=== PATIENT | female | born 1930 | race African-American/Black ===

== ENCOUNTER 2016-09-10 17:01 | Inpatient (IN) | payer OTHER ==
[2016-09-10] MEDS ORDERED: SODIUM CHLORIDE 1,000 ML IV STA ×2 (17:53→21:16)
[2016-09-10] MEDS ORDERED: ONDANSETRON 4 MG/2 ML VIAL ONE (18:05)
[2016-09-10 18:22] LABS: BASOPHIL 0.1 % (0-2.0); EOSINOPHIL 0.2 % (0-4.5); MCH 27.9 pg (25.7-33.7); MCHC 31.8 g/dl (32.0-36.0); MEAN CELL VOLUME 87.8 fl (80-96); MEAN PLT VOLUME 8.9 fl (7.5-11.1); NEUTROPHILS 87.6 % (42.8-82.8); PLATELET COUNT 399 K/MM3 (134-434); RDW 19.2 % (11.6-15.6); WHITE BLOOD COUNT 17.8 K/mm3 (4.0-10.0)
[2016-09-10] MEDS ORDERED: SODIUM CHLORIDE 500 ML IV STA (18:44)
--- NOTE | 2016-09-10 18:47 | PDOC ---
History of Present Illness - General History Source: Patient Exam Limitations: No Limitations - History of Present Illness Initial Comments: 09/10/16 19:01 The patient is a 85 year old female, with a significant past medical history of Aortic Valve disorder, anemia, COPD, CHF, CVA, CAD s/p stents, HTN, Hypercholesterolemia, ovarian ca who presents to the emergency department via EMS from [facility] with nausea, vomiting, constipation and abdominal distention. She reports 3 episodes of vomiting today and 5 days of constipation. The patient denies any chest pain, cough, diaphoresis, chest palpitations diarrhea. Allergies: NKA Past surgical history: Right hip replacement and Cardiac stents placed Social history: None PCP: Dr. Roman <Asia Wall - Last Filed: 09/10/16 19:02> <Brandon Anguiano - Last Filed: 09/10/16 22:25> - General Chief Complaint: Pain Stated Complaint: SBO, HYPOTENSION Time Seen by Provider: 09/10/16 17:47 Past History <Asia Wall - Last Filed: 09/10/16 19:02> - Past Medical History Anemia: Yes Cancer: Yes (Ovary & uterine Adnexa) Cardiac Disorders: Yes (aortic valve disorder) CVA: Yes COPD: Yes CHF: Yes HTN: Yes Hypercholesterolemia: Yes - Surgical History Abdominal Surgery: Yes Cardiac Surgery: Yes (stents x 2) Lung Surgery: No Orthopedic Surgery: Yes (right hip replacement) - Immunization History Immunization Up to Date: Yes - Psycho/Social/Smoking Cessation Hx Anxiety: No Suicidal Ideation: No Smoking History: Former smoker Have you smoked in the past 12 months: No Number of Cigarettes Smoked Daily: 0 Information on smoking cessation initiated: No Hx Alcohol Use: No Drug/Substance Use Hx: No Substance Use Type: None Hx Substance Use Treatment: No <Brandon Anguiano - Last Filed: 09/10/16 22:25> - Past Medical History Allergies/Adverse Reactions: Allergies Allergy/AdvReac Type Severity Reaction Status Date / Time No Known Allergies Allergy Verified 12/13/15 17:55 Home Medications: Ambulatory Orders Aa/Hydrolyzed Collagen, Whey [Lps Neutral Flavor Liquid] 30 ml PO BID 12/13/15 Acetaminophen [Pain Relief] 650 mg PO Q4H 12/13/15 Ascorbic Acid [Vitamin C] 500 mg PO DAILY 12/13/15 Aspirin [ASA -] 81 mg PO DAILY 12/13/15 Lisinopril [Zestril] 5 mg PO DAILY 12/13/15 Multivitamin [Zoo Chews] 1 each PO DAILY 12/13/15 Oxybutynin Chloride 10 mg PO DAILY 12/13/15 Hydralazine HCl 50 mg PO DAILY 09/10/16 Menthol/Zinc Oxide [Calmoseptine Ointment] 71 gm TP DAILY 09/10/16 Metoclopramide HCl [Reglan] 5 mg PO TID PRN 09/10/16 Nifedipine [Nifedipine ER] 60 mg PO DAILY 09/10/16 Polyethylene Glycol 3350 [Miralax (For Daily Use) -] 17 gm PO DAILY PRN Review of Systems - Review of Systems Able to Perform ROS?: Yes Comments:: 09/10/16 19:01 CONSTITUTIONAL: No fever, no chills, no fatigue EYES: No visual changes ENT: No ear pain, no sore throat CARDIOVASCULAR: No chest pain, no palpitations RESPIRATORY: No cough, no SOB GI: (+)nausea, vomiting, abdominal distention, abdominal pain, constipation. no diarrhea GENITOURINARY: No dysuria, no frequency, no hematuria MUSCULOSKELETAL: No back pain, no joint pain, no myalgias SKIN: No rash NEURO: No headache <Asia Wall - Last Filed: 09/10/16 19:02> *Physical Exam - Vital Signs Last Vital Signs Temp Pulse Resp BP Pulse Ox 97.1 F L 69 26 H 107/67 97 09/10/16 17:28 09/10/16 18:52 09/10/16 18:52 09/10/16 18:52 09/10/16 18:52 <Asia Wall - Last Filed: 09/10/16 19:02> - Vital Signs Last Vital Signs Temp Pulse Resp BP Pulse Ox 97.1 F L 70 20 90/69 89 L 09/10/16 17:28 09/10/16 17:28 09/10/16 17:28 09/10/16 17:28 09/10/16 17:28 - Physical Exam Comments: 09/10/16 18:42 EXAMINATION CONSTITUTIONAL: Awake and alert, well-nourished, in moderate distress HEAD: Normocephalic; atraumatic EYES: PERRL; EOM intact; no scleral icterus; conjunctivae were pink; ENMT: External appears normal; mucous membranes are dry; NECK: Supple; non-tender; no JVD CARD: Normal S1, S2; no murmurs, rubs, or gallops RESP: Normal chest excursion with respiration; breath sounds clear and equal bilaterally; no wheezes, rhonchi, or rales ABD: Soft, distended; + diffusely tender to palpation all 4 quadrants; tympanitic; with hyperactive bowel sounds in all 4 quadrants; no palpable organomegaly, no palpable hernias EXT: No edema; limited range of motion at the right hip; distal pulses intact SKIN: Warm, dry, no rash NEURO: No focal neurological deficiencies. <Brandon Anguiano - Last Filed: 09/10/16 22:25> Heart Score/ECG Review #1 09/10/16 19:02 Atrial-sensed ventricular paced rhythm with prolonged AV conduction Abnormal ECG Vent rate 70 <Asia Wall - Last Filed: 09/10/16 19:02> ED Treatment Course - LABORATORY CBC & Chemistry Diagram: 09/10/16 17:35 09/10/16 17:29 - ADDITIONAL ORDERS Additional order review: 09/10/16 17:35 RBC 4.01 MCV 87.8 MCHC 31.8 L RDW 19.2 H D MPV 8.9 Neutrophils % 87.6 H D Lymphocytes % 5.3 L D Monocytes % 6.8 Eosinophils % 0.2 D Basophils % 0.1 - Medications Given in the ED: ED Medications Discontinued Medications Generic Name Dose Route Start Last Admin Trade Name Freq PRN Reason Stop Dose Admin Sodium Chloride 1,000 mls @ 1,000 mls/hr 09/10/16 17:53 09/10/16 18:09 Normal Saline - IV 09/10/16 18:52 1,000 mls/hr ASDIR STA Administration Ondansetron HCl 8 mg 09/10/16 18:55 09/10/16 18:55 Zofran Injection IVPB 09/10/16 18:56 8 mg NOW ONE Administration <Asia Wall - Last Filed: 09/10/16 19:02> - LABORATORY CBC & Chemistry Diagram: 09/10/16 17:35 09/10/16 17:29 - RADIOLOGY Radiology Studies Ordered: Category Date Time Status CHEST X-RAY PORTABLE* [RAD] Stat Radiology 09/10/16 17:48 Taken KUB (KID UR & BLAD) [RAD] Stat Radiology 09/10/16 17:48 Taken <Brandon Anguiano - Last Filed: 09/10/16 22:25> Medical Decision Making - Medical Decision Making 09/10/16 18:44 KUB revealed dilated loops of small bowel with significant abdominal distention suggestive an SBO. NG tube was placed and approximately 2200 mL of fecaloid material was aspirated. Will obtain CT that and pelvis with by mouth contrast to evaluate for small bowel obstruction. 09/10/16 21:43 CT of abdomen and pelvis reveals fluid and air filled dilated loops of small bowel with a transition zone in the right lower quadrant consistent with an SBO. No mass lesions are identified. Patient's received 2000 male of normal saline, while NG tube suctioning has aspirated approximately 3700 mL of fecaloid material. Will continue to aggressively resuscitate the patient. cbc reveals significant leukocytosis with neutrophilia. CMP reveals worsening renal fx, c/w ARF, likley prerenal. Initial lactic acid was noted to be 4. Repeat lactic acid is minimally decreased. Case discussed with Dr. Larson of surgery. He'll evaluate the patient. I also spoke with the patient's granddaughter thom Cobos, who is the patient's healthcare Proxy. She agrees with the plan of care at this time. Will continue to fluid resuscitate. Patient has received IV antibiotics. Will admit to med/surge. 09/10/16 22:23 Patient is receiving third liter of normal saline at this time. NG suction has aspirated additional 500 mL of fecal-like material. We'll continue to hydrate. At this time, no significant urine output has been produced. <Brandon Anguiano - Last Filed: 09/10/16 22:25> *DC/Admit/Observation/Transfer - Attestations Scribe Attestion: 09/10/16 19:01 Documentation prepared by THALIA Oliva, acting as emergency medical service manager for Brandon Anguiano MD. <Asia Wall - Last Filed: 09/10/16 19:02> - Discharge Dispostion Admit: Yes - Attestations Physician Attestion: 09/10/16 21:40 The documentation was prepared by the scribe under my direct supervision. I have reviewed the documentation which correctly represents the findings, medical decision-making and critical action taken by me. <Brandon Anguiano - Last Filed: 09/10/16 22:25> Diagnosis at time of Disposition: Small bowel obstruction due to adhesions - Referrals Referrals: Dulce Roman MD [Primary Care Provider] -
[2016-09-10] MEDS ORDERED: ONDANSETRON 4 MG/2 ML VIAL IVPB ONE (18:55)
[2016-09-10 19:03] LABS: ALBUMIN 2.8 g/dl (3.4-5.0); BILIRUBIN,TOTAL 0.6 mg/dL (0.2-1.0); CALCIUM 9.7 mg/dL (8.5-10.1); COCKROFT - GAULT 16.7195; CREATININE 3.1 mg/dL (0.55-1.02); TOT PROT 9.2 g/dl (6.4-8.2)
[2016-09-10] MEDS ORDERED: PIPERACILLIN/TAZOB 3.375 GM/50 ML PRE-DOCKED IV ONE (19:03)
[2016-09-10] MEDS ORDERED: PIPERACILLIN/TAZOB 3.375 GM 50 ML IVPB ONE (19:10)
[2016-09-10 19:18] LABS: INR 1.16 (0.82-1.09); PROTHROMBIN TIME (PATIENT) 12.8 SEC (9.98-11.88)
[2016-09-10 19:19] LABS: TROPONIN I 0.7 ng/ml (0.00-0.05)
[2016-09-10 19:54] LABS: URINE APPEARANCE TURBID; URINE BILIRUBIN NEGATIVE (NEGATIVE); URINE BLOOD NEGATIVE (NEGATIVE); URINE COLOR YELLOW; URINE GLUCOSE (UA) NEGATIVE (NEGATIVE); URINE KETONE NEGATIVE (NEGATIVE); URINE NITRITE NEGATIVE (NEGATIVE); URINE UROBILINOGEN 2.0 E.U/dl E.U./dl (0.2-1.0)
[2016-09-10 19:57] LABS: URINE LEUK ESTERASE 2+ (NEGATIVE); URINE PROTEIN 2+ (NEGATIVE)
[2016-09-10] MEDS ORDERED: SODIUM CHLORIDE 1,000 ML IV SCH ×3 (20:15→23:03)
[2016-09-10 20:17] LABS: URINE BACTERIA MANY /hpf (NONE SEEN); URINE MUCUS FEW; URINE RBC 42 /hpf (0-3); URINE WBC 530 /hpf (3-5); YEAST MANY
--- NOTE | 2016-09-10 21:25 | HP ---
CHIEF COMPLAINT: Nausea, Vomiting, Abdominal Distention, Constipation PCP: Dr. Dulce Roman HISTORY OF PRESENT ILLNESS: This is a 85 y/o woman with a significant medical history of CVA, CAD (?PAF), HTN, Aortic Valve Disorder, HLD, [place], Anemia, CKD, COPD (Former Smoker, quit 40 yrs ago), GI Bleed, Ovarian Ca, Hemiparesis. Sent in from [facility] for N/V x 3days, constipation x 5days, abdominal distention. Patient had abdominal xray earlier today- dilated loops. Patient denies fever, chills, cough , SOB, CP, AP, diarrhea ER course was notable for: (1) KUB- dilated loops (2) CTAP- fluid/air distended small bowel loops- SBO (3) WBC 17.8 Recent Travel: None PAST MEDICAL HISTORY: See HPI PAST SURGICAL HISTORY: Pacemaker Cardiac Stent Carotid Endarterectomy Hysterectomy Tubal Ligation Right Hip Replacement Social History: Smoking: Former, over 40 yrs ago Alcohol: None Drugs: None Resides in [facility], non-ambulatory Family History: Unknown Allergies No Known Allergies Allergy (Verified 12/13/15 17:55) HOME MEDICATIONS: Home Medications Medication Instructions Recorded Aa/Hydrolyzed Collagen, Whey [Lps 30 ml PO BID 12/13/15 Neutral Flavor Liquid] Acetaminophen [Pain Relief] 650 mg PO Q4H 12/13/15 Ascorbic Acid [Vitamin C] 500 mg PO DAILY 12/13/15 Aspirin [ASA -] 81 mg PO DAILY 12/13/15 Lisinopril [Zestril] 5 mg PO DAILY 12/13/15 Multivitamin [Zoo Chews] 1 each PO DAILY 12/13/15 Oxybutynin Chloride 10 mg PO DAILY 12/13/15 Hydralazine HCl 50 mg PO DAILY 09/10/16 Menthol/Zinc Oxide [Calmoseptine 71 gm TP DAILY 09/10/16 Ointment] Metoclopramide HCl [Reglan] 5 mg PO TID PRN 09/10/16 Nifedipine [Nifedipine ER] 60 mg PO DAILY 09/10/16 Polyethylene Glycol 3350 [Miralax 17 gm PO DAILY PRN 09/10/16 (For Daily Use) -] REVIEW OF SYSTEMS CONSTITUTIONAL: Absent: fever, chills, diaphoresis, generalized weakness, malaise, loss of appetite, weight change HEENT: Absent: rhinorrhea, nasal congestion, throat pain, throat swelling, difficulty swallowing, mouth swelling, ear pain, eye pain, visual changes CARDIOVASCULAR: Absent: chest pain, syncope, palpitations, irregular heart rate, lightheadedness , peripheral edema RESPIRATORY: Absent: cough, shortness of breath, dyspnea with exertion, orthopnea, wheezing, stridor, hemoptysis GASTROINTESTINAL: abdominal distension, nausea, vomiting, constipation Absent: abdominal pain, diarrhea, melena, hematochezia GENITOURINARY: Absent: dysuria, frequency, urgency, hesitancy, hematuria, flank pain, genital pain MUSCULOSKELETAL: Absent: myalgia, arthralgia, joint swelling, back pain, neck pain SKIN: Absent: rash, itching, pallor HEMATOLOGIC/IMMUNOLOGIC: Absent: easy bleeding, easy bruising, lymphadenopathy, frequent infections ENDOCRINE: Absent: unexplained weight gain, unexplained weight loss, heat intolerance, cold intolerance NEUROLOGIC: Absent: headache, focal weakness or paresthesias, dizziness, unsteady gait, seizure, mental status changes, bladder or bowel incontinence PSYCHIATRIC: Absent: anxiety, depression, suicidal or homicidal ideation, hallucinations. PHYSICAL EXAMINATION Vital Signs - 24 hr 09/10/16 09/10/16 09/10/16 17:28 18:52 20:08 Temperature 97.1 F L Pulse Rate 70 Pulse Rate [ 69 71 Apical] Respiratory 20 26 H 24 Rate Blood Pressure 90/69 Blood Pressure 107/67 110/60 [Right Arm] O2 Sat by Pulse 89 L 97 96 Oximetry (%) GENERAL: Awake, alert, and fully oriented, in no acute distress. HEAD: Normal with no signs of trauma. EYES: Pupils equal, round and reactive to light, extraocular movements intact, sclera anicteric, conjunctiva clear. No lid lag. EARS, NOSE, THROAT: Dry mucous membranes. NGT to right nare. Ears normal, nares patent, oropharynx clear without exudates. NECK: Normal range of motion, supple without lymphadenopathy, JVD, or masses. LUNGS: Breath sounds equal, clear to auscultation bilaterally. No wheezes, and no crackles. No accessory muscle use. HEART: Regular rate and rhythm, normal S1 and S2 without murmur, rub or gallop. ABDOMEN: Firm, tenderness to RUQ to palpation, distended, hypoactive bowel sounds, no guarding, no rebound, no masses. No hepatomegaly or splenomegaly. GENITOURINARY: Stokes catheter with 30cc dark brown urine drainage bag MUSCULOSKELETAL: Limited range of motion LUE/LLE joints, contracture to RLE. No bony deformities or tenderness. No CVA tenderness. UPPER EXTREMITIES: 2+ pulses, warm, well-perfused. No cyanosis. No clubbing. No peripheral edema. LOWER EXTREMITIES: +1/2 R >L pulses, right extremity cool to touch. No calf tenderness. No peripheral edema. NEUROLOGICAL: Cranial nerves II-XII intact. Normal speech. Gait not assessed- non ambulatory. PSYCHIATRIC: Cooperative. Good eye contact. Appropriate mood and affect. SKIN: Warm, dry, normal turgor, no rashes. Stage II pressure ulcers, left buttock healed 4.3cm, right buttock 9.5x 14cm noted, normal capillary refill. Laboratory Results - last 24 hr 09/10/16 09/10/16 09/10/16 17:29 17:29 17:29 WBC RBC Hgb Hct MCV MCHC RDW Plt Count MPV Neutrophils % Lymphocytes % Monocytes % Eosinophils % Basophils % INR 1.16 H Sodium 139 Potassium 5.0 Chloride 86 L D Carbon Dioxide 35 H D Anion Gap 18 H BUN 69 H D Creatinine 3.1 H D Creat Clearance w eGFR 14.28 Random Glucose 125 H D Lactic Acid Calcium 9.7 Total Bilirubin 0.6 D AST 25 D ALT 18 D Alkaline Phosphatase 102 D Creatine Kinase 94 Troponin I 0.70 H* Total Protein 9.2 H Albumin 2.8 L Urine Color Urine Appearance Urine pH Urine Protein Urine Glucose (UA) Urine Ketones Urine Blood Urine Nitrite Urine Bilirubin Urine Urobilinogen Ur Leukocyte Esterase Urine RBC Urine WBC Ur Epithelial Cells Urine Bacteria Urine Mucus Urine Yeast Blood Type O POSITIVE Antibody Screen Negative 09/10/16 09/10/16 09/10/16 17:35 17:48 18:52 WBC 17.8 H D RBC 4.01 Hgb 11.2 Hct 35.2 MCV 87.8 MCHC 31.8 L RDW 19.2 H D Plt Count 399 D MPV 8.9 Neutrophils % 87.6 H D Lymphocytes % 5.3 L D Monocytes % 6.8 Eosinophils % 0.2 D Basophils % 0.1 INR Sodium Potassium Chloride Carbon Dioxide Anion Gap BUN Creatinine Creat Clearance w eGFR Random Glucose Lactic Acid 4.0 H* Calcium Total Bilirubin AST ALT Alkaline Phosphatase Creatine Kinase Troponin I Total Protein Albumin Urine Color Yellow Urine Appearance Turbid Urine pH 5.0 Urine Protein 2+ H Urine Glucose (UA) Negative Urine Ketones Negative Urine Blood Negative Urine Nitrite Negative Urine Bilirubin Negative Urine Urobilinogen 2.0 e.u/dl H Ur Leukocyte Esterase 2+ H Urine RBC 42 Urine WBC 530 Ur Epithelial Cells Many Urine Bacteria Many Urine Mucus Few Urine Yeast Many Blood Type Antibody Screen Heart Score/ECG Review #1 09/10/16 19:02 Atrial-sensed ventricular paced rhythm with prolonged AV conduction Abnormal ECG Vent rate 70 ASSESSMENT/PLAN: This is a 85 y/o woman with a PMHx of: CVA, CAD(?PAF), HTN, [place], PM, Anemia, COPD , GI Bleed, Ovarian Ca, Cardiac Stent. Admitted for SBO, Acute on Chronic Renal Failure for further evaluation of their emergent condition. Plan: 1. GI: SBO - Likely secondary to adhesions - NGT placed in ED 2L fecal content, now 500ml noted in drainage container. Patient reports feeling better since NGT placement - Appreciate Surgical Consult - WBC with L-shift, afebrile - LA 4.0~3.3 - NS bolus given in ED - Will trend LA until wnl - Continue gentle IVF- concern for fluid overloaded/age related - Zosyn given in ED, will continue - Monitor vitals 2. Acute on Chronic Renal failure - Likely secondary to SBO - Baseline Cr 1.2~1.6, Now 3.1 - Given 3L NS bolus in ED - Will continue IVF - Repeat BMP in am, if not improvement in renal status, consider Nephrology Consult for recommendations - Bladder Scan tonight - Monitor vitals 3. Sepsis - Likely secondary to UTI - Sepsis Criteria Met III - qSOFA 2 - Urine Culture-pending - Blood Cultures x2 ordered - NS bolus given in ED - Will trend lactic acid - Started on Zosyn empirically, will continue - Monitor vitals 4. UTI - Urine Culture- pending - Continue Zosyn renal dosing 5. Lactic Acidemia - See Above 6. Elevated Troponin I - Hx elevated Trop I, likely ischemic demand - Patient denies active chest pain - Serial Enzymes x2 - EKG- reviewed - Consider Cardiology Consult if surgical clearance needed, f/u in outpatient upon d/c 7. Hypertension - Received to ED hypotensive sys BP 90s - Given NS boluses in ED- sys BP 100's - Hold home meds for now, continue to monitor BP 8. COPD - Stable - Chest Xray-reviewed - Duonebs prn - O2 9. Anemia - Hgb to baseline - Transfuse if Hgb < 7.0 10. FEN - NS@63cc/hr - Replete lytes prn - NPO 11. DVT Prophylaxis - SCDs - Heparin SQ (monitor H/H closely) Code Status: DNR, Living Will, HCP- Teresa Anderson, grand-daughter ([phone]) Dispo: Requires Inpatient Care Problem List - Problem (1) Small bowel obstruction due to adhesions Code(s): K56.5 - INTESTINAL ADHESIONS W OBST (POSTPROCEDURAL) (POSTINFECTION) (2) Elevated troponin Code(s): R79.89 - OTHER SPECIFIED ABNORMAL FINDINGS OF BLOOD CHEMISTRY (3) Acute kidney injury superimposed on chronic kidney disease Code(s): N17.9 - ACUTE KIDNEY FAILURE, UNSPECIFIED N18.9 - CHRONIC KIDNEY DISEASE, UNSPECIFIED (4) Hypotension Code(s): I95.9 - HYPOTENSION, UNSPECIFIED (5) Hypertension Code(s): I10 - ESSENTIAL (PRIMARY) HYPERTENSION (6) CAD (coronary artery disease) Code(s): I25.10 - ATHSCL HEART DISEASE OF [place] CORONARY ARTERY W/O ANG PCTRS (7) HLD (hyperlipidemia) Code(s): E78.5 - HYPERLIPIDEMIA, UNSPECIFIED (8) Anemia Code(s): D64.9 - ANEMIA, UNSPECIFIED (9) COPD (chronic obstructive pulmonary disease) Code(s): J44.9 - CHRONIC OBSTRUCTIVE PULMONARY DISEASE, UNSPECIFIED (10) Type II diabetes mellitus Code(s): E11.9 - TYPE 2 DIABETES MELLITUS WITHOUT COMPLICATIONS (11) H/O ovarian cancer Code(s): Z85.43 - PERSONAL HISTORY OF MALIGNANT NEOPLASM OF [place] (12) DVT prophylaxis Code(s): FJA2462 - Visit type - Emergency Visit Emergency Visit: Yes ED Registration Date: 09/10/16 Care time: The patient presented to the Emergency Department on the above date and was hospitalized for further evaluation of their emergent condition. - New Patient This patient is new to me today: Yes Date on this admission: 09/10/16 - Critical Care Critical Care patient: No
[2016-09-10] MEDS ORDERED: ONDANSETRON 4 MG/2 ML VIAL IVPUSH PRN (21:38)
[2016-09-10] MEDS ORDERED: HEPARIN NA (PORCINE) 5,000 UNITS/ML 1ML VIAL SQ SCH (22:00)
[2016-09-11] MEDS ORDERED: PIPERACILLIN/TAZOB 2.25 GM/50 ML PRE-DOCKED BAG IVPB ONE (02:00)
[2016-09-11] MEDS ORDERED: PIPERACILLIN/TAZOB 2.25 GM 2.25 GM in DEXTROSE 5%-WATER - 50 ML IVPB SCH ×2 (02:00→10:00)
[2016-09-11 03:37] LABS: TROPONIN I 0.65 ng/ml (0.00-0.05)
[2016-09-11] MEDS ORDERED: SODIUM CHLORIDE 250 ML IV STA (06:17)
[2016-09-11] MEDS ORDERED: SODIUM CHLORIDE 500 ML IV STA (06:25)
--- NOTE | 2016-09-11 06:55 | HOSP ---
Subjective - Review of Symptoms Events since last encounter: Hospital Encounter Notified by primary RN of the patient's BP 89/38, after 3.5L NS bolus, with minimal urine output. Concern for worsening Sepsis Discussed case with Dr. Frost, who accepted the patient for ICU Informed the primary RN, Nursing Back Padder of the transfer order Ordered NS Bolus 500cc Physical Examination Vital Signs: Vital Signs Temperature 100 F H 09/11/16 03:16 Pulse Rate 74 09/11/16 03:16 Respiratory Rate 20 09/11/16 03:16 Blood Pressure 97/38 09/11/16 03:16 O2 Sat by Pulse Oximetry (%) 99 09/10/16 23:50 Constitutional: Yes: No Distress, Calm, Obese Eyes: Yes: Conjunctiva Clear, PERRL HENT: Yes: WNL, Atraumatic, Normocephalic Neck: Yes: WNL, Supple, Trachea Midline Cardiovascular: Yes: Pulse Irregular (PM), S1, S2 Respiratory: Yes: On Nasal O2, Rhonchi (to apex) Gastrointestinal: Yes: Distention, Hypoactive Bowel Sounds, Other (NGT to low suction with fecal content 1000ml) Renal/: Yes: Stokes Present (dark brown urine 50cc noted in drainage bag) Edema: No Peripheral Pulses WNL: Yes Neurological: Yes: Alert, Oriented Psychiatric: Yes: WNL, Alert, Oriented Labs: Laboratory Results - last 24 hr 09/10/16 09/10/16 09/10/16 17:29 17:29 17:29 WBC RBC Hgb Hct MCV MCHC RDW Plt Count MPV Neutrophils % Lymphocytes % Monocytes % Eosinophils % Basophils % INR 1.16 H Sodium 139 Potassium 5.0 Chloride 86 L D Carbon Dioxide 35 H D Anion Gap 18 H BUN 69 H D Creatinine 3.1 H D Creat Clearance w eGFR 14.28 Random Glucose 125 H D Lactic Acid Calcium 9.7 Total Bilirubin 0.6 D AST 25 D ALT 18 D Alkaline Phosphatase 102 D Creatine Kinase 94 Troponin I 0.70 H* Total Protein 9.2 H Albumin 2.8 L Urine Color Urine Appearance Urine pH Ur Specific [place] Urine Protein Urine Glucose (UA) Urine Ketones Urine Blood Urine Nitrite Urine Bilirubin Urine Urobilinogen Ur Leukocyte Esterase Urine RBC Urine WBC Ur Epithelial Cells Urine Bacteria Urine Mucus Urine Yeast Blood Type O POSITIVE Antibody Screen Negative 09/10/16 09/10/16 09/10/16 17:35 17:48 18:52 WBC 17.8 H D RBC 4.01 Hgb 11.2 Hct 35.2 MCV 87.8 MCHC 31.8 L RDW 19.2 H D Plt Count 399 D MPV 8.9 Neutrophils % 87.6 H D Lymphocytes % 5.3 L D Monocytes % 6.8 Eosinophils % 0.2 D Basophils % 0.1 INR Sodium Potassium Chloride Carbon Dioxide Anion Gap BUN Creatinine Creat Clearance w eGFR Random Glucose Lactic Acid 4.0 H* Calcium Total Bilirubin AST ALT Alkaline Phosphatase Creatine Kinase Troponin I Total Protein Albumin Urine Color Yellow Urine Appearance Turbid Urine pH 5.0 Ur Specific [place] 1.015 Urine Protein 2+ H Urine Glucose (UA) Negative Urine Ketones Negative Urine Blood Negative Urine Nitrite Negative Urine Bilirubin Negative Urine Urobilinogen 2.0 e.u/dl H Ur Leukocyte Esterase 2+ H Urine RBC 42 Urine WBC 530 Ur Epithelial Cells Many Urine Bacteria Many Urine Mucus Few Urine Yeast Many Blood Type Antibody Screen 09/10/16 09/11/16 09/11/16 20:41 01:15 01:35 WBC RBC Hgb Hct MCV MCHC RDW Plt Count MPV Neutrophils % Lymphocytes % Monocytes % Eosinophils % Basophils % INR Sodium Potassium Chloride Carbon Dioxide Anion Gap BUN Creatinine Creat Clearance w eGFR Random Glucose Lactic Acid 3.3 H* 2.0 Calcium Total Bilirubin AST ALT Alkaline Phosphatase Creatine Kinase 117 Troponin I 0.65 H* Total Protein Albumin Urine Color Urine Appearance Urine pH Ur Specific [place] Urine Protein Urine Glucose (UA) Urine Ketones Urine Blood Urine Nitrite Urine Bilirubin Urine Urobilinogen Ur Leukocyte Esterase Urine RBC Urine WBC Ur Epithelial Cells Urine Bacteria Urine Mucus Urine Yeast Blood Type Antibody Screen Current Medications Generic Name Dose Route Start Last Admin Trade Name Freq PRN Reason Stop Dose Admin Heparin Sodium (Porcine) 5,000 unit 09/10/16 22:00 09/11/16 01:55 Heparin - SQ Not Given BID ELSIE Sodium Chloride 1,000 mls @ 63 mls/hr 09/10/16 23:03 09/11/16 02:08 Normal Saline - IV 63 mls/hr ASDIR ELSIE Administration Piperacillin Sod/Tazobactam 50 mls @ 100 mls/hr 09/11/16 02:00 Sod 2.25 gm/ Dextrose IVPB Q8H-IV ELSIE Protocol Sodium Chloride 500 mls @ 500 mls/hr 09/11/16 06:25 Normal Saline - IV 09/11/16 07:24 ASDIR STA Ondansetron HCl 4 mg 09/10/16 21:38 Zofran Injection IVPUSH Q6H PRN NAUSEA AND/OR VOMITING Hospitalist Encounter Recommendations/Interventions: Appreciate Nephrology Consult, Cardiology Consult, Hand Drawer In Consult Critical Care Total Critical Care Time (in minutes): 35 Critical Care Statement: The care of this patient involved high complexity decision making to prevent further life threatening deterioration of the patient 's condition and/or to evalute & treat vital organ system(s) failure or risk of failure.
[2016-09-11 07:39] VITALS: BMI 34.5
[2016-09-11 07:40] LABS: BASOPHIL 0.3 % (0-2.0); MCH 28.8 pg (25.7-33.7); MCHC 32.6 g/dl (32.0-36.0); MEAN CELL VOLUME 88.3 fl (80-96); MEAN PLT VOLUME 8.3 fl (7.5-11.1); NEUTROPHILS 88.8 % (42.8-82.8); PLATELET COUNT 279 K/MM3 (134-434); RDW 18.8 % (11.6-15.6); WHITE BLOOD COUNT 16.4 K/mm3 (4.0-10.0)
[2016-09-11] MEDS ORDERED: SODIUM CHLORIDE 1,000 ML IV SCH ×2 (07:50→10:50)
[2016-09-11] MEDS ORDERED: ONDANSETRON 4 MG/2 ML VIAL IVPUSH PRN (07:50)
[2016-09-11] MEDS ORDERED: ALBUTEROL SO4 2.5/IPRATROPIUM 0.5 INH SOL 3 ML VIAL.NEB. NEB PRN (08:13)
[2016-09-11 08:16] LABS: CALCIUM 8.1 mg/dL (8.5-10.1); COCKROFT - GAULT 13.7105; CREATININE 3.8 mg/dL (0.55-1.02); PHOSPHOROUS 5.5 mg/dL (2.5-4.9)
--- NOTE | 2016-09-11 08:51 | CONSULT ---
Consultation: REQUESTING PROVIDER: Lacey CONSULT REQUEST: We have been asked to medically evaluate this patient for small bowel obstruction & hypotension. HISTORY OF PRESENT ILLNESS: Patient is an 85 year old female with significant PMH of CVA w/ hemiparesis, CAD (?A-Fib), HTN, Aortic valve bioprosthetic, AR s/p stents, Anemia, GIB, CKD, COPD (former smoker), Ovarian Cancer who presented to ED from [facility] for nausea/ vomiting for last 3 days and constipation for last 5 days. Found to have dilated loops of bowel on KUB. CT abdomen/pelvis performed with showed small bowel obstruction. Patient also found with leukocytosis 17.8. PARIS with creatinine 3.1and with elevated lactic acid of 4.0. She also had an elevated troponin of 0.70 at admission. Urinalysis showed 2+ leukocyte esterase with >500 WBC. Patient initially admitted to [facility] for surgical consult, antibiotic administration & IVF hydration. This morning patient was noted to be hypotensive to 89/38 w/ poor urine output. This was despite 3.5L IVF given earlier. Decision made to transfer to ICU. REVIEW OF SYSTEMS: CONSTITUTIONAL: Absent: fever, chills, diaphoresis, generalized weakness, malaise, loss of appetite, weight change HEENT: Absent: rhinorrhea, nasal congestion, throat pain, throat swelling, difficulty swallowing, mouth swelling, ear pain, eye pain, visual changes CARDIOVASCULAR: Absent: chest pain, syncope, palpitations, irregular heart rate, lightheadedness , peripheral edema RESPIRATORY: Absent: cough, shortness of breath, dyspnea with exertion, orthopnea, wheezing, stridor, hemoptysis GASTROINTESTINAL: (+)abdominal pain, abdominal distension, nausea, constipation Absent: diarrhea, constipation, melena, hematochezia GENITOURINARY: Absent: dysuria, frequency, urgency, hesitancy, hematuria, flank pain, genital pain MUSCULOSKELETAL: Absent: myalgia, arthralgia, joint swelling, back pain, neck pain SKIN: Absent: rash, itching, pallor HEMATOLOGIC/IMMUNOLOGIC: Absent: easy bleeding, easy bruising, lymphadenopathy, frequent infections ENDOCRINE: Absent: unexplained weight gain, unexplained weight loss, heat intolerance, cold intolerance NEUROLOGIC: Absent: headache, focal weakness or paresthesias, dizziness, unsteady gait, seizure, mental status changes, bladder or bowel incontinence PSYCHIATRIC: Absent: anxiety, depression, suicidal or homicidal ideation, hallucinations. PHYSICAL EXAMINATION Vital Signs - 24 hr 09/10/16 09/10/16 09/10/16 21:58 23:14 23:50 Temperature 97.8 F Pulse Rate 72 Pulse Rate [ 71 73 Apical] Respiratory 20 22 Rate Blood Pressure 114/47 Blood Pressure 121/58 106/47 [Right Arm] O2 Sat by Pulse 99 Oximetry (%) 09/11/16 09/11/16 09/11/16 02:31 03:16 06:00 Temperature 100 F H 100 F H 99 F Pulse Rate 74 68 Pulse Rate [ Apical] Respiratory 20 20 Rate Blood Pressure 97/38 89/35 Blood Pressure [Right Arm] O2 Sat by Pulse Oximetry (%) GENERAL: Awake, alert, and fully oriented, in no acute distress. HEENT: Atraumatic, EOMI, PERRLA, No lymphadenopathy noted, dry mucous membranes LUNGS: Breath sounds equal, clear to auscultation bilaterally. No wheezes, and no crackles. No accessory muscle use. HEART: Regular rate and rhythm, normal S1 and S2 without murmur, rub or gallop. ABDOMEN: Soft, mildly tender to palpation diffusely & mildly distended. Hypoactive bowel sounds. No guarding or rebound tenderness. EXTREMITIES: 2+ pulses & warm on left LE, 1+pulses and cool to touch on right LE. No calf tenderness. Trace edema bilateral lower extremities. NEUROLOGICAL: Cranial nerves II-XII intact. Normal speech. Unable to assess gait. PSYCHIATRIC: Cooperative. Good eye contact. Appropriate mood and affect. SKIN: Stage II pressure ulcers, left buttock healed 4.3cm, right buttock 9.5x 14cm noted, normal capillary refill. Laboratory Results - last 24 hr 09/11/16 09/11/16 09/11/16 01:15 01:35 07:12 WBC 16.4 H RBC 3.41 L Hgb 9.8 L D Hct 30.1 L MCV 88.3 MCHC 32.6 RDW 18.8 H Plt Count 279 D MPV 8.3 Neutrophils % 88.8 H Lymphocytes % 3.3 L D Monocytes % 7.6 Eosinophils % 0.0 D Basophils % 0.3 Sodium Potassium Chloride Carbon Dioxide Anion Gap BUN Creatinine Random Glucose Lactic Acid 2.0 Calcium Phosphorus Magnesium Creatine Kinase 117 Troponin I 0.65 H* 09/11/16 09/11/16 07:12 07:12 WBC RBC Hgb Hct MCV MCHC RDW Plt Count MPV Neutrophils % Lymphocytes % Monocytes % Eosinophils % Basophils % Sodium 145 Potassium 4.9 Chloride 94 L Carbon Dioxide 37 H Anion Gap 14 BUN 87 H D Creatinine 3.8 H D Random Glucose 107 H Lactic Acid Calcium 8.1 L Phosphorus 5.5 H Magnesium 3.0 H Creatine Kinase 135 Troponin I Active Medications Generic Name Dose Route Start Last Admin Trade Name Freq PRN Reason Stop Dose Admin Albuterol/Ipratropium 1 amp 09/11/16 08:13 Duoneb - NEB Q6H PRN SHORTNESS OF BREATH Heparin Sodium (Porcine) 5,000 unit 09/11/16 10:00 09/11/16 10:31 Heparin - SQ 5,000 unit BID ELSIE Administration Piperacillin Sod/Tazobactam 50 mls @ 100 mls/hr 09/11/16 10:00 Sod 2.25 gm/ Dextrose IVPB Q8H-IV ELSIE Protocol Sodium Chloride 1,000 mls @ 100 mls/hr 09/11/16 10:50 Normal Saline - IV ASDIR ELSIE Ondansetron HCl 4 mg 09/11/16 07:50 Zofran Injection IVPUSH Q6H PRN NAUSEA AND/OR VOMITING ASSESSMENT/PLAN: 85 year old female with significant PMH of CVA w/ hemiparesis, CAD (?A-Fib), HTN , Aortic valve bioprosthetic, AR s/p stents, Anemia, GIB, CKD, COPD (former smoker), Ovarian Cancer who presented to ED from [facility] with small bowel obstruction & urosepsis. #Small Bowel Obstruction, etiology likely related to adhesions -NG tube with less output this morning (over 2L fecal content in ED) -surgical consult appreciated: family would like to avoid surgical interventions & proceed with medical management -lactic acid improved 4.0-->1.3 -NPO -Zofran for nausea -IVF NS@100 cc/hr for hydration #Acute Urosepsis, w/ Acute On Chronic Kidney Failure (baseline Cr ~1.6) -Zosyn ordered in ED -ID consulted -blood & urine cultures taken & pending -IVF, as above #Elevated Troponins -trending down -likely demand ischemia due to sepsis -will continue to monitor -EKG reviewed -cardiology consult appreciated #COPD -Duonebs QIDR -CXR reviewed #CAD/HTN/Cardiac hx -holding home meds: Aspirin 81mg, Lisinopril 5mg, Oxybutynin 10mg, Hydralazine 50mg, Nifedipine 60mg Prophylaxis/FEN -Heparin 5000 BID -No PPI indicated -IVF NS@100CC/hr -monitor electrolytes -NPO for now Code Status: DNR, Living Will, HCP- Teresa Anderson, grand-daughter ([phone]) Visit type - Emergency Visit Emergency Visit: Yes ED Registration Date: 09/10/16 Care time: The patient presented to the Emergency Department on the above date and was hospitalized for further evaluation of their emergent condition. - New Patient This patient is new to me today: Yes Date on this admission: 09/11/16 - Critical Care Critical Care patient: Yes Total Critical Care Time (in minutes): 45 Critical Care Statement: The care of this patient involved high complexity decision making to prevent further life threatening deterioration of the patient 's condition and/or to evalute & treat vital organ system(s) failure or risk of failure.
[2016-09-11 09:01] LABS: TROPONIN I 0.51 ng/ml (0.00-0.05)
--- NOTE | 2016-09-11 09:46 | EKG ---
Test Reason : Blood Pressure : / mmHG Vent. Rate : 070 BPM Atrial Rate : 070 BPM P-R Int : 276 ms QRS Dur : 150 ms QT Int : 470 ms P-R-T Axes : 058 265 084 degrees QTc Int : 507 ms Atrial-sensed ventricular-paced rhythm with prolonged AV conduction Confirmed by GALEN BAH MD ([id number]) on 09/11/2016 9:45:40 AM Referred By: Confirmed By:GALEN BAH MD
[2016-09-11] MEDS ORDERED: methylPREDNISolone NA SUCC 125 MG/2 ML VIAL ONE (09:51)
--- NOTE | 2016-09-11 10:04 | CONSULT ---
Consult Consult Specialty:: surgery Reason for Consultation:: sbo - History of Present Illness Chief Complaint: abd pain, History of Present Illness: pt is a 85F [place] brought into ER with abd pain and found to have SBO on CT. She has had approx 5 days symptoms. Show comes in with elevated lactate, luekocytosis, ARF and profound electrolyte derangements. Her NGT put out 4000cc yesterday and 1L so far today. Prior to this happening patient was mentally with it and conversant but wheelchair bound. Her stroke was in the 80's. I got this hx from her HCP. - Past Medical History [employer]: Yes: CVA Cardio/Vascular: Yes: CAD (? PAF), HTN, Hyperlipdemia, CA Pulmonary: Yes: COPD, Other (former smoker, quit 40 years ago) Gastrointestinal: Yes: Other (Remote h/o GI bleed, secondary to colon polyps ( per patient)) Musculoskeletal: Yes: Hemiparesis, Other - Past Surgical History Past Surgical History: Yes: Carotid Endarterectomy, Hysterectomy, Joint Replacement, Tubal Ligation - Alcohol/Substance Use Hx Alcohol Use: No History of Substance Use: reports: None - Smoking History Smoking history: Former smoker Have you smoked in the past 12 months: No Aproximately how many cigarettes per day: 0 - Social History Usual Living Arrangement: Assisted Living History of Recent Travel: No Home Medications - Allergies Allergies/Adverse Reactions: Allergies Allergy/AdvReac Type Severity Reaction Status Date / Time No Known Allergies Allergy Verified 12/13/15 17:55 - Home Medications Home Medications: Ambulatory Orders Aa/Hydrolyzed Collagen, Whey [Lps Neutral Flavor Liquid] 30 ml PO BID 12/13/15 Acetaminophen [Pain Relief] 650 mg PO Q4H 12/13/15 Ascorbic Acid [Vitamin C] 500 mg PO DAILY 12/13/15 Aspirin [ASA -] 81 mg PO DAILY 12/13/15 Lisinopril [Zestril] 5 mg PO DAILY 12/13/15 Multivitamin [Zoo Chews] 1 each PO DAILY 12/13/15 Oxybutynin Chloride 10 mg PO DAILY 12/13/15 Hydralazine HCl 50 mg PO DAILY 09/10/16 Menthol/Zinc Oxide [Calmoseptine Ointment] 71 gm TP DAILY 09/10/16 Metoclopramide HCl [Reglan] 5 mg PO TID PRN 09/10/16 Nifedipine [Nifedipine ER] 60 mg PO DAILY 09/10/16 Polyethylene Glycol 3350 [Miralax (For Daily Use) -] 17 gm PO DAILY PRN Review of Systems Unable to obtain ROS, reason: lethargy Physical Exam Vital Signs: Vital Signs Temperature 99 F 09/11/16 06:00 Pulse Rate 68 09/11/16 06:00 Respiratory Rate 20 09/11/16 06:00 Blood Pressure 89/35 09/11/16 06:00 O2 Sat by Pulse Oximetry (%) 99 09/10/16 23:50 Constitutional: Yes: Other (lethargic) Eyes: Yes: Other (open eyes to command) HENT: Yes: Atraumatic, Normocephalic Neck: Yes: Supple, Trachea Midline Cardiovascular: Yes: Regular Rate and Rhythm Respiratory: Yes: Regular Gastrointestinal: Yes: Soft, Distention (min mild, obese. min diffuse tenderness, no rebound.) ...Rectal Exam: Yes: Deferred Renal/: No: CVA Tenderness - Left, CVA Tenderness - Right Musculoskeletal: No: Back Pain, Joint Stiffness Extremities: No: Calf Tenderness, Erythema Integumentary: No: Erythema, Rash Neurological: Yes: Other (follows commands) Psychiatric: Yes: Alert Labs: CBC, BMP 09/11/16 07:12 09/11/16 07:12 Imaging - Results Cat Scan: Report Reviewed, Image Reviewed Problem List - Problems (1) Acute kidney injury superimposed on chronic kidney disease Code(s): N17.9 - ACUTE KIDNEY FAILURE, UNSPECIFIED N18.9 - CHRONIC KIDNEY DISEASE, UNSPECIFIED (2) Anemia Code(s): D64.9 - ANEMIA, UNSPECIFIED (3) H/O ovarian cancer Code(s): Z85.43 - PERSONAL HISTORY OF MALIGNANT NEOPLASM OF OVARY (4) Small bowel obstruction due to adhesions Assessment/Plan: patient would prefer to not have operative intervention. I spoke to HCP and we agree to cont medical management for now. cont NGT and aggressive IVF resusctiation. correct electrolytes consider NGT replacements as well explained pathophysiology of SBO and consequences of operative and nonoperative management to HCP. Code(s): K56.5 - INTESTINAL ADHESIONS W OBST (POSTPROCEDURAL) (POSTINFECTION) (5) PARIS (acute kidney injury) Code(s): N17.9 - ACUTE KIDNEY FAILURE, UNSPECIFIED (6) Non-STEMI (non-ST elevated myocardial infarction) Code(s): I21.4 - NON-ST ELEVATION (NSTEMI) MYOCARDIAL INFARCTION
[2016-09-11] MEDS: HEPARIN NA (PORCINE) 5,000 UNITS/ML 1ML VIAL SQ SCH ×2 (10:31→21:26)
--- NOTE | 2016-09-11 12:02 | CON.CARD ---
Cardiology Consult (text) - Consultation Consultation Note: cc: sent from ct for n/v/abd distention hpi: 85 f hx htn, cva, right cea, ?pafib (per charts, ac stopped in past for gib), cad s/p mi's and remote pci, tavr for several years ago, ppm 12/2015, sent from ct for n/v/abd distention. No cp, sob, palps, dizzy, loc, pnd, orthopnea, le edema. Found to have sepsis, sbo, now with NGT in icu. pmh: per hpi psh: per hpi, hip replacement social: ex tob fam: no premature cad ros: per hpi; no fever, cough, nasal congestion, MATSON, vision changes, rash, wt loss, muscle pain meds: Home Medications Medication Instructions Recorded Aa/Hydrolyzed Collagen, Whey [Lps 30 ml PO BID 12/13/15 Neutral Flavor Liquid] Acetaminophen [Pain Relief] 650 mg PO Q4H 12/13/15 Ascorbic Acid [Vitamin C] 500 mg PO DAILY 12/13/15 Aspirin [ASA -] 81 mg PO DAILY 12/13/15 Lisinopril [Zestril] 5 mg PO DAILY 12/13/15 Multivitamin [Zoo Chews] 1 each PO DAILY 12/13/15 Oxybutynin Chloride 10 mg PO DAILY 12/13/15 Hydralazine HCl 50 mg PO DAILY 09/10/16 Menthol/Zinc Oxide [Calmoseptine 71 gm TP DAILY 09/10/16 Ointment] Metoclopramide HCl [Reglan] 5 mg PO TID PRN 09/10/16 Nifedipine [Nifedipine ER] 60 mg PO DAILY 09/10/16 Polyethylene Glycol 3350 [Miralax 17 gm PO DAILY PRN 09/10/16 (For Daily Use) -] pe: Vital Signs Temp 99 F 09/11/16 06:00 Pulse 68 09/11/16 06:00 Resp 20 09/11/16 09:00 BP 89/35 09/11/16 06:00 Pulse Ox 99 09/11/16 09:00 Intake & Output 09/10/16 09/10/16 09/11/16 11:59 23:59 11:59 Intake Total 500 890 Output Total 4070 1000 Balance -3570 -110 Weight 177 lb Intake: IV 500 890 Normal Saline - 500 ml @ 500 500 mls/hr IV ASDIR STA Rx#:[id number] Normal Saline - 1,000 ml 390 @ 63 mls/hr IV ASDIR ELSIE Rx#:[id number] Normal Saline - 500 ml @ 500 500 mls/hr IV ASDIR STA Rx#:[id number] Output: Gastric Drainage 2200 Drainage 40 1000 NG tube 40 1000 Urine 30 Stokes 30 Emesis 1800 Other: Voiding Method Indwelling Catheter Indwelling Catheter Bowel Movement Yes # Bowel Movements 2 Height 5 ft Body Mass Index (BMI) 34.5 Weight Measurement Method Patient Lift Scale Weight Measurement Method Est/Stated by Patient nad no jvd rrr, s1s2 no mrg cta bl nl eff awake, alert, appropriate no le e/c/c abd mild diff tender, mild distended, decr bs no jaundice diaphoresis pos dp pt, no carotid bruits Laboratory Last Values WBC 16.4 K/mm3 (4.0-10.0) H 09/11/16 07:12 RBC 3.41 M/mm3 (3.60-5.2) L 09/11/16 07:12 Hgb 9.8 GM/dL (10.7-15.3) L D 09/11/16 07:12 Hct 30.1 % (32.4-45.2) L 09/11/16 07:12 MCV 88.3 fl (80-96) 09/11/16 07:12 MCHC 32.6 g/dl (32.0-36.0) 09/11/16 07:12 RDW 18.8 % (11.6-15.6) H 09/11/16 07:12 Plt Count 279 K/MM3 (134-434) D 09/11/16 07:12 MPV 8.3 fl (7.5-11.1) 09/11/16 07:12 Neutrophils % 88.8 % (42.8-82.8) H 09/11/16 07:12 Lymphocytes % 3.3 % (8-40) L D 09/11/16 07:12 Monocytes % 7.6 % (3.8-10.2) 09/11/16 07:12 Eosinophils % 0.0 % (0-4.5) D 09/11/16 07:12 Basophils % 0.3 % (0-2.0) 09/11/16 07:12 INR 1.16 (0.82-1.09) H 09/10/16 17:29 Sodium 145 mmol/L (136-145) 09/11/16 07:12 Potassium 4.9 mmol/L (3.5-5.1) 09/11/16 07:12 Chloride 94 mmol/L (98-107) L 09/11/16 07:12 Carbon Dioxide 37 mmol/L (21-32) H 09/11/16 07:12 Anion Gap 14 (8-16) 09/11/16 07:12 BUN 87 mg/dL (7-18) H D 09/11/16 07:12 Creatinine 3.8 mg/dL (0.55-1.02) H D 09/11/16 07:12 Creat Clearance w eGFR 14.28 (>60) 09/10/16 17:29 Random Glucose 107 mg/dL (74-106) H 09/11/16 07:12 Lactic Acid 1.6 mmol/L (0.4-2.0) 09/11/16 07:45 Calcium 8.1 mg/dL (8.5-10.1) L 09/11/16 07:12 Phosphorus 5.5 mg/dL (2.5-4.9) H 09/11/16 07:12 Magnesium 3.0 mg/dL (1.8-2.4) H 09/11/16 07:12 Total Bilirubin 0.6 mg/dL (0.2-1.0) D 09/10/16 17:29 AST 25 U/L (15-37) D 09/10/16 17:29 ALT 18 U/L (12-78) D 09/10/16 17:29 Alkaline Phosphatase 102 U/L (45-117) D 09/10/16 17:29 Creatine Kinase 135 IU/L (26-192) 09/11/16 07:12 Troponin I 0.51 ng/ml (0.00-0.05) H 09/11/16 07:12 Total Protein 9.2 g/dl (6.4-8.2) H 09/10/16 17:29 Albumin 2.8 g/dl (3.4-5.0) L 09/10/16 17:29 Urine Color Yellow 09/10/16 18:52 Urine Appearance Turbid 09/10/16 18:52 Urine pH 5.0 (5.0-8.0) 09/10/16 18:52 Ur Specific [place] 1.015 (1.005-1.025) 09/10/16 18:52 Urine Protein 2+ (NEGATIVE) H 09/10/16 18:52 Urine Glucose (UA) Negative (NEGATIVE) 09/10/16 18:52 Urine Ketones Negative (NEGATIVE) 09/10/16 18:52 Urine Blood Negative (NEGATIVE) 09/10/16 18:52 Urine Nitrite Negative (NEGATIVE) 09/10/16 18:52 Urine Bilirubin Negative (NEGATIVE) 09/10/16 18:52 Urine Urobilinogen 2.0 e.u/dl E.U./dl (0.2-1.0) H 09/10/16 18:52 Ur Leukocyte Esterase 2+ (NEGATIVE) H 09/10/16 18:52 Urine RBC 42 /hpf (0-3) 09/10/16 18:52 Urine WBC 530 /hpf (3-5) 09/10/16 18:52 Ur Epithelial Cells Many /hpf (FEW) 09/10/16 18:52 Urine Bacteria Many /hpf (NONE SEEN) 09/10/16 18:52 Urine Mucus Few 09/10/16 18:52 Urine Yeast Many 09/10/16 18:52 Blood Type O POSITIVE 09/10/16 17:29 Antibody Screen Negative 09/10/16 17:29 tele: sr, as-svp programmatic tv ecg 09/10/16: sr 70, as-svp programmatic tv cxr: bibasilar atx, no chf echo 06/2014: nl lv/rv, mod tr, rvsp 30-40, nl bio avr est cct 36 mins a/p: 85 f hx htn, cva, right cea, ?pafib (per charts, ac stopped in past for gib), cad s/p mi's and remote pci, tavr for several years ago, ppm 12/2015, sent from ct for n/v/abd distention. sbo, sepsis: -cont ngt -bp low, cont ivfs, abx -has not needed pressors so far ppm: -normal fcn on ecg, tele pos trops: -trop mildly positive with flat trend x3 and nl ckx3. Her prior baseline trop values are similar. Does not seem acs related, likely related to pete, sepsis. -check echo to see if new wma's -monitor on tele pete: -likely related to sepsis, sbo -cont ivfs, abx, monitor cr trend anemia: -hgb below baseline, monitor trend -holding home asa for now htn: -septic with low bp, holding home meds for now ?pafib: -per charts, no specific details available, currently in sr -per pt ac stopped in past for gib -cont home asa when hgb stable tavr: -normal bio avr on prior echo, check updated echo while here cad s/p mi's and remote pci: -plan as above -no anginal sxs -pt declined cath 2014 for nstemi -cont med management, asa, statin, wade, bb when acute issues resolved
--- NOTE | 2016-09-11 13:53 | PN ---
Progress Note (short form) - Note Progress Note: ID Consult dictated Small Bowel Obstruction UTI/ Possible sepsis secondary to UTI Acute renal failure Leukocytosis Lactic acidosis Await sepsis work up Empiric coverage /GI pathogens with Zosyn ICU monitoring Prognosis guarded Critical care time 35min
[2016-09-11] MEDS ORDERED: SODIUM CHLORIDE 1,000 ML IV STA (14:44)
--- NOTE | 2016-09-11 14:48 | PN ---
Teaching Attending Note Name of Resident: Kendrick Borden ATTENDING PHYSICIAN STATEMENT I saw and evaluated the patient. I reviewed the resident's note and discussed the case with the resident. I agree with the resident's findings and plan as documented. SUBJECTIVE: In brief. 85 F, CVA w/ hemiparesis, CAD, questionable history of A-Fib, HTN, Aortic valve bioprosthetic, AMI S/P PCI, Anemia, GI Bleed, CKD, COPD due to previous smoking history, and Ovarian Cancer. Admitted via the ER due to nausea/vomiting for last 3 days and constipation for last 5 days. Imaging revealed dilated loops of bowel on KUB. CT abdomen/pelvis performed with showed small bowel obstruction. Now seen in the ICU. Awake and alert. Reports no change in abdominal pain. Intake & Output 09/08/16 09/09/16 09/10/16 09/11/16 23:59 23:59 23:59 23:59 Intake Total 500 890 Output Total 4070 1000 Balance -3570 -110 Weight 177 lb Last Vital Signs Temp Pulse Resp BP Pulse Ox 98.2 F 65 24 110/53 99 09/11/16 12:00 09/11/16 12:00 09/11/16 12:00 09/11/16 12:00 09/11/16 09:00 Active Medications Albuterol/Ipratropium (Duoneb -) 1 amp NEB Q6H PRN PRN Reason: SHORTNESS OF BREATH Heparin Sodium (Porcine) (Heparin -) 5,000 unit SQ BID ELSIE Last Admin: 09/11/16 10:31 Dose: 5,000 unit Sodium Chloride (Normal Saline -) 1,000 mls @ 100 mls/hr IV ASDIR ELSIE Piperacillin Sod/Tazobactam Sod (Zosyn 2.25gm Ivpb (Pre-Docked)) 50 mls @ 100 mls/hr IVPB Q8H-IV ELSIE PRN Reason: Protocol Ondansetron HCl (Zofran Injection) 4 mg IVPUSH Q6H PRN PRN Reason: NAUSEA AND/OR VOMITING GENERAL: Awake, alert, Mildly uncomfortable due to pain HEENT: (-) Pallor, (-) Icterus, No lymphadenopathy noted, dry mucous membranes LUNGS: Breath sounds equal, clear to auscultation bilaterally. No wheezes, and no crackles. No accessory muscle use. HEART: Regular rate and rhythm, normal S1 and S2 without murmur, rub or gallop. ABDOMEN: Soft, (+) tender to palpation diffusely & mildly distended. Hypoactive bowel sounds. No guarding or rebound tenderness. EXTREMITIES: 2+ pulses & warm on left LE, 1+pulses and cool to touch on right LE. No calf tenderness. Trace edema bilateral lower extremities. NEUROLOGICAL: Cranial nerves II-XII intact. Normal speech. Unable to assess gait. PSYCHIATRIC: Appropriate mood and affect. SKIN: Stage II pressure ulcers, left buttock healed 4.3cm, right buttock 9.5x 14cm noted, normal capillary refill. Laboratory Results - last 24 hr 09/11/16 09/11/16 09/11/16 01:15 01:35 07:12 WBC 16.4 H RBC 3.41 L Hgb 9.8 L D Hct 30.1 L MCV 88.3 MCHC 32.6 RDW 18.8 H Plt Count 279 D MPV 8.3 Neutrophils % 88.8 H Lymphocytes % 3.3 L D Monocytes % 7.6 Eosinophils % 0.0 D Basophils % 0.3 Sodium Potassium Chloride Carbon Dioxide Anion Gap BUN Creatinine Random Glucose Lactic Acid 2.0 Calcium Phosphorus Magnesium Creatine Kinase 117 Troponin I 0.65 H* 09/11/16 09/11/16 07:12 07:12 WBC RBC Hgb Hct MCV MCHC RDW Plt Count MPV Neutrophils % Lymphocytes % Monocytes % Eosinophils % Basophils % Sodium 145 Potassium 4.9 Chloride 94 L Carbon Dioxide 37 H Anion Gap 14 BUN 87 H D Creatinine 3.8 H D Random Glucose 107 H Lactic Acid Calcium 8.1 L Phosphorus 5.5 H Magnesium 3.0 H Creatine Kinase 135 Troponin I ASSESSMENT/PLAN: SBO possibly related to adhesions. CVA w/ hemiparesis CAD A-Fib by history HTN Aortic valve bioprosthetic GA S/P PCI Anemia GI Bleed CKD COPD Ovarian Cancer Sepsis Acute on CKD Aggressive IVF resuscitation Strict I&O O2 as needed Pain control Broad BX per ID VTE prophylaxis BD TX PRN ICU Monitoring Agree with surgical consult that medical management at this point is most reasonable. Dr Thompson Critical care time spent in reviewing chart, evaluating patient and formulating plan 35 min
--- NOTE | 2016-09-11 15:04 | CONSULT ---
Consult Consult Specialty:: Nephrology Reason for Consultation:: [place] - History of Present Illness Chief Complaint: abdominal pain History of Present Illness: Pt is an 85 year old female with pmhx of anemia, CHF, CAD with cardiac stents, CVA, HTN, ovarian cancer and hyperlipidemia who was [place] in from the [place] for abdominal pain, nausea and vomitting. She had several episodes of vomiting along with constipation. I was called to evaluate her for [place]. She is accompanies by her son who assisted with the history. She denies history of CKD or renal failure in the past. She was found to have SBO and admitted to the ICU. She says her legs are usually swollen however she feels they are as skinny as she has ever seen them. She denies nsaid use. She denies chest pain. She was hypotensive last night. - History Source History Provided By: Patient, Family Member, Medical Record - Past Medical History [employer]: Yes: CVA Cardio/Vascular: Yes: CAD (? PAF), HTN, Hyperlipdemia, [place] Pulmonary: Yes: COPD, Other (former smoker, quit 40 years ago) Gastrointestinal: Yes: Other (Remote h/o GI bleed, secondary to colon polyps ( per patient)) Musculoskeletal: Yes: Hemiparesis, Other - Past Surgical History Past Surgical History: Yes: Carotid Endarterectomy, Hysterectomy, Joint Replacement, Tubal Ligation - Alcohol/Substance Use Hx Alcohol Use: No History of Substance Use: reports: None - Smoking History Smoking history: Former smoker Have you smoked in the past 12 months: No Aproximately how many cigarettes per day: 0 - Social History Usual Living Arrangement: Assisted Living History of Recent Travel: No Home Medications - Allergies Allergies/Adverse Reactions: Allergies Allergy/AdvReac Type Severity Reaction Status Date / Time No Known Allergies Allergy Verified 12/13/15 17:55 - Home Medications Home Medications: Ambulatory Orders Aa/Hydrolyzed Collagen, Whey [Lps Neutral Flavor Liquid] 30 ml PO BID 12/13/15 Acetaminophen [Pain Relief] 650 mg PO Q4H 12/13/15 Ascorbic Acid [Vitamin C] 500 mg PO DAILY 12/13/15 Aspirin [ASA -] 81 mg PO DAILY 12/13/15 Lisinopril [Zestril] 5 mg PO DAILY 12/13/15 Multivitamin [Zoo Chews] 1 each PO DAILY 12/13/15 Oxybutynin Chloride 10 mg PO DAILY 12/13/15 Hydralazine HCl 50 mg PO DAILY 09/10/16 Menthol/Zinc Oxide [Calmoseptine Ointment] 71 gm TP DAILY 09/10/16 Metoclopramide HCl [Reglan] 5 mg PO TID PRN 09/10/16 Nifedipine [Nifedipine ER] 60 mg PO DAILY 09/10/16 Polyethylene Glycol 3350 [Miralax (For Daily Use) -] 17 gm PO DAILY PRN Family Disease History - Family Disease History Family History: Denies Review of Systems - Review of Systems Constitutional: reports: Malaise Eyes: reports: No Symptoms HENT: reports: No Symptoms Neck: reports: No Symptoms Cardiovascular: denies: Chest Pain, Edema Respiratory: denies: SOB Gastrointestinal: reports: Abdominal Pain, Constipation, Vomiting Genitourinary: reports: No Symptoms Musculoskeletal: reports: Muscle Weakness Integumentary: reports: No Symptoms Neurological: reports: No Symptoms Endocrine: reports: No Symptoms Hematology/Lymphatic: reports: No Symptoms Psychiatric: reports: No Symptoms Physical Exam Vital Signs: Vital Signs Temperature 98.2 F 09/11/16 12:00 Pulse Rate 68 09/11/16 14:33 Respiratory Rate 22 09/11/16 14:33 Blood Pressure 122/46 09/11/16 14:33 O2 Sat by Pulse Oximetry (%) 99 09/11/16 09:00 Constitutional: Yes: Calm Eyes: Yes: Conjunctiva Clear HENT: Yes: Atraumatic Neck: Yes: Supple Cardiovascular: Yes: S1, S2 Respiratory: Yes: CTA Bilaterally Gastrointestinal: Yes: Tenderness Renal/: Yes: Stokes Present Musculoskeletal: Yes: Muscle Weakness Edema: No Neurological: Yes: Oriented Psychiatric: Yes: Oriented Labs: CBC, BMP 09/11/16 07:12 09/11/16 07:12 Laboratory Tests 06/27/14 06/28/14 06/29/14 05:05 06:00 05:30 WBC Hgb Plt Count INR Sodium Chloride Carbon Dioxide Anion Gap BUN Creatinine 0.9 1.2 D 1.2 Lactic Acid Troponin I 12/13/15 12/14/15 09/10/16 18:00 05:00 17:29 WBC Hgb Plt Count INR 1.16 H Sodium Chloride Carbon Dioxide Anion Gap BUN Creatinine 1.6 H D 1.4 H Lactic Acid Troponin I 09/10/16 09/10/16 09/10/16 17:29 17:35 20:41 WBC 17.8 H D Hgb 11.2 Plt Count 399 D INR Sodium Chloride Carbon Dioxide Anion Gap BUN 69 H D Creatinine 3.1 H D Lactic Acid 3.3 H* Troponin I 09/11/16 09/11/16 09/11/16 01:15 01:35 07:12 WBC 16.4 H Hgb 9.8 L D Plt Count 279 D INR Sodium Chloride Carbon Dioxide Anion Gap BUN Creatinine Lactic Acid 2.0 Troponin I 0.65 H* 09/11/16 09/11/16 09/11/16 07:12 07:12 07:45 WBC Hgb Plt Count INR Sodium 145 Chloride 94 L Carbon Dioxide 37 H Anion Gap 14 BUN 87 H D Creatinine 3.8 H D Lactic Acid 1.6 Troponin I 0.51 H Imaging - Results Chest X-ray: Report Reviewed Cat Scan: Report Reviewed (SBO, 2 cm right renal cyst) Problem List - Problems (1) Acute kidney injury superimposed on chronic kidney disease Code(s): N17.9 - ACUTE KIDNEY FAILURE, UNSPECIFIED N18.9 - CHRONIC KIDNEY DISEASE, UNSPECIFIED (2) Anemia Code(s): D64.9 - ANEMIA, UNSPECIFIED (3) CAD (coronary artery disease) Code(s): I25.10 - ATHSCL HEART DISEASE OF [place] CORONARY ARTERY W/O ANG PCTRS (4) COPD (chronic obstructive pulmonary disease) Code(s): J44.9 - CHRONIC OBSTRUCTIVE PULMONARY DISEASE, UNSPECIFIED (5) H/O ovarian cancer Code(s): Z85.43 - PERSONAL HISTORY OF MALIGNANT NEOPLASM OF OVARY (6) HLD (hyperlipidemia) Code(s): E78.5 - HYPERLIPIDEMIA, UNSPECIFIED (7) Hypertension Code(s): I10 - ESSENTIAL (PRIMARY) HYPERTENSION (8) Sepsis Code(s): A41.9 - SEPSIS, UNSPECIFIED ORGANISM (9) Non-STEMI (non-ST elevated myocardial infarction) Code(s): I21.4 - NON-ST ELEVATION (NSTEMI) MYOCARDIAL INFARCTION (10) Small bowel obstruction Code(s): K56.69 - OTHER INTESTINAL OBSTRUCTION Assessment/Plan Current Medications Generic Name Dose Route Start Last Admin Trade Name Freq PRN Reason Stop Dose Admin Albuterol/Ipratropium 1 amp 09/11/16 08:13 Duoneb - NEB Q6H PRN SHORTNESS OF BREATH Heparin Sodium (Porcine) 5,000 unit 09/11/16 10:00 09/11/16 10:31 Heparin - SQ 5,000 unit BID ELSIE Administration Piperacillin Sod/Tazobactam Sod 50 mls @ 100 mls/hr 09/11/16 14:00 09/11/16 15: 34 Zosyn 2.25gm Ivpb (Pre-Docked) IVPB 100 mls/hr Q8H-IV ELSIE Administration Protocol Sodium Chloride 1,000 mls @ 125 mls/hr 09/11/16 14:45 09/11/16 15:26 Normal Saline - IV 125 mls/hr ASDIR ELSIE Administration Ondansetron HCl 4 mg 09/11/16 07:50 Zofran Injection IVPUSH Q6H PRN NAUSEA AND/OR VOMITING Impression 1. [place] 2. SBO 3. UTI 4. sepsis 5. history of ovarian cancer 6. COPD 7. hypotension 8. CAD 9. hx htn 10. NSTEMI 11. renal cyst 12. lactic acidosis Plan - cont with fluids - monitor renal function closely - pts abdomen is tender and renal ultrasound will be difficult, will do if pt tolerates - check urine lytes and creatinine - likely [place] from prerenal disease and developing ATN - maintain a MAP of 65 - lactic acid is improving - abx per ID - pt and family do not want surgery for SBO - pt has NGT to suction, monitor output - keep pt at positive balance - discussed with family - discussed with medical attending - prognosis is guarded
[2016-09-11] MEDS: SODIUM CHLORIDE 1,000 ML IV SCH (15:26)
[2016-09-11] MEDS: PIPERACILLIN/TAZOB 2.25 GM 50 ML IVPB SCH ×2 (15:34→17:54)
--- NOTE | 2016-09-11 16:17 | PN ---
Progress Note, Physician Chief Complaint: Patient says she is not feeling well today. She is still having abdominal pain and distention, but says it is feeling better than when she presented. She denies cp or sob. Family at bedside noted that she normally has leg swelling but it has currently resolved. - Current Medication List Current Medications: Active Medications Albuterol/Ipratropium (Duoneb -) 1 amp NEB Q6H PRN PRN Reason: SHORTNESS OF BREATH Heparin Sodium (Porcine) (Heparin -) 5,000 unit SQ BID ELSIE Last Admin: 09/11/16 10:31 Dose: 5,000 unit Piperacillin Sod/Tazobactam Sod (Zosyn 2.25gm Ivpb (Pre-Docked)) 50 mls @ 100 mls/hr IVPB Q8H-IV ELSIE PRN Reason: Protocol Last Admin: 09/11/16 15:34 Dose: 100 mls/hr Sodium Chloride (Normal Saline -) 1,000 mls @ 125 mls/hr IV ASDIR ELSIE Last Admin: 09/11/16 15:26 Dose: 125 mls/hr Ondansetron HCl (Zofran Injection) 4 mg IVPUSH Q6H PRN PRN Reason: NAUSEA AND/OR VOMITING - Objective Vital Signs: Vital Signs Temperature 98.2 F 09/11/16 12:00 Pulse Rate 68 09/11/16 14:33 Respiratory Rate 22 09/11/16 14:33 Blood Pressure 122/46 09/11/16 14:33 O2 Sat by Pulse Oximetry (%) 99 09/11/16 09:00 Constitutional: Yes: No Distress, Calm, Obese Cardiovascular: Yes: Regular Rate and Rhythm. No: Gallop, Murmur, Rub Respiratory: Yes: Regular, CTA Bilaterally. No: Rales, Rhonchi, Wheezes Gastrointestinal: Yes: Hypoactive Bowel Sounds, Tenderness, Other (NG tube in place draining dark brown liquid). No: Distention Extremities: Yes: WNL Edema: No Labs: CBC, BMP 09/11/16 07:12 09/11/16 07:12 INR, PTT INR 1.16 (0.82-1.09) H 09/10/16 17:29 Problem List - Problems (1) Small bowel obstruction due to adhesions Assessment/Plan: -NGT in place -surgery consulted, patient and family refused surgical intervention at this time -will monitor with conservative management -however if does not open up will need to discuss with family as high risk for necrotic bowel Code(s): K56.5 - INTESTINAL ADHESIONS W OBST (POSTPROCEDURAL) (POSTINFECTION) (2) Acute kidney injury superimposed on chronic kidney disease Assessment/Plan: -secondary to dehydration and hypotension -case d/w nephrology -hydration with IVF -monitor Code(s): N17.9 - ACUTE KIDNEY FAILURE, UNSPECIFIED N18.9 - CHRONIC KIDNEY DISEASE, UNSPECIFIED (3) Sepsis Assessment/Plan: -secondary to small bowel obstruction -leukocytosis improving but still elevated -ID following -continue zosyn per ID recommendation Code(s): A41.9 - SEPSIS, UNSPECIFIED ORGANISM (4) Anemia Assessment/Plan: -controlled -monitor Code(s): D64.9 - ANEMIA, UNSPECIFIED (5) Elevated troponin Assessment/Plan: -cardiology consulted and note reviewed -stress induced -monitor Code(s): R79.89 - OTHER SPECIFIED ABNORMAL FINDINGS OF BLOOD CHEMISTRY (6) CAD (coronary artery disease) Assessment/Plan: -cardiology following -holding oral medications Code(s): I25.10 - ATHSCL HEART DISEASE OF [place] CORONARY ARTERY W/O ANG PCTRS (7) COPD (chronic obstructive pulmonary disease) Assessment/Plan: -controlled Code(s): J44.9 - CHRONIC OBSTRUCTIVE PULMONARY DISEASE, UNSPECIFIED (8) Hypertension Assessment/Plan: -currently hypotensive -continue hydration Code(s): I10 - ESSENTIAL (PRIMARY) HYPERTENSION (9) Type II diabetes mellitus Assessment/Plan: -npo currently -monitor glucose Code(s): E11.9 - TYPE 2 DIABETES MELLITUS WITHOUT COMPLICATIONS
[2016-09-12] MEDS: PIPERACILLIN/TAZOB 2.25 GM 50 ML IVPB SCH ×3 (02:26→17:56)
[2016-09-12 06:28] LABS: BASOPHIL 0.1 % (0-2.0); EOSINOPHIL 0.1 % (0-4.5); MCHC 31.3 g/dl (32.0-36.0); MEAN CELL VOLUME 89.6 fl (80-96); MEAN PLT VOLUME 8.4 fl (7.5-11.1); NEUTROPHILS 88.5 % (42.8-82.8); PLATELET COUNT 271 K/MM3 (134-434); RDW 18.7 % (11.6-15.6); WHITE BLOOD COUNT 15.6 K/mm3 (4.0-10.0)
[2016-09-12 06:53] LABS: ALBUMIN 2.2 g/dl (3.4-5.0); CALCIUM 7.6 mg/dL (8.5-10.1); PHOSPHOROUS 6.6 mg/dL (2.5-4.9)
[2016-09-12 06:54] LABS: BILIRUBIN,TOTAL 0.4 mg/dL (0.2-1.0); TOT PROT 6.9 g/dl (6.4-8.2)
--- NOTE | 2016-09-12 07:50 | PN ---
Progress Note, Physician Chief Complaint: feels better History of Present Illness: alot less abd pain. +BM multiple. ngt 650 since MN. still oliguric. BUN/Cr increasing. lactate still cleared. wbc 15 (min decrease). thirsty. - Current Medication List Current Medications: Active Medications Albuterol/Ipratropium (Duoneb -) 1 amp NEB Q6H PRN PRN Reason: SHORTNESS OF BREATH Heparin Sodium (Porcine) (Heparin -) 5,000 unit SQ BID ELSIE Last Admin: 09/11/16 21:26 Dose: 5,000 unit Piperacillin Sod/Tazobactam Sod (Zosyn 2.25gm Ivpb (Pre-Docked)) 50 mls @ 100 mls/hr IVPB Q8H-IV ELSIE PRN Reason: Protocol Last Admin: 09/12/16 02:26 Dose: 100 mls/hr Sodium Chloride (Normal Saline -) 1,000 mls @ 125 mls/hr IV ASDIR ELSIE Last Admin: 09/11/16 15:26 Dose: 125 mls/hr Ondansetron HCl (Zofran Injection) 4 mg IVPUSH Q6H PRN PRN Reason: NAUSEA AND/OR VOMITING Last Admin: 09/12/16 02:27 Dose: 4 mg - Objective Vital Signs: Vital Signs Temperature 98.2 F 09/12/16 06:00 Pulse Rate 68 09/12/16 06:00 Respiratory Rate 16 09/12/16 06:00 Blood Pressure 110/55 09/12/16 06:00 O2 Sat by Pulse Oximetry (%) 99 09/11/16 21:00 Constitutional: Yes: No Distress, Calm Eyes: Yes: Conjunctiva Clear, EOM Intact HENT: Yes: Atraumatic, Normocephalic Neck: Yes: Supple, Trachea Midline Cardiovascular: Yes: Regular Rate and Rhythm Respiratory: Yes: Regular Gastrointestinal: Yes: Soft, Distention (less). No: Tenderness Genitourinary: Yes: Stokes Present. No: CVA Tenderness - Left, CVA Tenderness - Right Musculoskeletal: No: Joint Stiffness, Joint Swelling Extremities: No: Calf Tenderness, Erythema Integumentary: No: Erythema, Rash Neurological: Yes: Alert, Weakness Psychiatric: Yes: Alert Labs: CBC, BMP 09/12/16 05:20 06/03/17 05:20 INR, PTT INR 1.16 (0.82-1.09) H 09/10/16 17:29 Problem List - Problems (1) Acute kidney injury superimposed on chronic kidney disease Code(s): N17.9 - ACUTE KIDNEY FAILURE, UNSPECIFIED N18.9 - CHRONIC KIDNEY DISEASE, UNSPECIFIED (2) Anemia Code(s): D64.9 - ANEMIA, UNSPECIFIED (3) H/O ovarian cancer Code(s): Z85.43 - PERSONAL HISTORY OF MALIGNANT NEOPLASM OF [place] (4) Small bowel obstruction due to adhesions Assessment/Plan: clamp NGT trial clear liquid diet when giving her liquids please monitor for aspiration. sit upright when giving liquids. Code(s): K56.5 - INTESTINAL ADHESIONS W OBST (POSTPROCEDURAL) (POSTINFECTION) (5) [place] (acute kidney injury) Code(s): N17.9 - ACUTE KIDNEY FAILURE, UNSPECIFIED (6) Non-STEMI (non-ST elevated myocardial infarction) Code(s): I21.4 - NON-ST ELEVATION (NSTEMI) MYOCARDIAL INFARCTION
--- NOTE | 2016-09-12 08:49 | PN ---
Progress Note (short form) - Note Progress Note: Seen and examined in ICU cont to have drainage from NGT ~1800ml over last 36hrs Small BM GNR in urine on zosyn SCr cont to rise DNR/DNI, medical management of SBO Current Medications Albuterol/Ipratropium (Duoneb -) 1 amp NEB Q6H PRN PRN Reason: SHORTNESS OF BREATH Heparin Sodium (Porcine) (Heparin -) 5,000 unit SQ BID ELSIE Last Admin: 09/11/16 21:26 Dose: 5,000 unit Piperacillin Sod/Tazobactam Sod (Zosyn 2.25gm Ivpb (Pre-Docked)) 50 mls @ 100 mls/hr IVPB Q8H-IV ELSIE PRN Reason: Protocol Last Admin: 09/12/16 02:26 Dose: 100 mls/hr Sodium Chloride (Normal Saline -) 1,000 mls @ 125 mls/hr IV ASDIR ELSIE Last Admin: 09/11/16 15:26 Dose: 125 mls/hr Ondansetron HCl (Zofran Injection) 4 mg IVPUSH Q6H PRN PRN Reason: NAUSEA AND/OR VOMITING Last Admin: 09/12/16 02:27 Dose: 4 mg Vital Signs Period Temp Pulse Resp BP Sys/Romero Pulse Ox Last 24 Hr 98.1 F-98.5 F 65-72 16-24 98-127/44-55 99-99 Intake & Output 09/09/16 09/10/16 09/11/16 09/12/16 23:59 23:59 23:59 23:59 Intake Total 500 2890 50 Output Total 4070 2800 875 Balance -3570 90 -825 Weight 80.286 kg General: awake and alert, c/o abd pain HEENT: PRRRL CV: SM, paced Pulm: diminished in bases Abd: distended, soft, tender Ext: WWP, +1 Le edema Neuro: AOx3 CBCD WBC 15.6 K/mm3 (4.0-10.0) H 09/12/16 05:20 RBC 3.05 M/mm3 (3.60-5.2) L 09/12/16 05:20 Hgb 8.5 GM/dL (10.7-15.3) L D 09/12/16 05:20 Hct 27.3 % (32.4-45.2) L 09/12/16 05:20 MCV 89.6 fl (80-96) 09/12/16 05:20 MCHC 31.3 g/dl (32.0-36.0) L 09/12/16 05:20 RDW 18.7 % (11.6-15.6) H 09/12/16 05:20 Plt Count 271 K/MM3 (134-434) 09/12/16 05:20 MPV 8.4 fl (7.5-11.1) 09/12/16 05:20 CMP Sodium 146 mmol/L (136-145) H 09/12/16 05:20 Potassium 4.2 mmol/L (3.5-5.1) 09/12/16 05:20 Chloride 98 mmol/L (98-107) 09/12/16 05:20 Carbon Dioxide 37 mmol/L (21-32) H 09/12/16 05:20 Anion Gap 11 (8-16) 09/12/16 05:20 BUN 96 mg/dL (7-18) H 09/12/16 05:20 Creatinine 4.0 mg/dL (0.55-1.02) H 09/12/16 05:20 Creat Clearance w eGFR 10.64 (>60) 09/12/16 05:20 Random Glucose 62 mg/dL (74-106) L D 09/12/16 05:20 Calcium 7.6 mg/dL (8.5-10.1) L 09/12/16 05:20 Total Bilirubin 0.4 mg/dL (0.2-1.0) D 09/12/16 05:20 AST 84 U/L (15-37) H D 09/12/16 05:20 ALT 96 U/L (12-78) H D 09/12/16 05:20 Alkaline Phosphatase 72 U/L (45-117) D 09/12/16 05:20 Total Protein 6.9 g/dl (6.4-8.2) D 09/12/16 05:20 Albumin 2.2 g/dl (3.4-5.0) L D 09/12/16 05:20 CARDIAC ENZYMES Creatine Kinase 135 IU/L (26-192) 06/02/17 07:12 Troponin I 0.51 ng/ml (0.00-0.05) H 09/11/16 07:12 Microbiology 09/10/16 18:52 Urine - Urine Stokes Urine Culture - Preliminary Lactose Fermenting Neg Bacilli 09/11/16 01:15 Blood - Peripheral Venous Blood Culture - Preliminary NO GROWTH OBTAINED AFTER 24 HOURS, INCUBATION TO CONTINUE FOR 4 DAYS. 09/11/16 01:15 Blood - Peripheral Venous Blood Culture - Preliminary NO GROWTH OBTAINED AFTER 24 HOURS, INCUBATION TO CONTINUE FOR 4 DAYS. CXR: bilateral atelectisis +/- small effusions ASSESSMENT/PLAN: SBO CVA w/ hemiparesis CAD A-Fib by history, PPM HTN Aortic valve bioprosthetic NV S/P PCI Anemia GI Bleed CKD COPD Ovarian Cancer Sepsis Acute on CKD -cont IVF at 125ml per hr, will give additional NS x1 liter, d/w renal -Strict I&O -O2 as needed -Pain control: prn fentanyl -zosyn for UTI per ID -NPO per surgery -VTE prophylaxis -BD TX PRN -Cont ICU Monitoring -DNR, per family no surgery, medical managment of SBO only [place] ACNP Pulm/CCM CCT: 35m
[2016-09-12] MEDS ORDERED: SODIUM CHLORIDE 1,000 ML IV STA (09:05)
--- NOTE | 2016-09-12 09:11 | PN ---
Progress Note, Physician History of Present Illness: Renal F/U Pt in no distress C/O dry oral mucosa NGT has drained out 650 cc UO 250 cc in last 12 hours Serum Cr slightly higher NS at 125 cc/hr Renal US No [place], B/L Cysts - Current Medication List Current Medications: Active Medications Albuterol/Ipratropium (Duoneb -) 1 amp NEB Q6H PRN PRN Reason: SHORTNESS OF BREATH Fentanyl (Sublimaze Injection -) 25 mcg IVPUSH Q2H PRN PRN Reason: PAIN LEVEL 6-10 Stop: 09/12/16 18:53 Heparin Sodium (Porcine) (Heparin -) 5,000 unit SQ BID ELSIE Last Admin: 09/11/16 21:26 Dose: 5,000 unit Piperacillin Sod/Tazobactam Sod (Zosyn 2.25gm Ivpb (Pre-Docked)) 50 mls @ 100 mls/hr IVPB Q8H-IV ELSIE PRN Reason: Protocol Last Admin: 09/12/16 02:26 Dose: 100 mls/hr Sodium Chloride (Normal Saline -) 1,000 mls @ 125 mls/hr IV ASDIR ELSIE Last Admin: 09/11/16 15:26 Dose: 125 mls/hr Sodium Chloride (Normal Saline -) 1,000 mls @ 1,000 mls/hr IV ASDIR STA Stop: 09/12/16 09:51 Ondansetron HCl (Zofran Injection) 4 mg IVPUSH Q6H PRN PRN Reason: NAUSEA AND/OR VOMITING Last Admin: 09/12/16 02:27 Dose: 4 mg - Objective Vital Signs: Vital Signs Temperature 98.2 F 09/12/16 06:00 Pulse Rate 68 09/12/16 06:00 Respiratory Rate 16 09/12/16 06:00 Blood Pressure 110/55 09/12/16 06:00 O2 Sat by Pulse Oximetry (%) 99 09/11/16 21:00 Constitutional: Yes: No Distress Cardiovascular: Yes: Murmur, S1, S2. No: JVD Respiratory: Yes: CTA Bilaterally Gastrointestinal: Yes: Distention. No: Tenderness, Rebound Edema: No Neurological: Yes: Alert, Other (Cooperative. Not oriented to the name of the hospital) Labs: CBC, BMP 09/12/16 05:20 09/12/16 05:20 INR, PTT INR 1.16 (0.82-1.09) H 09/10/16 17:29 - ....Imaging Chest X-ray: Report Reviewed, Image Reviewed Ultrasound: Report Reviewed Assessment/Plan Impression 1. [place]- R/O ATN from prior hypotension 2. SBO 3. UTI with GNR 4. Sepsis 5. History of ovarian cancer 6. COPD 7. S/P hypotension 8. CAD 9. H/O HTN 11. Renal cyst 12. lactic acidosis Plan - Give a bolus of NS in addition to the NS at 125 cc/hr - Rpt labs in am - Urine for spot Na and Cr - maintain a MAP of 65 - abx per ID - pt has NGT to suction, monitor output - keep pt at positive balance Discussed with the [facility] Dr Buitrago
--- NOTE | 2016-09-12 09:51 | PN ---
Progress Note, Physician History of Present Illness: Awake, responsive C/O feeling cold No c/o abdominal pain NGT in place + BM No c/o fever/rigors BC (-) Urine c/s LF - Current Medication List Current Medications: Active Medications Albuterol/Ipratropium (Duoneb -) 1 amp NEB Q6H PRN PRN Reason: SHORTNESS OF BREATH Fentanyl (Sublimaze Injection -) 25 mcg IVPUSH Q2H PRN PRN Reason: PAIN LEVEL 6-10 Stop: 09/12/16 18:53 Heparin Sodium (Porcine) (Heparin -) 5,000 unit SQ BID ELSIE Last Admin: 09/11/16 21:26 Dose: 5,000 unit Piperacillin Sod/Tazobactam Sod (Zosyn 2.25gm Ivpb (Pre-Docked)) 50 mls @ 100 mls/hr IVPB Q8H-IV ELSIE PRN Reason: Protocol Last Admin: 09/12/16 02:26 Dose: 100 mls/hr Sodium Chloride (Normal Saline -) 1,000 mls @ 125 mls/hr IV ASDIR ELSIE Last Admin: 09/11/16 15:26 Dose: 125 mls/hr Sodium Chloride (Normal Saline -) 1,000 mls @ 1,000 mls/hr IV ASDIR STA Stop: 09/12/16 10:04 Last Admin: 09/12/16 09:08 Dose: 1,000 mls/hr Ondansetron HCl (Zofran Injection) 4 mg IVPUSH Q6H PRN PRN Reason: NAUSEA AND/OR VOMITING Last Admin: 09/12/16 02:27 Dose: 4 mg - Objective Vital Signs: Vital Signs Temperature 98.2 F 09/12/16 06:00 Pulse Rate 72 09/12/16 08:00 Respiratory Rate 16 09/12/16 08:00 Blood Pressure 114/43 09/12/16 08:00 O2 Sat by Pulse Oximetry (%) 96 09/12/16 09:00 Constitutional: Yes: No Distress Eyes: Yes: Conjunctiva Clear Cardiovascular: Yes: Regular Rate and Rhythm, S1, S2 Respiratory: Yes: Rhonchi Gastrointestinal: Yes: Normal Bowel Sounds, Soft, Tenderness, Other (abdomen distended, mild diffuse tenderness) Edema: No Labs: CBC, BMP 09/12/16 05:20 09/12/16 05:20 INR, PTT INR 1.16 (0.82-1.09) H 09/10/16 17:29 Assessment/Plan Bowel obstruction UTI/ Possible sepsis secondary to UTI [place] Leukocytosis Lactic acidosis-resolved Hx CVA Hx AVR Await final culture results Continue empiric zosyn Mgt bowel obstruction per surgery
--- NOTE | 2016-09-12 09:56 | PN ---
Progress Note, Physician Chief Complaint: Patient says she is not feeling well. Still with pain in her abdomen. Denies cp or sob. - Current Medication List Current Medications: Active Medications Albuterol/Ipratropium (Duoneb -) 1 amp NEB Q6H PRN PRN Reason: SHORTNESS OF BREATH Fentanyl (Sublimaze Injection -) 25 mcg IVPUSH Q2H PRN PRN Reason: PAIN LEVEL 6-10 Stop: 09/12/16 18:53 Heparin Sodium (Porcine) (Heparin -) 5,000 unit SQ BID ELSIE Last Admin: 09/11/16 21:26 Dose: 5,000 unit Piperacillin Sod/Tazobactam Sod (Zosyn 2.25gm Ivpb (Pre-Docked)) 50 mls @ 100 mls/hr IVPB Q8H-IV ELSIE PRN Reason: Protocol Last Admin: 09/12/16 02:26 Dose: 100 mls/hr Sodium Chloride (Normal Saline -) 1,000 mls @ 125 mls/hr IV ASDIR ELSIE Last Admin: 09/11/16 15:26 Dose: 125 mls/hr Sodium Chloride (Normal Saline -) 1,000 mls @ 1,000 mls/hr IV ASDIR STA Stop: 09/12/16 10:04 Last Admin: 09/12/16 09:08 Dose: 1,000 mls/hr Ondansetron HCl (Zofran Injection) 4 mg IVPUSH Q6H PRN PRN Reason: NAUSEA AND/OR VOMITING Last Admin: 09/12/16 02:27 Dose: 4 mg - Objective Vital Signs: Vital Signs Temperature 98.2 F 09/12/16 06:00 Pulse Rate 72 09/12/16 08:00 Respiratory Rate 16 09/12/16 08:00 Blood Pressure 114/43 09/12/16 08:00 O2 Sat by Pulse Oximetry (%) 96 09/12/16 09:00 Constitutional: Yes: Well Nourished, No Distress, Calm Cardiovascular: Yes: Regular Rate and Rhythm. No: Gallop, Murmur, Rub Respiratory: Yes: Regular, CTA Bilaterally. No: Rales, Rhonchi, Wheezes Gastrointestinal: Yes: Distention, Hypoactive Bowel Sounds. No: Tenderness Extremities: Yes: WNL Edema: Yes Edema: LLE: Trace, RLE: Trace Labs: CBC, BMP 09/12/16 05:20 09/12/16 05:20 INR, PTT INR 1.16 (0.82-1.09) H 09/10/16 17:29 Problem List - Problems (1) Small bowel obstruction due to adhesions Code(s): K56.5 - INTESTINAL ADHESIONS W OBST (POSTPROCEDURAL) (POSTINFECTION) (2) Acute kidney injury superimposed on chronic kidney disease Code(s): N17.9 - ACUTE KIDNEY FAILURE, UNSPECIFIED N18.9 - CHRONIC KIDNEY DISEASE, UNSPECIFIED (3) Sepsis Code(s): A41.9 - SEPSIS, UNSPECIFIED ORGANISM (4) Anemia Code(s): D64.9 - ANEMIA, UNSPECIFIED (5) Elevated troponin Code(s): R79.89 - OTHER SPECIFIED ABNORMAL FINDINGS OF BLOOD CHEMISTRY (6) CAD (coronary artery disease) Code(s): I25.10 - ATHSCL HEART DISEASE OF [place] CORONARY ARTERY W/O ANG PCTRS (7) COPD (chronic obstructive pulmonary disease) Code(s): J44.9 - CHRONIC OBSTRUCTIVE PULMONARY DISEASE, UNSPECIFIED (8) Hypertension Code(s): I10 - ESSENTIAL (PRIMARY) HYPERTENSION (9) Type II diabetes mellitus Code(s): E11.9 - TYPE 2 DIABETES MELLITUS WITHOUT COMPLICATIONS Assessment/Plan (1) Small bowel obstruction due to adhesions Assessment/Plan: -NGT in place with continued drainage -patient and family declined surgical intervention -continue conservative management Code(s): K56.5 - INTESTINAL ADHESIONS W OBST (POSTPROCEDURAL) (POSTINFECTION) (2) Acute kidney injury superimposed on chronic kidney disease Assessment/Plan: -secondary to dehydration and hypotension -worsening -nephrology following Code(s): N17.9 - ACUTE KIDNEY FAILURE, UNSPECIFIED N18.9 - CHRONIC KIDNEY DISEASE, UNSPECIFIED (3) Sepsis Assessment/Plan: -secondary to small bowel obstruction -leukocytosis improving but still elevated -ID following -continue zosyn per ID recommendation Code(s): A41.9 - SEPSIS, UNSPECIFIED ORGANISM (4) Anemia Assessment/Plan: -controlled -monitor Code(s): D64.9 - ANEMIA, UNSPECIFIED (5) Elevated troponin Assessment/Plan: -suspect stress induced -cardiology following Code(s): R79.89 - OTHER SPECIFIED ABNORMAL FINDINGS OF BLOOD CHEMISTRY (6) CAD (coronary artery disease) Assessment/Plan: -cardiology following -holding oral medications Code(s): I25.10 - ATHSCL HEART DISEASE OF [place] CORONARY ARTERY W/O ANG PCTRS (7) COPD (chronic obstructive pulmonary disease) Assessment/Plan: -controlled Code(s): J44.9 - CHRONIC OBSTRUCTIVE PULMONARY DISEASE, UNSPECIFIED (8) Hypertension Assessment/Plan: -currently hypotensive -continue hydration Code(s): I10 - ESSENTIAL (PRIMARY) HYPERTENSION (9) Type II diabetes mellitus Assessment/Plan: -npo currently -monitor glucose Code(s): E11.9 - TYPE 2 DIABETES MELLITUS WITHOUT COMPLICATIONS
[2016-09-12] MEDS: SODIUM CHLORIDE 1,000 ML IV SCH ×3 (10:33→17:58)
[2016-09-12] MEDS: HEPARIN NA (PORCINE) 5,000 UNITS/ML 1ML VIAL SQ SCH ×2 (10:40→22:45)
--- NOTE | 2016-09-12 11:09 | CONS ---
DATE OF CONSULTATION: HISTORY: The patient is an 85-year-old female evaluated for sepsis. She was admitted to the hospital on September 10, 2016 with worsening abdominal distention, constipation, nausea, and vomiting. She was evaluated in the emergency room where a CAT scan was consistent with small bowel obstruction. An NG tube was passed, and a large amount of fecal material was obtained. Her course was complicated by hypotension, leukocytosis, lactic acidosis, and electrolyte imbalance. She was empirically treated with Zosyn. Presently she is awake and alert. She is more comfortable status post NG tube. She denies any abdominal pain at present. No reports of any recent febrile illness or shaking chills. She denies recent dysuria or hematuria. PAST MEDICAL HISTORY: Positive for coronary artery disease status post coronary artery stents, COPD, congestive heart failure, stroke, hypertension, hyperlipidemia, ovarian cancer. PAST SURGICAL HISTORY: Status post right hip replacement, hysterectomy, carotid endarterectomy, pacemaker. ALLERGIES: No known allergies. MEDICATIONS: Include Zofran, Zosyn, heparin, DuoNeb, normal saline. SOCIAL HISTORY: She live at home with family members. She is normally awake and alert. She is wheelchair bound. Former smoker. SYSTEMS REVIEW: Neurologic: Status post stroke. No loss of consciousness, seizure activity, focal weakness. Cardiac: Negative chest pain or palpitations. Respiratory: Negative cough or sputum production. Gastrointestinal: As per HPI. Genitourinary: Positive for urinary tract infection. LABORATORY DATA: White count 17.8 with 87 neutrophils, 5 lymphocytes, 6 monocytes, hematocrit 35.2, platelet count 399. BUN 8, creatinine 4.8, lactic acid 3.3. Chest x-ray negative for acute infiltrate. CAT scan of the abdomen and pelvis consistent with bowel obstruction with air-fluid levels. Urinalysis 530 white cells. Cultures pending. PHYSICAL EXAMINATION: General: She is awake. She is in moderate distress secondary to abdominal discomfort and NG tube. Vital Signs: Temperature 98.2, T-max 100, blood pressure 110/53, pulse 65, regular, respirations 20 per minute. HEENT: Sclerae anicteric. NG tube in place. Dark fluid noted in drainage catheter collection. Heart: S1, S2. A 2/5 pansystolic murmur. Lungs: Clear. Decreased breath sounds at the bases. Abdomen: Distended, soft. Mild, diffuse tenderness. Extremities: Have 1+ edema. IMPRESSION: 1. Small bowel obstruction. 2. Urinary tract infection, possible sepsis secondary to urinary tract infection. 3. Acute renal failure. 4. Leukocytosis. 5. Lactic acidosis. PLAN: Await culture results. Empiric antibiotic coverage of GI and pathogens with Zosyn adjusted for renal failure. Surgical follow up. ICU monitoring. Prognosis is guarded. Case discussed with family members present at the time of the examination. Thank you for the kind referral. Critical care time 35 minutes. GALEN SPENCE M.D. [id number]
--- NOTE | 2016-09-12 12:09 | PN ---
Progress Note, Physician History of Present Illness: No events NGT to suction - Current Medication List Current Medications: Active Medications Albuterol/Ipratropium (Duoneb -) 1 amp NEB Q6H PRN PRN Reason: SHORTNESS OF BREATH Fentanyl (Sublimaze Injection -) 25 mcg IVPUSH Q2H PRN PRN Reason: PAIN LEVEL 6-10 Stop: 09/12/16 18:53 Last Admin: 09/12/16 10:40 Dose: 25 mcg Heparin Sodium (Porcine) (Heparin -) 5,000 unit SQ BID ELSIE Last Admin: 09/12/16 10:40 Dose: 5,000 unit Piperacillin Sod/Tazobactam Sod (Zosyn 2.25gm Ivpb (Pre-Docked)) 50 mls @ 100 mls/hr IVPB Q8H-IV ELSIE PRN Reason: Protocol Last Admin: 09/12/16 10:40 Dose: 100 mls/hr Sodium Chloride (Normal Saline -) 1,000 mls @ 125 mls/hr IV ASDIR ELSIE Last Admin: 09/12/16 10:33 Dose: 125 mls/hr Ondansetron HCl (Zofran Injection) 4 mg IVPUSH Q6H PRN PRN Reason: NAUSEA AND/OR VOMITING Last Admin: 09/12/16 02:27 Dose: 4 mg - Objective Vital Signs: Vital Signs Temperature 98.2 F 09/12/16 06:00 Pulse Rate 61 09/12/16 11:44 Respiratory Rate 16 09/12/16 08:00 Blood Pressure 114/43 09/12/16 08:00 O2 Sat by Pulse Oximetry (%) 99 09/12/16 11:44 Constitutional: Yes: No Distress, Calm Eyes: Yes: WNL HENT: Yes: Other (NGT suction) Cardiovascular: Yes: Pulse Irregular Respiratory: Yes: CTA Bilaterally Extremities: Yes: WNL Labs: CBC, BMP 09/12/16 05:20 09/12/16 05:20 INR, PTT INR 1.16 (0.82-1.09) H 09/10/16 17:29 Assessment/Plan a/p: 85 f hx htn, cva, right cea, ?pafib (per charts, ac stopped in past for gib), cad s/p mi's and remote pci, tavr for several years ago, ppm 12/2015, sent from [place] for [place]/abd distention. sbo, sepsis: -cont ngt -bp low, cont ivfs, abx -has not needed pressors so far ppm: -normal fcn on ecg, tele pos trops: -trop mildly positive with flat trend x3 and nl ckx3. Her prior baseline trop values are similar. Does not seem acs related, likely related to pete, sepsis. -check echo to see if new wma's -monitor on tele htn: -septic with low bp, holding home meds for now ?pafib: -per charts, no specific details available, currently in sr -per pt ac stopped in past for gib -cont home asa when hgb stable tavr: -normal bio avr on prior echo, check updated echo while here cad s/p mi's and remote pci: -plan as above -no anginal sxs -pt declined cath 2014 for nstemi -cont med management, asa, statin, wade, bb when acute issues resolved
[2016-09-13] MEDS: PIPERACILLIN/TAZOB 2.25 GM 50 ML IVPB SCH ×3 (01:31→17:37)
[2016-09-13] MEDS: SODIUM CHLORIDE 1,000 ML IV SCH (03:32)
[2016-09-13 06:06] LABS: BASOPHIL 0.1 % (0-2.0); EOSINOPHIL 0.1 % (0-4.5); MCH 28.4 pg (25.7-33.7); MCHC 31.3 g/dl (32.0-36.0); MEAN CELL VOLUME 90.7 fl (80-96); MEAN PLT VOLUME 8.4 fl (7.5-11.1); NEUTROPHILS 88.7 % (42.8-82.8); PLATELET COUNT 275 K/MM3 (134-434); RDW 19.1 % (11.6-15.6); WHITE BLOOD COUNT 16.1 K/mm3 (4.0-10.0)
[2016-09-13 06:38] LABS: CALCIUM 7.3 mg/dL (8.5-10.1); MAGNESIUM 2.9 mg/dL (1.8-2.4)
[2016-09-13 06:40] LABS: COCKROFT - GAULT 18.615; CREATININE 2.8 mg/dL (0.55-1.02); PHOSPHOROUS 5.7 mg/dL (2.5-4.9)
--- NOTE | 2016-09-13 09:40 | PN ---
Progress Note, Physician History of Present Illness: Renal F/U Pt in no distress but having some abdominal pain NGT to suction Negative fluid balance Serum Cr better but has some hypernatremia Urine + E Coli - Current Medication List Current Medications: Active Medications Albuterol/Ipratropium (Duoneb -) 1 amp NEB Q6H PRN PRN Reason: SHORTNESS OF BREATH Heparin Sodium (Porcine) (Heparin -) 5,000 unit SQ BID ELSIE Last Admin: 09/12/16 22:45 Dose: 5,000 unit Piperacillin Sod/Tazobactam Sod (Zosyn 2.25gm Ivpb (Pre-Docked)) 50 mls @ 100 mls/hr IVPB Q8H-IV ELSIE PRN Reason: Protocol Last Admin: 09/13/16 01:31 Dose: 100 mls/hr Sodium Chloride (Normal Saline -) 1,000 mls @ 125 mls/hr IV ASDIR ELSIE Last Admin: 09/13/16 03:32 Dose: 125 mls/hr Ondansetron HCl (Zofran Injection) 4 mg IVPUSH Q6H PRN PRN Reason: NAUSEA AND/OR VOMITING Last Admin: 09/12/16 02:27 Dose: 4 mg - Objective Vital Signs: Vital Signs Temperature 98.3 F 09/13/16 04:00 Pulse Rate 68 09/13/16 08:00 Respiratory Rate 22 09/13/16 08:00 Blood Pressure 151/47 09/13/16 08:00 O2 Sat by Pulse Oximetry (%) 99 09/12/16 21:00 Constitutional: Yes: No Distress Cardiovascular: Yes: S1, S2 Respiratory: Yes: CTA Bilaterally Gastrointestinal: Yes: Tenderness, Other (No rebound) Edema: No Neurological: Yes: Alert Labs: CBC, BMP 09/13/16 05:15 09/13/16 05:15 INR, PTT INR 1.16 (0.82-1.09) H 09/10/16 17:29 Assessment/Plan Impression 1. Improving [place] with FeNa > 2 and likely from ATN as a result of hypotension 2. SBO 3. UTI with GNR 4. Sepsis 5. History of ovarian cancer 6. COPD 7. S/P hypotension 8. CAD 9. H/O HTN 11. Renal cyst 12. lactic acidosis 13. Hypernatremia on NS 14. E Coli UTI Plan - Change IVF to 1/2 NS at 125 cc/hr - Rpt labs in am - Abx per ID - Pt has NGT to suction, monitor output - Surgical follow up Dr Buitrago
--- NOTE | 2016-09-13 09:55 | PN ---
Progress Note, Physician History of Present Illness: No events - Current Medication List Current Medications: Active Medications Albuterol/Ipratropium (Duoneb -) 1 amp NEB Q6H PRN PRN Reason: SHORTNESS OF BREATH Heparin Sodium (Porcine) (Heparin -) 5,000 unit SQ BID ELSIE Last Admin: 09/12/16 22:45 Dose: 5,000 unit Piperacillin Sod/Tazobactam Sod (Zosyn 2.25gm Ivpb (Pre-Docked)) 50 mls @ 100 mls/hr IVPB Q8H-IV ELSIE PRN Reason: Protocol Last Admin: 09/13/16 01:31 Dose: 100 mls/hr Dextrose/Sodium Chloride (D5-1/2ns -) 1,000 mls @ 125 mls/hr IV ASDIR ELSIE Ondansetron HCl (Zofran Injection) 4 mg IVPUSH Q6H PRN PRN Reason: NAUSEA AND/OR VOMITING Last Admin: 09/12/16 02:27 Dose: 4 mg - Objective Vital Signs: Vital Signs Temperature 97.8 F 09/13/16 09:53 Pulse Rate 68 09/13/16 08:00 Respiratory Rate 22 09/13/16 08:00 Blood Pressure 151/47 09/13/16 08:00 O2 Sat by Pulse Oximetry (%) 99 09/12/16 21:00 Constitutional: Yes: Calm Eyes: Yes: WNL HENT: Yes: WNL Neck: Yes: WNL Cardiovascular: Yes: Pulse Irregular Respiratory: Yes: Regular Gastrointestinal: Yes: Abdomen, Obese, Distention Edema: No Labs: CBC, BMP 09/13/16 05:15 09/13/16 05:15 INR, PTT INR 1.16 (0.82-1.09) H 09/10/16 17:29 Assessment/Plan a/p: 85 f hx htn, cva, right cea, ?pafib (per charts, ac stopped in past for gib), cad s/p mi's and remote pci, tavr for several years ago, ppm 12/2015, sent from [place] for [place]/v/abd distention. sbo, sepsis: -cont ngt -bp low, cont ivfs, abx -has not needed pressors so far ppm: -normal fcn on ecg, tele pos trops: -trop mildly positive with flat trend x3 and nl ckx3. Her prior baseline trop values are similar. Does not seem acs related, likely related to pete, sepsis. -check echo to see if new wma's -monitor on tele htn: -septic with low bp, holding home meds for now 6/4 BP trending up today, may add back BP regimen if remains elevated ?pafib: -per charts, no specific details available, currently in sr -per pt ac stopped in past for gib -cont home asa when hgb stable tavr: -normal bio avr on prior echo, check updated echo while here cad s/p mi's and remote pci: -plan as above -no anginal sxs -pt declined cath 2014 for nstemi -cont med management, asa, statin, wade, bb when acute issues resolved
[2016-09-13] MEDS: DEXTROSE 5%-0.45% SALINE 1,000 ML IV SCH (10:21)
[2016-09-13] MEDS: HEPARIN NA (PORCINE) 5,000 UNITS/ML 1ML VIAL SQ SCH ×2 (10:21→21:54)
--- NOTE | 2016-09-13 11:07 | PN ---
Progress Note, Physician Chief Complaint: Patient says she is not feeling well secondary to abdominal pain that is not improving. No cp or sob. Spoke with RN, 1500mL output from NGT in past 24 hours - Current Medication List Current Medications: Active Medications Albuterol/Ipratropium (Duoneb -) 1 amp NEB Q6H PRN PRN Reason: SHORTNESS OF BREATH Heparin Sodium (Porcine) (Heparin -) 5,000 unit SQ BID ELSIE Last Admin: 09/13/16 10:21 Dose: 5,000 unit Piperacillin Sod/Tazobactam Sod (Zosyn 2.25gm Ivpb (Pre-Docked)) 50 mls @ 100 mls/hr IVPB Q8H-IV ELSIE PRN Reason: Protocol Last Admin: 09/13/16 10:21 Dose: 100 mls/hr Dextrose/Sodium Chloride (D5-1/2ns -) 1,000 mls @ 125 mls/hr IV ASDIR ELSIE Last Admin: 09/13/16 10:21 Dose: 125 mls/hr Ondansetron HCl (Zofran Injection) 4 mg IVPUSH Q6H PRN PRN Reason: NAUSEA AND/OR VOMITING Last Admin: 09/12/16 02:27 Dose: 4 mg - Objective Vital Signs: Vital Signs Temperature 97.8 F 09/13/16 09:53 Pulse Rate 68 09/13/16 10:35 Respiratory Rate 22 09/13/16 09:53 Blood Pressure 148/49 09/13/16 09:53 O2 Sat by Pulse Oximetry (%) 97 09/13/16 10:35 Constitutional: Yes: No Distress, Calm, Obese Cardiovascular: Yes: Regular Rate and Rhythm. No: Gallop, Murmur, Rub Respiratory: Yes: Regular, CTA Bilaterally. No: Rales, Rhonchi, Wheezes Gastrointestinal: Yes: Distention, Hypoactive Bowel Sounds, Tenderness Extremities: Yes: WNL Edema: Yes Edema: LLE: Trace, RLE: Trace Labs: CBC, BMP 09/13/16 05:15 09/13/16 05:15 INR, PTT INR 1.16 (0.82-1.09) H 09/10/16 17:29 Problem List - Problems (1) Small bowel obstruction due to adhesions Code(s): K56.5 - INTESTINAL ADHESIONS W OBST (POSTPROCEDURAL) (POSTINFECTION) (2) Acute kidney injury superimposed on chronic kidney disease Code(s): N17.9 - ACUTE KIDNEY FAILURE, UNSPECIFIED N18.9 - CHRONIC KIDNEY DISEASE, UNSPECIFIED (3) Sepsis Code(s): A41.9 - SEPSIS, UNSPECIFIED ORGANISM (4) Anemia Code(s): D64.9 - ANEMIA, UNSPECIFIED (5) Elevated troponin Code(s): R79.89 - OTHER SPECIFIED ABNORMAL FINDINGS OF BLOOD CHEMISTRY (6) CAD (coronary artery disease) Code(s): I25.10 - ATHSCL HEART DISEASE OF [place] CORONARY ARTERY W/O ANG PCTRS (7) COPD (chronic obstructive pulmonary disease) Code(s): J44.9 - CHRONIC OBSTRUCTIVE PULMONARY DISEASE, UNSPECIFIED (8) Hypertension Code(s): I10 - ESSENTIAL (PRIMARY) HYPERTENSION (9) Type II diabetes mellitus Code(s): E11.9 - TYPE 2 DIABETES MELLITUS WITHOUT COMPLICATIONS Assessment/Plan (1) Small bowel obstruction due to adhesions Assessment/Plan: -again confirmed patient does not want surgery -still with distention, hypoactive bowel sounds, and significant drainage -continue NGT -monitor for improvement Code(s): K56.5 - INTESTINAL ADHESIONS W OBST (POSTPROCEDURAL) (POSTINFECTION) (2) Acute kidney injury superimposed on chronic kidney disease Assessment/Plan: -nephrology following and note reviewed -improved today -IVF changed to D5 1/2NS for hypernatremia Code(s): N17.9 - ACUTE KIDNEY FAILURE, UNSPECIFIED N18.9 - CHRONIC KIDNEY DISEASE, UNSPECIFIED (3) Sepsis Assessment/Plan: -secondary to small bowel obstruction and UTI -leukocytosis stable -ID following -continue zosyn per ID recommendation Code(s): A41.9 - SEPSIS, UNSPECIFIED ORGANISM (4) Anemia Assessment/Plan: -controlled -monitor Code(s): D64.9 - ANEMIA, UNSPECIFIED (5) Elevated troponin Assessment/Plan: -suspect stress induced -cardiology following Code(s): R79.89 - OTHER SPECIFIED ABNORMAL FINDINGS OF BLOOD CHEMISTRY (6) CAD (coronary artery disease) Assessment/Plan: -cardiology following -holding oral medications Code(s): I25.10 - ATHSCL HEART DISEASE OF [place] CORONARY ARTERY W/O ANG PCTRS (7) COPD (chronic obstructive pulmonary disease) Assessment/Plan: -controlled Code(s): J44.9 - CHRONIC OBSTRUCTIVE PULMONARY DISEASE, UNSPECIFIED (8) Hypertension Assessment/Plan: -no longer hypotensive, now with hypertension -will hold on restarting antihypertensives at this time but if continues to elevate will start Code(s): I10 - ESSENTIAL (PRIMARY) HYPERTENSION (9) Type II diabetes mellitus Assessment/Plan: -npo currently -hypoglycemic -placed on D5 1/2NS secondary to this as well Code(s): E11.9 - TYPE 2 DIABETES MELLITUS WITHOUT COMPLICATIONS (10) UTI -growing e. coli resistant to ampicillin and unasyn -will continue zosyn currently secondary to possible GI pathology -ID following 37 minutes spent in critical care time
--- NOTE | 2016-09-13 11:39 | PN ---
Progress Note, Physician History of Present Illness: Awake, alert C/O abdominal discomfort NGT in place No BM Afebrile WBC remains elevated BC (-) Urine c/s E coli - Current Medication List Current Medications: Active Medications Albuterol/Ipratropium (Duoneb -) 1 amp NEB Q6H PRN PRN Reason: SHORTNESS OF BREATH Heparin Sodium (Porcine) (Heparin -) 5,000 unit SQ BID ELSIE Last Admin: 09/13/16 10:21 Dose: 5,000 unit Piperacillin Sod/Tazobactam Sod (Zosyn 2.25gm Ivpb (Pre-Docked)) 50 mls @ 100 mls/hr IVPB Q8H-IV ELSIE PRN Reason: Protocol Last Admin: 09/13/16 10:21 Dose: 100 mls/hr Dextrose/Sodium Chloride (D5-1/2ns -) 1,000 mls @ 125 mls/hr IV ASDIR ELSIE Last Admin: 09/13/16 10:21 Dose: 125 mls/hr Ondansetron HCl (Zofran Injection) 4 mg IVPUSH Q6H PRN PRN Reason: NAUSEA AND/OR VOMITING Last Admin: 09/12/16 02:27 Dose: 4 mg - Objective Vital Signs: Vital Signs Temperature 97.8 F 09/13/16 09:53 Pulse Rate 68 09/13/16 10:35 Respiratory Rate 22 09/13/16 09:53 Blood Pressure 148/49 09/13/16 09:53 O2 Sat by Pulse Oximetry (%) 97 09/13/16 10:35 Constitutional: Yes: No Distress Eyes: Yes: Conjunctiva Clear Cardiovascular: Yes: Regular Rate and Rhythm, S1, S2 Respiratory: Yes: Diminished Gastrointestinal: Yes: Normal Bowel Sounds, Soft, Other (distended). No: Tenderness Edema: No Labs: CBC, BMP 09/13/16 05:15 09/13/16 05:15 INR, PTT INR 1.16 (0.82-1.09) H 09/10/16 17:29 Assessment/Plan Bowel obstruction UTI/ Possible sepsis secondary to UTI - E coli [place]- improved Leukocytosis Lactic acidosis-resolved Hx CVA Hx AVR Continue zosyn- empiric bowel coverage, tx UTI Mgt bowel obstruction per surgery
--- NOTE | 2016-09-13 15:26 | PN ---
Progress Note (short form) - Note Progress Note: PULM / CCM -Seen and examined in ICU -Awake, CA+OX3, NAD -Pt states feeling much better today, pt working on Heroicles -Family @ the bedside -NGT drainage slowing -Small BM (Schmear) noted from O/N but pt denies any Flatus -Medical management of SBO continues -GNR in urine speciated --> E. coli (on zosyn) MEDS Albuterol/Ipratropium (Duoneb -) 1 amp NEB Q6H PRN PRN Reason: SHORTNESS OF BREATH Heparin Sodium (Porcine) (Heparin -) 5,000 unit SQ BID ELSIE Last Admin: 09/13/16 10:21 Dose: 5,000 unit Piperacillin Sod/Tazobactam Sod (Zosyn 2.25gm Ivpb (Pre-Docked)) 50 mls @ 100 mls/hr IVPB Q8H-IV ELSIE PRN Reason: Protocol Last Admin: 09/13/16 10:21 Dose: 100 mls/hr Dextrose/Sodium Chloride (D5-1/2ns -) 1,000 mls @ 125 mls/hr IV ASDIR ELSIE Last Admin: 09/13/16 10:21 Dose: 125 mls/hr Ondansetron HCl (Zofran Injection) 4 mg IVPUSH Q6H PRN PRN Reason: NAUSEA AND/OR VOMITING Last Admin: 09/12/16 02:27 Dose: 4 mg V/S Period Temp Pulse Resp BP Sys/Romero Pulse Ox Last 24 Hr 97.8 F-98.5 F 60-73 13-24 125-172/43-70 97-99 Intake & Output 09/10/16 09/11/16 09/12/16 09/13/16 23:59 23:59 23:59 23:59 Intake Total 500 2890 2375 Output Total 4070 2800 3085 800 Balance -3570 90 -710 -800 Weight 80.286 kg GEN: Elderly woman, in bed, awake and alert, NAD HEENT: PERRL, an-icteric, MMM, NGT to iLWS PULM: diminished in bases, otherwise CTAB CV: RR, Loud III/ SM ABD: Obese & distended, +BS, S/S N/T X4Q EXT: + Pulses, WWP X4, Trace peripheral edema NEURO: CAOx3, follows all, OLIVA, (-) focal deficit CBC, BMP 09/13/16 05:15 09/13/16 05:15 Microbiology 09/10/16 18:52 Urine - Urine Stokes Urine Culture - Final Escherichia Coli 09/11/16 01:15 Blood - Peripheral Venous Blood Culture - Preliminary NO GROWTH OBTAINED AFTER 48 HOURS, INCUBATION TO CONTINUE FOR 3 DAYS. 09/11/16 01:15 Blood - Peripheral Venous Blood Culture - Preliminary NO GROWTH OBTAINED AFTER 48 HOURS, INCUBATION TO CONTINUE FOR 3 DAYS. CXR 09/12: NGT coursing through the radio-graphic field of view, b/l atelectisis + /- small effusions ASSESS: SBO CVA w/ hemiparesis CAD A-Fib by history, PPM HTN Aortic valve bioprosthetic SD S/P PCI Anemia GI Bleed CKD COPD Ovarian Cancer Sepsis Acute on CKD PLAN: -NPO -Supp FiO2 for an SpO2 > 92% -Nebs -IS -Cont NGT to iLWS -Cont gentle IVFs -Strict I&O's -Pain control: prn fentanyl -Zosyn for E. coli UTI -VTE prophylaxis -BD TX PRN -DNR, per family no surgery, medical managment of SBO only Sebastien Lerner, [facility] [id number] Pulm/CCM CCT: 36m
--- NOTE | 2016-09-13 16:35 | EKG ---
Test Reason : Blood Pressure : / mmHG Vent. Rate : 069 BPM Atrial Rate : 069 BPM P-R Int : 278 ms QRS Dur : 154 ms QT Int : 482 ms P-R-T Axes : 056 -86 088 degrees QTc Int : 516 ms Atrial-sensed ventricular-paced rhythm with prolonged AV conduction ABNORMAL ECG WHEN COMPARED WITH ECG OF 10-SEP-2016 17:29, NO SIGNIFICANT CHANGE WAS FOUND Confirmed by LILLIAM COLLIER MD ([id number]) on 09/13/2016 4:35:36 PM Referred By: Confirmed By:LILLIAM COLLIER MD
[2016-09-13] MEDS ORDERED: NICARDIPINE 25 MG in DEXTROSE 5%-WATER - 240 ML IVPB SCH (21:30)
[2016-09-14] MEDS: PIPERACILLIN/TAZOB 2.25 GM 50 ML IVPB SCH (01:22)
[2016-09-14] MEDS: DEXTROSE 5%-0.45% SALINE 1,000 ML IV SCH ×2 (04:00→11:42)
[2016-09-14 06:19] LABS: MCH 28.3 pg (25.7-33.7); MCHC 31.1 g/dl (32.0-36.0); MEAN CELL VOLUME 90.9 fl (80-96); MEAN PLT VOLUME 8.5 fl (7.5-11.1); PLATELET COUNT 257 K/MM3 (134-434); RDW 18.7 % (11.6-15.6)
[2016-09-14 06:37] LABS: CALCIUM 7.9 mg/dL (8.5-10.1); COCKROFT - GAULT 27.183; CREATININE 1.9 mg/dL (0.55-1.02); MAGNESIUM 2.5 mg/dL (1.8-2.4); PHOSPHOROUS 2.7 mg/dL (2.5-4.9)
--- NOTE | 2016-09-14 08:40 | PN ---
Progress Note, Physician Chief Complaint: ID ICU follow up for this 85 year old female with UTI. Denies abd pain NGT in place - Current Medication List Current Medications: Active Medications Albuterol/Ipratropium (Duoneb -) 1 amp NEB Q6H PRN PRN Reason: SHORTNESS OF BREATH Heparin Sodium (Porcine) (Heparin -) 5,000 unit SQ BID ELSIE Last Admin: 09/13/16 21:54 Dose: 5,000 unit Piperacillin Sod/Tazobactam Sod (Zosyn 2.25gm Ivpb (Pre-Docked)) 50 mls @ 100 mls/hr IVPB Q8H-IV ELSIE PRN Reason: Protocol Last Admin: 09/14/16 01:22 Dose: 100 mls/hr Dextrose/Sodium Chloride (D5-1/2ns -) 1,000 mls @ 125 mls/hr IV ASDIR ELSIE Last Admin: 09/14/16 04:00 Dose: 125 mls/hr Nicardipine HCl 25 mg/ (Dextrose) 250 mls @ 25 mls/hr IVPB TITR ELSIE; 2.5 MG/HR PRN Reason: Protocol Last Admin: 09/13/16 22:02 Dose: 25 mls/hr Ondansetron HCl (Zofran Injection) 4 mg IVPUSH Q6H PRN PRN Reason: NAUSEA AND/OR VOMITING Last Admin: 09/12/16 02:27 Dose: 4 mg - Objective Vital Signs: Vital Signs Temperature 98.1 F 09/14/16 05:00 Pulse Rate 60 09/14/16 07:00 Respiratory Rate 20 09/14/16 07:00 Blood Pressure 132/66 09/14/16 07:00 O2 Sat by Pulse Oximetry (%) 97 09/13/16 22:00 Constitutional: Yes: Well Nourished, No Distress HENT: Yes: Other (NGT) Cardiovascular: Yes: Regular Rate and Rhythm, S1, S2 Respiratory: Yes: WNL, Regular, CTA Bilaterally Gastrointestinal: Yes: Distention, Tenderness. No: Tenderness, Rebound Edema: Yes Labs: CBC, BMP 09/14/16 05:20 09/14/16 05:20 INR, PTT INR 1.16 (0.82-1.09) H 09/10/16 17:29 Assessment/Plan Microbiology 09/10/16 18:52 Urine - Urine Stokes Urine Culture - Final Escherichia Coli 09/11/16 01:15 Blood - Peripheral Venous Blood Culture - Preliminary NO GROWTH OBTAINED AFTER 72 HOURS, INCUBATION TO CONTINUE FOR 2 DAYS. 09/11/16 01:15 Blood - Peripheral Venous Blood Culture - Preliminary NO GROWTH OBTAINED AFTER 72 HOURS, INCUBATION TO CONTINUE FOR 2 DAYS. Laboratory Tests 09/10/16 09/10/16 09/12/16 17:35 18:52 05:20 WBC 17.8 H D Hgb Hct Plt Count BUN Creatinine Creat Clearance w eGFR 10.64 Urine RBC 42 Urine Bacteria Many Urine Yeast Many 09/14/16 09/14/16 05:20 05:20 WBC 9.0 D Hgb 8.7 L Hct 27.9 L Plt Count 257 BUN 54 H D Creatinine 1.9 H D Creat Clearance w eGFR Urine RBC Urine Bacteria Urine Yeast Assessment E Coli UTI Small bowel obstruction with NGT History of Ovarian cancer S/P TAVR Acute kidney injury Plan Based on sensisitivites can stop Zosyn and substitute Cefazolin adjusted for Cr Jayden Redding MD
--- NOTE | 2016-09-14 09:51 | PN ---
Progress Note, Physician Chief Complaint: SBO, sepsis History of Present Illness: sleepy but wakes up and answers questions denies cp, sob, palpitations, syncope - Current Medication List Current Medications: Active Medications Albuterol/Ipratropium (Duoneb -) 1 amp NEB Q6H PRN PRN Reason: SHORTNESS OF BREATH Heparin Sodium (Porcine) (Heparin -) 5,000 unit SQ BID ELSIE Last Admin: 09/13/16 21:54 Dose: 5,000 unit Dextrose/Sodium Chloride (D5-1/2ns -) 1,000 mls @ 125 mls/hr IV ASDIR ELSIE Last Admin: 09/14/16 04:00 Dose: 125 mls/hr Nicardipine HCl 25 mg/ (Dextrose) 250 mls @ 25 mls/hr IVPB TITR ELSIE; 2.5 MG/HR PRN Reason: Protocol Last Admin: 09/13/16 22:02 Dose: 25 mls/hr Cefazolin Sodium (Ancef 1gm Ivpb (Pre-Docked)) 50 mls @ 100 mls/hr IVPB BID ELSIE Ondansetron HCl (Zofran Injection) 4 mg IVPUSH Q6H PRN PRN Reason: NAUSEA AND/OR VOMITING Last Admin: 09/12/16 02:27 Dose: 4 mg - Objective Vital Signs: Vital Signs Temperature 98.1 F 09/14/16 05:00 Pulse Rate 60 09/14/16 08:00 Respiratory Rate 18 09/14/16 08:00 Blood Pressure 152/58 09/14/16 08:00 O2 Sat by Pulse Oximetry (%) 97 09/13/16 22:00 Constitutional: Yes: Well Nourished, No Distress, Calm Cardiovascular: Yes: Regular Rate and Rhythm, JVD (possible), S1, S2. No: Gallop, Murmur Respiratory: Yes: Regular, CTA Bilaterally. No: Accessory Muscle Use Extremities: No: Cold Edema: No (SCDs) Neurological: Yes: Lethargy. No: Seizure Psychiatric: No: Agitated Labs: CBC, BMP 09/14/16 05:20 09/14/16 05:20 INR, PTT INR 1.16 (0.82-1.09) H 09/10/16 17:29 - ....Imaging EKG: Other (tele: V-paced) Assessment/Plan Echo 09/26 here: TDS; nl overall LVSF (RWMA tds); nl overall RV size/fxn; nl LA; AV tds, no AI or ; trace MR can't exclude vegetation; mild TR Echo 06/2014: nl lv/rv, mod tr, rvsp 30-40, nl bio avr CXR: progressive bibasilar changes (atx/infiltrate with pleural fluid) a/p: 85 f hx htn, cva, right cea, ?pafib (per charts, ac stopped in past for gib), cad s/p mi's and remote pci, tavr for several years ago, ppm 12/2015, sent from [place] for n/v/abd distention. sbo, sepsis: -cont ngt -bp low, cont ivfs, abx -has not needed pressors so far -echo MV report noted--no positive BCx's or other findings suggestive of SBE-- defer ERNST ppm: -normal fcn on ecg, tele pos trops: -trop mildly positive (0.7)--trended down. ECG v-paced. -normal LVEF, can't assess RWMA due to tds -clinical presentation c/w sepsis, with low suspicion for ACS -probable underlying obstructive CAD given 2014 NSTEMI treated medically ( refused cath)--hence cause of troponins here likely supply-demand mismatch due to sepsis -defer further w/u or tx at this time -consider risk-stratification with nuclear stress test later, if makes good recovery pete: -likely related to sepsis, sbo -renal fxn improving -rec minimize ivfs if remains hemody stable and renal fxn ok--per crit care/ renal--? JVD on exam, pleural fluid suspected on CXR--observe clinically anemia: -h/o GIB in past (necessitating d/c of AC, per chart notes) -hgb below baseline, trending down -holding home asa for now htn: -sbp recovered, elevated at times -npo -iv lopressor to start -can d/c iv nifedipine gtt--change to iv hydral ? pafib: -per charts, no specific details available, currently in sr -ac reportedly stopped in past for gib -at high risk for cardioembolic CVA (prior h/o CVA, CHADS-VASC = 7) -will not change prior tx plan given pt not well known to us -cont home asa once hgb stable tavr: -normal AV fxn on echo here cad s/p mi's and remote pci: -no angina/ACS suspected, as disc'd above -pt declined cath 2014 for nstemi -resume home po CAD meds when clinically stable and cleared for po intake ( statin, wade, bb...then ASA once hgb stable) est crit care time 37 min
[2016-09-14] MEDS: HEPARIN NA (PORCINE) 5,000 UNITS/ML 1ML VIAL SQ SCH ×2 (09:54→21:20)
[2016-09-14] MEDS ORDERED: CEFAZOLIN (PRE-DOCKED) 50 ML IVPB SCH (10:00)
--- NOTE | 2016-09-14 10:14 | PN ---
Progress Note, Physician Chief Complaint: Patient says she is still having abdominal pain. No cp or sob. RN states she only wants ice and juice and is not taking in much nutrition. - Current Medication List Current Medications: Active Medications Albuterol/Ipratropium (Duoneb -) 1 amp NEB Q6H PRN PRN Reason: SHORTNESS OF BREATH Heparin Sodium (Porcine) (Heparin -) 5,000 unit SQ BID [facility] Last Admin: 09/14/16 09:54 Dose: 5,000 unit Dextrose/Sodium Chloride (D5-1/2ns -) 1,000 mls @ 125 mls/hr IV ASDIR [facility] Last Admin: 09/14/16 04:00 Dose: 125 mls/hr Nicardipine HCl 25 mg/ (Dextrose) 250 mls @ 25 mls/hr IVPB TITR ELSIE; 2.5 MG/HR PRN Reason: Protocol Last Admin: 09/13/16 22:02 Dose: 25 mls/hr Cefazolin Sodium (Ancef 1gm Ivpb (Pre-Docked)) 50 mls @ 100 mls/hr IVPB BID [facility] Last Admin: 09/14/16 09:54 Dose: 100 mls/hr Amino Acids (Clinimix -) 1,000 mls @ 42 mls/hr IV Q12H ELSIE Potassium Chloride (Potassium Chloride 10 Meq Premix Ivpb -) 100 mls @ 100 mls/ hr IVPB Q60M [facility] Stop: 09/14/16 12:14 Ondansetron HCl (Zofran Injection) 4 mg IVPUSH Q6H PRN PRN Reason: NAUSEA AND/OR VOMITING Last Admin: 09/12/16 02:27 Dose: 4 mg - Objective Vital Signs: Vital Signs Temperature 98.1 F 09/14/16 05:00 Pulse Rate 60 09/14/16 08:00 Respiratory Rate 18 09/14/16 08:00 Blood Pressure 152/58 09/14/16 08:00 O2 Sat by Pulse Oximetry (%) 97 09/13/16 22:00 Constitutional: Yes: No Distress, Calm, Obese Cardiovascular: Yes: Regular Rate and Rhythm. No: Gallop, Murmur, Rub Respiratory: Yes: Regular, CTA Bilaterally. No: Rales, Rhonchi, Wheezes Gastrointestinal: Yes: Distention, Hypoactive Bowel Sounds, Tenderness Extremities: Yes: WNL Edema: Yes Edema: LLE: Trace, RLE: Trace Labs: CBC, BMP 09/14/16 05:20 09/14/16 05:20 INR, PTT INR 1.16 (0.82-1.09) H 09/10/16 17:29 Problem List - Problems (1) Small bowel obstruction due to adhesions Code(s): K56.5 - INTESTINAL ADHESIONS W OBST (POSTPROCEDURAL) (POSTINFECTION) (2) Acute kidney injury superimposed on chronic kidney disease Code(s): N17.9 - ACUTE KIDNEY FAILURE, UNSPECIFIED N18.9 - CHRONIC KIDNEY DISEASE, UNSPECIFIED (3) Sepsis Code(s): A41.9 - SEPSIS, UNSPECIFIED ORGANISM (4) Anemia Code(s): D64.9 - ANEMIA, UNSPECIFIED (5) Elevated troponin Code(s): R79.89 - OTHER SPECIFIED ABNORMAL FINDINGS OF BLOOD CHEMISTRY (6) CAD (coronary artery disease) Code(s): I25.10 - ATHSCL HEART DISEASE OF [place] CORONARY ARTERY W/O ANG PCTRS (7) COPD (chronic obstructive pulmonary disease) Code(s): J44.9 - CHRONIC OBSTRUCTIVE PULMONARY DISEASE, UNSPECIFIED (8) Hypertension Code(s): I10 - ESSENTIAL (PRIMARY) HYPERTENSION (9) Type II diabetes mellitus Code(s): E11.9 - TYPE 2 DIABETES MELLITUS WITHOUT COMPLICATIONS Assessment/Plan (1) Small bowel obstruction due to adhesions Assessment/Plan: -continue conservative management -patient with minimal intake -950mL out of NGT yesterday -continue clear liquid diet -add clinimix until po intake improves Code(s): K56.5 - INTESTINAL ADHESIONS W OBST (POSTPROCEDURAL) (POSTINFECTION) (2) Acute kidney injury superimposed on chronic kidney disease Assessment/Plan: -continues to improve -continue hydration -still hypernatremic but stable Code(s): N17.9 - ACUTE KIDNEY FAILURE, UNSPECIFIED N18.9 - CHRONIC KIDNEY DISEASE, UNSPECIFIED (3) Sepsis Assessment/Plan: -secondary to small bowel obstruction and UTI -leukocytosis improving -antibiotics changed to cefazolin per ID Code(s): A41.9 - SEPSIS, UNSPECIFIED ORGANISM (4) Anemia Assessment/Plan: -controlled -monitor Code(s): D64.9 - ANEMIA, UNSPECIFIED (5) Elevated troponin Assessment/Plan: -suspect stress induced -cardiology following Code(s): R79.89 - OTHER SPECIFIED ABNORMAL FINDINGS OF BLOOD CHEMISTRY (6) CAD (coronary artery disease) Assessment/Plan: -cardiology following -holding oral medications Code(s): I25.10 - ATHSCL HEART DISEASE OF [place] CORONARY ARTERY W/O ANG PCTRS (7) COPD (chronic obstructive pulmonary disease) Assessment/Plan: -controlled Code(s): J44.9 - CHRONIC OBSTRUCTIVE PULMONARY DISEASE, UNSPECIFIED (8) Hypertension Assessment/Plan -on nicardipine gtt -well controlled Code(s): I10 - ESSENTIAL (PRIMARY) HYPERTENSION (9) Type II diabetes mellitus Assessment/Plan: -clear liquid diet but poor intake -on D5 1/2NS -also start clinimix Code(s): E11.9 - TYPE 2 DIABETES MELLITUS WITHOUT COMPLICATIONS (10) UTI -growing e. coli resistant to ampicillin and unasyn -seen by ID -transitioned over to ancef -leukocytosis resolved 32 minutes spent in critical care time
[2016-09-14] MEDS ORDERED: AMINO ACIDS 4.25%/D5W 1,000 ML IV SCH (10:15)
[2016-09-14] MEDS ORDERED: hydrALAZINE HCL 20 MG/ML VIAL IVPUSH PRN (11:27)
[2016-09-14] MEDS: KCL 10 MEQ IVPB 100 ML IVPB SCH ×2 (11:42→12:29)
--- NOTE | 2016-09-14 12:25 | PN ---
Teaching Attending Note Name of Resident: Leslie Crawley ATTENDING PHYSICIAN STATEMENT I saw and evaluated the patient. I reviewed the resident's note and discussed the case with the resident. I agree with the resident's findings and plan as documented. SUBJECTIVE: Patient seen and examined in the ICU. No improvement in abdominal exam, remains distended with no BM/flatus despite bowel rest and NGT decompression. Patient and the family continue to decline surgical intervention. Denies CP or SOB. Some dry cough. Intake & Output 09/11/16 09/12/16 09/13/16 09/14/16 23:59 23:59 23:59 23:59 Intake Total 2890 2375 1350 1652 Output Total 2800 3085 2700 400 Balance 90 -710 -1350 1252 Weight 175 lb 6 oz Last Vital Signs Temp Pulse Resp BP Pulse Ox 98 F 62 18 154/62 100 09/14/16 10:00 09/14/16 12:00 09/14/16 10:00 09/14/16 10:00 09/14/16 12:00 Active Medications Albuterol/Ipratropium (Duoneb -) 1 amp NEB Q6H PRN PRN Reason: SHORTNESS OF BREATH Heparin Sodium (Porcine) (Heparin -) 5,000 unit SQ BID [facility] Last Admin: 09/14/16 09:54 Dose: 5,000 unit Hydralazine HCl (Apresoline Injection -) 5 mg IVPB Q8H-IV ELSIE Dextrose/Sodium Chloride (D5-1/2ns -) 1,000 mls @ 125 mls/hr IV ASDIR ELSIE Last Admin: 09/14/16 11:42 Dose: 125 mls/hr Nicardipine HCl 25 mg/ (Dextrose) 250 mls @ 25 mls/hr IVPB TITR ELSIE; 2.5 MG/HR PRN Reason: Protocol Last Admin: 09/13/16 22:02 Dose: 25 mls/hr Cefazolin Sodium (Ancef 1gm Ivpb (Pre-Docked)) 50 mls @ 100 mls/hr IVPB BID [facility] Last Admin: 09/14/16 09:54 Dose: 100 mls/hr Amino Acids (Clinimix -) 1,000 mls @ 42 mls/hr IV Q24H ELSIE Metoprolol Tartrate (Lopressor Injection -) 5 mg IVPUSH Q8H-IV ELSIE Ondansetron HCl (Zofran Injection) 4 mg IVPUSH Q6H PRN PRN Reason: NAUSEA AND/OR VOMITING Last Admin: 09/12/16 02:27 Dose: 4 mg GENERAL: Awake, alert, Mildly uncomfortable due to pain HEENT: (-) Pallor, (-) Icterus LUNGS: few basilar rhonchi, No wheezes. accessory muscle use. HEART: Regular rate and rhythm, normal S1 and S2 without murmur, rub or gallop. ABDOMEN: Soft, (+) tender to palpation diffusely & mildly distended. Hypoactive bowel sounds. No guarding or rebound tenderness. EXTREMITIES: 2+ pulses & warm on left LE, 1+pulses and cool to touch on right LE. No calf tenderness. Trace edema bilateral lower extremities. NEUROLOGICAL: Cranial nerves II-XII intact. Normal speech. Unable to assess gait. PSYCHIATRIC: Appropriate mood and affect. SKIN: Stage II pressure ulcers, left buttock healed 4.3cm, right buttock 9.5x 14cm noted, normal capillary refill. Laboratory Results - last 24 hr 09/14/16 09/14/16 05:20 05:20 WBC 9.0 D RBC 3.06 L Hgb 8.7 L Hct 27.9 L MCV 90.9 MCHC 31.1 L RDW 18.7 H Plt Count 257 MPV 8.5 Neutrophils % Y Lymphocytes % Y Sodium 151 H Potassium 3.4 L Chloride 105 Carbon Dioxide 37 H Anion Gap 9 BUN 54 H D Creatinine 1.9 H D Random Glucose 191 H D Calcium 7.9 L Phosphorus 2.7 D Magnesium 2.5 H ASSESSMENT/PLAN: SBO possibly related to adhesions. CVA w/ hemiparesis CAD A-Fib by history HTN Aortic valve bioprosthetic NE S/P PCI Anemia GI Bleed CKD COPD Ovarian Cancer Sepsis Acute on CKD Decrease IVF Noted Clinimix has been started Strict I&O O2 as needed Pain control ABX per ID VTE prophylaxis BD TX PRN 4S/4W Dr Thompson Critical care time spent in reviewing chart, evaluating patient and formulating plan 35 min
[2016-09-14] MEDS: hydrALAZINE HCL 20 MG/ML VIAL IVPB SCH ×2 (12:29→18:08)
[2016-09-14 14:08] LABS: PLATELET ESTIMATE ADEQUATE (NORMAL)
--- NOTE | 2016-09-14 14:32 | PN ---
Progress Note, Physician History of Present Illness: Pt seen and examined at bedside. She remains in the ICU. She does have abdominal pain. She has not passed stool. - Current Medication List Current Medications: Active Medications Albuterol/Ipratropium (Duoneb -) 1 amp NEB Q6H PRN PRN Reason: SHORTNESS OF BREATH Heparin Sodium (Porcine) (Heparin -) 5,000 unit SQ BID [facility] Last Admin: 09/14/16 09:54 Dose: 5,000 unit Hydralazine HCl (Apresoline Injection -) 5 mg IVPB Q8H-IV [facility] Last Admin: 09/14/16 12:29 Dose: 5 mg Dextrose/Sodium Chloride (D5-1/2ns -) 1,000 mls @ 125 mls/hr IV ASDIR [facility]SIE Last Admin: 09/14/16 11:42 Dose: 125 mls/hr Nicardipine HCl 25 mg/ (Dextrose) 250 mls @ 25 mls/hr IVPB TITR ELSIE; 2.5 MG/HR PRN Reason: Protocol Last Admin: 09/13/16 22:02 Dose: 25 mls/hr Cefazolin Sodium (Ancef 1gm Ivpb (Pre-Docked)) 50 mls @ 100 mls/hr IVPB BID [facility]SIE Last Admin: 09/14/16 09:54 Dose: 100 mls/hr Amino Acids (Clinimix -) 1,000 mls @ 42 mls/hr IV Q24H ELSIE Last Admin: 09/14/16 14:08 Dose: 42 mls/hr Metoprolol Tartrate (Lopressor Injection -) 5 mg IVPUSH Q8H-IV [facility]SIE Ondansetron HCl (Zofran Injection) 4 mg IVPUSH Q6H PRN PRN Reason: NAUSEA AND/OR VOMITING Last Admin: 09/12/16 02:27 Dose: 4 mg - Objective Vital Signs: Vital Signs Temperature 98 F 09/14/16 10:00 Pulse Rate 60 09/14/16 12:00 Respiratory Rate 18 09/14/16 12:00 Blood Pressure 151/64 09/14/16 12:00 O2 Sat by Pulse Oximetry (%) 100 09/14/16 12:00 Constitutional: Yes: Calm Eyes: Yes: Conjunctiva Clear HENT: Yes: Atraumatic Neck: Yes: Supple Cardiovascular: Yes: S1, S2 Respiratory: Yes: CTA Bilaterally Gastrointestinal: Yes: Distention, Tenderness Musculoskeletal: Yes: Muscle Weakness Edema: No Neurological: Yes: Oriented Psychiatric: Yes: Oriented Labs: CBC, BMP 09/14/16 05:20 09/14/16 05:20 INR, PTT INR 1.16 (0.82-1.09) H 09/10/16 17:29 Problem List - Problems (1) Acute kidney injury superimposed on chronic kidney disease Code(s): N17.9 - ACUTE KIDNEY FAILURE, UNSPECIFIED N18.9 - CHRONIC KIDNEY DISEASE, UNSPECIFIED (2) Anemia Code(s): D64.9 - ANEMIA, UNSPECIFIED (3) CAD (coronary artery disease) Code(s): I25.10 - ATHSCL HEART DISEASE OF [place] CORONARY ARTERY W/O ANG PCTRS (4) COPD (chronic obstructive pulmonary disease) Code(s): J44.9 - CHRONIC OBSTRUCTIVE PULMONARY DISEASE, UNSPECIFIED (5) H/O ovarian cancer Code(s): Z85.43 - PERSONAL HISTORY OF MALIGNANT NEOPLASM OF [place] (6) HLD (hyperlipidemia) Code(s): E78.5 - HYPERLIPIDEMIA, UNSPECIFIED (7) Hypertension Code(s): I10 - ESSENTIAL (PRIMARY) HYPERTENSION (8) Sepsis Code(s): A41.9 - SEPSIS, UNSPECIFIED ORGANISM (9) Non-STEMI (non-ST elevated myocardial infarction) Code(s): I21.4 - NON-ST ELEVATION (NSTEMI) MYOCARDIAL INFARCTION (10) Small bowel obstruction Code(s): K56.69 - OTHER INTESTINAL OBSTRUCTION Assessment/Plan Current Medications Generic Name Dose Route Start Last Admin Trade Name Freq PRN Reason Stop Dose Admin Albuterol/Ipratropium 1 amp 09/11/16 08:13 Duoneb - NEB Q6H PRN SHORTNESS OF BREATH Heparin Sodium (Porcine) 5,000 unit 09/11/16 10:00 09/14/16 09:54 Heparin - SQ 5,000 unit BID ELSIE Administration Hydralazine HCl 5 mg 09/14/16 11:45 09/14/16 12:29 Apresoline Injection - IVPB 5 mg Q8H-IV ELSIE Administration Dextrose/Sodium Chloride 1,000 mls @ 125 mls/hr 09/13/16 10:00 09/14/16 11:42 D5-1/2ns - IV 125 mls/hr ASDIR ELSIE Administration Nicardipine HCl 25 mg/ 250 mls @ 25 mls/hr 09/13/16 21:30 09/13/16 22:02 Dextrose IVPB 25 mls/hr TITR ELSIE Administration Protocol 2.5 MG/HR Cefazolin Sodium 50 mls @ 100 mls/hr 09/14/16 10:00 09/14/16 09:54 Ancef 1gm Ivpb (Pre-Docked) IVPB 100 mls/hr BID ELSIE Administration Amino Acids 1,000 mls @ 42 mls/hr 09/14/16 10:15 09/14/16 14:08 Clinimix - IV 42 mls/hr Q24H ELSIE Administration Metoprolol Tartrate 5 mg 09/14/16 18:00 Lopressor Injection - IVPUSH Q8H-IV ELSIE Ondansetron HCl 4 mg 09/11/16 07:50 09/12/16 02:27 Zofran Injection IVPUSH 4 mg Q6H PRN Administration NAUSEA AND/OR VOMITING Impression 1. [place] 2. SBO 3. UTI 4. sepsis 5. history of ovarian cancer 6. COPD 7. hypotension 8. CAD 9. hx htn 10. NSTEMI 11. renal cyst 12. lactic acidosis Plan - can stop timmy d5 1/2 - will start clinimix - discussed with ICU team - discussed with medical attending - renal function is improving - monitor in ICU - family are refusing surgery
--- NOTE | 2016-09-14 16:20 | PN ---
Physical Exam: SUBJECTIVE: Patient seen and examined. She is complaining of abdominal discomfort today. She denies passing flatus, having BMs, fever, chills, vomiting , nausea. No overnight events. OBJECTIVE: Vital Signs Period Temp Pulse Resp BP Sys/Romero Pulse Ox Last 24 Hr 97.2 F-99 F 60-72 14-20 130-185/49-73 95-100 GENERAL: The patient is awake, alert, and fully oriented, in no acute distress. HEAD: Normal with no signs of trauma. EYES:extraocular movements intact, sclera anicteric, conjunctiva clear. ENT: oropharynx clear without exudates, moist mucous membranes. NECK: Trachea midline, full range of motion, supple. LUNGS: Breath sounds equal, coarse breath sounds bilaterally, no wheezes, no crackles, no accessory muscle use. HEART: Regular rate and rhythm, S1, S2 without murmur, rub or gallop. ABDOMEN: Soft, nontender, nondistended, normoactive bowel sounds, no guarding, no rebound, no hepatosplenomegaly, no masses. EXTREMITIES: 2+ pulses, warm, 1+ edema, scds applied. NEUROLOGICAL: No facial asymmetry. Normal speech, gait not observed. PSYCH: Normal mood, normal affect. SKIN: Warm, dry, normal turgor. Laboratory Results - last 24 hr 09/14/16 09/14/16 05:20 05:20 WBC 9.0 D RBC 3.06 L Hgb 8.7 L Hct 27.9 L MCV 90.9 MCHC 31.1 L RDW 18.7 H Plt Count 257 MPV 8.5 Neutrophils % 82.0 Lymphocytes % 5.0 L Monocytes % 9.0 Eosinophils % 2.0 D Myelocytes 2 Differential Comment Manual diff done Platelet Estimate Adequate Sodium 151 H Potassium 3.4 L Chloride 105 Carbon Dioxide 37 H Anion Gap 9 BUN 54 H D Creatinine 1.9 H D Random Glucose 191 H D Calcium 7.9 L Phosphorus 2.7 D Magnesium 2.5 H Active Medications Generic Name Dose Route Start Last Admin Trade Name Freq PRN Reason Stop Dose Admin Albuterol/Ipratropium 1 amp 09/11/16 08:13 Duoneb - NEB Q6H PRN SHORTNESS OF BREATH Heparin Sodium (Porcine) 5,000 unit 09/11/16 10:00 09/14/16 09:54 Heparin - SQ 5,000 unit BID ELSIE Administration Hydralazine HCl 5 mg 09/14/16 11:45 09/14/16 12:29 Apresoline Injection - IVPB 5 mg Q8H-IV ELSIE Administration Cefazolin Sodium 50 mls @ 100 mls/hr 09/14/16 10:00 09/14/16 09:54 Ancef 1gm Ivpb (Pre-Docked) IVPB 100 mls/hr BID ELSIE Administration Amino Acids 1,000 mls @ 42 mls/hr 09/14/16 10:15 09/14/16 14:08 Clinimix - IV 42 mls/hr Q24H ELSIE Administration Metoprolol Tartrate 5 mg 09/14/16 18:00 Lopressor Injection - IVPUSH Q8H-IV ELSIE Ondansetron HCl 4 mg 09/11/16 07:50 09/12/16 02:27 Zofran Injection IVPUSH 4 mg Q6H PRN Administration NAUSEA AND/OR VOMITING ASSESSMENT/PLAN: 85 year old female with significant PMH of CVA w/ hemiparesis, CAD, HTN, Aortic valve bioprosthetic, [place] s/p stents, Anemia, GIB, CKD, COPD (former smoker), Ovarian Cancer who presented to ED from [facility] with small bowel obstruction & sepsis due to UTI. Small Bowel Obstruction, -likely related to adhesions -f/u surgery recommendations -NG tube inserted, no output docummented today -family would like to avoid surgical interventions & proceed with medical management -lactic acidosis resolved -NPO -Zofran for nausea -Clinamix started today sepsis due to UTI -Zosyn given in ED, continue Ancef 1 g BID -ID consulted -blood cx no growth, u cx E.Coli -cont Clinimix Acute On Chronic Kidney Failure -baseline Cr ~1.6 -today Cr 1.9, BUN 54, improved Elevated Troponins -likely demand ischemia due to sepsis -will continue to monitor -EKG reviewed -f/u cardiology consult COPD -Duonebs QIDR -f/u daily CXR CAD/HTN/Cardiac hx -Nicardipine gtt stopped today -continue Lopressor and Hydralazine -f/u cardiology consultation Prophylaxis -Heparin 5000 BID -No PPI indicated F/E/N: -Clinimix -monitor electrolytes -NPO for now Disposition: transfer to telemetry Problem List - Problems (1) Acute kidney injury superimposed on chronic kidney disease Code(s): N17.9 - ACUTE KIDNEY FAILURE, UNSPECIFIED N18.9 - CHRONIC KIDNEY DISEASE, UNSPECIFIED (2) Anemia Code(s): D64.9 - ANEMIA, UNSPECIFIED (3) CAD (coronary artery disease) Code(s): I25.10 - ATHSCL HEART DISEASE OF [place] CORONARY ARTERY W/O ANG PCTRS (4) COPD (chronic obstructive pulmonary disease) Code(s): J44.9 - CHRONIC OBSTRUCTIVE PULMONARY DISEASE, UNSPECIFIED (5) H/O ovarian cancer Code(s): Z85.43 - PERSONAL HISTORY OF MALIGNANT NEOPLASM OF [place] (6) HLD (hyperlipidemia) Code(s): E78.5 - HYPERLIPIDEMIA, UNSPECIFIED (7) Hypertension Code(s): I10 - ESSENTIAL (PRIMARY) HYPERTENSION (8) Sepsis Code(s): A41.9 - SEPSIS, UNSPECIFIED ORGANISM (9) Small bowel obstruction Code(s): K56.69 - OTHER INTESTINAL OBSTRUCTION (10) [place] (acute kidney injury) Code(s): N17.9 - ACUTE KIDNEY FAILURE, UNSPECIFIED Visit type - Emergency Visit Emergency Visit: Yes ED Registration Date: 09/10/16 Care time: The patient presented to the Emergency Department on the above date and was hospitalized for further evaluation of their emergent condition. - New Patient This patient is new to me today: Yes Date on this admission: 09/14/16 - Critical Care Critical Care patient: Yes Total Critical Care Time (in minutes): 45 Critical Care Statement: The care of this patient involved high complexity decision making to prevent further life threatening deterioration of the patient 's condition and/or to evalute & treat vital organ system(s) failure or risk of failure.
[2016-09-14] MEDS ORDERED: METOPROLOL TARTRATE 5 MG/5 ML VIAL IVPUSH SCH (18:00)
[2016-09-14] MEDS ORDERED: ONDANSETRON 4 MG/2 ML VIAL IVPUSH PRN (18:15)
[2016-09-14] MEDS ORDERED: ALBUTEROL SO4 2.5/IPRATROPIUM 0.5 INH SOL 3 ML VIAL.NEB. NEB PRN (18:15)
[2016-09-14] MEDS: CEFAZOLIN (PRE-DOCKED) 50 ML IVPB SCH (21:20)
[2016-09-14] MEDS ORDERED: hydrALAZINE HCL 20 MG/ML VIAL ONE (23:45)
[2016-09-14] MEDS ORDERED: METOPROLOL TARTRATE 5 MG/5 ML VIAL ONE (23:45)
[2016-09-15] MEDS: hydrALAZINE HCL 20 MG/ML VIAL IVPB SCH ×3 (01:27→17:47)
[2016-09-15] MEDS: METOPROLOL TARTRATE 5 MG/5 ML VIAL IVPUSH SCH ×3 (01:28→17:48)
[2016-09-15 06:27] LABS: MCH 28.3 pg (25.7-33.7); MCHC 31.4 g/dl (32.0-36.0); MEAN CELL VOLUME 90.3 fl (80-96); MEAN PLT VOLUME 8.5 fl (7.5-11.1); PLATELET COUNT 242 K/MM3 (134-434); RDW 18.5 % (11.6-15.6); WHITE BLOOD COUNT 8.7 K/mm3 (4.0-10.0)
[2016-09-15 06:35] LABS: CALCIUM 7.8 mg/dL (8.5-10.1); COCKROFT - GAULT 37.468; CREATININE 1.4 mg/dL (0.55-1.02); MAGNESIUM 2.3 mg/dL (1.8-2.4)
--- NOTE | 2016-09-15 09:48 | PN ---
Progress Note (short form) - Note Progress Note: Chief Complaint: SBO, sepsis History of Present Illness: clinimix started. Tried clears this morning. denies cp, sob, palpitations, syncope. mild abdominal tenderness persists. Current Medications Albuterol/Ipratropium (Duoneb -) 1 amp NEB Q6H PRN PRN Reason: SHORTNESS OF BREATH Heparin Sodium (Porcine) (Heparin -) 5,000 unit SQ BID [facility] Last Admin: 09/14/16 21:20 Dose: 5,000 unit Hydralazine HCl (Apresoline Injection -) 5 mg IVPB Q8H-IV [facility] Last Admin: 09/15/16 01:27 Dose: 5 mg Cefazolin Sodium (Ancef 1gm Ivpb (Pre-Docked)) 50 mls @ 100 mls/hr IVPB BID [facility] Last Admin: 09/14/16 21:20 Dose: 100 mls/hr Amino Acids (Clinimix -) 1,000 mls @ 42 mls/hr IV Q24H [facility] Metoprolol Tartrate (Lopressor Injection -) 5 mg IVPUSH Q8H-IV [facility] Last Admin: 09/15/16 01:28 Dose: 5 mg Ondansetron HCl (Zofran Injection) 4 mg IVPUSH Q6H PRN PRN Reason: NAUSEA AND/OR VOMITING Vital Signs - 24 hr 09/14/16 09/14/16 09/14/16 12:00 14:00 15:52 Temperature 97.2 F L Pulse Rate 60 62 64 Respiratory 18 18 18 Rate Blood Pressure 151/64 130/60 132/62 O2 Sat by Pulse 100 Oximetry (%) 09/14/16 09/14/16 09/14/16 17:00 18:07 20:00 Temperature Pulse Rate 62 60 66 Respiratory 18 18 Rate Blood Pressure 141/48 141/48 147/57 O2 Sat by Pulse Oximetry (%) 09/14/16 09/15/16 09/15/16 22:00 00:00 01:00 Temperature 97.8 F Pulse Rate 62 60 62 Respiratory 20 20 22 Rate Blood Pressure 147/59 149/56 149/59 O2 Sat by Pulse 100 Oximetry (%) 09/15/16 09/15/16 09/15/16 01:28 02:00 04:00 Temperature 98.6 F Pulse Rate 60 60 62 Respiratory 20 22 Rate Blood Pressure 149/56 134/48 150/57 O2 Sat by Pulse Oximetry (%) 09/15/16 09/15/16 09/15/16 05:15 06:00 08:00 Temperature 98 F Pulse Rate 69 63 61 Respiratory 20 18 18 Rate Blood Pressure 153/48 167/54 168/55 O2 Sat by Pulse Oximetry (%) 09/15/16 09/15/16 09:00 09:25 Temperature 98.3 F Pulse Rate 64 Respiratory 18 Rate Blood Pressure 159/61 O2 Sat by Pulse 98 Oximetry (%) Intake & Output 09/13/16 09/14/16 09/15/16 09/16/16 07:59 07:59 07:59 07:59 Intake Total 2325 3002 2204 Output Total 3010 2300 850 Balance -002 194 9810 Weight 175 lb 6 oz 178 lb 2 oz Constitutional: Yes: Well Nourished, No Distress, Calm Cardiovascular: Yes: Regular Rate and Rhythm, JVD (possible), S1, S2. No: Gallop, Murmur Respiratory: Yes: Regular, CTA Bilaterally. No: Accessory Muscle Use Extremities: No: Cold + bs, mild tenderness to palpation, + distension. Edema: No (SCDs) Neurological: Yes: Lethargy. No: Seizure Psychiatric: No: Agitated Labs: CBC, BMP 09/15/16 05:20 09/15/16 05:20 Laboratory Tests 09/15/16 09/15/16 05:20 05:20 Band Neutrophils 4.0 Magnesium 2.3 - ....Imaging EKG: Other (tele: V-paced) Assessment/Plan Echo 09/26 here: TDS; nl overall LVSF (RWMA tds); nl overall RV size/fxn; nl LA; AV tds, no AI or ; trace MR can't exclude vegetation; mild TR Echo 06/2014: nl lv/rv, mod tr, rvsp 30-40, nl bio avr CXR: progressive bibasilar changes (atx/infiltrate with pleural fluid) a/p: 85 f hx htn, cva, right cea, ?pafib (per charts, ac stopped in past for gib), cad s/p mi's and remote pci, tavr for several years ago, ppm 12/2015, sent from [place] for n/v/abd distention noted to have sbo/sepsis/pete. sbo, sepsis: -cont ngt -bp limproved on ivfs, abx -has not needed pressors so far -echo MV report noted--no positive BCx's or other findings suggestive of SBE-- defer ERNST ppm: - st fab dual chamber place 12/2015 at [facility] [place] for high grade block. followed there. -normal fcn on ecg, tele. pos trops: -trop mildly positive (0.7)--trended down. ECG v-paced. -normal LVEF, can't assess RWMA due to tds -clinical presentation c/w sepsis, with low suspicion for ACS -probable underlying obstructive CAD given 2014 NSTEMI treated medically ( refused cath)--hence cause of troponins here likely supply-demand mismatch due to sepsis -defer further w/u or tx at this time -consider risk-stratification with nuclear stress test later, if makes good recovery pete: -likely related to sepsis, sbo -renal fxn improving s/p IVF. hypernatremia persists renal following. anemia: -h/o GIB in past (necessitating d/c of AC, per chart notes) -hgb below baseline, initially trended down and ASA held. Now stable and getting po trial, will resume low dose ASA when able to tolerate. htn: -sbp recovered, elevated at times -initially npo --> iv lopressor. iv nifedipine gtt--change to iv hydral - 09/15 on clears, but still with distended abdomen, minimal intake. Re-evaluate tomorrow whether can start po regimen. ? pafib: -per charts, no specific details available, currently in sr -ac reportedly stopped in past for gib -at high risk for cardioembolic CVA (prior h/o CVA, CHADS-VASC = 7) -will not change prior tx plan given pt not well known to us -09/15 hgb stable (although below baseline). resume ASA when able to tolerate po meds tavr: -normal AV fxn on echo here. hx unclear will need clarification. cad s/p mi's and remote pci: -no angina/ACS suspected, as disc'd above -pt declined cath 2014 for nstemi -09/15 taking clears, will resume home po CAD meds once tolerating po meds ( statin, wade, bb ASA )
[2016-09-15] MEDS: HEPARIN NA (PORCINE) 5,000 UNITS/ML 1ML VIAL SQ SCH ×2 (10:05→21:33)
[2016-09-15] MEDS: CEFAZOLIN (PRE-DOCKED) 50 ML IVPB SCH ×2 (10:05→21:33)
[2016-09-15] MEDS: AMINO ACIDS 4.25%/D5W 1,000 ML IV SCH (10:08)
--- NOTE | 2016-09-15 10:26 | PN ---
Progress Note (short form) - Note Progress Note: having BMS still with abdominal pain but improved Vital Signs Period Temp Pulse Resp BP Sys/Romero Pulse Ox Last 24 Hr 97.2 F-98.6 F 60-69 18-22 130-168/48-68 98-100 +NGT cor-rrr lungs clear abd-distended, tender to palpation +BS ext no edema CBC, BMP 09/15/16 05:20 09/15/16 05:20 Microbiology 09/11/16 01:15 Blood - Peripheral Venous Blood Culture - Preliminary NO GROWTH OBTAINED AFTER 96 HOURS, INCUBATION TO CONTINUE FOR 1 DAYS. 09/11/16 01:15 Blood - Peripheral Venous Blood Culture - Preliminary NO GROWTH OBTAINED AFTER 96 HOURS, INCUBATION TO CONTINUE FOR 1 DAYS. 09/10/16 18:52 Urine - Urine Stokes Urine Culture - Final Escherichia Coli Current Medications Albuterol/Ipratropium (Duoneb -) 1 amp NEB Q6H PRN PRN Reason: SHORTNESS OF BREATH Heparin Sodium (Porcine) (Heparin -) 5,000 unit SQ BID [facility] Last Admin: 09/15/16 10:05 Dose: 5,000 unit Hydralazine HCl (Apresoline Injection -) 5 mg IVPB Q8H-IV [facility] Last Admin: 09/15/16 10:08 Dose: 5 mg Cefazolin Sodium (Ancef 1gm Ivpb (Pre-Docked)) 50 mls @ 100 mls/hr IVPB BID [facility] Last Admin: 09/15/16 10:05 Dose: 100 mls/hr Amino Acids (Clinimix -) 1,000 mls @ 42 mls/hr IV Q24H [facility] Last Admin: 09/15/16 10:08 Dose: 42 mls/hr Metoprolol Tartrate (Lopressor Injection -) 5 mg IVPUSH Q8H-IV [facility] Last Admin: 09/15/16 10:05 Dose: 5 mg Ondansetron HCl (Zofran Injection) 4 mg IVPUSH Q6H PRN PRN Reason: NAUSEA AND/OR VOMITING a/p SBO- slowly resolving still with NGT, tolerating clears +BM ecoli uti- continue cefazolin pete- improved history of TAVR, PPM history of ovarian cancer
--- NOTE | 2016-09-15 10:48 | PN ---
Progress Note, Physician Chief Complaint: Ms Beckham says she is feeling better. Still with soreness in her abdomen but says improved. No cp or sob. NGT clamped. - Current Medication List Current Medications: Active Medications Albuterol/Ipratropium (Duoneb -) 1 amp NEB Q6H PRN PRN Reason: SHORTNESS OF BREATH Heparin Sodium (Porcine) (Heparin -) 5,000 unit SQ BID [facility] Last Admin: 09/15/16 10:05 Dose: 5,000 unit Hydralazine HCl (Apresoline Injection -) 5 mg IVPB Q8H-IV [facility] Last Admin: 09/15/16 10:08 Dose: 5 mg Cefazolin Sodium (Ancef 1gm Ivpb (Pre-Docked)) 50 mls @ 100 mls/hr IVPB BID [facility] Last Admin: 09/15/16 10:05 Dose: 100 mls/hr Amino Acids (Clinimix -) 1,000 mls @ 42 mls/hr IV Q24H [facility] Last Admin: 09/15/16 10:08 Dose: 42 mls/hr Metoprolol Tartrate (Lopressor Injection -) 5 mg IVPUSH Q8H-IV [facility] Last Admin: 09/15/16 10:05 Dose: 5 mg Ondansetron HCl (Zofran Injection) 4 mg IVPUSH Q6H PRN PRN Reason: NAUSEA AND/OR VOMITING - Objective Vital Signs: Vital Signs Temperature 98.3 F 09/15/16 09:25 Pulse Rate 66 09/15/16 10:05 Respiratory Rate 18 09/15/16 09:25 Blood Pressure 145/68 09/15/16 10:05 O2 Sat by Pulse Oximetry (%) 98 09/15/16 09:00 Constitutional: Yes: No Distress, Calm, Obese Cardiovascular: Yes: Regular Rate and Rhythm. No: Gallop, Murmur, Rub Respiratory: Yes: Regular, CTA Bilaterally. No: Rales, Rhonchi, Wheezes Gastrointestinal: Yes: Distention, Hypoactive Bowel Sounds, Tenderness Extremities: Yes: WNL Edema: No Labs: CBC, BMP 09/15/16 05:20 09/15/16 05:20 INR, PTT INR 1.16 (0.82-1.09) H 09/10/16 17:29 Problem List - Problems (1) Small bowel obstruction due to adhesions Code(s): K56.5 - INTESTINAL ADHESIONS W OBST (POSTPROCEDURAL) (POSTINFECTION) (2) Acute kidney injury superimposed on chronic kidney disease Code(s): N17.9 - ACUTE KIDNEY FAILURE, UNSPECIFIED N18.9 - CHRONIC KIDNEY DISEASE, UNSPECIFIED (3) Sepsis Code(s): A41.9 - SEPSIS, UNSPECIFIED ORGANISM (4) Anemia Code(s): D64.9 - ANEMIA, UNSPECIFIED (5) Elevated troponin Code(s): R79.89 - OTHER SPECIFIED ABNORMAL FINDINGS OF BLOOD CHEMISTRY (6) CAD (coronary artery disease) Code(s): I25.10 - ATHSCL HEART DISEASE OF [place] CORONARY ARTERY W/O ANG PCTRS (7) COPD (chronic obstructive pulmonary disease) Code(s): J44.9 - CHRONIC OBSTRUCTIVE PULMONARY DISEASE, UNSPECIFIED (8) Hypertension Code(s): I10 - ESSENTIAL (PRIMARY) HYPERTENSION (9) Type II diabetes mellitus Code(s): E11.9 - TYPE 2 DIABETES MELLITUS WITHOUT COMPLICATIONS Assessment/Plan (1) Small bowel obstruction due to adhesions Assessment/Plan: -no bowel sounds and still with tenderness -however no drainage from NGT so able to clamp -monitor Code(s): K56.5 - INTESTINAL ADHESIONS W OBST (POSTPROCEDURAL) (POSTINFECTION) (2) Acute kidney injury superimposed on chronic kidney disease Assessment/Plan: -continues to improve -nephrology following -hypernatremia improving Code(s): N17.9 - ACUTE KIDNEY FAILURE, UNSPECIFIED N18.9 - CHRONIC KIDNEY DISEASE, UNSPECIFIED (3) Sepsis Assessment/Plan: -secondary to UTI -leukocytosis resolved -continue ancef per ID Code(s): A41.9 - SEPSIS, UNSPECIFIED ORGANISM (4) Anemia Assessment/Plan: -controlled -monitor Code(s): D64.9 - ANEMIA, UNSPECIFIED (5) Elevated troponin Assessment/Plan: -suspect stress induced -cardiology following Code(s): R79.89 - OTHER SPECIFIED ABNORMAL FINDINGS OF BLOOD CHEMISTRY (6) CAD (coronary artery disease) Assessment/Plan: -cardiology following -holding oral medications Code(s): I25.10 - ATHSCL HEART DISEASE OF [place] CORONARY ARTERY W/O ANG PCTRS (7) COPD (chronic obstructive pulmonary disease) Assessment/Plan: -controlled Code(s): J44.9 - CHRONIC OBSTRUCTIVE PULMONARY DISEASE, UNSPECIFIED (8) Hypertension Assessment/Plan -control with hydralazine Code(s): I10 - ESSENTIAL (PRIMARY) HYPERTENSION (9) Type II diabetes mellitus Assessment/Plan: glucose controlled -continue clinimix Code(s): E11.9 - TYPE 2 DIABETES MELLITUS WITHOUT COMPLICATIONS (10) UTI -growing e. coli resistant to ampicillin and unasyn -ID following -continue ancef
--- NOTE | 2016-09-15 12:20 | PN ---
Teaching Attending Note Name of Resident: Leslie Crawley ATTENDING PHYSICIAN STATEMENT I saw and evaluated the patient. I reviewed the resident's note and discussed the case with the resident. I agree with the resident's findings and plan as documented. SUBJECTIVE: Patient seen and examined in the ICU. Reports some mild improvement in abdominal pain from yesterday. Abdomen remains distended, but less today. Apparently had small BM x 2 overnight. Patient and the family continue to decline surgical intervention. Denies CP or SOB. Intake & Output 09/12/16 09/13/16 09/14/16 09/15/16 23:59 23:59 23:59 23:59 Intake Total 2375 1350 3302 554 Output Total 3085 2700 1000 250 Balance -710 -1350 2302 304 Weight 175 lb 6 oz 178 lb 2 oz Last Vital Signs Temp Pulse Resp BP Pulse Ox 98.3 F 66 18 145/58 100 09/15/16 10:00 09/15/16 12:00 09/15/16 12:00 09/15/16 12:00 09/15/16 11:13 Active Medications Albuterol/Ipratropium (Duoneb -) 1 amp NEB Q6H PRN PRN Reason: SHORTNESS OF BREATH Heparin Sodium (Porcine) (Heparin -) 5,000 unit SQ BID [facility] Last Admin: 09/15/16 10:05 Dose: 5,000 unit Hydralazine HCl (Apresoline Injection -) 5 mg IVPB Q8H-IV [facility] Last Admin: 09/15/16 10:08 Dose: 5 mg Cefazolin Sodium (Ancef 1gm Ivpb (Pre-Docked)) 50 mls @ 100 mls/hr IVPB BID [facility] Last Admin: 09/15/16 10:05 Dose: 100 mls/hr Amino Acids (Clinimix -) 1,000 mls @ 42 mls/hr IV Q24H [facility] Last Admin: 09/15/16 10:08 Dose: 42 mls/hr Potassium Phosphate 20 mm/ (Dextrose) 256.6667 mls @ 62.5 mls/hr IVPB ONCE ONE Stop: 09/15/16 15:56 Metoprolol Tartrate (Lopressor Injection -) 5 mg IVPUSH Q8H-IV [facility] Last Admin: 09/15/16 10:05 Dose: 5 mg Ondansetron HCl (Zofran Injection) 4 mg IVPUSH Q6H PRN PRN Reason: NAUSEA AND/OR VOMITING GENERAL: Awake, alert, More comfortable today HEENT: (-) Pallor, (-) Icterus LUNGS: few basilar rhonchi, No wheezes. accessory muscle use. HEART: Regular rate and rhythm, normal S1 and S2 without murmur, rub or gallop. ABDOMEN: Softly distended but less today, (+) tender to palpation, . Hypoactive bowel sounds. No guarding or rebound tenderness. EXTREMITIES: 2+ pulses & warm on left LE, 1+pulses and cool to touch on right LE. No calf tenderness. Trace edema bilateral lower extremities. NEUROLOGICAL: Cranial nerves II-XII intact. Normal speech. Unable to assess gait. PSYCHIATRIC: Appropriate mood and affect. SKIN: Stage II pressure ulcers, left buttock healed 4.3cm, right buttock 9.5x 14cm noted, normal capillary refill. Laboratory Results - last 24 hr 09/14/16 09/15/16 09/15/16 05:20 05:20 05:20 WBC 8.7 RBC 3.06 L Hgb 8.7 L Hct 27.7 L MCV 90.3 MCHC 31.4 L RDW 18.5 H Plt Count 242 MPV 8.5 Neutrophils % 82.0 70.0 Lymphocytes % 5.0 L 14.0 D Monocytes % 9.0 9.0 Eosinophils % 2.0 D 3.0 Band Neutrophils 4.0 Myelocytes 2 Differential Comment Manual diff done Platelet Estimate Adequate Sodium 149 H Potassium 3.4 L Chloride 105 Carbon Dioxide 40 H Anion Gap 4 L BUN 48 H Creatinine 1.4 H D Random Glucose 110 H D Calcium 7.8 L Phosphorus 2.0 L D Magnesium 2.3 ASSESSMENT/PLAN: SBO possibly related to adhesions. CVA w/ hemiparesis CAD A-Fib by history HTN Aortic valve bioprosthetic [place] S/P PCI Anemia GI Bleed CKD COPD Ovarian Cancer Sepsis Acute on CKD Clinimix Clears Strict I&O O2 as needed Pain control ABX per ID VTE prophylaxis BD TX PRN 4S/4W Maintain NGT Dr Thompson Critical care time spent in reviewing chart, evaluating patient and formulating plan 35 min
[2016-09-15] MEDS ORDERED: POTASSIUM PHOSPHATE 20 MM in DEXTROSE 5%-WATER - 250 ML IVPB ONE (12:45)
--- NOTE | 2016-09-15 14:14 | PN ---
Physical Exam: SUBJECTIVE: Patient seen and examined. She states that her abdominal discomfort improved. She is not sure about passing flatus today. She had BMS. No overnight events. OBJECTIVE: Vital Signs Period Temp Pulse Resp BP Sys/Romero Pulse Ox Last 24 Hr 97.2 F-98.6 F 60-69 18-22 130-168/48-68 98-100 GENERAL: The patient is awake, alert, and fully oriented, in no acute distress. HEAD: Normal with no signs of trauma. EYES:extraocular movements intact, sclera anicteric, conjunctiva clear. ENT: oropharynx clear without exudates, moist mucous membranes, NG tube. NECK: Trachea midline, full range of motion, supple. LUNGS: Breath sounds equal, coarse breath sounds bilaterally, no wheezes, no crackles, no accessory muscle use. HEART: Regular rate and rhythm, S1, S2 without murmur, rub or gallop. ABDOMEN: Obese, soft, tender in all 4q, distended, normoactive bowel sounds, no guarding, no rebound, no hepatosplenomegaly, no masses. EXTREMITIES: 2+ pulses, warm, 1+ edema, scds applied. NEUROLOGICAL: No facial asymmetry. Normal speech, gait not observed. PSYCH: Normal mood, normal affect. SKIN: Warm, dry, normal turgor. Laboratory Results - last 24 hr 09/14/16 09/15/16 09/15/16 05:20 05:20 05:20 WBC 8.7 RBC 3.06 L Hgb 8.7 L Hct 27.7 L MCV 90.3 MCHC 31.4 L RDW 18.5 H Plt Count 242 MPV 8.5 Neutrophils % 82.0 70.0 Lymphocytes % 5.0 L 14.0 D Monocytes % 9.0 9.0 Eosinophils % 2.0 D 3.0 Band Neutrophils 4.0 Myelocytes 2 Differential Comment Manual diff done Platelet Estimate Adequate Sodium 149 H Potassium 3.4 L Chloride 105 Carbon Dioxide 40 H Anion Gap 4 L BUN 48 H Creatinine 1.4 H D Random Glucose 110 H D Calcium 7.8 L Phosphorus 2.0 L D Magnesium 2.3 Active Medications Generic Name Dose Route Start Last Admin Trade Name Freq PRN Reason Stop Dose Admin Albuterol/Ipratropium 1 amp 09/14/16 18:15 Duoneb - NEB Q6H PRN SHORTNESS OF BREATH Heparin Sodium (Porcine) 5,000 unit 09/14/16 22:00 09/15/16 10:05 Heparin - SQ 5,000 unit BID [facility] Administration Hydralazine HCl 5 mg 09/15/16 02:00 09/15/16 10:08 Apresoline Injection - IVPB 5 mg Q8H-IV [facility] Administration Cefazolin Sodium 50 mls @ 100 mls/hr 09/14/16 22:00 09/15/16 10:05 Ancef 1gm Ivpb (Pre-Docked) IVPB 100 mls/hr BID [facility] Administration Amino Acids 1,000 mls @ 42 mls/hr 09/15/16 10:15 09/15/16 10:08 Clinimix - IV 42 mls/hr Q24H [facility] Administration Potassium Phosphate 20 mm/ 256.6667 mls @ 62.5 mls/hr 09/15/16 12:45 Dextrose IVPB 09/15/16 16:51 ONCE ONE Metoprolol Tartrate 5 mg 09/15/16 02:00 09/15/16 10:05 Lopressor Injection - IVPUSH 5 mg Q8H-IV [facility] Administration Ondansetron HCl 4 mg 09/14/16 18:15 Zofran Injection IVPUSH Q6H PRN NAUSEA AND/OR VOMITING ASSESSMENT/PLAN: 85 year old female with significant PMH of CVA w/ hemiparesis, CAD, HTN, Aortic valve bioprosthetic, AR s/p stents, Anemia, GIB, CKD, COPD (former smoker), Ovarian Cancer who presented to ED from [facility] with small bowel obstruction & sepsis due to UTI. Small Bowel Obstruction, -likely related to adhesions -f/u surgery recommendations -cont NG tube -family would like to avoid surgical interventions & proceed with medical management -lactic acidosis resolved -started on liquids -Zofran for nausea -Clinamix started sepsis due to UTI -Zosyn given in ED, continue Ancef 1 g BID -ID consulted -blood cx no growth, u cx E.Coli -cont Clinimix Acute On Chronic Kidney Failure -baseline Cr ~1.6 -today Cr 1.4, BUN 48, improved Hypophosphatemia; -K phos Hypokalemia: K-phos Elevated Troponins -likely demand ischemia due to sepsis -will continue to monitor -EKG reviewed -f/u cardiology consult COPD -Duonebs QIDR -f/u daily CXR CAD/HTN/Cardiac hx -Nicardipine gtt stopped today -continue Lopressor and Hydralazine -f/u cardiology consultation Prophylaxis -Heparin 5000 BID -No PPI indicated F/E/N: -Clinimix -monitor electrolytes -clear liquid Disposition: transfer to telemetry Problem List - Problems (1) Acute kidney injury superimposed on chronic kidney disease Code(s): N17.9 - ACUTE KIDNEY FAILURE, UNSPECIFIED N18.9 - CHRONIC KIDNEY DISEASE, UNSPECIFIED (2) Anemia Code(s): D64.9 - ANEMIA, UNSPECIFIED (3) CAD (coronary artery disease) Code(s): I25.10 - ATHSCL HEART DISEASE OF [place] CORONARY ARTERY W/O ANG PCTRS (4) COPD (chronic obstructive pulmonary disease) Code(s): J44.9 - CHRONIC OBSTRUCTIVE PULMONARY DISEASE, UNSPECIFIED (5) H/O ovarian cancer Code(s): Z85.43 - PERSONAL HISTORY OF MALIGNANT NEOPLASM OF [place] (6) HLD (hyperlipidemia) Code(s): E78.5 - HYPERLIPIDEMIA, UNSPECIFIED (7) Hypertension Code(s): I10 - ESSENTIAL (PRIMARY) HYPERTENSION (8) Sepsis Code(s): A41.9 - SEPSIS, UNSPECIFIED ORGANISM (9) Small bowel obstruction Code(s): K56.69 - OTHER INTESTINAL OBSTRUCTION (10) [place] (acute kidney injury) Code(s): N17.9 - ACUTE KIDNEY FAILURE, UNSPECIFIED Visit type - Emergency Visit Emergency Visit: Yes ED Registration Date: 09/10/16 Care time: The patient presented to the Emergency Department on the above date and was hospitalized for further evaluation of their emergent condition. - New Patient This patient is new to me today: No - Critical Care Critical Care patient: Yes Total Critical Care Time (in minutes): 45 Critical Care Statement: The care of this patient involved high complexity decision making to prevent further life threatening deterioration of the patient 's condition and/or to evalute & treat vital organ system(s) failure or risk of failure.
--- NOTE | 2016-09-15 14:58 | PN ---
Progress Note, Physician History of Present Illness: Pt seen and examined at bedside. She remains in the ICU. She still has abdominal pain. - Current Medication List Current Medications: Active Medications Albuterol/Ipratropium (Duoneb -) 1 amp NEB Q6H PRN PRN Reason: SHORTNESS OF BREATH Heparin Sodium (Porcine) (Heparin -) 5,000 unit SQ BID [facility] Last Admin: 09/15/16 10:05 Dose: 5,000 unit Hydralazine HCl (Apresoline Injection -) 5 mg IVPB Q8H-IV [facility] Last Admin: 09/15/16 10:08 Dose: 5 mg Cefazolin Sodium (Ancef 1gm Ivpb (Pre-Docked)) 50 mls @ 100 mls/hr IVPB BID [facility] Last Admin: 09/15/16 10:05 Dose: 100 mls/hr Amino Acids (Clinimix -) 1,000 mls @ 42 mls/hr IV Q24H [facility] Last Admin: 09/15/16 10:08 Dose: 42 mls/hr Potassium Phosphate 20 mm/ (Dextrose) 256.6667 mls @ 62.5 mls/hr IVPB ONCE ONE Stop: 09/15/16 16:51 Last Admin: 09/15/16 14:49 Dose: 62.5 mls/hr Metoprolol Tartrate (Lopressor Injection -) 5 mg IVPUSH Q8H-IV [facility] Last Admin: 09/15/16 10:05 Dose: 5 mg Ondansetron HCl (Zofran Injection) 4 mg IVPUSH Q6H PRN PRN Reason: NAUSEA AND/OR VOMITING - Objective Vital Signs: Vital Signs Temperature 98.6 F 09/15/16 14:00 Pulse Rate 66 09/15/16 14:00 Respiratory Rate 16 09/15/16 14:00 Blood Pressure 156/63 09/15/16 14:00 O2 Sat by Pulse Oximetry (%) 100 09/15/16 11:13 Constitutional: Yes: Calm Eyes: Yes: Conjunctiva Clear HENT: Yes: Atraumatic Cardiovascular: Yes: S1, S2 Respiratory: Yes: Diminished, On Nasal O2 Gastrointestinal: Yes: Distention, Hypoactive Bowel Sounds, Tenderness, Tenderness, Epigastrium Genitourinary: Yes: Stokes Present Musculoskeletal: Yes: Muscle Weakness Edema: No Neurological: Yes: Oriented Psychiatric: Yes: Oriented Labs: CBC, BMP 09/15/16 05:20 09/15/16 05:20 INR, PTT INR 1.16 (0.82-1.09) H 09/10/16 17:29 Problem List - Problems (1) Acute kidney injury superimposed on chronic kidney disease Code(s): N17.9 - ACUTE KIDNEY FAILURE, UNSPECIFIED N18.9 - CHRONIC KIDNEY DISEASE, UNSPECIFIED (2) Anemia Code(s): D64.9 - ANEMIA, UNSPECIFIED (3) CAD (coronary artery disease) Code(s): I25.10 - ATHSCL HEART DISEASE OF [place] CORONARY ARTERY W/O ANG PCTRS (4) COPD (chronic obstructive pulmonary disease) Code(s): J44.9 - CHRONIC OBSTRUCTIVE PULMONARY DISEASE, UNSPECIFIED (5) H/O ovarian cancer Code(s): Z85.43 - PERSONAL HISTORY OF MALIGNANT NEOPLASM OF [place] (6) HLD (hyperlipidemia) Code(s): E78.5 - HYPERLIPIDEMIA, UNSPECIFIED (7) Hypertension Code(s): I10 - ESSENTIAL (PRIMARY) HYPERTENSION (8) Sepsis Code(s): A41.9 - SEPSIS, UNSPECIFIED ORGANISM (9) Non-STEMI (non-ST elevated myocardial infarction) Code(s): I21.4 - NON-ST ELEVATION (NSTEMI) MYOCARDIAL INFARCTION (10) Small bowel obstruction Code(s): K56.69 - OTHER INTESTINAL OBSTRUCTION Assessment/Plan Current Medications Generic Name Dose Route Start Last Admin Trade Name Freq PRN Reason Stop Dose Admin Albuterol/Ipratropium 1 amp 09/14/16 18:15 Duoneb - NEB Q6H PRN SHORTNESS OF BREATH Heparin Sodium (Porcine) 5,000 unit 09/14/16 22:00 09/15/16 10:05 Heparin - SQ 5,000 unit BID [facility] Administration Hydralazine HCl 5 mg 09/15/16 02:00 09/15/16 10:08 Apresoline Injection - IVPB 5 mg Q8H-IV [facility] Administration Cefazolin Sodium 50 mls @ 100 mls/hr 09/14/16 22:00 09/15/16 10:05 Ancef 1gm Ivpb (Pre-Docked) IVPB 100 mls/hr BID [facility] Administration Amino Acids 1,000 mls @ 42 mls/hr 09/15/16 10:15 09/15/16 10:08 Clinimix - IV 42 mls/hr Q24H [facility] Administration Potassium Phosphate 20 mm/ 256.6667 mls @ 62.5 mls/hr 09/15/16 12:45 09/15/16 14:49 Dextrose IVPB 09/15/16 16:51 62.5 mls/hr ONCE ONE Administration Metoprolol Tartrate 5 mg 09/15/16 02:00 09/15/16 10:05 Lopressor Injection - IVPUSH 5 mg Q8H-IV [facility] Administration Ondansetron HCl 4 mg 09/14/16 18:15 Zofran Injection IVPUSH Q6H PRN NAUSEA AND/OR VOMITING Impression 1. [place] 2. SBO 3. UTI 4. sepsis 5. history of ovarian cancer 6. COPD 7. hypotension 8. CAD 9. hx htn 10. NSTEMI 11. renal cyst 12. lactic acidosis Plan - sodium is improving - cont with clinimix, will increase to 55 cc - repeat labs in am - abdomen remains tender - pt does not want surgery - renal function is improving - monitor in ICU Dr Person
[2016-09-16] MEDS: hydrALAZINE HCL 20 MG/ML VIAL IVPB SCH ×3 (01:15→18:20)
[2016-09-16] MEDS: METOPROLOL TARTRATE 5 MG/5 ML VIAL IVPB SCH ×3 (01:23→18:19)
[2016-09-16 07:24] LABS: MCH 28.9 pg (25.7-33.7); MCHC 31.9 g/dl (32.0-36.0); MEAN CELL VOLUME 90.7 fl (80-96); MEAN PLT VOLUME 8.4 fl (7.5-11.1); PLATELET COUNT 193 K/MM3 (134-434); RDW 18.6 % (11.6-15.6); WHITE BLOOD COUNT 8.2 K/mm3 (4.0-10.0)
[2016-09-16 07:32] LABS: ALBUMIN 1.9 g/dl (3.4-5.0); BILIRUBIN,TOTAL 0.4 mg/dL (0.2-1.0); CALCIUM 7.7 mg/dL (8.5-10.1); COCKROFT - GAULT 52.4535
--- NOTE | 2016-09-16 10:11 | PN ---
Progress Note (short form) - Note Progress Note: Chief Complaint: SBO, sepsis History of Present Illness: denies cp, sob, palpitations, syncope. mild abdominal tenderness persists. Current Medications Generic Name Dose Route Start Last Admin Trade Name Shameka PRN Reason Stop Dose Admin Albuterol/Ipratropium 1 amp 09/14/16 18:15 Duoneb - NEB Q6H PRN SHORTNESS OF BREATH Heparin Sodium (Porcine) 5,000 unit 09/14/16 22:00 09/15/16 21:33 Heparin - SQ 5,000 unit BID [facility] Administration Hydralazine HCl 5 mg 09/15/16 02:00 09/16/16 01:15 Apresoline Injection - IVPB 5 mg Q8H-IV [facility] Administration Cefazolin Sodium 50 mls @ 100 mls/hr 09/14/16 22:00 09/15/16 21:33 Ancef 1gm Ivpb (Pre-Docked) IVPB 100 mls/hr BID [facility] Administration Amino Acids 1,000 mls @ 42 mls/hr 09/15/16 10:15 09/15/16 10:08 Clinimix - IV 42 mls/hr Q24H [facility] Administration Metoprolol Tartrate 5 mg 09/16/16 02:00 09/16/16 01:23 Lopressor Injection - IVPB 5 mg Q8H-IV [facility] Administration Ondansetron HCl 4 mg 09/14/16 18:15 Zofran Injection IVPUSH Q6H PRN NAUSEA AND/OR VOMITING Vital Signs Period Temp Pulse Resp BP Sys/Romero Pulse Ox Last 24 Hr 98.2 F-99.1 F 60-66 16-20 140-170/46-89 95-100 Constitutional: Yes: Well Nourished, No Distress, Calm Cardiovascular: Yes: Regular Rate and Rhythm, JVD (possible), S1, S2. No: Gallop, Murmur Respiratory: Yes: Regular, CTA Bilaterally. No: Accessory Muscle Use Extremities: No: Cold + bs, mild tenderness to palpation, + distension. Edema: No Neurological: Yes: Lethargy. No: Seizure Psychiatric: No: Agitated no jaundice diaphoresis Labs: CBC, BMP 09/16/16 05:35 09/16/16 05:35 tele: sr, as-vp research and ap-vp research Echo 09/26 here: TDS; nl overall LVSF (RWMA tds); nl overall RV size/fxn; nl LA; AV tds, no AI or ; trace MR can't exclude vegetation; mild TR Echo 06/2014: nl lv/rv, mod tr, rvsp 30-40, nl bio avr CXR: progressive bibasilar changes (atx/infiltrate with pleural fluid) a/p: 85 f hx htn, cva, right cea, ?pafib (per charts, ac stopped in past for gib), cad s/p mi's and remote pci, tavr for several years ago, ppm 12/2015, sent from [place] for n/v/abd distention noted to have sbo/sepsis/pete. sbo, sepsis: -on clears now -bp improved on ivfs, abx -has not needed pressors -echo MV report noted--no positive BCx's or other findings suggestive of SBE-- defer ERNST ppm: - st fab dual chamber place 12/2015 at [facility] for high grade block. followed there. -normal fcn on ecg, tele. pos trops: -trop mildly positive (0.7)--trended down. ECG v-paced. -normal LVEF, can't assess RWMA due to tds -clinical presentation c/w sepsis, with low suspicion for ACS -probable underlying obstructive CAD given 2014 NSTEMI treated medically ( refused cath)--hence cause of troponins here likely supply-demand mismatch due to sepsis -defer further w/u or tx at this time -can consider risk-stratification with nuclear stress test later, if makes good recovery pete: -likely related to sepsis, sbo -renal fxn improving s/p IVF anemia: -h/o GIB in past (necessitating d/c of AC, per chart notes) -hgb below baseline, initially trended down and ASA held. Now stable and getting po trial, will resume low dose ASA when able to tolerate. htn: -not on po meds yet, cont iv bb, hydralazine for now ? pafib: -per charts, no specific details available, currently in sr -ac reportedly stopped in past for gib -at high risk for cardioembolic CVA (prior h/o CVA, CHADS-VASC = 7) -will not change prior tx plan given pt not well known to us -resume ASA when able to tolerate po meds tavr: -normal AV fxn on echo here. hx unclear will need clarification. cad s/p mi's and remote pci: -no angina/ACS suspected, as disc'd above -pt declined cath 2014 for nstemi -will resume home po CAD meds once tolerating po meds (statin, wade, bb ASA )
[2016-09-16] MEDS: CEFAZOLIN (PRE-DOCKED) 50 ML IVPB SCH ×2 (10:23→21:54)
[2016-09-16] MEDS: HEPARIN NA (PORCINE) 5,000 UNITS/ML 1ML VIAL SQ SCH ×2 (10:25→21:55)
[2016-09-16] MEDS: AMINO ACIDS 4.25%/D5W 1,000 ML IV SCH ×2 (10:28→12:39)
--- NOTE | 2016-09-16 11:42 | PN ---
Progress Note, Physician History of Present Illness: Pt seen and examined at bedside. She is awake and alert. She is now in the medical [place]. - Current Medication List Current Medications: Active Medications Albuterol/Ipratropium (Duoneb -) 1 amp NEB Q6H PRN PRN Reason: SHORTNESS OF BREATH Heparin Sodium (Porcine) (Heparin -) 5,000 unit SQ BID [facility] Last Admin: 09/16/16 10:25 Dose: Not Given Hydralazine HCl (Apresoline Injection -) 5 mg IVPB Q8H-IV [facility] Last Admin: 09/16/16 10:25 Dose: 5 mg Cefazolin Sodium (Ancef 1gm Ivpb (Pre-Docked)) 50 mls @ 100 mls/hr IVPB BID [facility] Last Admin: 09/16/16 10:23 Dose: 100 mls/hr Amino Acids (Clinimix -) 1,000 mls @ 42 mls/hr IV Q24H [facility] Last Admin: 09/16/16 10:28 Dose: 42 mls/hr Metoprolol Tartrate (Lopressor Injection -) 5 mg IVPB Q8H-IV [facility] Last Admin: 09/16/16 10:23 Dose: 5 mg Ondansetron HCl (Zofran Injection) 4 mg IVPUSH Q6H PRN PRN Reason: NAUSEA AND/OR VOMITING - Objective Vital Signs: Vital Signs Temperature 99 F 09/16/16 08:33 Pulse Rate 64 09/16/16 10:23 Respiratory Rate 20 09/16/16 08:33 Blood Pressure 158/78 09/16/16 10:23 O2 Sat by Pulse Oximetry (%) 95 09/16/16 08:33 Constitutional: Yes: Calm Eyes: Yes: Conjunctiva Clear HENT: Yes: Atraumatic Neck: Yes: Supple Cardiovascular: Yes: S1, S2 Respiratory: Yes: On Nasal O2 Gastrointestinal: Yes: Distention, Tenderness Genitourinary: Yes: Stokes Present Musculoskeletal: Yes: Muscle Weakness Edema: No Neurological: Yes: Oriented Psychiatric: Yes: Oriented Labs: CBC, BMP 09/16/16 05:35 09/16/16 05:35 INR, PTT INR 1.16 (0.82-1.09) H 09/10/16 17:29 Problem List - Problems (1) Acute kidney injury superimposed on chronic kidney disease Code(s): N17.9 - ACUTE KIDNEY FAILURE, UNSPECIFIED N18.9 - CHRONIC KIDNEY DISEASE, UNSPECIFIED (2) Anemia Code(s): D64.9 - ANEMIA, UNSPECIFIED (3) CAD (coronary artery disease) Code(s): I25.10 - ATHSCL HEART DISEASE OF [place] CORONARY ARTERY W/O ANG PCTRS (4) COPD (chronic obstructive pulmonary disease) Code(s): J44.9 - CHRONIC OBSTRUCTIVE PULMONARY DISEASE, UNSPECIFIED (5) H/O ovarian cancer Code(s): Z85.43 - PERSONAL HISTORY OF MALIGNANT NEOPLASM OF [place] (6) HLD (hyperlipidemia) Code(s): E78.5 - HYPERLIPIDEMIA, UNSPECIFIED (7) Hypertension Code(s): I10 - ESSENTIAL (PRIMARY) HYPERTENSION (8) Sepsis Code(s): A41.9 - SEPSIS, UNSPECIFIED ORGANISM (9) Non-STEMI (non-ST elevated myocardial infarction) Code(s): I21.4 - NON-ST ELEVATION (NSTEMI) MYOCARDIAL INFARCTION (10) Small bowel obstruction Code(s): K56.69 - OTHER INTESTINAL OBSTRUCTION Assessment/Plan Current Medications Generic Name Dose Route Start Last Admin Trade Name Freq PRN Reason Stop Dose Admin Albuterol/Ipratropium 1 amp 09/14/16 18:15 Duoneb - NEB Q6H PRN SHORTNESS OF BREATH Heparin Sodium (Porcine) 5,000 unit 09/14/16 22:00 09/16/16 10:25 Heparin - SQ Not Given BID [facility] Hydralazine HCl 5 mg 09/15/16 02:00 09/16/16 10:25 Apresoline Injection - IVPB 5 mg Q8H-IV [facility] Administration Cefazolin Sodium 50 mls @ 100 mls/hr 09/14/16 22:00 09/16/16 10:23 Ancef 1gm Ivpb (Pre-Docked) IVPB 100 mls/hr BID [facility] Administration Amino Acids 1,000 mls @ 42 mls/hr 09/15/16 10:15 09/16/16 10:28 Clinimix - IV 42 mls/hr Q24H [facility] Administration Metoprolol Tartrate 5 mg 09/16/16 02:00 09/16/16 10:23 Lopressor Injection - IVPB 5 mg Q8H-IV [facility] Administration Ondansetron HCl 4 mg 06/05/17 18:15 Zofran Injection IVPUSH Q6H PRN NAUSEA AND/OR VOMITING Impression 1. [place] 2. SBO 3. UTI 4. sepsis 5. history of ovarian cancer 6. COPD 7. hypotension 8. CAD 9. hx htn 10. NSTEMI 11. renal cyst 12. lactic acidosis Plan - renal function is improving - sodium is improving - cont with clinimix - pt still refusing surgery - will follow Dr Person
--- NOTE | 2016-09-16 13:01 | PN ---
Progress Note, Physician Chief Complaint: none History of Present Illness: frandy clear diet. large BM. ngt clamped. no n/v. - Current Medication List Current Medications: Active Medications Albuterol/Ipratropium (Duoneb -) 1 amp NEB Q6H PRN PRN Reason: SHORTNESS OF BREATH Heparin Sodium (Porcine) (Heparin -) 5,000 unit SQ BID [facility] Last Admin: 09/16/16 10:25 Dose: Not Given Hydralazine HCl (Apresoline Injection -) 5 mg IVPB Q8H-IV [facility] Last Admin: 09/16/16 10:25 Dose: 5 mg Cefazolin Sodium (Ancef 1gm Ivpb (Pre-Docked)) 50 mls @ 100 mls/hr IVPB BID [facility] Last Admin: 09/16/16 10:23 Dose: 100 mls/hr Amino Acids (Clinimix -) 1,000 mls @ 55 mls/hr IV Q24H [facility] Last Admin: 09/16/16 12:39 Dose: Not Given Metoprolol Tartrate (Lopressor Injection -) 5 mg IVPB Q8H-IV [facility] Last Admin: 09/16/16 10:23 Dose: 5 mg Ondansetron HCl (Zofran Injection) 4 mg IVPUSH Q6H PRN PRN Reason: NAUSEA AND/OR VOMITING - Objective Vital Signs: Vital Signs Temperature 99 F 09/16/16 08:33 Pulse Rate 64 09/16/16 10:23 Respiratory Rate 20 09/16/16 08:33 Blood Pressure 158/78 09/16/16 10:23 O2 Sat by Pulse Oximetry (%) 95 09/16/16 08:33 Constitutional: Yes: No Distress, Calm Eyes: Yes: Conjunctiva Clear, EOM Intact HENT: Yes: Atraumatic, Normocephalic Neck: Yes: Supple, Trachea Midline Cardiovascular: Yes: Regular Rate and Rhythm Respiratory: Yes: Regular Gastrointestinal: Yes: Soft. No: Distention, Tenderness ...Rectal Exam: Yes: Deferred Genitourinary: Yes: Stokes Present. No: CVA Tenderness - Left, CVA Tenderness - Right Musculoskeletal: No: Joint Stiffness, Joint Swelling Extremities: No: Calf Tenderness, Erythema Integumentary: No: Erythema, Rash Neurological: Yes: Alert Psychiatric: Yes: Alert Labs: CBC, BMP 09/16/16 05:35 09/16/16 05:35 INR, PTT INR 1.16 (0.82-1.09) H 09/10/16 17:29 Problem List - Problems (1) Acute kidney injury superimposed on chronic kidney disease Code(s): N17.9 - ACUTE KIDNEY FAILURE, UNSPECIFIED N18.9 - CHRONIC KIDNEY DISEASE, UNSPECIFIED (2) Anemia Code(s): D64.9 - ANEMIA, UNSPECIFIED (3) H/O ovarian cancer Code(s): Z85.43 - PERSONAL HISTORY OF MALIGNANT NEOPLASM OF OVARY (4) Small bowel obstruction due to adhesions Assessment/Plan: resolving sbo ngt d/c'ed adv diet as tolerated reconsult prn Code(s): K56.5 - INTESTINAL ADHESIONS W OBST (POSTPROCEDURAL) (POSTINFECTION) (5) [place] (acute kidney injury) Code(s): N17.9 - ACUTE KIDNEY FAILURE, UNSPECIFIED (6) Non-STEMI (non-ST elevated myocardial infarction) Code(s): I21.4 - NON-ST ELEVATION (NSTEMI) MYOCARDIAL INFARCTION
--- NOTE | 2016-09-16 14:25 | PN ---
Progress Note, Physician Chief Complaint: Ms Beckham says she is feeling better. NGT removed. Still with some abdominal pain but better. No cp or sob. - Current Medication List Current Medications: Active Medications Albuterol/Ipratropium (Duoneb -) 1 amp NEB Q6H PRN PRN Reason: SHORTNESS OF BREATH Heparin Sodium (Porcine) (Heparin -) 5,000 unit SQ BID [facility] Last Admin: 09/16/16 10:25 Dose: Not Given Hydralazine HCl (Apresoline Injection -) 5 mg IVPB Q8H-IV [facility] Last Admin: 09/16/16 10:25 Dose: 5 mg Cefazolin Sodium (Ancef 1gm Ivpb (Pre-Docked)) 50 mls @ 100 mls/hr IVPB BID [facility] Last Admin: 09/16/16 10:23 Dose: 100 mls/hr Amino Acids (Clinimix -) 1,000 mls @ 55 mls/hr IV Q24H [facility] Last Admin: 09/16/16 12:39 Dose: Not Given Metoprolol Tartrate (Lopressor Injection -) 5 mg IVPB Q8H-IV [facility] Last Admin: 09/16/16 10:23 Dose: 5 mg Ondansetron HCl (Zofran Injection) 4 mg IVPUSH Q6H PRN PRN Reason: NAUSEA AND/OR VOMITING - Objective Vital Signs: Vital Signs Temperature 99 F 09/16/16 08:33 Pulse Rate 64 09/16/16 10:23 Respiratory Rate 20 09/16/16 08:33 Blood Pressure 158/78 09/16/16 10:23 O2 Sat by Pulse Oximetry (%) 95 09/16/16 08:33 Constitutional: Yes: No Distress, Calm, Obese Cardiovascular: Yes: Regular Rate and Rhythm. No: Gallop, Murmur, Rub Respiratory: Yes: Regular, CTA Bilaterally. No: Rales, Rhonchi, Wheezes Gastrointestinal: Yes: Distention, Hypoactive Bowel Sounds (but improving), Tenderness Extremities: Yes: WNL Edema: No Labs: CBC, BMP 09/16/16 05:35 09/16/16 05:35 INR, PTT INR 1.16 (0.82-1.09) H 09/10/16 17:29 Problem List - Problems (1) Small bowel obstruction due to adhesions Code(s): K56.5 - INTESTINAL ADHESIONS W OBST (POSTPROCEDURAL) (POSTINFECTION) (2) Acute kidney injury superimposed on chronic kidney disease Code(s): N17.9 - ACUTE KIDNEY FAILURE, UNSPECIFIED N18.9 - CHRONIC KIDNEY DISEASE, UNSPECIFIED (3) Sepsis Code(s): A41.9 - SEPSIS, UNSPECIFIED ORGANISM (4) Anemia Code(s): D64.9 - ANEMIA, UNSPECIFIED (5) Elevated troponin Code(s): R79.89 - OTHER SPECIFIED ABNORMAL FINDINGS OF BLOOD CHEMISTRY (6) CAD (coronary artery disease) Code(s): I25.10 - ATHSCL HEART DISEASE OF [place] CORONARY ARTERY W/O ANG PCTRS (7) COPD (chronic obstructive pulmonary disease) Code(s): J44.9 - CHRONIC OBSTRUCTIVE PULMONARY DISEASE, UNSPECIFIED (8) Hypertension Code(s): I10 - ESSENTIAL (PRIMARY) HYPERTENSION (9) Type II diabetes mellitus Code(s): E11.9 - TYPE 2 DIABETES MELLITUS WITHOUT COMPLICATIONS Assessment/Plan (1) Small bowel obstruction due to adhesions Assessment/Plan: -had bowel movement -case d/w Dr Sanford -advance to full liquid diet -if tolerates, advance to diabetic diet Code(s): K56.5 - INTESTINAL ADHESIONS W OBST (POSTPROCEDURAL) (POSTINFECTION) (2) Acute kidney injury superimposed on chronic kidney disease Assessment/Plan: -nephrology following -[place] resolved -hypernatremia improving Code(s): N17.9 - ACUTE KIDNEY FAILURE, UNSPECIFIED N18.9 - CHRONIC KIDNEY DISEASE, UNSPECIFIED (3) Sepsis Assessment/Plan: -secondary to UTI -leukocytosis resolved -continue ancef per ID Code(s): A41.9 - SEPSIS, UNSPECIFIED ORGANISM (4) Anemia Assessment/Plan: -controlled -monitor Code(s): D64.9 - ANEMIA, UNSPECIFIED (5) Elevated troponin Assessment/Plan: -suspect stress induced -cardiology following Code(s): R79.89 - OTHER SPECIFIED ABNORMAL FINDINGS OF BLOOD CHEMISTRY (6) CAD (coronary artery disease) Assessment/Plan: -cardiology following -restart oral medications when clear she is tolerating a diet Code(s): I25.10 - ATHSCL HEART DISEASE OF [place] CORONARY ARTERY W/O ANG PCTRS (7) COPD (chronic obstructive pulmonary disease) Assessment/Plan: -controlled Code(s): J44.9 - CHRONIC OBSTRUCTIVE PULMONARY DISEASE, UNSPECIFIED (8) Hypertension Assessment/Plan -control with hydralazine Code(s): I10 - ESSENTIAL (PRIMARY) HYPERTENSION (9) Type II diabetes mellitus Assessment/Plan: -glucose controlled -continue clinimix -can stop clinimix when tolerating diet Code(s): E11.9 - TYPE 2 DIABETES MELLITUS WITHOUT COMPLICATIONS (10) UTI -growing e. coli resistant to ampicillin and unasyn -ID following -continue ancef
[2016-09-17] MEDS: METOPROLOL TARTRATE 5 MG/5 ML VIAL IVPB SCH (02:13)
[2016-09-17] MEDS: hydrALAZINE HCL 20 MG/ML VIAL IVPB SCH (02:14)
[2016-09-17 07:11] LABS: MCH 28.5 pg (25.7-33.7); MCHC 31.4 g/dl (32.0-36.0); MEAN CELL VOLUME 90.8 fl (80-96); MEAN PLT VOLUME 8.2 fl (7.5-11.1); PLATELET COUNT 182 K/MM3 (134-434); RDW 18.6 % (11.6-15.6); WHITE BLOOD COUNT 7.6 K/mm3 (4.0-10.0)
[2016-09-17 07:41] LABS: CALCIUM 7.6 mg/dL (8.5-10.1); COCKROFT - GAULT 58.2845; CREATININE 0.9 mg/dL (0.55-1.02); MAGNESIUM 1.9 mg/dL (1.8-2.4); PHOSPHOROUS 1.8 mg/dL (2.5-4.9)
[2016-09-17 09:23] LABS: PLATELET ESTIMATE ADEQUATE (NORMAL)
--- NOTE | 2016-09-17 10:07 | PN ---
Progress Note (short form) - Note Progress Note: Chief Complaint: SBO, sepsis History of Present Illness: denies cp, sob, palpitations, syncope. mild abdominal tenderness persists but tolerating food now Current Medications Generic Name Dose Route Start Last Admin Trade Name Shameka PRN Reason Stop Dose Admin Albuterol/Ipratropium 1 amp 09/14/16 18:15 Duoneb - NEB Q6H PRN SHORTNESS OF BREATH Heparin Sodium (Porcine) 5,000 unit 09/14/16 22:00 09/16/16 21:55 Heparin - SQ 5,000 unit BID [facility] Administration Hydralazine HCl 25 mg 09/17/16 22:00 Apresoline - PO BID [facility] Cefazolin Sodium 50 mls @ 100 mls/hr 09/14/16 22:00 09/16/16 21:54 Ancef 1gm Ivpb (Pre-Docked) IVPB 100 mls/hr BID [facility] Administration Amino Acids 1,000 mls @ 55 mls/hr 09/16/16 11:42 09/16/16 12:39 Clinimix - IV Not Given Q24H [facility] Metoprolol Tartrate 25 mg 09/17/16 22:00 Lopressor - PO BID [facility] Ondansetron HCl 4 mg 09/14/16 18:15 Zofran Injection IVPUSH Q6H PRN NAUSEA AND/OR VOMITING Vital Signs Period Temp Pulse Resp BP Sys/Romero Pulse Ox Last 24 Hr 98 F-99.4 F 60-70 18-20 127-158/53-78 93-98 Constitutional: Yes: Well Nourished, No Distress, Calm Cardiovascular: Yes: Regular Rate and Rhythm, JVD (possible), S1, S2. No: Gallop, Murmur Respiratory: Yes: Regular, CTA Bilaterally. No: Accessory Muscle Use Extremities: No: Cold + bs, mild tenderness to palpation, + distension. Edema: No Neurological: Yes: Lethargy. No: Seizure Psychiatric: No: Agitated no jaundice diaphoresis Labs: CBC, BMP 09/17/16 05:35 09/17/16 05:35 tele: sr, as-vp of global marketing and ap-vp of global marketing Echo 09/26 here: TDS; nl overall LVSF (RWMA tds); nl overall RV size/fxn; nl LA; AV tds, no AI or ; trace MR can't exclude vegetation; mild TR Echo 06/2014: nl lv/rv, mod tr, rvsp 30-40, nl bio avr a/p: 85 f hx htn, cva, right cea, ?pafib (per charts, ac stopped in past for gib), cad s/p mi's and remote pci, tavr for several years ago, ppm 12/2015, sent [place] n/v/abd distention noted to have sbo/sepsis/pete. sbo, sepsis: -eating now, ngt out -bp improved on ivfs, abx -echo MV report noted--no positive BCx's or other findings suggestive of SBE-- defer ERNST ppm: -st fab dual chamber place 12/[place] [facility] [place]. followed there. -normal fcn on ecg, tele. pos trops: -trop mildly positive (0.7)--trended down. ECG v-paced. -normal LVEF, can't assess RWMA due to tds -clinical presentation c/w sepsis, with low suspicion for ACS -probable underlying obstructive CAD given 2014 NSTEMI treated medically ( refused cath)--hence cause of troponins here likely supply-demand mismatch due to sepsis -defer further w/u or tx at this time pete: -likely related to sepsis, sbo -renal fxn improved s/p IVF anemia: -h/o GIB in past (necessitating d/c of AC, per chart notes) -hgb below baseline, initially trended down and ASA held. Now stable and getting po trial, will resume low dose ASA when able to tolerate. htn: -now taking po, will start po bb and hydralazine ? pafib: -per charts, no specific details available, currently in sr -ac reportedly stopped in past for gib -at high risk for cardioembolic CVA (prior h/o CVA, CHADS-VASC = 7) -will not change prior tx plan given pt not well known to us -resume ASA when hgb stable/improved tavr: -normal AV fxn on echo here. cad s/p mi's and remote pci: -no angina/ACS suspected, as disc'd above -pt declined cath 2014 for nstemi -now taking po so will resume bb, statin. resume wade when cr stable. resume asa when anemia improves
[2016-09-17] MEDS ORDERED: PT OWN MED DRAWER 7, Y5N ONE (11:11)
[2016-09-17] MEDS: HEPARIN NA (PORCINE) 5,000 UNITS/ML 1ML VIAL SQ SCH ×2 (11:16→21:34)
[2016-09-17] MEDS: AMINO ACIDS 4.25%/D5W 1,000 ML IV SCH ×2 (11:16→18:00)
[2016-09-17] MEDS: CEFAZOLIN (PRE-DOCKED) 50 ML IVPB SCH (11:16)
--- NOTE | 2016-09-17 11:33 | PN ---
Progress Note, Physician Chief Complaint: ID No complaints Still on antibiotic Cefazolin after Zosyn E Coli urine c/s 09/10 Afebrile NAD - Current Medication List Current Medications: Active Medications Albuterol/Ipratropium (Duoneb -) 1 amp NEB Q6H PRN PRN Reason: SHORTNESS OF BREATH Atorvastatin Calcium (Lipitor -) 20 mg PO HS [facility] Heparin Sodium (Porcine) (Heparin -) 5,000 unit SQ BID [facility] Last Admin: 09/17/16 11:16 Dose: 5,000 unit Hydralazine HCl (Apresoline -) 25 mg PO BID [facility] Cefazolin Sodium (Ancef 1gm Ivpb (Pre-Docked)) 50 mls @ 100 mls/hr IVPB BID [facility] Last Admin: 09/17/16 11:16 Dose: Not Given Amino Acids (Clinimix -) 1,000 mls @ 55 mls/hr IV Q24H [facility] Last Admin: 09/17/16 11:16 Dose: 55 mls/hr Metoprolol Tartrate (Lopressor -) 25 mg PO BID [facility] Ondansetron HCl (Zofran Injection) 4 mg IVPUSH Q6H PRN PRN Reason: NAUSEA AND/OR VOMITING - Objective Vital Signs: Vital Signs Temperature 98.5 F 09/17/16 05:00 Pulse Rate 67 09/17/16 05:00 Respiratory Rate 20 09/17/16 05:00 Blood Pressure 127/53 09/17/16 05:00 O2 Sat by Pulse Oximetry (%) 93 L 09/16/16 21:00 Constitutional: Yes: Well Nourished, No Distress Neck: Yes: WNL, Supple Cardiovascular: Yes: WNL, Regular Rate and Rhythm, Bradycardia, S1, S2 Respiratory: Yes: WNL, Regular, CTA Bilaterally, SOB on Exertion Gastrointestinal: Yes: WNL, Soft. No: Tenderness Edema: No Labs: CBC, BMP 09/17/16 05:35 09/17/16 05:35 INR, PTT INR 1.16 (0.82-1.09) H 09/10/16 17:29 Problem List - Problems (1) E. coli UTI Code(s): N39.0 - URINARY TRACT INFECTION, SITE NOT SPECIFIED B96.20 - UNSP ESCHERICHIA COLI THE CA[facility] DISEASES [facility] Assessment/Plan Laboratory Tests 09/17/16 09/17/16 05:35 05:35 WBC 7.6 Hgb 7.3 L Hct 23.3 L Plt Count 182 BUN 37 H Creatinine 0.9 Assessment E Coli urinary infection Plan Completed therapy will stop antibiotic Vahid WHITE
--- NOTE | 2016-09-17 15:27 | PN ---
Progress Note, Physician Chief Complaint: Ms Beckham says she continues to improve. She has abdominal soreness but otherwise is doing well. Says she is tolerating her diet without difficulty. Feels she can be started on solid food. No cp or sob. - Current Medication List Current Medications: Active Medications Albuterol/Ipratropium (Duoneb -) 1 amp NEB Q6H PRN PRN Reason: SHORTNESS OF BREATH Atorvastatin Calcium (Lipitor -) 20 mg PO HS [facility] Heparin Sodium (Porcine) (Heparin -) 5,000 unit SQ BID [facility] Last Admin: 09/17/16 11:16 Dose: 5,000 unit Hydralazine HCl (Apresoline -) 25 mg PO BID [facility] Amino Acids (Clinimix -) 1,000 mls @ 55 mls/hr IV Q24H [facility] Last Admin: 09/17/16 11:16 Dose: 55 mls/hr Metoprolol Tartrate (Lopressor -) 25 mg PO BID [facility] Ondansetron HCl (Zofran Injection) 4 mg IVPUSH Q6H PRN PRN Reason: NAUSEA AND/OR VOMITING - Objective Vital Signs: Vital Signs Temperature 99.5 F 09/17/16 14:03 Pulse Rate 67 09/17/16 14:03 Respiratory Rate 20 09/17/16 14:03 Blood Pressure 122/49 09/17/16 14:03 O2 Sat by Pulse Oximetry (%) 93 L 09/16/16 21:00 Constitutional: Yes: No Distress, Calm, Obese Cardiovascular: Yes: Regular Rate and Rhythm. No: Gallop, Murmur, Rub Respiratory: Yes: Regular, CTA Bilaterally. No: Rales, Rhonchi, Wheezes Gastrointestinal: Yes: Distention, Hypoactive Bowel Sounds (continues to improve ), Tenderness (decreasing) Extremities: Yes: WNL Edema: No Labs: CBC, BMP 09/17/16 05:35 09/17/16 05:35 INR, PTT INR 1.16 (0.82-1.09) H 09/10/16 17:29 Problem List - Problems (1) Small bowel obstruction due to adhesions Code(s): K56.5 - INTESTINAL ADHESIONS W OBST (POSTPROCEDURAL) (POSTINFECTION) (2) Acute kidney injury superimposed on chronic kidney disease Code(s): N17.9 - ACUTE KIDNEY FAILURE, UNSPECIFIED N18.9 - CHRONIC KIDNEY DISEASE, UNSPECIFIED (3) Sepsis Code(s): A41.9 - SEPSIS, UNSPECIFIED ORGANISM (4) Anemia Code(s): D64.9 - ANEMIA, UNSPECIFIED (5) Elevated troponin Code(s): R79.89 - OTHER SPECIFIED ABNORMAL FINDINGS OF BLOOD CHEMISTRY (6) CAD (coronary artery disease) Code(s): I25.10 - ATHSCL HEART DISEASE OF [place] CORONARY ARTERY W/O ANG PCTRS (7) COPD (chronic obstructive pulmonary disease) Code(s): J44.9 - CHRONIC OBSTRUCTIVE PULMONARY DISEASE, UNSPECIFIED (8) Hypertension Code(s): I10 - ESSENTIAL (PRIMARY) HYPERTENSION (9) Type II diabetes mellitus Code(s): E11.9 - TYPE 2 DIABETES MELLITUS WITHOUT COMPLICATIONS Assessment/Plan (1) Small bowel obstruction due to adhesions Assessment/Plan: -much improve -trial on diabetic diet Code(s): K56.5 - INTESTINAL ADHESIONS W OBST (POSTPROCEDURAL) (POSTINFECTION) (2) Acute kidney injury superimposed on chronic kidney disease Assessment/Plan: -nephrology following -[place] resolved -hypernatremia stable Code(s): N17.9 - ACUTE KIDNEY FAILURE, UNSPECIFIED N18.9 - CHRONIC KIDNEY DISEASE, UNSPECIFIED (3) Sepsis Assessment/Plan: -secondary to UTI -leukocytosis resolved -full course of ancef finished Code(s): A41.9 - SEPSIS, UNSPECIFIED ORGANISM (4) Anemia Assessment/Plan: -controlled -monitor Code(s): D64.9 - ANEMIA, UNSPECIFIED (5) Elevated troponin Assessment/Plan: -suspect stress induced -cardiology following Code(s): R79.89 - OTHER SPECIFIED ABNORMAL FINDINGS OF BLOOD CHEMISTRY (6) CAD (coronary artery disease) Assessment/Plan: -cardiology following -restarted oral medications Code(s): I25.10 - ATHSCL HEART DISEASE OF [place] CORONARY ARTERY W/O ANG PCTRS (7) COPD (chronic obstructive pulmonary disease) Assessment/Plan: -controlled Code(s): J44.9 - CHRONIC OBSTRUCTIVE PULMONARY DISEASE, UNSPECIFIED (8) Hypertension Assessment/Plan -control with hydralazine Code(s): I10 - ESSENTIAL (PRIMARY) HYPERTENSION (9) Type II diabetes mellitus Assessment/Plan: -diabetic diet -stop clinimix today Code(s): E11.9 - TYPE 2 DIABETES MELLITUS WITHOUT COMPLICATIONS (10) UTI -growing e. coli resistant to ampicillin and unasyn -ID following -full course ancef
--- NOTE | 2016-09-17 15:44 | PN ---
Progress Note, Physician History of Present Illness: Pt seen and examined at bedside. She is awake and alert. She says her abdominal pain is improved slightly. She had some soup and some apple juice. - Current Medication List Current Medications: Active Medications Albuterol/Ipratropium (Duoneb -) 1 amp NEB Q6H PRN PRN Reason: SHORTNESS OF BREATH Atorvastatin Calcium (Lipitor -) 20 mg PO HS [facility] Heparin Sodium (Porcine) (Heparin -) 5,000 unit SQ BID [facility] Last Admin: 09/17/16 11:16 Dose: 5,000 unit Hydralazine HCl (Apresoline -) 25 mg PO BID [facility] Metoprolol Tartrate (Lopressor -) 25 mg PO BID [facility] Ondansetron HCl (Zofran Injection) 4 mg IVPUSH Q6H PRN PRN Reason: NAUSEA AND/OR VOMITING - Objective Vital Signs: Vital Signs Temperature 99.5 F 09/17/16 14:03 Pulse Rate 67 09/17/16 14:03 Respiratory Rate 20 09/17/16 14:03 Blood Pressure 122/49 09/17/16 14:03 O2 Sat by Pulse Oximetry (%) 93 L 09/16/16 21:00 Constitutional: Yes: Calm Eyes: Yes: Conjunctiva Clear HENT: Yes: Atraumatic Cardiovascular: Yes: S1, S2 Respiratory: Yes: CTA Bilaterally Gastrointestinal: Yes: Distention, Tenderness Genitourinary: Yes: [place] Present Musculoskeletal: Yes: Muscle Weakness Edema: No Neurological: Yes: Oriented Psychiatric: Yes: Oriented Labs: CBC, BMP 09/17/16 05:35 09/17/16 05:35 INR, PTT INR 1.16 (0.82-1.09) H 09/10/16 17:29 Problem List - Problems (1) Acute kidney injury superimposed on chronic kidney disease Code(s): N17.9 - ACUTE KIDNEY FAILURE, UNSPECIFIED N18.9 - CHRONIC KIDNEY DISEASE, UNSPECIFIED (2) Anemia Code(s): D64.9 - ANEMIA, UNSPECIFIED (3) CAD (coronary artery disease) Code(s): I25.10 - ATHSCL HEART DISEASE OF [place] CORONARY ARTERY W/O ANG PCTRS (4) COPD (chronic obstructive pulmonary disease) Code(s): J44.9 - CHRONIC OBSTRUCTIVE PULMONARY DISEASE, UNSPECIFIED (5) H/O ovarian cancer Code(s): Z85.43 - PERSONAL HISTORY OF MALIGNANT NEOPLASM OF [place] (6) HLD (hyperlipidemia) Code(s): E78.5 - HYPERLIPIDEMIA, UNSPECIFIED (7) Hypertension Code(s): I10 - ESSENTIAL (PRIMARY) HYPERTENSION (8) Sepsis Code(s): A41.9 - SEPSIS, UNSPECIFIED ORGANISM (9) Non-STEMI (non-ST elevated myocardial infarction) Code(s): I21.4 - NON-ST ELEVATION (NSTEMI) MYOCARDIAL INFARCTION (10) Small bowel obstruction Code(s): K56.69 - OTHER INTESTINAL OBSTRUCTION Assessment/Plan Current Medications Generic Name Dose Route Start Last Admin Trade Name Freq PRN Reason Stop Dose Admin Albuterol/Ipratropium 1 amp 09/14/16 18:15 Duoneb - NEB Q6H PRN SHORTNESS OF BREATH Atorvastatin Calcium 20 mg 09/17/16 22:00 Lipitor - PO HS [facility] Heparin Sodium (Porcine) 5,000 unit 09/14/16 22:00 09/17/16 11:16 Heparin - SQ 5,000 unit BID [facility] Administration Hydralazine HCl 25 mg 09/17/16 22:00 Apresoline - PO BID [facility] Metoprolol Tartrate 25 mg 09/17/16 22:00 Lopressor - PO BID [facility] Ondansetron HCl 4 mg 09/14/16 18:15 Zofran Injection IVPUSH Q6H PRN NAUSEA AND/OR VOMITING Laboratory Tests 09/17/16 05:35 Calcium 7.6 L Phosphorus 1.8 L Impression 1. [place] 2. SBO 3. UTI 4. sepsis 5. history of ovarian cancer 6. COPD 7. hypotension 8. CAD 9. hx htn 10. NSTEMI 11. renal cyst 12. lactic acidosis Plan - renal function stable - will continue with clinimix as she is not eating much - will replace phos - serial abdominal exams - pt still refusing surgery - will follow Dr Person
[2016-09-17] MEDS ORDERED: POTASSIUM PHOSPHATE 15 MM in DEXTROSE 5%-WATER - 250 ML IVPB ONE (15:45)
[2016-09-17] MEDS: METOPROLOL TARTRATE 25 MG TABLET (FP) PO SCH (21:35)
[2016-09-17] MEDS: hydrALAZINE HCL 25 MG TABLET (FP) PO SCH (21:35)
[2016-09-17] MEDS: ATORVASTATIN CA 20 MG TABLET (FP) PO SCH (21:35)
[2016-09-18] MEDS: AMINO ACIDS 4.25%/D5W 1,000 ML IV SCH ×3 (05:26→14:33)
[2016-09-18 07:34] LABS: MCH 28.5 pg (25.7-33.7); MCHC 31.4 g/dl (32.0-36.0); MEAN CELL VOLUME 90.6 fl (80-96); MEAN PLT VOLUME 8.4 fl (7.5-11.1); PLATELET COUNT 183 K/MM3 (134-434); RDW 18.3 % (11.6-15.6)
[2016-09-18 07:56] LABS: CALCIUM 7.7 mg/dL (8.5-10.1); COCKROFT - GAULT 74.9445; CREATININE 0.7 mg/dL (0.55-1.02); MAGNESIUM 1.8 mg/dL (1.8-2.4); PHOSPHOROUS 2.3 mg/dL (2.5-4.9)
[2016-09-18] MEDS: hydrALAZINE HCL 20 MG/ML VIAL IVPB SCH (09:00)
[2016-09-18] MEDS: METOPROLOL TARTRATE 5 MG/5 ML VIAL IVPB SCH (09:00)
[2016-09-18 09:12] LABS: METAMYELOCYTE 2 % (0-2); PLATELET ESTIMATE ADEQUATE (NORMAL)
[2016-09-18 09:13] LABS: ANISOCYTOSIS 1+; HYPOCHROMIA 2+; MICROCYTOSIS 1+; POLYCHROMASIA 1+; TARGET CELLS FEW
[2016-09-18] MEDS: METOPROLOL TARTRATE 25 MG TABLET (FP) PO SCH ×2 (10:25→23:00)
[2016-09-18] MEDS: hydrALAZINE HCL 25 MG TABLET (FP) PO SCH ×2 (10:25→23:00)
[2016-09-18] MEDS: HEPARIN NA (PORCINE) 5,000 UNITS/ML 1ML VIAL SQ SCH ×2 (10:26→23:00)
--- NOTE | 2016-09-18 11:37 | PN ---
Progress Note (short form) - Note Progress Note: Chief Complaint: SBO, sepsis History of Present Illness: denies cp, sob, palpitations,dizzy. mild abdominal tenderness still but tolerating food Current Medications Generic Name Dose Route Start Last Admin Trade Name Frejohnny PRN Reason Stop Dose Admin Albuterol/Ipratropium 1 amp 09/14/16 18:15 Duoneb - NEB Q6H PRN SHORTNESS OF BREATH Atorvastatin Calcium 20 mg 09/17/16 22:00 09/17/16 21:35 Lipitor - PO 20 mg HS [facility] Administration Heparin Sodium (Porcine) 5,000 unit 09/14/16 22:00 09/18/16 10:26 Heparin - SQ Not Given BID [facility] Hydralazine HCl 25 mg 09/17/16 22:00 09/18/16 10:25 Apresoline - PO 25 mg BID [facility] Administration Amino Acids 1,000 mls @ 55 mls/hr 09/17/16 15:45 09/18/16 05:26 Clinimix - IV Not Given Q12H [facility] Metoprolol Tartrate 25 mg 09/17/16 22:00 09/18/16 10:25 Lopressor - PO 25 mg BID [facility] Administration Ondansetron HCl 4 mg 09/14/16 18:15 Zofran Injection IVPUSH Q6H PRN NAUSEA AND/OR VOMITING Vital Signs Period Temp Pulse Resp BP Sys/Romero Pulse Ox Last 24 Hr 98.2 F-99.5 F 61-73 18-20 122-166/49-74 96-98 Constitutional: Yes: Well Nourished, No Distress, Calm Cardiovascular: Yes: Regular Rate and Rhythm, JVD (possible), S1, S2. No: Gallop, Murmur Respiratory: Yes: Regular, CTA Bilaterally. No: Accessory Muscle Use Extremities: No: Cold + bs, mild tenderness to palpation, + distension. Edema: No Neurological: Yes: Lethargy. No: Seizure Psychiatric: No: Agitated no jaundice diaphoresis Labs: CBC, BMP 09/18/16 05:38 09/18/16 05:38 tele: sr, as-vp publisher development and ap-vp publisher development Echo 09/26 here: TDS; nl overall LVSF (RWMA tds); nl overall RV size/fxn; nl LA; AV tds, no AI or ; trace MR can't exclude vegetation; mild TR Echo 06/2014: nl lv/rv, mod tr, rvsp 30-40, nl bio avr a/p: 85 f hx htn, cva, right cea, ?pafib (per charts, ac stopped in past for gib), cad s/p mi's and remote pci, tavr for several years ago, ppm 12/2015, sent from [place] for n/v/abd distention noted to have sbo/sepsis/pete. sbo, sepsis: -eating now, ngt out -bp improved on ivfs, abx -echo MV report noted--no positive BCx's or other findings suggestive of SBE-- defer ERNST ppm: -st fab dual chamber place 12/2015 at [facility] [place] high grade block. followed there. -normal fcn on ecg, tele. pos trops: -trop mildly positive (0.7)--trended down. ECG v-paced. -normal LVEF, can't assess RWMA due to tds -clinical presentation c/w sepsis, with low suspicion for ACS -probable underlying obstructive CAD given 2014 NSTEMI treated medically ( refused cath)--hence cause of troponins here likely supply-demand mismatch due to sepsis -defer further w/u or tx at this time pete: -likely related to sepsis, sbo -renal fxn improved s/p IVF anemia: -h/o GIB in past (necessitating d/c of AC, per chart notes) -hgb below baseline, initially trended down and ASA held. Now stable and getting po trial, will resume low dose ASA when able to tolerate. htn: -now taking po, will start po bb and hydralazine ? pafib: -per charts, no specific details available, currently in sr -ac reportedly stopped in past for gib -at high risk for cardioembolic CVA (prior h/o CVA, CHADS-VASC = 7) -will not change prior tx plan given pt not well known to us -resume ASA when hgb stable/improved tavr: -normal AV fxn on echo here. cad s/p mi's and remote pci: -no angina/ACS suspected, as disc'd above -pt declined cath 2014 for nstemi -now taking po so will resume bb, statin. resume wade when cr stable. resume asa when anemia improves can dc tele
--- NOTE | 2016-09-18 12:19 | PN ---
Progress Note, Physician Chief Complaint: Ms Beckham says she still has some abdominal soreness but it is improving. However has minimal oral intake because she is not hungry. Saying she had two large bowel movements yesterday. No cp or sob. - Current Medication List Current Medications: Active Medications Albuterol/Ipratropium (Duoneb -) 1 amp NEB Q6H PRN PRN Reason: SHORTNESS OF BREATH Atorvastatin Calcium (Lipitor -) 20 mg PO HS [facility] Last Admin: 09/17/16 21:35 Dose: 20 mg Heparin Sodium (Porcine) (Heparin -) 5,000 unit SQ BID [facility] Last Admin: 09/18/16 10:26 Dose: Not Given Hydralazine HCl (Apresoline -) 25 mg PO BID [facility] Last Admin: 09/18/16 10:25 Dose: 25 mg Amino Acids (Clinimix -) 1,000 mls @ 55 mls/hr IV Q12H [facility] Last Admin: 09/18/16 05:26 Dose: Not Given Metoprolol Tartrate (Lopressor -) 25 mg PO BID [facility] Last Admin: 09/18/16 10:25 Dose: 25 mg Ondansetron HCl (Zofran Injection) 4 mg IVPUSH Q6H PRN PRN Reason: NAUSEA AND/OR VOMITING - Objective Vital Signs: Vital Signs Temperature 98.5 F 09/18/16 05:00 Pulse Rate 68 09/18/16 10:01 Respiratory Rate 20 09/18/16 05:00 Blood Pressure 158/54 09/18/16 05:00 O2 Sat by Pulse Oximetry (%) 96 09/18/16 10:01 Constitutional: Yes: No Distress, Calm, Obese Cardiovascular: Yes: Regular Rate and Rhythm. No: Gallop, Murmur, Rub Respiratory: Yes: Regular, CTA Bilaterally. No: Rales, Rhonchi, Wheezes Gastrointestinal: Yes: Distention, Hypoactive Bowel Sounds, Tenderness Extremities: Yes: WNL Edema: Yes Edema: LLE: Trace, RLE: Trace Labs: CBC, BMP 09/18/16 05:38 09/18/16 05:38 INR, PTT INR 1.16 (0.82-1.09) H 09/10/16 17:29 Problem List - Problems (1) Small bowel obstruction due to adhesions Code(s): K56.5 - INTESTINAL ADHESIONS W OBST (POSTPROCEDURAL) (POSTINFECTION) (2) Acute kidney injury superimposed on chronic kidney disease Code(s): N17.9 - ACUTE KIDNEY FAILURE, UNSPECIFIED N18.9 - CHRONIC KIDNEY DISEASE, UNSPECIFIED (3) Sepsis Code(s): A41.9 - SEPSIS, UNSPECIFIED ORGANISM (4) Anemia Code(s): D64.9 - ANEMIA, UNSPECIFIED (5) Elevated troponin Code(s): R79.89 - OTHER SPECIFIED ABNORMAL FINDINGS OF BLOOD CHEMISTRY (6) CAD (coronary artery disease) Code(s): I25.10 - ATHSCL HEART DISEASE OF [place] CORONARY ARTERY W/O ANG PCTRS (7) COPD (chronic obstructive pulmonary disease) Code(s): J44.9 - CHRONIC OBSTRUCTIVE PULMONARY DISEASE, UNSPECIFIED (8) Hypertension Code(s): I10 - ESSENTIAL (PRIMARY) HYPERTENSION (9) Type II diabetes mellitus Code(s): E11.9 - TYPE 2 DIABETES MELLITUS WITHOUT COMPLICATIONS Assessment/Plan (1) Small bowel obstruction due to adhesions Assessment/Plan: -patient having bowel movements, but tolerating minimal diet and still with pain and distention -still does not desire surgery -placed back on clinimix per nephrology because of decreased intake -continue to monitor for improvement Code(s): K56.5 - INTESTINAL ADHESIONS W OBST (POSTPROCEDURAL) (POSTINFECTION) (2) Acute kidney injury superimposed on chronic kidney disease Assessment/Plan: -nephrology following -[place] and hypernatremia resolved Code(s): N17.9 - ACUTE KIDNEY FAILURE, UNSPECIFIED N18.9 - CHRONIC KIDNEY DISEASE, UNSPECIFIED (3) Sepsis Assessment/Plan: -secondary to UTI -leukocytosis resolved -full course of ancef finished Code(s): A41.9 - SEPSIS, UNSPECIFIED ORGANISM (4) Anemia Assessment/Plan: -controlled -monitor Code(s): D64.9 - ANEMIA, UNSPECIFIED (5) Elevated troponin Assessment/Plan: -suspect stress induced -cardiology following Code(s): R79.89 - OTHER SPECIFIED ABNORMAL FINDINGS OF BLOOD CHEMISTRY (6) CAD (coronary artery disease) Assessment/Plan: -cardiology following -restarted oral medications Code(s): I25.10 - ATHSCL HEART DISEASE OF [place] CORONARY ARTERY W/O ANG PCTRS (7) COPD (chronic obstructive pulmonary disease) Assessment/Plan: -controlled Code(s): J44.9 - CHRONIC OBSTRUCTIVE PULMONARY DISEASE, UNSPECIFIED (8) Hypertension Assessment/Plan -control with hydralazine Code(s): I10 - ESSENTIAL (PRIMARY) HYPERTENSION (9) Type II diabetes mellitus Assessment/Plan: -restart clinimix -monitor Code(s): E11.9 - TYPE 2 DIABETES MELLITUS WITHOUT COMPLICATIONS (10) UTI -s/p full course ancef
--- NOTE | 2016-09-18 13:08 | PN ---
Progress Note, Physician History of Present Illness: Pt seen and examined at bedside. She still complains of abdominal pain. She is not tolerating diet. - Current Medication List Current Medications: Active Medications Albuterol/Ipratropium (Duoneb -) 1 amp NEB Q6H PRN PRN Reason: SHORTNESS OF BREATH Atorvastatin Calcium (Lipitor -) 20 mg PO HS [facility] Last Admin: 09/17/16 21:35 Dose: 20 mg Heparin Sodium (Porcine) (Heparin -) 5,000 unit SQ BID [facility] Last Admin: 09/18/16 10:26 Dose: Not Given Hydralazine HCl (Apresoline -) 25 mg PO BID [facility] Last Admin: 09/18/16 10:25 Dose: 25 mg Amino Acids (Clinimix -) 1,000 mls @ 55 mls/hr IV Q12H [facility] Last Admin: 09/18/16 05:26 Dose: Not Given Metoprolol Tartrate (Lopressor -) 25 mg PO BID [facility] Last Admin: 09/18/16 10:25 Dose: 25 mg Ondansetron HCl (Zofran Injection) 4 mg IVPUSH Q6H PRN PRN Reason: NAUSEA AND/OR VOMITING - Objective Vital Signs: Vital Signs Temperature 98.5 F 09/18/16 05:00 Pulse Rate 68 09/18/16 10:01 Respiratory Rate 20 09/18/16 05:00 Blood Pressure 158/54 09/18/16 05:00 O2 Sat by Pulse Oximetry (%) 96 09/18/16 10:01 Constitutional: Yes: Calm Eyes: Yes: Conjunctiva Clear HENT: Yes: Atraumatic Cardiovascular: Yes: S1, S2 Respiratory: Yes: CTA Bilaterally Gastrointestinal: Yes: Tenderness, Tenderness, Rebound Genitourinary: Yes: Incontinence Musculoskeletal: Yes: Muscle Weakness Edema: No Neurological: Yes: Oriented Psychiatric: Yes: Oriented Labs: CBC, BMP 09/18/16 05:38 09/18/16 05:38 INR, PTT INR 1.16 (0.82-1.09) H 09/10/16 17:29 Problem List - Problems (1) Acute kidney injury superimposed on chronic kidney disease Code(s): N17.9 - ACUTE KIDNEY FAILURE, UNSPECIFIED N18.9 - CHRONIC KIDNEY DISEASE, UNSPECIFIED (2) Anemia Code(s): D64.9 - ANEMIA, UNSPECIFIED (3) CAD (coronary artery disease) Code(s): I25.10 - ATHSCL HEART DISEASE OF [place] CORONARY ARTERY W/O ANG PCTRS (4) COPD (chronic obstructive pulmonary disease) Code(s): J44.9 - CHRONIC OBSTRUCTIVE PULMONARY DISEASE, UNSPECIFIED (5) H/O ovarian cancer Code(s): Z85.43 - PERSONAL HISTORY OF MALIGNANT NEOPLASM OF [place] (6) HLD (hyperlipidemia) Code(s): E78.5 - HYPERLIPIDEMIA, UNSPECIFIED (7) Hypertension Code(s): I10 - ESSENTIAL (PRIMARY) HYPERTENSION (8) Sepsis Code(s): A41.9 - SEPSIS, UNSPECIFIED ORGANISM (9) Non-STEMI (non-ST elevated myocardial infarction) Code(s): I21.4 - NON-ST ELEVATION (NSTEMI) MYOCARDIAL INFARCTION (10) Small bowel obstruction Code(s): K56.69 - OTHER INTESTINAL OBSTRUCTION Assessment/Plan Current Medications Generic Name Dose Route Start Last Admin Trade Name Freq PRN Reason Stop Dose Admin Albuterol/Ipratropium 1 amp 09/14/16 18:15 Duoneb - NEB Q6H PRN SHORTNESS OF BREATH Atorvastatin Calcium 20 mg 09/17/16 22:00 09/17/16 21:35 Lipitor - PO 20 mg HS [facility] Administration Heparin Sodium (Porcine) 5,000 unit 09/14/16 22:00 09/18/16 10:26 Heparin - SQ Not Given BID [facility] Hydralazine HCl 25 mg 09/17/16 22:00 09/18/16 10:25 Apresoline - PO 25 mg BID [facility] Administration Amino Acids 1,000 mls @ 55 mls/hr 09/17/16 15:45 09/18/16 05:26 Clinimix - IV Not Given Q12H [facility] Metoprolol Tartrate 25 mg 09/17/16 22:00 09/18/16 10:25 Lopressor - PO 25 mg BID [facility] Administration Ondansetron HCl 4 mg 09/14/16 18:15 Zofran Injection IVPUSH Q6H PRN NAUSEA AND/OR VOMITING Laboratory Tests 09/18/16 05:38 Phosphorus 2.3 L D Impression 1. [place] 2. SBO 3. UTI 4. sepsis 5. history of ovarian cancer 6. COPD 7. hypotension 8. CAD 9. hx htn 10. NSTEMI 11. renal cyst 12. lactic acidosis Plan - sodium improving - replace phos - cont clinimix - pt not tolerating diet, put back on clear - obstruction does not seem to be resolving as she still has generalized abdominal tenderness and does not have any appetite - pt is refusing surgery - will continue with clinimix as she is not eating much - serial abdominal exams - will follow Dr Person
[2016-09-18] MEDS ORDERED: POTASSIUM PHOSPHATE 15 MM in DEXTROSE 5%-WATER - 250 ML IVPB ONE (14:00)
[2016-09-18] MEDS: ATORVASTATIN CA 20 MG TABLET (FP) PO SCH (23:00)
[2016-09-19 07:40] LABS: BASOPHIL 0.3 % (0-2.0); MCHC 31.8 g/dl (32.0-36.0); MEAN CELL VOLUME 91.1 fl (80-96); MEAN PLT VOLUME 8.5 fl (7.5-11.1); NEUTROPHILS 76.6 % (42.8-82.8); PLATELET COUNT 197 K/MM3 (134-434); RDW 18.1 % (11.6-15.6); WHITE BLOOD COUNT 7.8 K/mm3 (4.0-10.0)
[2016-09-19 08:06] LABS: ANION GAP 7 (8-16); CO2 33 mmol/L (21-32); GLUCOSE,RANDOM 98 mg/dL (74-106); MAGNESIUM 1.8 mg/dL (1.8-2.4)
[2016-09-19 08:11] LABS: ALK PHOS 122 U/L (45-117); BILIRUBIN,TOTAL 0.2 mg/dL (0.2-1.0); COCKROFT - GAULT 74.9445; CREATININE 0.7 mg/dL (0.55-1.02); PHOSPHOROUS 2.4 mg/dL (2.5-4.9); SGOT/AST 44 U/L (15-37); SGPT/ALT 27 U/L (12-78); TOT PROT 6.2 g/dl (6.4-8.2)
--- NOTE | 2016-09-19 08:28 | PN ---
Progress Note, Physician Chief Complaint: sepsis/sbo History of Present Illness: awake/alert eating liquids diet at present denies cp, sob, palpit, leg swelling - Current Medication List Current Medications: Active Medications Albuterol/Ipratropium (Duoneb -) 1 amp NEB Q6H PRN PRN Reason: SHORTNESS OF BREATH Atorvastatin Calcium (Lipitor -) 20 mg PO HS ON [facility] Last Admin: 09/18/16 23:00 Dose: 20 mg Heparin Sodium (Porcine) (Heparin -) 5,000 unit SQ BID ON [facility] Last Admin: 09/18/16 23:00 Dose: 5,000 unit Hydralazine HCl (Apresoline -) 25 mg PO BID ON [facility] Last Admin: 09/18/16 23:00 Dose: 25 mg Amino Acids (Clinimix -) 1,000 mls @ 60 mls/hr IV Q16H ON [facility] OF [facility] Last Admin: 09/19/16 00:00 Dose: 60 mls/hr Metoprolol Tartrate (Lopressor -) 25 mg PO BID ON [facility] Last Admin: 09/18/16 23:00 Dose: 25 mg Ondansetron HCl (Zofran Injection) 4 mg IVPUSH Q6H PRN PRN Reason: NAUSEA AND/OR VOMITING - Objective Vital Signs: Vital Signs Temperature 98.6 F 09/19/16 08:21 Pulse Rate 60 09/19/16 08:21 Respiratory Rate 20 09/19/16 08:21 Blood Pressure 159/77 09/19/16 08:21 O2 Sat by Pulse Oximetry (%) 100 09/18/16 20:55 Constitutional: Yes: Well Nourished, No Distress, Calm Cardiovascular: Yes: Regular Rate and Rhythm, Murmur (2/6 early NADIA), S1, S2. No: Gallop Respiratory: Yes: Regular, CTA Bilaterally. No: Accessory Muscle Use, Rales, Wheezes Extremities: No: Cold Edema: No (SCDs) Neurological: Yes: Alert. No: Seizure Psychiatric: No: Agitated Labs: CBC, BMP 09/19/16 05:42 09/19/16 05:42 INR, PTT INR 1.16 (0.82-1.09) H 09/10/16 17:29 - ....Imaging EKG: Other Assessment/Plan Echo 09/26 here: TDS; nl overall LVSF (RWMA tds); nl overall RV size/fxn; nl LA; AV tds, no AI or ; trace MR can't exclude vegetation; mild TR Echo 06/2014: nl lv/rv, mod tr, rvsp 30-40, nl bio avr a/p: 85 f hx htn, cva, right cea, ?pafib (per charts, ac stopped in past for gib), cad s/p mi's and remote pci, tavr for several years ago, ppm 12/2015, sent from [place] for n/v/abd distention noted to have sbo/sepsis/pete. sbo, sepsis: -eating now, ngt out -bp improved on ivfs, abx -echo MV report noted--no positive BCx's or other findings suggestive of SBE-- defer ERNST ppm: -st fab dual chamber place 12/2015 at [facility] for high grade block. followed there. -normal fcn on ecg, tele. -cont routine outpt PM f/u pos trops: -trop mildly positive (0.7)--trended down. ECG v-paced. -normal LVEF, can't assess RWMA due to tds -clinical presentation c/w sepsis, with low suspicion for ACS -probable underlying obstructive CAD given 2014 NSTEMI treated medically ( refused cath)--hence cause of troponins here likely supply-demand mismatch due to sepsis -defer further w/u or tx at this time -cont bb, statin. -creat normalized--resume home HILDA (lisin 5) -hgb still gradually downtrending--resume ASA once anemia stabilizes anemia: -h/o GIB in past (necessitating d/c of AC, per chart notes) -hgb below baseline, initially trended down and ASA held. -remains gradually downtrending--holding ASA htn: -now taking po--cont metopr, hydralazine, lisin -mildly elevated today -observe bp trend ? pafib: -per charts, no details available, currently in sr -ac reportedly stopped in past for gib -at high risk for cardioembolic CVA (prior h/o CVA, CHADS-VASC = 7) -will not change prior tx plan given pt not well known to us -resume ASA when hgb stable/improved and taking po tavr: -normal AV fxn on echo here. OFF TELE--TRANSFER TO MED/SURG
[2016-09-19] MEDS: hydrALAZINE HCL 25 MG TABLET (FP) PO SCH ×2 (09:36→21:49)
[2016-09-19] MEDS: HEPARIN NA (PORCINE) 5,000 UNITS/ML 1ML VIAL SQ SCH ×2 (09:36→21:49)
[2016-09-19] MEDS: METOPROLOL TARTRATE 25 MG TABLET (FP) PO SCH ×2 (09:36→21:49)
[2016-09-19] MEDS: LISINOPRIL 5 MG TABLET (FP) PO SCH (10:11)
--- NOTE | 2016-09-19 10:42 | PN ---
Progress Note, Physician History of Present Illness: Denies abd pain, now back on clear diet. Had small amount bowel movement this morning. - Current Medication List Current Medications: Active Medications Albuterol/Ipratropium (Duoneb -) 1 amp NEB Q6H PRN PRN Reason: SHORTNESS OF BREATH Atorvastatin Calcium (Lipitor -) 20 mg PO HS [facility] Last Admin: 09/18/16 23:00 Dose: 20 mg Heparin Sodium (Porcine) (Heparin -) 5,000 unit SQ BID [facility] Last Admin: 09/19/16 09:36 Dose: 5,000 unit Hydralazine HCl (Apresoline -) 25 mg PO BID [facility] Last Admin: 09/19/16 09:36 Dose: 25 mg Amino Acids (Clinimix -) 1,000 mls @ 60 mls/hr IV Q16H [facility] Last Admin: 09/19/16 00:00 Dose: 60 mls/hr Lisinopril (Prinivil) 5 mg PO DAILY [facility] Last Admin: 09/19/16 10:11 Dose: 5 mg Metoprolol Tartrate (Lopressor -) 25 mg PO BID [facility] Last Admin: 09/19/16 09:36 Dose: 25 mg Ondansetron HCl (Zofran Injection) 4 mg IVPUSH Q6H PRN PRN Reason: NAUSEA AND/OR VOMITING - Objective Vital Signs: Vital Signs Temperature 98.6 F 09/19/16 08:21 Pulse Rate 60 09/19/16 08:21 Respiratory Rate 20 09/19/16 08:21 Blood Pressure 159/77 09/19/16 08:21 O2 Sat by Pulse Oximetry (%) 97 09/19/16 08:21 Constitutional: Yes: No Distress, Calm HENT: Yes: Atraumatic, Normocephalic Neck: Yes: Supple, Trachea Midline Cardiovascular: Yes: Regular Rate and Rhythm, S1, S2. No: Murmur Respiratory: Yes: Regular, CTA Bilaterally. No: Rales, Rhonchi, Wheezes Gastrointestinal: Yes: Distention. No: Tenderness Edema: Yes Edema: LLE: Trace, RLE: Trace Neurological: Yes: Alert, Oriented Labs: CBC, BMP 09/19/16 05:42 09/19/16 05:42 INR, PTT INR 1.16 (0.82-1.09) H 09/10/16 17:29 Assessment/Plan Current Active Problems Acute kidney injury superimposed on chronic kidney disease (Acute) Anemia (Acute) CAD (coronary artery disease) (Acute) COPD (chronic obstructive pulmonary disease) (Acute) DVT prophylaxis (Acute) E. coli UTI (Acute) H/O ovarian cancer (Acute) HLD (hyperlipidemia) (Acute) Hypertension (Acute) Hypotension (Acute) Sepsis (Acute) Small bowel obstruction due to adhesions (Acute) Type II diabetes mellitus (Acute) -tapered back to clear diet, as abd still distended -to cont on clninimix -cont on abx for UTI
--- NOTE | 2016-09-19 15:54 | PN ---
Progress Note, Physician History of Present Illness: Pt seen and examined at bedside. She is awake and alert. Her PO intake remains poor. She says she did have some shortness of breath this morning. - Current Medication List Current Medications: Active Medications Albuterol/Ipratropium (Duoneb -) 1 amp NEB Q6H PRN PRN Reason: SHORTNESS OF BREATH Atorvastatin Calcium (Lipitor -) 20 mg PO HS [facility] Last Admin: 09/18/16 23:00 Dose: 20 mg Heparin Sodium (Porcine) (Heparin -) 5,000 unit SQ BID [facility] Last Admin: 09/19/16 09:36 Dose: 5,000 unit Hydralazine HCl (Apresoline -) 25 mg PO BID [facility] Last Admin: 09/19/16 09:36 Dose: 25 mg Amino Acids (Clinimix -) 1,000 mls @ 60 mls/hr IV Q16H [facility] Last Admin: 09/19/16 00:00 Dose: 60 mls/hr Lisinopril (Prinivil) 5 mg PO DAILY [facility] Last Admin: 09/19/16 10:11 Dose: 5 mg Metoprolol Tartrate (Lopressor -) 25 mg PO BID [facility] Last Admin: 09/19/16 09:36 Dose: 25 mg Ondansetron HCl (Zofran Injection) 4 mg IVPUSH Q6H PRN PRN Reason: NAUSEA AND/OR VOMITING - Objective Vital Signs: Vital Signs Temperature 98.6 F 09/19/16 08:21 Pulse Rate 60 09/19/16 08:21 Respiratory Rate 20 09/19/16 08:21 Blood Pressure 159/77 09/19/16 08:21 O2 Sat by Pulse Oximetry (%) 97 09/19/16 08:21 Constitutional: Yes: Calm Eyes: Yes: Conjunctiva Clear HENT: Yes: Atraumatic Cardiovascular: Yes: S1, S2 Respiratory: Yes: CTA Bilaterally, On Nasal O2 Gastrointestinal: Yes: Distention, Tenderness Genitourinary: Yes: Incontinence Musculoskeletal: Yes: Muscle Weakness Edema: Yes Edema: LLE: Trace, RLE: Trace Neurological: Yes: Oriented Psychiatric: Yes: Oriented Labs: CBC, BMP 09/19/16 05:42 09/19/16 05:42 INR, PTT INR 1.16 (0.82-1.09) H 09/10/16 17:29 Problem List - Problems (1) Acute kidney injury superimposed on chronic kidney disease Code(s): N17.9 - ACUTE KIDNEY FAILURE, UNSPECIFIED N18.9 - CHRONIC KIDNEY DISEASE, UNSPECIFIED (2) Anemia Code(s): D64.9 - ANEMIA, UNSPECIFIED (3) CAD (coronary artery disease) Code(s): I25.10 - ATHSCL HEART DISEASE OF [place] CORONARY ARTERY W/O ANG PCTRS (4) COPD (chronic obstructive pulmonary disease) Code(s): J44.9 - CHRONIC OBSTRUCTIVE PULMONARY DISEASE, UNSPECIFIED (5) H/O ovarian cancer Code(s): Z85.43 - PERSONAL HISTORY OF MALIGNANT NEOPLASM OF [place] (6) HLD (hyperlipidemia) Code(s): E78.5 - HYPERLIPIDEMIA, UNSPECIFIED (7) Hypertension Code(s): I10 - ESSENTIAL (PRIMARY) HYPERTENSION (8) Sepsis Code(s): A41.9 - SEPSIS, UNSPECIFIED ORGANISM (9) Non-STEMI (non-ST elevated myocardial infarction) Code(s): I21.4 - NON-ST ELEVATION (NSTEMI) MYOCARDIAL INFARCTION (10) Small bowel obstruction Code(s): K56.69 - OTHER INTESTINAL OBSTRUCTION Assessment/Plan Current Medications Generic Name Dose Route Start Last Admin Trade Name Freq PRN Reason Stop Dose Admin Albuterol/Ipratropium 1 amp 09/14/16 18:15 Duoneb - NEB Q6H PRN SHORTNESS OF BREATH Atorvastatin Calcium 20 mg 09/17/16 22:00 09/18/16 23:00 Lipitor - PO 20 mg HS ELSIE Administration Heparin Sodium (Porcine) 5,000 unit 09/14/16 22:00 09/19/16 09:36 Heparin - SQ 5,000 unit BID ELSIE Administration Hydralazine HCl 25 mg 09/17/16 22:00 09/19/16 09:36 Apresoline - PO 25 mg BID ELSIE Administration Amino Acids 1,000 mls @ 60 mls/hr 09/18/16 13:10 09/19/16 00:00 Clinimix - IV 60 mls/hr Q16H ELSIE Administration Lisinopril 5 mg 09/19/16 10:00 09/19/16 10:11 Prinivil PO 5 mg DAILY ELSIE Administration Metoprolol Tartrate 25 mg 09/17/16 22:00 09/19/16 09:36 Lopressor - PO 25 mg BID ELSIE Administration Ondansetron HCl 4 mg 09/14/16 18:15 Zofran Injection IVPUSH Q6H PRN NAUSEA AND/OR VOMITING Laboratory Tests 09/19/16 05:42 Phosphorus 2.4 L Impression 1. [place] 2. SBO 3. UTI 4. sepsis 5. history of ovarian cancer 6. COPD 7. hypotension 8. CAD 9. hx htn 10. NSTEMI 11. renal cyst 12. lactic acidosis Plan - renal function is stable - electrolytes are stabilizing - will decrease rate of clinimix - replace phos - get cxr - pt refusing surgery - serial abdominal exams - will follow Dr Person
[2016-09-19] MEDS: AMINO ACIDS 4.25%/D5W 1,000 ML IV SCH ×2 (16:22)
[2016-09-19] MEDS: POTASSIUM PHOSPHATE 15 MM in DEXTROSE 5%-WATER - 250 ML IVPB ONE ×2 (17:47→17:55)
[2016-09-19] MEDS: ATORVASTATIN CA 20 MG TABLET (FP) PO SCH (21:49)
[2016-09-20 07:31] LABS: BASOPHIL 0.3 % (0-2.0); EOSINOPHIL 1.5 % (0-4.5); MCH 28.7 pg (25.7-33.7); MCHC 31.7 g/dl (32.0-36.0); MEAN CELL VOLUME 90.4 fl (80-96); NEUTROPHILS 71.2 % (42.8-82.8); PLATELET COUNT 197 K/MM3 (134-434); RDW 18.6 % (11.6-15.6); WHITE BLOOD COUNT 6.8 K/mm3 (4.0-10.0)
[2016-09-20 08:19] LABS: ALBUMIN 2.1 g/dl (3.4-5.0); ANION GAP 6 (8-16); BILIRUBIN,TOTAL 0.4 mg/dL (0.2-1.0); CALCIUM 7.8 mg/dL (8.5-10.1); CO2 32 mmol/L (21-32); CREATININE 0.8 mg/dL (0.55-1.02); GLUCOSE,RANDOM 87 mg/dL (74-106); PHOSPHOROUS 3.3 mg/dL (2.5-4.9); SGOT/AST 40 U/L (15-37); SGPT/ALT 23 U/L (12-78); TOT PROT 6.2 g/dl (6.4-8.2)
[2016-09-20 08:20] LABS: ALK PHOS 117 U/L (45-117)
--- NOTE | 2016-09-20 09:20 | PN ---
Progress Note, Physician History of Present Illness: Patient c/o being hungry, wants ot eat something more substantial than clear liquids. Notes that she feels her abdomen is softer, no pain currently. - Current Medication List Current Medications: Active Medications Atorvastatin Calcium (Lipitor -) 20 mg PO HS [facility] Last Admin: 09/19/16 21:49 Dose: 20 mg Heparin Sodium (Porcine) (Heparin -) 5,000 unit SQ BID [facility] Last Admin: 09/19/16 21:49 Dose: 5,000 unit Hydralazine HCl (Apresoline -) 25 mg PO BID [facility] Last Admin: 09/19/16 21:49 Dose: 25 mg Amino Acids (Clinimix -) 1,000 mls @ 42 mls/hr IV Q16H [facility] Last Admin: 09/19/16 16:22 Dose: Not Given Lisinopril (Prinivil) 5 mg PO DAILY [facility] Last Admin: 09/19/16 10:11 Dose: 5 mg Metoprolol Tartrate (Lopressor -) 25 mg PO BID [facility] Last Admin: 09/19/16 21:49 Dose: 25 mg Ondansetron HCl (Zofran Injection) 4 mg IVPUSH Q6H PRN PRN Reason: NAUSEA AND/OR VOMITING - Objective Vital Signs: Vital Signs Temperature 98.1 F 09/20/16 05:34 Pulse Rate 65 09/20/16 05:34 Respiratory Rate 18 09/20/16 05:34 Blood Pressure 137/52 09/20/16 05:34 O2 Sat by Pulse Oximetry (%) 98 09/19/16 21:00 Constitutional: Yes: No Distress, Calm Cardiovascular: Yes: Regular Rate and Rhythm, S1, S2. No: Murmur Respiratory: Yes: Regular, CTA Bilaterally. No: Rales, Rhonchi, Wheezes Gastrointestinal: Yes: Normal Bowel Sounds, Soft, Distention. No: Tenderness Edema: No Neurological: Yes: Alert, Oriented Labs: CBC, BMP 09/20/16 06:10 09/20/16 06:10 INR, PTT INR 1.16 (0.82-1.09) H 09/10/16 17:29 Assessment/Plan Current Active Problems Acute kidney injury superimposed on chronic kidney disease (Acute) Anemia (Acute) CAD (coronary artery disease) (Acute) COPD (chronic obstructive pulmonary disease) (Acute) DVT prophylaxis (Acute) E. coli UTI (Acute) H/O ovarian cancer (Acute) HLD (hyperlipidemia) (Acute) Hypertension (Acute) Hypotension (Acute) Sepsis (Acute) Small bowel obstruction due to adhesions (Acute) Type II diabetes mellitus (Acute) -with patient feeling better abdominally, will check xray and advance to soft diet -H/H has drifted down further, so will need blood transfusion today (will give 1 unit)
[2016-09-20] MEDS: AMINO ACIDS 4.25%/D5W 1,000 ML IV SCH ×3 (10:16→17:35)
[2016-09-20] MEDS: HEPARIN NA (PORCINE) 5,000 UNITS/ML 1ML VIAL SQ SCH ×2 (10:23→21:28)
[2016-09-20] MEDS: hydrALAZINE HCL 25 MG TABLET (FP) PO SCH ×2 (10:23→21:29)
[2016-09-20] MEDS: METOPROLOL TARTRATE 25 MG TABLET (FP) PO SCH ×2 (10:23→21:29)
[2016-09-20] MEDS: LISINOPRIL 5 MG TABLET (FP) PO SCH (10:23)
[2016-09-20] MEDS ORDERED: IRON SUCROSE INJECTION 200 MG in SODIUM CHLORIDE 240 ML IVPB ONE (10:33)
--- NOTE | 2016-09-20 16:11 | PN ---
Progress Note, Physician History of Present Illness: Pt seen and examined at bedside. She is awake and alert. She feels that her breathing is improved. She denies chest pain. She says that she does not want any blood transfusions. - Current Medication List Current Medications: Active Medications Atorvastatin Calcium (Lipitor -) 20 mg PO HS [facility] Last Admin: 09/19/16 21:49 Dose: 20 mg Heparin Sodium (Porcine) (Heparin -) 5,000 unit SQ BID [facility] Last Admin: 09/20/16 10:23 Dose: 5,000 unit Hydralazine HCl (Apresoline -) 25 mg PO BID [facility] Last Admin: 09/20/16 10:23 Dose: 25 mg Amino Acids (Clinimix -) 1,000 mls @ 42 mls/hr IV Q16H [facility] Last Admin: 09/20/16 14:48 Dose: 42 mls/hr Lisinopril (Prinivil) 5 mg PO DAILY [facility] Last Admin: 09/20/16 10:23 Dose: 5 mg Metoprolol Tartrate (Lopressor -) 25 mg PO BID [facility] Last Admin: 09/20/16 10:23 Dose: 25 mg Ondansetron HCl (Zofran Injection) 4 mg IVPUSH Q6H PRN PRN Reason: NAUSEA AND/OR VOMITING - Objective Vital Signs: Vital Signs Temperature 98.2 F 09/20/16 14:32 Pulse Rate 78 09/20/16 14:32 Respiratory Rate 16 09/20/16 14:32 Blood Pressure 122/58 09/20/16 14:32 O2 Sat by Pulse Oximetry (%) 100 09/20/16 10:20 Constitutional: Yes: Calm Eyes: Yes: Conjunctiva Clear HENT: Yes: Atraumatic Cardiovascular: Yes: S1, S2 Respiratory: Yes: CTA Bilaterally, On Nasal O2 Gastrointestinal: Yes: Distention Genitourinary: Yes: Incontinence Musculoskeletal: Yes: Muscle Weakness Edema: No Neurological: Yes: Oriented Psychiatric: Yes: Oriented Labs: CBC, BMP 09/20/16 06:10 09/20/16 06:10 INR, PTT INR 1.16 (0.82-1.09) H 09/10/16 17:29 Problem List - Problems (1) Acute kidney injury superimposed on chronic kidney disease Code(s): N17.9 - ACUTE KIDNEY FAILURE, UNSPECIFIED N18.9 - CHRONIC KIDNEY DISEASE, UNSPECIFIED (2) Anemia Code(s): D64.9 - ANEMIA, UNSPECIFIED (3) CAD (coronary artery disease) Code(s): I25.10 - ATHSCL HEART DISEASE OF [place] CORONARY ARTERY W/O ANG PCTRS (4) COPD (chronic obstructive pulmonary disease) Code(s): J44.9 - CHRONIC OBSTRUCTIVE PULMONARY DISEASE, UNSPECIFIED (5) H/O ovarian cancer Code(s): Z85.43 - PERSONAL HISTORY OF MALIGNANT NEOPLASM OF [place] (6) HLD (hyperlipidemia) Code(s): E78.5 - HYPERLIPIDEMIA, UNSPECIFIED (7) Hypertension Code(s): I10 - ESSENTIAL (PRIMARY) HYPERTENSION (8) Sepsis Code(s): A41.9 - SEPSIS, UNSPECIFIED ORGANISM (9) Non-STEMI (non-ST elevated myocardial infarction) Code(s): I21.4 - NON-ST ELEVATION (NSTEMI) MYOCARDIAL INFARCTION (10) Small bowel obstruction Code(s): K56.69 - OTHER INTESTINAL OBSTRUCTION Assessment/Plan Current Medications Generic Name Dose Route Start Last Admin Trade Name Freq PRN Reason Stop Dose Admin Atorvastatin Calcium 20 mg 09/17/16 22:00 09/19/16 21:49 Lipitor - PO 20 mg HS ELSIE Administration Heparin Sodium (Porcine) 5,000 unit 09/14/16 22:00 09/20/16 10:23 Heparin - SQ 5,000 unit BID ELSIE Administration Hydralazine HCl 25 mg 09/17/16 22:00 09/20/16 10:23 Apresoline - PO 25 mg BID ELSIE Administration Amino Acids 1,000 mls @ 42 mls/hr 09/19/16 15:54 09/20/16 14:48 Clinimix - IV 42 mls/hr Q16H ELSIE Administration Lisinopril 5 mg 09/19/16 10:00 09/20/16 10:23 Prinivil PO 5 mg DAILY ELSIE Administration Metoprolol Tartrate 25 mg 09/17/16 22:00 09/20/16 10:23 Lopressor - PO 25 mg BID ELSIE Administration Ondansetron HCl 4 mg 09/14/16 18:15 Zofran Injection IVPUSH Q6H PRN NAUSEA AND/OR VOMITING Impression 1. [place] 2. SBO 3. UTI 4. sepsis 5. history of ovarian cancer 6. COPD 7. hypotension 8. CAD 9. hx htn 10. NSTEMI 11. renal cyst 12. lactic acidosis Plan - renal function remains stable - will decrease rate of clinimix further today - monitor electrolytes - pt refusing blood transfusion - cxr reviewed from last night - pt refusing surgery - serial abdominal exams - will follow Dr Person
[2016-09-20] MEDS: ATORVASTATIN CA 20 MG TABLET (FP) PO SCH (21:29)
[2016-09-21 08:03] LABS: CALCIUM 8.2 mg/dL (8.5-10.1); COCKROFT - GAULT 65.569; CREATININE 0.8 mg/dL (0.55-1.02)
[2016-09-21 08:15] LABS: BASOPHIL 0.3 % (0-2.0); EOSINOPHIL 1.5 % (0-4.5); MCHC 31.8 g/dl (32.0-36.0); MEAN CELL VOLUME 91.4 fl (80-96); MEAN PLT VOLUME 8.1 fl (7.5-11.1); NEUTROPHILS 74.7 % (42.8-82.8); PLATELET COUNT 224 K/MM3 (134-434); RDW 18.7 % (11.6-15.6); WHITE BLOOD COUNT 7.2 K/mm3 (4.0-10.0)
[2016-09-21] MEDS: AMINO ACIDS 4.25%/D5W 1,000 ML IV SCH (09:16)
[2016-09-21] MEDS: LISINOPRIL 5 MG TABLET (FP) PO SCH (09:23)
[2016-09-21] MEDS: HEPARIN NA (PORCINE) 5,000 UNITS/ML 1ML VIAL SQ SCH ×2 (09:23→22:14)
[2016-09-21] MEDS: hydrALAZINE HCL 25 MG TABLET (FP) PO SCH ×2 (09:23→22:14)
[2016-09-21] MEDS: METOPROLOL TARTRATE 25 MG TABLET (FP) PO SCH ×2 (09:23→22:14)
[2016-09-21 10:45] LABS: ANISOCYTOSIS 1+; HYPOCHROMIA 1+; PLATELET ESTIMATE ADEQUATE (NORMAL)
--- NOTE | 2016-09-21 11:20 | PN ---
Progress Note, Physician Chief Complaint: Ms Beckham says she is having pain in her abdomen again. Tolerating her diet. No cp or sob. - Current Medication List Current Medications: Active Medications Atorvastatin Calcium (Lipitor -) 20 mg PO HS [facility] Last Admin: 09/20/16 21:29 Dose: 20 mg Heparin Sodium (Porcine) (Heparin -) 5,000 unit SQ BID [facility] Last Admin: 09/21/16 09:23 Dose: 5,000 unit Hydralazine HCl (Apresoline -) 25 mg PO BID [facility] Last Admin: 09/21/16 09:23 Dose: 25 mg Amino Acids (Clinimix -) 1,000 mls @ 35 mls/hr IV Q16H [facility] Last Admin: 09/21/16 09:16 Dose: Not Given Lisinopril (Prinivil) 5 mg PO DAILY [facility] Last Admin: 09/21/16 09:23 Dose: 5 mg Metoprolol Tartrate (Lopressor -) 25 mg PO BID [facility] Last Admin: 09/21/16 09:23 Dose: 25 mg Ondansetron HCl (Zofran Injection) 4 mg IVPUSH Q6H PRN PRN Reason: NAUSEA AND/OR VOMITING - Objective Vital Signs: Vital Signs Temperature 98.4 F 09/21/16 06:23 Pulse Rate 61 09/21/16 06:23 Respiratory Rate 20 09/21/16 06:23 Blood Pressure 134/50 09/21/16 06:23 O2 Sat by Pulse Oximetry (%) 100 09/20/16 21:00 Constitutional: Yes: No Distress, Calm, Obese Cardiovascular: Yes: Regular Rate and Rhythm. No: Gallop, Murmur, Rub Respiratory: Yes: Regular, CTA Bilaterally. No: Rales, Rhonchi, Wheezes Gastrointestinal: Yes: Distention, Hypoactive Bowel Sounds, Tenderness Extremities: Yes: WNL Edema: Yes Edema: LLE: Trace, RLE: Trace Labs: CBC, BMP 09/21/16 06:00 09/21/16 06:00 INR, PTT INR 1.16 (0.82-1.09) H 09/10/16 17:29 Problem List - Problems (1) Small bowel obstruction due to adhesions Code(s): K56.5 - INTESTINAL ADHESIONS W OBST (POSTPROCEDURAL) (POSTINFECTION) (2) Acute kidney injury superimposed on chronic kidney disease Code(s): N17.9 - ACUTE KIDNEY FAILURE, UNSPECIFIED N18.9 - CHRONIC KIDNEY DISEASE, UNSPECIFIED (3) Sepsis Code(s): A41.9 - SEPSIS, UNSPECIFIED ORGANISM (4) Anemia Code(s): D64.9 - ANEMIA, UNSPECIFIED (5) Elevated troponin Code(s): R79.89 - OTHER SPECIFIED ABNORMAL FINDINGS OF BLOOD CHEMISTRY (6) CAD (coronary artery disease) Code(s): I25.10 - ATHSCL HEART DISEASE OF [place] CORONARY ARTERY W/O ANG PCTRS (7) COPD (chronic obstructive pulmonary disease) Code(s): J44.9 - CHRONIC OBSTRUCTIVE PULMONARY DISEASE, UNSPECIFIED (8) Hypertension Code(s): I10 - ESSENTIAL (PRIMARY) HYPERTENSION (9) Type II diabetes mellitus Code(s): E11.9 - TYPE 2 DIABETES MELLITUS WITHOUT COMPLICATIONS Assessment/Plan (1) Small bowel obstruction due to adhesions Assessment/Plan: -still with distention, pain, and hypoactive bowel sounds -however tolerating diet and having bowel movements -continue to wean clinimix -patient does not desire surgical intervention Code(s): K56.5 - INTESTINAL ADHESIONS W OBST (POSTPROCEDURAL) (POSTINFECTION) (2) Acute kidney injury superimposed on chronic kidney disease Assessment/Plan: -nephrology following -[place] and hypernatremia resolved Code(s): N17.9 - ACUTE KIDNEY FAILURE, UNSPECIFIED N18.9 - CHRONIC KIDNEY DISEASE, UNSPECIFIED (3) Sepsis Assessment/Plan: -secondary to UTI -leukocytosis resolved -full course of ancef finished Code(s): A41.9 - SEPSIS, UNSPECIFIED ORGANISM (4) Anemia Assessment/Plan: -decreasing -refused blood transfusion -will minimize lab draws Code(s): D64.9 - ANEMIA, UNSPECIFIED (5) Elevated troponin Assessment/Plan: -stress induced Code(s): R79.89 - OTHER SPECIFIED ABNORMAL FINDINGS OF BLOOD CHEMISTRY (6) CAD (coronary artery disease) Assessment/Plan: -cardiology following -continue current regimen Code(s): I25.10 - ATHSCL HEART DISEASE OF [place] CORONARY ARTERY W/O ANG PCTRS (7) COPD (chronic obstructive pulmonary disease) Assessment/Plan: -controlled Code(s): J44.9 - CHRONIC OBSTRUCTIVE PULMONARY DISEASE, UNSPECIFIED (8) Hypertension Assessment/Plan -control with hydralazine Code(s): I10 - ESSENTIAL (PRIMARY) HYPERTENSION (9) Type II diabetes mellitus Assessment/Plan: -controlled Code(s): E11.9 - TYPE 2 DIABETES MELLITUS WITHOUT COMPLICATIONS (10) UTI -s/p full course ancef
--- NOTE | 2016-09-21 11:27 | PN ---
Progress Note (short form) - Note Progress Note: Awake and alert. Reports some abdominal discomfort but tolerating PO intake. No CP or SOB. Intake & Output 09/18/16 09/19/16 09/20/16 09/21/16 23:59 23:59 23:59 23:59 Intake Total 660 1170 1587 370 Balance 660 1170 1587 370 Last Vital Signs Temp Pulse Resp BP Pulse Ox 98.4 F 61 20 134/50 100 09/21/16 06:23 09/21/16 06:23 09/21/16 06:23 09/21/16 06:23 09/20/16 21:00 Active Medications Atorvastatin Calcium (Lipitor -) 20 mg PO HS [facility] Last Admin: 09/20/16 21:29 Dose: 20 mg Heparin Sodium (Porcine) (Heparin -) 5,000 unit SQ BID [facility] Last Admin: 09/21/16 09:23 Dose: 5,000 unit Hydralazine HCl (Apresoline -) 25 mg PO BID [facility] Last Admin: 09/21/16 09:23 Dose: 25 mg Amino Acids (Clinimix -) 1,000 mls @ 35 mls/hr IV Q16H [facility] Last Admin: 09/21/16 09:16 Dose: Not Given Lisinopril (Prinivil) 5 mg PO DAILY [facility] Last Admin: 09/21/16 09:23 Dose: 5 mg Metoprolol Tartrate (Lopressor -) 25 mg PO BID [facility] Last Admin: 09/21/16 09:23 Dose: 25 mg Ondansetron HCl (Zofran Injection) 4 mg IVPUSH Q6H PRN PRN Reason: NAUSEA AND/OR VOMITING GENERAL: Awake, alert, NAD HEENT: (-) Pallor, (-) Icterus LUNGS: few basilar rhonchi, No wheezes. accessory muscle use. HEART: Regular rate and rhythm, normal S1 and S2 without murmur, rub or gallop. ABDOMEN: Softly distended but less overall, (+) tender to palpation, . Hypoactive bowel sounds. No guarding or rebound tenderness. EXTREMITIES: 2+ pulses & warm on left LE, 1+pulses and cool to touch on right LE. No calf tenderness. Trace edema bilateral lower extremities. NEUROLOGICAL: Cranial nerves II-XII intact. Normal speech. Unable to assess gait. PSYCHIATRIC: Appropriate mood and affect. SKIN: Stage II pressure ulcers, left buttock healed 4.3cm, right buttock 9.5x 14cm noted, normal capillary refill. Laboratory Results - last 24 hr 09/20/16 09/20/16 09/21/16 10:20 15:15 06:00 WBC 7.2 RBC 2.28 L Hgb 6.6 L* Hct 20.8 L MCV 91.4 MCHC 31.8 L RDW 18.7 H Plt Count 224 MPV 8.1 Neutrophils % 74.7 Lymphocytes % 11.9 D Monocytes % 11.6 H Eosinophils % 1.5 Basophils % 0.3 Platelet Estimate Adequate Hypochromic-Microcytic 1+ Basophilic Stippling Occ Anisocytosis 1+ Sodium Potassium Chloride Carbon Dioxide Anion Gap BUN Creatinine Random Glucose Calcium Stool Occult Blood Negative Blood Type O POSITIVE Antibody Screen Negative Crossmatch See Detail 09/21/16 06:00 WBC RBC Hgb Hct MCV MCHC RDW Plt Count MPV Neutrophils % Lymphocytes % Monocytes % Eosinophils % Basophils % Platelet Estimate Hypochromic-Microcytic Basophilic Stippling Anisocytosis Sodium 145 Potassium 4.0 Chloride 106 Carbon Dioxide 30 Anion Gap 9 BUN 29 H Creatinine 0.8 Random Glucose 95 Calcium 8.2 L Stool Occult Blood Blood Type Antibody Screen Crossmatch ASSESSMENT/PLAN: SBO possibly related to adhesions. CVA w/ hemiparesis CAD A-Fib by history HTN Aortic valve bioprosthetic NE S/P PCI Anemia GI Bleed CKD COPD Ovarian Cancer Sepsis Acute on CKD Clinimix PO as tolerated O2 as needed Pain control ABX per ID VTE prophylaxis BD TX PRN Patient continues to refuse surgical intervention/transfusions Dr Thompson
--- NOTE | 2016-09-21 17:23 | PN ---
Progress Note, Physician History of Present Illness: Pt seen and examined at bedside. She still has poor PO intake. - Current Medication List Current Medications: Active Medications Atorvastatin Calcium (Lipitor -) 20 mg PO HS [facility] Last Admin: 09/20/16 21:29 Dose: 20 mg Heparin Sodium (Porcine) (Heparin -) 5,000 unit SQ BID [facility] Last Admin: 09/21/16 09:23 Dose: 5,000 unit Hydralazine HCl (Apresoline -) 25 mg PO BID [facility] Last Admin: 09/21/16 09:23 Dose: 25 mg Amino Acids (Clinimix -) 1,000 mls @ 35 mls/hr IV Q16H [facility] Last Admin: 09/21/16 09:16 Dose: Not Given Lisinopril (Prinivil) 5 mg PO DAILY [facility] Last Admin: 09/21/16 09:23 Dose: 5 mg Metoprolol Tartrate (Lopressor -) 25 mg PO BID [facility] Last Admin: 09/21/16 09:23 Dose: 25 mg Ondansetron HCl (Zofran Injection) 4 mg IVPUSH Q6H PRN PRN Reason: NAUSEA AND/OR VOMITING - Objective Vital Signs: Vital Signs Temperature 99 F 09/21/16 15:31 Pulse Rate 60 09/21/16 15:31 Respiratory Rate 20 09/21/16 15:31 Blood Pressure 132/58 09/21/16 15:31 O2 Sat by Pulse Oximetry (%) 100 09/21/16 09:00 Constitutional: Yes: Calm Eyes: Yes: Conjunctiva Clear HENT: Yes: Atraumatic Neck: Yes: Supple Cardiovascular: Yes: S1, S2 Respiratory: Yes: On Nasal O2 Gastrointestinal: Yes: Distention Genitourinary: Yes: Incontinence Musculoskeletal: Yes: Muscle Weakness Edema: No Neurological: Yes: Oriented Psychiatric: Yes: Oriented Labs: CBC, BMP 09/21/16 06:00 09/21/16 06:00 INR, PTT INR 1.16 (0.82-1.09) H 09/10/16 17:29 Problem List - Problems (1) Acute kidney injury superimposed on chronic kidney disease Code(s): N17.9 - ACUTE KIDNEY FAILURE, UNSPECIFIED N18.9 - CHRONIC KIDNEY DISEASE, UNSPECIFIED (2) Anemia Code(s): D64.9 - ANEMIA, UNSPECIFIED (3) CAD (coronary artery disease) Code(s): I25.10 - ATHSCL HEART DISEASE OF [place] CORONARY ARTERY W/O ANG PCTRS (4) COPD (chronic obstructive pulmonary disease) Code(s): J44.9 - CHRONIC OBSTRUCTIVE PULMONARY DISEASE, UNSPECIFIED (5) H/O ovarian cancer Code(s): Z85.43 - PERSONAL HISTORY OF MALIGNANT NEOPLASM OF [place] (6) HLD (hyperlipidemia) Code(s): E78.5 - HYPERLIPIDEMIA, UNSPECIFIED (7) Hypertension Code(s): I10 - ESSENTIAL (PRIMARY) HYPERTENSION (8) Sepsis Code(s): A41.9 - SEPSIS, UNSPECIFIED ORGANISM (9) Non-STEMI (non-ST elevated myocardial infarction) Code(s): I21.4 - NON-ST ELEVATION (NSTEMI) MYOCARDIAL INFARCTION (10) Small bowel obstruction Code(s): K56.69 - OTHER INTESTINAL OBSTRUCTION Assessment/Plan Current Medications Generic Name Dose Route Start Last Admin Trade Name Freq PRN Reason Stop Dose Admin Atorvastatin Calcium 20 mg 09/17/16 22:00 09/19/16 21:49 Lipitor - PO 20 mg HS ELSIE Administration Heparin Sodium (Porcine) 5,000 unit 09/14/16 22:00 09/20/16 10:23 Heparin - SQ 5,000 unit BID ELSIE Administration Hydralazine HCl 25 mg 09/17/16 22:00 09/20/16 10:23 Apresoline - PO 25 mg BID ELSIE Administration Amino Acids 1,000 mls @ 42 mls/hr 09/19/16 15:54 09/20/16 14:48 Clinimix - IV 42 mls/hr Q16H ELSIE Administration Lisinopril 5 mg 09/19/16 10:00 09/20/16 10:23 Prinivil PO 5 mg DAILY ELSIE Administration Metoprolol Tartrate 25 mg 09/17/16 22:00 09/20/16 10:23 Lopressor - PO 25 mg BID ELSIE Administration Ondansetron HCl 4 mg 09/14/16 18:15 Zofran Injection IVPUSH Q6H PRN NAUSEA AND/OR VOMITING Impression 1. [place] 2. SBO 3. UTI 4. sepsis 5. history of ovarian cancer 6. COPD 7. hypotension 8. CAD 9. hx htn 10. NSTEMI 11. renal cyst 12. lactic acidosis Plan - will cont with clinimix - pt refuses transfusion - pt does not want any surgery - monitor electrolytes - serial abdominal exams - will follow Dr Person
[2016-09-21] MEDS: ATORVASTATIN CA 20 MG TABLET (FP) PO SCH (22:14)
--- NOTE | 2016-09-21 23:35 | PN ---
Progress Note (short form) - Note Progress Note: Chief Complaint: sepsis/sbo History of Present Illness: awake/alert eating liquids diet at present denies cp, sob, palpit, leg swelling Current Medications Atorvastatin Calcium (Lipitor -) 20 mg PO HS [facility] Last Admin: 09/21/16 22:14 Dose: 20 mg Hydralazine HCl (Apresoline -) 25 mg PO BID [facility] Last Admin: 09/21/16 22:14 Dose: 25 mg Amino Acids (Clinimix -) 1,000 mls @ 35 mls/hr IV Q16H [facility] Last Admin: 09/21/16 09:16 Dose: Not Given Lisinopril (Prinivil) 5 mg PO DAILY [facility] Last Admin: 09/21/16 09:23 Dose: 5 mg Metoprolol Tartrate (Lopressor -) 25 mg PO BID [facility] Last Admin: 09/21/16 22:14 Dose: 25 mg Ondansetron HCl (Zofran Injection) 4 mg IVPUSH Q6H PRN PRN Reason: NAUSEA AND/OR VOMITING Vital Signs - 24 hr 09/21/16 09/21/16 09/21/16 06:23 09:00 10:00 Temperature 98.4 F 98.5 F Pulse Rate 61 61 Respiratory 20 18 Rate Blood Pressure 134/50 142/62 O2 Sat by Pulse 100 Oximetry (%) 09/21/16 09/21/16 15:31 17:00 Temperature 99 F 98.9 F Pulse Rate 60 62 Respiratory 20 20 Rate Blood Pressure 132/58 135/59 O2 Sat by Pulse Oximetry (%) Intake & Output 09/19/16 09/20/16 09/21/16 09/22/16 07:59 07:59 07:59 07:59 Intake Total 562 153 1634 640 Balance 082 575 3978 640 Constitutional: Yes: Well Nourished, No Distress, Calm Cardiovascular: Yes: Regular Rate and Rhythm, Murmur (2/6 early NADIA), S1, S2. No: Gallop Respiratory: Yes: Regular, CTA Bilaterally. No: Accessory Muscle Use, Rales, Wheezes Extremities: No: Cold Edema: No (SCDs) Neurological: Yes: Alert. No: Seizure Psychiatric: No: Agitated Labs: CBC, BMP 09/21/16 06:00 09/21/16 06:00 - ....Imaging EKG: Other Assessment/Plan Echo 09/26 here: TDS; nl overall LVSF (RWMA tds); nl overall RV size/fxn; nl LA; AV tds, no AI or ; trace MR can't exclude vegetation; mild TR Echo 06/2014: nl lv/rv, mod tr, rvsp 30-40, nl bio avr a/p: 85 f hx htn, cva, right cea, ?pafib (per charts, ac stopped in past for gib), cad s/p mi's and remote pci, tavr for several years ago, ppm 12/2015, [place] [facility] [place]abd distention noted to have sbo/sepsis/pete. sbo, sepsis: -clears diet, ngt out. on clinimex -bp improved s/p ivfs, abx. -echo MV report noted--no positive BCx's or other findings suggestive of SBE-- defer ERNST ppm: -st fab dual chamber place 12/2015 at [facility] for high grade block. followed there. -normal fcn on ecg, tele. -cont routine outpt PM f/u pos trops: -trop mildly positive (0.7)--trended down. ECG v-paced. -normal LVEF, can't assess RWMA due to tds -clinical presentation c/w sepsis, with low suspicion for ACS -probable underlying obstructive CAD given 2014 NSTEMI treated medically ( refused cath)--hence cause of troponins here likely supply-demand mismatch due to sepsis -defer further w/u or tx at this time -cont bb, statin. -creat normalized--resumed home HILDA (lisin 5) -hgb still gradually downtrending, pt declining transfusions--resume ASA once anemia stabilizes anemia: -h/o GIB in past (necessitating d/c of AC, per chart notes) -hgb below baseline, initially trended down and ASA held. -remains gradually downtrending, pt declining transfusions--holding ASA htn: -now taking po--cont metopr, hydralazine, lisin -controlled ? pafib: -per charts, no details available, currently in sr -ac reportedly stopped in past for gib -at high risk for cardioembolic CVA (prior h/o CVA, CHADS-VASC = 7) -will not change prior tx plan given pt not well known to us -resume ASA when hgb stable/improved and taking po tavr: -normal AV fxn on echo here.
[2016-09-22] MEDS: AMINO ACIDS 4.25%/D5W 1,000 ML IV SCH (07:22)
[2016-09-22 08:39] LABS: CALCIUM 8.3 mg/dL (8.5-10.1); COCKROFT - GAULT 65.569; CREATININE 0.8 mg/dL (0.55-1.02)
[2016-09-22] MEDS: METOPROLOL TARTRATE 25 MG TABLET (FP) PO SCH ×2 (09:04→21:43)
[2016-09-22] MEDS: LISINOPRIL 5 MG TABLET (FP) PO SCH (09:04)
[2016-09-22] MEDS: hydrALAZINE HCL 25 MG TABLET (FP) PO SCH ×2 (09:04→21:43)
--- NOTE | 2016-09-22 09:38 | PN ---
Progress Note (short form) - Note Progress Note: Awake and alert. Still with abdominal discomfort but overall better. Tolerating PO intake (overall intake poor). No CP or SOB. Intake & Output 09/19/16 09/20/16 09/21/16 09/22/16 23:59 23:59 23:59 23:59 Intake Total 1170 1587 1310 Balance 1170 1587 1310 Last Vital Signs Temp Pulse Resp BP Pulse Ox 98.0 F 60 20 132/55 100 09/22/16 08:39 09/22/16 08:39 09/22/16 08:39 09/22/16 08:39 09/21/16 21:00 Active Medications Atorvastatin Calcium (Lipitor -) 20 mg PO HS [facility] Last Admin: 09/21/16 22:14 Dose: 20 mg Hydralazine HCl (Apresoline -) 25 mg PO BID [facility] Last Admin: 09/22/16 09:04 Dose: 25 mg Amino Acids (Clinimix -) 1,000 mls @ 35 mls/hr IV Q16H [facility] Last Admin: 09/22/16 07:22 Dose: Not Given Lisinopril (Prinivil) 5 mg PO DAILY [facility] Last Admin: 09/22/16 09:04 Dose: 5 mg Metoprolol Tartrate (Lopressor -) 25 mg PO BID [facility] Last Admin: 09/22/16 09:04 Dose: 25 mg Ondansetron HCl (Zofran Injection) 4 mg IVPUSH Q6H PRN PRN Reason: NAUSEA AND/OR VOMITING GENERAL: Awake, alert, NAD HEENT: (-) Pallor, (-) Icterus LUNGS: few basilar rhonchi, No wheezes. accessory muscle use. HEART: Regular rate and rhythm, normal S1 and S2 without murmur, rub or gallop. ABDOMEN: Softly distended but less overall, (+) tender to palpation, . Hypoactive bowel sounds. No guarding or rebound tenderness. EXTREMITIES: 2+ pulses & warm on left LE, 1+pulses and cool to touch on right LE. No calf tenderness. Trace edema bilateral lower extremities. NEUROLOGICAL: Cranial nerves II-XII intact. Normal speech. Unable to assess gait. PSYCHIATRIC: Appropriate mood and affect. SKIN: Stage II pressure ulcers Laboratory Results - last 24 hr 09/21/16 09/22/16 06:00 07:15 Platelet Estimate Adequate Hypochromic-Microcytic 1+ Basophilic Stippling Occ Anisocytosis 1+ Sodium 145 Potassium 4.1 Chloride 106 Carbon Dioxide 31 Anion Gap 8 BUN 29 H Creatinine 0.8 Random Glucose 89 Calcium 8.3 L ASSESSMENT/PLAN: SBO possibly related to adhesions. CVA w/ hemiparesis CAD A-Fib by history HTN Aortic valve bioprosthetic MO S/P PCI Anemia GI Bleed CKD COPD Ovarian Cancer Sepsis Acute on CKD Clinimix per Renal PO as tolerated O2 as needed Pain control S/P ABX VTE prophylaxis BD TX PRN Patient continues to refuse surgical intervention/transfusions Dr Thompson
--- NOTE | 2016-09-22 14:38 | PN ---
Progress Note, Physician History of Present Illness: Pt seen and examined at bedside. She is awake and alert. She says she is passing gas. Her PO intake remains poor. - Current Medication List Current Medications: Active Medications Atorvastatin Calcium (Lipitor -) 20 mg PO HS [facility] Last Admin: 09/21/16 22:14 Dose: 20 mg Hydralazine HCl (Apresoline -) 25 mg PO BID [facility] Last Admin: 09/22/16 09:04 Dose: 25 mg Amino Acids (Clinimix -) 1,000 mls @ 35 mls/hr IV Q16H [facility] Last Admin: 09/22/16 07:22 Dose: Not Given Lisinopril (Prinivil) 5 mg PO DAILY [facility] Last Admin: 09/22/16 09:04 Dose: 5 mg Metoprolol Tartrate (Lopressor -) 25 mg PO BID [facility] Last Admin: 09/22/16 09:04 Dose: 25 mg Ondansetron HCl (Zofran Injection) 4 mg IVPUSH Q6H PRN PRN Reason: NAUSEA AND/OR VOMITING - Objective Vital Signs: Vital Signs Temperature 98.0 F 09/22/16 08:39 Pulse Rate 60 09/22/16 09:00 Respiratory Rate 20 09/22/16 08:39 Blood Pressure 132/55 09/22/16 08:39 O2 Sat by Pulse Oximetry (%) 100 09/22/16 09:00 Constitutional: Yes: Calm Eyes: Yes: Conjunctiva Clear HENT: Yes: Atraumatic Neck: Yes: Supple Cardiovascular: Yes: S1, S2 Respiratory: Yes: On Nasal O2 Gastrointestinal: Yes: Distention, Tenderness Genitourinary: Yes: Incontinence Musculoskeletal: Yes: Muscle Weakness Edema: No Neurological: Yes: Oriented Psychiatric: Yes: Oriented Labs: CBC, BMP 09/21/16 06:00 09/22/16 07:15 INR, PTT INR 1.16 (0.82-1.09) H 09/10/16 17:29 Problem List - Problems (1) Acute kidney injury superimposed on chronic kidney disease Code(s): N17.9 - ACUTE KIDNEY FAILURE, UNSPECIFIED N18.9 - CHRONIC KIDNEY DISEASE, UNSPECIFIED (2) Anemia Code(s): D64.9 - ANEMIA, UNSPECIFIED (3) CAD (coronary artery disease) Code(s): I25.10 - ATHSCL HEART DISEASE OF [place] CORONARY ARTERY W/O ANG PCTRS (4) COPD (chronic obstructive pulmonary disease) Code(s): J44.9 - CHRONIC OBSTRUCTIVE PULMONARY DISEASE, UNSPECIFIED (5) H/O ovarian cancer Code(s): Z85.43 - PERSONAL HISTORY OF MALIGNANT NEOPLASM OF [place] (6) HLD (hyperlipidemia) Code(s): E78.5 - HYPERLIPIDEMIA, UNSPECIFIED (7) Hypertension Code(s): I10 - ESSENTIAL (PRIMARY) HYPERTENSION (8) Sepsis Code(s): A41.9 - SEPSIS, UNSPECIFIED ORGANISM (9) Non-STEMI (non-ST elevated myocardial infarction) Code(s): I21.4 - NON-ST ELEVATION (NSTEMI) MYOCARDIAL INFARCTION (10) Small bowel obstruction Code(s): K56.69 - OTHER INTESTINAL OBSTRUCTION Assessment/Plan Current Medications Generic Name Dose Route Start Last Admin Trade Name Freq PRN Reason Stop Dose Admin Atorvastatin Calcium 20 mg 09/17/16 22:00 09/21/16 22:14 Lipitor - PO 20 mg HS ELSIE Administration Hydralazine HCl 25 mg 09/17/16 22:00 09/22/16 09:04 Apresoline - PO 25 mg BID ELSIE Administration Amino Acids 1,000 mls @ 35 mls/hr 09/20/16 16:11 09/22/16 07:22 Clinimix - IV Not Given Q16H ELSIE Lisinopril 5 mg 09/19/16 10:00 09/22/16 09:04 Prinivil PO 5 mg DAILY ELSIE Administration Metoprolol Tartrate 25 mg 09/17/16 22:00 09/22/16 09:04 Lopressor - PO 25 mg BID ELSIE Administration Ondansetron HCl 4 mg 09/14/16 18:15 Zofran Injection IVPUSH Q6H PRN NAUSEA AND/OR VOMITING Impression 1. [place] 2. SBO 3. UTI 4. sepsis 5. history of ovarian cancer 6. COPD 7. hypotension 8. CAD 9. hx htn 10. NSTEMI 11. renal cyst 12. lactic acidosis Plan - renal function stable - cont clinimix - PO intake remain poor - abdomen is draw tender - pt refusing surgery - pt does not want blood transfusion - will follow PRN Dr Person
--- NOTE | 2016-09-22 15:23 | PN ---
Progress Note, Physician Chief Complaint: Ms Beckham says she has soreness in her abdomen but it is unchanged. Is tolerating diet. No cp, sob, n/v. - Current Medication List Current Medications: Active Medications Atorvastatin Calcium (Lipitor -) 20 mg PO HS [facility] Last Admin: 09/21/16 22:14 Dose: 20 mg Hydralazine HCl (Apresoline -) 25 mg PO BID [facility] Last Admin: 09/22/16 09:04 Dose: 25 mg Lisinopril (Prinivil) 5 mg PO DAILY [facility] Last Admin: 09/22/16 09:04 Dose: 5 mg Metoprolol Tartrate (Lopressor -) 25 mg PO BID [facility] Last Admin: 09/22/16 09:04 Dose: 25 mg Ondansetron HCl (Zofran Injection) 4 mg IVPUSH Q6H PRN PRN Reason: NAUSEA AND/OR VOMITING - Objective Vital Signs: Vital Signs Temperature 97.9 F 09/22/16 15:08 Pulse Rate 60 09/22/16 15:08 Respiratory Rate 20 09/22/16 15:08 Blood Pressure 142/61 09/22/16 15:08 O2 Sat by Pulse Oximetry (%) 100 09/22/16 09:00 Constitutional: Yes: No Distress, Calm, Obese Cardiovascular: Yes: Regular Rate and Rhythm. No: Gallop, Murmur, Rub Respiratory: Yes: Regular, CTA Bilaterally. No: Rales, Rhonchi, Wheezes Gastrointestinal: Yes: Distention, Hypoactive Bowel Sounds (but more active today). No: Tenderness Extremities: Yes: WNL Edema: Yes Edema: LLE: Trace, RLE: Trace Labs: CBC, BMP 09/21/16 06:00 09/22/16 07:15 INR, PTT INR 1.16 (0.82-1.09) H 09/10/16 17:29 Problem List - Problems (1) Small bowel obstruction due to adhesions Code(s): K56.5 - INTESTINAL ADHESIONS W OBST (POSTPROCEDURAL) (POSTINFECTION) (2) Acute kidney injury superimposed on chronic kidney disease Code(s): N17.9 - ACUTE KIDNEY FAILURE, UNSPECIFIED N18.9 - CHRONIC KIDNEY DISEASE, UNSPECIFIED (3) Sepsis Code(s): A41.9 - SEPSIS, UNSPECIFIED ORGANISM (4) Anemia Code(s): D64.9 - ANEMIA, UNSPECIFIED (5) Elevated troponin Code(s): R79.89 - OTHER SPECIFIED ABNORMAL FINDINGS OF BLOOD CHEMISTRY (6) CAD (coronary artery disease) Code(s): I25.10 - ATHSCL HEART DISEASE OF [place] CORONARY ARTERY W/O ANG PCTRS (7) COPD (chronic obstructive pulmonary disease) Code(s): J44.9 - CHRONIC OBSTRUCTIVE PULMONARY DISEASE, UNSPECIFIED (8) Hypertension Code(s): I10 - ESSENTIAL (PRIMARY) HYPERTENSION (9) Type II diabetes mellitus Code(s): E11.9 - TYPE 2 DIABETES MELLITUS WITHOUT COMPLICATIONS Assessment/Plan (1) Small bowel obstruction due to adhesions Assessment/Plan: -patient tolerating soft diet -will stop clinimix -plan for discharge tomorrow Code(s): K56.5 - INTESTINAL ADHESIONS W OBST (POSTPROCEDURAL) (POSTINFECTION) (2) Acute kidney injury superimposed on chronic kidney disease Assessment/Plan: -nephrology following -[place] and hypernatremia resolved Code(s): N17.9 - ACUTE KIDNEY FAILURE, UNSPECIFIED N18.9 - CHRONIC KIDNEY DISEASE, UNSPECIFIED (3) Sepsis Assessment/Plan: -secondary to UTI -leukocytosis resolved -full course of ancef finished Code(s): A41.9 - SEPSIS, UNSPECIFIED ORGANISM (4) Anemia Assessment/Plan: -decreasing -refused blood transfusion -will minimize lab draws Code(s): D64.9 - ANEMIA, UNSPECIFIED (5) Elevated troponin Assessment/Plan: -stress induced Code(s): R79.89 - OTHER SPECIFIED ABNORMAL FINDINGS OF BLOOD CHEMISTRY (6) CAD (coronary artery disease) Assessment/Plan: -cardiology following -continue current regimen Code(s): I25.10 - ATHSCL HEART DISEASE OF [place] CORONARY ARTERY W/O ANG PCTRS (7) COPD (chronic obstructive pulmonary disease) Assessment/Plan: -controlled Code(s): J44.9 - CHRONIC OBSTRUCTIVE PULMONARY DISEASE, UNSPECIFIED (8) Hypertension Assessment/Plan -control with hydralazine Code(s): I10 - ESSENTIAL (PRIMARY) HYPERTENSION (9) Type II diabetes mellitus Assessment/Plan: -controlled Code(s): E11.9 - TYPE 2 DIABETES MELLITUS WITHOUT COMPLICATIONS (10) UTI -s/p full course ancef
[2016-09-22] MEDS: ATORVASTATIN CA 20 MG TABLET (FP) PO SCH (21:43)
[2016-09-23] MEDS ORDERED: PT OWN MED DRAWER 7, Y5N ONE (06:51)
[2016-09-23] MEDS: hydrALAZINE HCL 25 MG TABLET (FP) PO SCH (09:09)
[2016-09-23] MEDS: LISINOPRIL 5 MG TABLET (FP) PO SCH (09:09)
[2016-09-23] MEDS: METOPROLOL TARTRATE 25 MG TABLET (FP) PO SCH (10:15)
[2016-09-23 12:13] VITALS: PULSE 60
--- NOTE | 2016-09-23 12:52 | DS ---
Physical Examination Vital Signs: Vital Signs Temperature 98.0 F 09/23/16 08:44 Pulse Rate 60 09/23/16 12:13 Respiratory Rate 20 09/23/16 08:44 Blood Pressure 130/62 09/23/16 08:44 O2 Sat by Pulse Oximetry (%) 98 09/23/16 12:13 Constitutional: Yes: Well Nourished, No Distress, Calm Cardiovascular: Yes: Regular Rate and Rhythm. No: Gallop, Murmur, Rub Respiratory: Yes: Regular, CTA Bilaterally. No: Rales, Rhonchi, Wheezes Gastrointestinal: Yes: Soft, Distention, Hypoactive Bowel Sounds. No: Tenderness Extremities: Yes: WNL Edema: No Labs: CBC, BMP 09/21/16 06:00 09/22/16 07:15 Discharge Summary Reason For Visit: SM BOWEL OBSTRUCTION DUE TO ADHESIONS Current Active Problems Acute kidney injury superimposed on chronic kidney disease (Acute) Anemia (Acute) CAD (coronary artery disease) (Acute) COPD (chronic obstructive pulmonary disease) (Acute) DVT prophylaxis (Acute) E. coli UTI (Acute) H/O ovarian cancer (Acute) HLD (hyperlipidemia) (Acute) Hypertension (Acute) Hypotension (Acute) Sepsis (Acute) Small bowel obstruction (Acute) Small bowel obstruction due to adhesions (Acute) Type II diabetes mellitus (Acute) Hospital Course: (1) Small bowel obstruction due to adhesions Code(s): K56.5 - INTESTINAL ADHESIONS W OBST (POSTPROCEDURAL) (POSTINFECTION) (2) Acute kidney injury superimposed on chronic kidney disease Code(s): N17.9 - ACUTE KIDNEY FAILURE, UNSPECIFIED N18.9 - CHRONIC KIDNEY DISEASE, UNSPECIFIED (3) Sepsis Code(s): A41.9 - SEPSIS, UNSPECIFIED ORGANISM (4) Anemia Code(s): D64.9 - ANEMIA, UNSPECIFIED (5) Elevated troponin Code(s): R79.89 - OTHER SPECIFIED ABNORMAL FINDINGS OF BLOOD CHEMISTRY (6) CAD (coronary artery disease) Code(s): I25.10 - ATHSCL HEART DISEASE OF [place] CORONARY ARTERY W/O ANG PCTRS (7) COPD (chronic obstructive pulmonary disease) Code(s): J44.9 - CHRONIC OBSTRUCTIVE PULMONARY DISEASE, UNSPECIFIED (8) Hypertension Code(s): I10 - ESSENTIAL (PRIMARY) HYPERTENSION (9) Type II diabetes mellitus Code(s): E11.9 - TYPE 2 DIABETES MELLITUS WITHOUT COMPLICATIONS Ms Beckham is a pleasant 85 year old female who came in with SBO secondary to adhesions. She was originally admitted to the ICU. She was seen by surgery, both her and her sons declined surgical intervention. NGT was placed and was draining, however when this was stopped it was clamped and ultimately removed. She was started on a diet, at first she tolerated minimal intake and clinimix was also started. Her eating improved and her clinimix was stopped. She had PAIRS secondary to sepsis from SBO, she was hydrated and this resolved. She was seen by ID and finished a full course of antibiotics. She was also seen by cardiology for elevated troponin, it was felt to be stress induced. She developed anemia but refused blood transfusions, lab draws were stopped to minimize blood loss. Currently she is stable for discharge back to SNF. She remains high risk for repeat SBO with sepsis but conservative therapy is all that is desired 35 minutes spent in preparation of this discharge Condition: Stable - Instructions Diet, Activity, Other Instructions: soft diet. Advance as tolerated. Up with assistance, further activity per PT at SNF Referrals: Dulce Roman MD [Primary Care Provider] - Disposition: LONG TERM FACILITY - Home Medications Comprehensive Discharge Medication List: Ambulatory Orders Aa/Hydrolyzed Collagen, Whey [Lps Neutral Flavor Liquid] 30 ml PO BID 12/13/15 Acetaminophen [Pain Relief] 650 mg PO Q4H 12/13/15 Ascorbic Acid [Vitamin C] 500 mg PO DAILY 12/13/15 Multivitamin [Zoo Chews] 1 each PO DAILY 12/13/15 Oxybutynin Chloride 10 mg PO DAILY 12/13/15 Menthol/Zinc Oxide [Calmoseptine Ointment] 71 gm TP DAILY 09/10/16 Polyethylene Glycol 3350 [Miralax 119 gm Btl -] 17 gm PO DAILY PRN 09/10/16 Atorvastatin Ca [Lipitor] 20 mg PO HS tablet 09/23/16 Hydralazine HCl [Apresoline -] 25 mg PO BID tablet 09/23/16 Lisinopril [Prinivil] 5 mg PO DAILY tablet 09/23/16 Metoprolol Tartrate [Lopressor -] 25 mg PO BID tablet 09/23/16
[2016-09-23 14:44] VITALS: BP 111/64; TEMP 98.2
== END 2016-09-23 15:52 | DRG 872 ==
LOC: JER 17:01 → JERBED 21:45 → J7W 09-11 00:08 → JICU 09-11 07:44 → J4W 09-15 18:58 → J8W 09-19 12:39
PROVIDERS: ADMIT Internal Medicine; ATTEND Internal Medicine
PROC: 0D9670Z Drainage of Stomach with Drainage Device, Via Natural or Artificial Opening (ICD-10-PCS; principal; 2016-09-10)
DX: A41.9 Sepsis, unspecified organism (principal); K56.5 Intestinal adhesions [bands] with obstruction (postinfection); I69.359 Hemiplegia and hemiparesis following cerebral infarction affecting unspecified side; N17.9 Acute kidney failure, unspecified; E87.2 Acidosis; I13.0 Hypertensive heart and chronic kidney disease with heart failure and stage 1 through stage 4 chronic kidney disease, or unspecified chronic kidney disease; N39.0 Urinary tract infection, site not specified; E87.0 Hyperosmolality and hypernatremia; K92.2 Gastrointestinal hemorrhage, unspecified; I25.10 Atherosclerotic heart disease of native coronary artery without angina pectoris; J44.9 Chronic obstructive pulmonary disease, unspecified; D64.9 Anemia, unspecified; I48.91 Unspecified atrial fibrillation; I35.8 Other nonrheumatic aortic valve disorders; I25.2 Old myocardial infarction; E11.9 Type 2 diabetes mellitus without complications; D72.829 Elevated white blood cell count, unspecified; B96.20 Unspecified Escherichia coli [E. coli] as the cause of diseases classified elsewhere; N28.1 Cyst of kidney, acquired; R79.89 Other specified abnormal findings of blood chemistry; E78.00 Pure hypercholesterolemia, unspecified; N18.9 Chronic kidney disease, unspecified; I50.9 Heart failure, unspecified; L89.322 Pressure ulcer of left buttock, stage 2; L89.312 Pressure ulcer of right buttock, stage 2; E87.6 Hypokalemia; E83.39 Other disorders of phosphorus metabolism; Z95.2 Presence of prosthetic heart valve; Z95.0 Presence of cardiac pacemaker; Z87.891 Personal history of nicotine dependence; Z96.641 Presence of right artificial hip joint; Z85.42 Personal history of malignant neoplasm of other parts of uterus; Z95.5 Presence of coronary angioplasty implant and graft; Z85.43 Personal history of malignant neoplasm of ovary
CPT/HCPCS: 36415; 71010-TC; 74000-TC; 74176-TC; 76775-TC; 76856-TC; 80048; 80053; 81003; 81015; 82272; 82436; 82550; 82570; 83605; 83735; 84100; 84133; 84300; 84484; 85025; 85027; 85610; 86850; 86900; 86901; 86922; 87040; 87086; 87186; 93005; 93010; 93306-TC; 99285-25; J1644; J1756

== ENCOUNTER 2016-11-28 23:45 | Inpatient (IN) | payer OTHER ==
--- NOTE | 2016-11-29 00:33 | PDOC ---
Attending Attestation - Medical Decision Making Paged Dr. Fraser @ 2:10. Awaiting call back. <Keke Teresa - Last Filed: 11/29/16 02:10> - Resident Resident Name: Butch Tripp - ED Attending Attestation I have performed the following: I have examined & evaluated the patient, The case was reviewed & discussed with the resident, I agree w/resident's findings & plan, Exceptions are as noted - HPI HPI: 11/29/16 01:15 86y F hx of a Aortic Valve disorder, anemia, COPD, CHF, CVA, CAD s/p stents, HTN , Hypercholesterolemia, ovarian ca presents with complaint of AMS. Per family the pt has been altered for a few days so was sent for evaluation. Vitals at [facility] documented as P70, R20, BP164/90, Sat 97%, The pt is unable to give us any history due to her condition, she is not responsing verbally, she has a rightward gaze and dose not track me. She does respond to painful stimulus withdrawal ofa ll extremiies. Pt also noted to have a fever here and is notable hypertensive. GENERAL: The patients eyes are open, with R gaze preference, occasionally will look at midline, have not seen it past midline to left HEAD: Normocephalic, atraumatic. EYES: extraocular movements intact, sclera anicteric, conjunctiva injected ENT: Normal voice, dry mucous membranes. NECK: Normal range of motion, supple LUNGS: Breath sounds equal,although difficult exam due to body habitus and limited respiratory effort due to inability to cooperate w/ exam HEART: Regular rate and rhythm, normal S1 and S2 without murmur, rub or gallop. ABDOMEN: Soft, mild diffuse tenderness EXTREMITIES: withdraws to pain on upper/lower extremities symmetrically NEUROLOGICAL: No facial assymetry, exam otherwise limited PSYCH: unable to assess SKIN: hot to touch differential includes infection, pna, uti, consider CVA due to rightward gaze and htn - will r/o bleed with ct head not tpa candidate due to unclear onset will obtain CT head, sepsis orderset IV tylenol, fluids broad spectrum abx anticipate admission DNR on file at [facility] 11/29/16 02:12 The pts labs reviewed +trop to 11 EKG shows atrial sensed ventricular pacing, without signicinat changes from previous in light of her severe hypertension, + trop and stroke like sypmtoms, consider possible aortic dissection? will give labatalol for BP control will add CTA of chest/abdopelvis will dfer heparin until CTs if large stroke with CT findings or dissectio nwill hold heparin otherwise will treat as NSTEMI with heparin, asa, statins and agressive bp control anticipate admission, unless dissection in which case will consider transfer case dw dr. Fraser, agree with management CRITICAL CARE DOCUMENTATION: I spent ~35 minutes of Critical Care time, excluding separately billable procedures, involving high complexity decision making to assess, manipulate and support vital system function(s) to treat single or multiple vital organ system failure and/or to prevent further life threatening deterioration of the patient' s condition. 11/29/16 03:08 case d/w in detail with dr. mariano spencer hvae her fu pt with dr. tripp - Physicial Exam PE: 11/29/16 16:22 see above - Medical Decision Making 11/29/16 16:22 see above <Brennan Vila - Last Filed: 11/29/16 16:22>
--- NOTE | 2016-11-29 00:58 | PDOC ---
History of Present Illness - General History Source: Family Exam Limitations: Clinical Condition - History of Present Illness Initial Comments: 11/29/16 00:55 86F with history of SBO, CKD, COPD, CAD, Anemia and DM presenting today from the alf here today complaining of altered mental status. Family states that the alf called them today to report that she had been altered for the past 72 hours. At baseline, is very interactive, per the family. Patient is not able to respond to commands and is nonverbal. <Butch Tripp - Last Filed: 11/29/16 07:10> <Yamile So - Last Filed: 11/29/16 07:26> <Brennan Vila - Last Filed: 11/29/16 16:25> - General Chief Complaint: SIRS, Suspected/Possible Stated Complaint: AMS Time Seen by Provider: 11/28/16 23:59 Past History - Past Medical History Anemia: Yes Cancer: Yes (Ovary & uterine Adnexa) Cardiac Disorders: Yes (aortic valve disorder) CVA: (Yes; in 1979) COPD: Yes CHF: Yes HTN: Yes Hypercholesterolemia: Yes - Surgical History Abdominal Surgery: No Cardiac Surgery: Yes (stents x 2) Lung Surgery: No Orthopedic Surgery: Yes (right hip replacement) - Immunization History Immunization Up to Date: Yes - Psycho/Social/Smoking Cessation Hx Anxiety: No Suicidal Ideation: No Smoking History: Unknown if ever smoked Have you smoked in the past 12 months: No Number of Cigarettes Smoked Daily: 0 Hx Alcohol Use: No Drug/Substance Use Hx: No Substance Use Type: None Hx Substance Use Treatment: No <Butch Tripp - Last Filed: 11/29/16 07:10> <Yamile So - Last Filed: 11/29/16 07:26> <Brennan Vila - Last Filed: 11/29/16 16:25> - Past Medical History Allergies/Adverse Reactions: Allergies Allergy/AdvReac Type Severity Reaction Status Date / Time No Known Allergies Allergy Verified 12/13/15 17:55 Home Medications: Ambulatory Orders Acetaminophen [Tylenol] 325 mg PO QID PRN 11/29/16 Ascorbic Acid [Vitamin C -] 500 mg PO TID 11/29/16 Atorvastatin Ca [Lipitor] 20 mg PO HS 11/29/16 Docusate Sodium [Colace -] 100 mg PO DAILY 11/29/16 Hydralazine HCl [Apresoline -] 25 mg PO BID 11/29/16 Lisinopril [Prinivil] 5 mg PO DAILY 11/29/16 Metoprolol Tartrate 25 mg PO BID 11/29/16 Oxybutynin Chloride [Oxybutynin Chloride ER] 10 mg PO DAILY 11/29/16 Polyethylene Glycol 3350 [Miralax (For Bowel Prep) -] 17 gm PO DAILY 11/29/16 Review of Systems - Review of Systems Able to Perform ROS?: No (secondary to patient cond) <Butch Tripp - Last Filed: 11/29/16 07:10> *Physical Exam - Vital Signs Last Vital Signs Temp Pulse Resp BP Pulse Ox 102.9 F H 92 H 22 210/87 95 11/29/16 00:14 11/29/16 00:14 11/29/16 00:14 11/29/16 00:14 11/29/16 00:14 - Physical Exam Comments: 11/29/16 01:13 GENERAL: Awake, not alert, in acute distress, warm to touch, not responsive to commands HEAD: No signs of trauma, normocephalic, atraumatic EYES: Eyes deviated to the left, not crossing midline. Equal, reactive ENT: Auricles normal inspection, nares patent, oropharynx clear without exudates. Dry mucosa LUNGS: Tachypneic, breath sounds bilaterally HEART: Regular rate and rhythm, normal S1 and S2, no murmurs, rubs or gallops, 1 + peripheral pulses, equal bilaterally. ABDOMEN: Soft, normoactive bowel sounds. No guarding, no rebound. No masses EXTREMITIES: Normal inspection, Normal range of motion, no edema. No clubbing or cyanosis. NEUROLOGICAL: Not oriented, fails to respond to command, moves all extremities, withdraws from pain <Butch Tripp - Last Filed: 11/29/16 07:10> - Vital Signs Last Vital Signs Temp Pulse Resp BP Pulse Ox 100.2 F H 83 16 174/72 100 11/29/16 04:56 11/29/16 04:56 11/29/16 04:56 11/29/16 04:56 11/29/16 04:56 <Yamile So - Last Filed: 11/29/16 07:26> - Vital Signs Last Vital Signs Temp Pulse Resp BP Pulse Ox 99.1 F 60 20 149/103 100 11/29/16 07:10 11/29/16 14:56 11/29/16 14:56 11/29/16 14:56 11/29/16 14:56 <CadenceJanuszBrennan - Last Filed: 11/29/16 16:25> ED Treatment Course - LABORATORY CBC & Chemistry Diagram: 11/29/16 00:29 11/29/16 00:29 <Butch Tripp - Last Filed: 11/29/16 07:10> - LABORATORY CBC & Chemistry Diagram: 11/29/16 00:29 11/29/16 00:29 - ADDITIONAL ORDERS Additional order review: Laboratory Results 11/29/16 11/29/16 11/29/16 05:20 00:57 00:45 INR PTT (Actin FS) Sodium Potassium Chloride Carbon Dioxide Anion Gap BUN Creatinine Creat Clearance w eGFR Random Glucose Lactic Acid 1.0 Calcium Total Bilirubin AST ALT Alkaline Phosphatase Creatine Kinase 103 Troponin I 10.90 H* Total Protein Albumin Urine Color Dkyellow Urine Appearance Slcloudy Urine pH 5.0 Urine Protein 3+ H Urine Glucose (UA) Negative Urine Ketones 2+ H Urine Blood 1+ H Urine Nitrite Negative Urine Bilirubin Negative Urine Urobilinogen Negative Ur Leukocyte Esterase Negative Urine RBC 1 Urine WBC 5 Ur Epithelial Cells Rare Urine Bacteria Few Hyaline Casts 24 Urine Mucus Rare Blood Type Antibody Screen 11/29/16 11/29/16 11/29/16 00:29 00:29 00:29 INR 1.16 H PTT (Actin FS) 36.2 H D Sodium 141 Potassium 3.5 Chloride 94 L D Carbon Dioxide 32 Anion Gap 15 BUN 17 D Creatinine 0.8 Creat Clearance w eGFR > 60 Random Glucose 73 L Lactic Acid Calcium 9.0 Total Bilirubin 0.6 D AST 37 ALT 16 D Alkaline Phosphatase 99 Creatine Kinase 90 Troponin I 11.68 H* Total Protein 8.1 D Albumin 2.6 L D Urine Color Urine Appearance Urine pH Urine Protein Urine Glucose (UA) Urine Ketones Urine Blood Urine Nitrite Urine Bilirubin Urine Urobilinogen Ur Leukocyte Esterase Urine RBC Urine WBC Ur Epithelial Cells Urine Bacteria Hyaline Casts Urine Mucus Blood Type O POSITIVE Antibody Screen Negative 11/29/16 00:29 RBC 3.61 D MCV 88.5 MCHC 32.6 RDW 18.8 H MPV 8.7 Neutrophils % 88.5 H Lymphocytes % 8.4 D Monocytes % 2.2 L D Eosinophils % 0.1 D Basophils % 0.8 - Medications Given in the ED: ED Medications Discontinued Medications Generic Name Dose Route Start Last Admin Trade Name Shameka PRN Reason Stop Dose Admin Acetaminophen 650 mg 11/29/16 01:16 11/29/16 00:00 Tylenol Suppository - [place] 11/29/16 01:17 650 mg ONCE ONE Administration Enoxaparin Sodium 80 mg 11/29/16 05:45 11/29/16 05:48 Lovenox - SQ 80 mg ONCE ELSIE Administration Haloperidol 2.5 mg 11/29/16 03:21 11/29/16 03:35 Haldol Injection (Fast Acting) - IVPUSH 11/29/16 03:22 2.5 mg ONCE ONE Administration Vancomycin HCl 1,000 mg/ 250 mls @ 250 mls/hr 11/29/16 01:00 11/29/16 01:20 Dextrose IVPB 250 mls/hr BID ELSIE Administration Protocol Sodium Chloride 500 mls @ 500 mls/hr 11/29/16 01:16 11/29/16 01:20 Normal Saline - IV 11/29/16 02:15 500 mls/hr ASDIR STA Administration Sodium Chloride 500 mls @ 500 mls/hr 11/29/16 04:29 11/29/16 04:55 Normal Saline - IV 11/29/16 05:28 500 mls/hr ASDIR STA Administration Labetalol HCl 20 mg 11/29/16 02:14 11/29/16 04:55 Normodyne Injection - IVPUSH 11/29/16 02:15 Not Given ONCE ONE Lorazepam 1 mg 11/29/16 03:46 11/29/16 04:00 Ativan Injection - IVPUSH 11/29/16 03:47 1 mg ONCE ONE Administration Piperacillin Sod/Tazobactam Sod 3.375 gm 11/29/16 06:24 11/29/16 06:30 Zosyn 3.375gm Ivpb (Pre-Docked) IV 11/29/16 06:25 3.375 gm ONCE ONE Administration Protocol <Yamile So - Last Filed: 11/29/16 07:26> - LABORATORY CBC & Chemistry Diagram: 11/29/16 12:54 11/29/16 12:54 - ADDITIONAL ORDERS Additional order review: Laboratory Results 11/29/16 11/29/16 11/29/16 05:20 05:20 00:57 Phosphorus Cancelled Magnesium Cancelled Creatine Kinase 103 Troponin I 10.90 H* Urine Color Dkyellow Urine Appearance Slcloudy Urine pH 5.0 Ur Specific [place] >= 1.030 H Urine Protein 3+ H Urine Glucose (UA) Negative Urine Ketones 2+ H Urine Blood 1+ H Urine Nitrite Negative Urine Bilirubin Negative Urine Urobilinogen Negative Ur Leukocyte Esterase Negative Urine RBC 1 Urine WBC 5 Ur Epithelial Cells Rare Urine Bacteria Few Hyaline Casts 24 Urine Mucus Rare 11/29/16 00:29 RBC 3.61 D MCV 88.5 MCHC 32.6 RDW 18.8 H MPV 8.7 Neutrophils % 88.5 H Lymphocytes % 8.4 D Monocytes % 2.2 L D Eosinophils % 0.1 D Basophils % 0.8 - RADIOLOGY Radiology Studies Ordered: Category Date Time Status ABDOMEN/PELVIS CTA W/WO CONTR [CT] Stat CT Scan 11/29/16 02:10 Completed CHEST CTA [CT] Stat CT Scan 11/29/16 02:10 Completed CHEST X-RAY PORTABLE* [RAD] Stat Radiology 11/29/16 00:28 Completed - Medications Given in the ED: ED Medications Discontinued Medications Generic Name Dose Route Start Last Admin Trade Name Freq PRN Reason Stop Dose Admin Acetaminophen 650 mg 11/29/16 01:16 11/29/16 00:00 Tylenol Suppository - [place] 11/29/16 01:17 650 mg ONCE ONE Administration Aspirin 325 mg 11/29/16 07:20 11/29/16 07:53 Ecotrin - PO 11/29/16 07:21 Not Given ONCE ONE Aspirin 300 mg 11/29/16 07:48 11/29/16 07:53 Asa - [place] 11/29/16 07:49 300 mg ONCE ONE Administration Atorvastatin Calcium 80 mg 11/29/16 07:23 11/29/16 08:07 Lipitor - PO 11/29/16 07:24 Not Given ONCE ONE Enoxaparin Sodium 80 mg 11/29/16 05:45 11/29/16 05:48 Lovenox - SQ 80 mg ONCE ELSIE Administration Haloperidol 2.5 mg 11/29/16 03:21 11/29/16 03:35 Haldol Injection (Fast Acting) - IVPUSH 11/29/16 03:22 2.5 mg ONCE ONE Administration Hydralazine HCl 10 mg 11/29/16 08:09 11/29/16 08:23 Apresoline Injection - IVPUSH 11/29/16 08:10 10 mg ONCE ONE Administration Vancomycin HCl 1,000 mg/ 250 mls @ 250 mls/hr 11/29/16 01:00 11/29/16 01:20 Dextrose IVPB 250 mls/hr BID ELSIE Administration Protocol Sodium Chloride 500 mls @ 500 mls/hr 11/29/16 01:16 11/29/16 01:20 Normal Saline - IV 11/29/16 02:15 500 mls/hr ASDIR STA Administration Sodium Chloride 500 mls @ 500 mls/hr 11/29/16 04:29 11/29/16 04:55 Normal Saline - IV 11/29/16 05:28 500 mls/hr ASDIR STA Administration Labetalol HCl 20 mg 11/29/16 02:14 11/29/16 04:55 Normodyne Injection - IVPUSH 11/29/16 02:15 Not Given ONCE ONE Lorazepam 1 mg 11/29/16 03:46 11/29/16 04:00 Ativan Injection - IVPUSH 11/29/16 03:47 1 mg ONCE ONE Administration Magnesium Oxide 400 mg 11/29/16 15:00 11/29/16 16:14 Mag-Ox - PO 11/29/16 15:01 400 mg ONCE ONE Administration Metoprolol Tartrate 25 mg 11/29/16 07:21 11/29/16 07:53 Lopressor - PO 11/29/16 07:22 Not Given DAILY ONE Metoprolol Tartrate 5 mg 11/29/16 08:00 11/29/16 08:23 Lopressor Injection - IVPUSH Not Given Q4H ELSIE Metoprolol Tartrate 5 mg 11/29/16 10:00 11/29/16 11:10 Lopressor Injection - IVPUSH Not Given Q4H-IV ELSIE Piperacillin Sod/Tazobactam Sod 3.375 gm 11/29/16 06:24 11/29/16 06:30 Zosyn 3.375gm Ivpb (Pre-Docked) IV 11/29/16 06:25 3.375 gm ONCE ONE Administration Protocol <Brennan Vila - Last Filed: 11/29/16 16:25> Medical Decision Making - Medical Decision Making 11/29/16 02:16 Patient is an 86F with history of SBO, CKD, Anemia, HTN and DM here today with altered mental status for three days. Unable to obtain full history from patient or family. Hypertensive. Meets sepsis criteria. Sepsis workup initiated with CT head. Given 500ml fluid, vanc and zosyn. Differential diagnosis includes , but is not limited to: sepsis, ACS, hemorrhagic stroke, aortic dissection. Trop positive to 11. EKG shows paced rhythm, regular rate, regular axis. Does not meet sgarbossa criteria. CT chest and abdomen with contrast ordered. 11/29/16 04:31 Still has not made urine from bee, 500ml bolus given. 11/29/16 07:[address] Sanchez <Butch Tripp - Last Filed: 11/29/16 07:10> *DC/Admit/Observation/Transfer - Attestations Physician Attestion: 11/29/16 07:10 I, Dr. Butch Tripp, attest that this document has been prepared under my direction and personally reviewed by me in its entirety. I further attest, that it accurately reflects all work, treatment, procedures and medical decision -making performed by me. <Butch Tripp - Last Filed: 11/29/16 07:10> - Discharge Dispostion Admit: Yes <Yamile So - Last Filed: 11/29/16 07:26> - Discharge Dispostion Admit: Yes <Brennan Vila - Last Filed: 11/29/16 16:25> Diagnosis at time of Disposition: Severe sepsis, Non-STEMI (non-ST elevated myocardial infarction) Pneumonia Qualifiers: Pneumonia type: due to unspecified organism Laterality: right Lung location: middle lobe of lung Qualified Code(s): J18.1 - Lobar pneumonia, unspecified organism Altered mental status Qualifiers: Altered mental status type: unspecified Qualified Code(s): R41.82 - Altered mental status, unspecified - Discharge Dispostion Condition at time of disposition: Guarded
[2016-11-29] MEDS ORDERED: VANCOMYCIN 1,000 MG in DEXTROSE 5%-WATER - 250 ML IVPB SCH (01:00)
[2016-11-29 01:03] LABS: BASOPHIL 0.8 % (0-2.0); EOSINOPHIL 0.1 % (0-4.5); MCH 28.8 pg (25.7-33.7); MCHC 32.6 g/dl (32.0-36.0); MEAN CELL VOLUME 88.5 fl (80-96); MEAN PLT VOLUME 8.7 fl (7.5-11.1); NEUTROPHILS 88.5 % (42.8-82.8); PLATELET COUNT 276 K/MM3 (134-434); RDW 18.8 % (11.6-15.6); WHITE BLOOD COUNT 8.6 K/mm3 (4.0-10.0)
[2016-11-29] MEDS ORDERED: VANCOMYCIN 1 GRAM (PRE-DOCKED) 250 ML IVPB ONE (01:04)
[2016-11-29 01:05] LABS: URINE APPEARANCE SLCLOUDY; URINE BILIRUBIN NEGATIVE (NEGATIVE); URINE BLOOD 1+ (NEGATIVE); URINE COLOR DKYELLOW; URINE GLUCOSE (UA) NEGATIVE (NEGATIVE); URINE KETONE 2+ (NEGATIVE); URINE LEUK ESTERASE NEGATIVE (NEGATIVE); URINE NITRITE NEGATIVE (NEGATIVE); URINE UROBILINOGEN NEGATIVE mg/dL (0.2-1.0)
[2016-11-29] MEDS ORDERED: ACETAMINOPHEN 650 MG SUPP.RECT PR ONE (01:16)
[2016-11-29] MEDS ORDERED: SODIUM CHLORIDE 500 ML IV STA ×2 (01:16→04:29)
[2016-11-29 01:18] LABS: URINE PROTEIN 3+ (NEGATIVE)
[2016-11-29 01:21] LABS: INR 1.16 (0.82-1.09); PROTHROMBIN TIME (PATIENT) 12.8 SEC (9.98-11.88)
[2016-11-29 01:24] LABS: ACTIVATED PTT 36.2 SECONDS (26.9-34.4)
[2016-11-29 01:31] LABS: ALBUMIN 2.6 g/dl (3.4-5.0); ANION GAP 15 (8-16); BILIRUBIN,TOTAL 0.6 mg/dL (0.2-1.0); CO2 32 mmol/L (21-32); CREATININE 0.8 mg/dL (0.55-1.02); GLUCOSE,RANDOM 73 mg/dL (74-106); SGOT/AST 37 U/L (15-37); SGPT/ALT 16 U/L (12-78); TOT PROT 8.1 g/dl (6.4-8.2)
[2016-11-29 01:33] LABS: URINE BACTERIA FEW /hpf (NONE SEEN); URINE HYALINE CAST 24 /lpf; URINE MUCUS RARE; URINE RBC 1 /hpf (0-3); URINE WBC 5 /hpf (3-5)
[2016-11-29 01:45] LABS: ALK PHOS 99 U/L (45-117); CPK 90 IU/L (26-192)
[2016-11-29 01:53] LABS: TROPONIN I 11.68 ng/ml (0.00-0.05)
[2016-11-29] MEDS ORDERED: LABETALOL HCL 5 MG/1 ML (100MG/20 ML VIAL) IVPUSH ONE (02:14)
[2016-11-29] MEDS ORDERED: HALOPERIDOL LACTATE 5 MG/ML IVPUSH ONE (03:21)
[2016-11-29] MEDS ORDERED: HALOPERIDOL LACTATE 5 MG/ML ONE (03:33)
--- NOTE | 2016-11-29 05:41 | PDOC ---
*Physical Exam - Vital Signs Last Vital Signs Temp Pulse Resp BP Pulse Ox 100.2 F H 83 16 174/72 100 11/29/16 04:56 11/29/16 04:56 11/29/16 04:56 11/29/16 04:56 11/29/16 04:56 ED Treatment Course - LABORATORY CBC & Chemistry Diagram: 11/29/16 00:29 11/29/16 00:29 - ADDITIONAL ORDERS Additional order review: Laboratory Results 11/29/16 11/29/16 11/29/16 00:57 00:45 00:29 INR PTT (Actin FS) Sodium Potassium Chloride Carbon Dioxide Anion Gap BUN Creatinine Creat Clearance w eGFR Random Glucose Lactic Acid 1.0 Calcium Total Bilirubin AST ALT Alkaline Phosphatase Creatine Kinase Troponin I Total Protein Albumin Urine Color Dkyellow Urine Appearance Slcloudy Urine pH 5.0 Urine Protein 3+ H Urine Glucose (UA) Negative Urine Ketones 2+ H Urine Blood 1+ H Urine Nitrite Negative Urine Bilirubin Negative Urine Urobilinogen Negative Ur Leukocyte Esterase Negative Urine RBC 1 Urine WBC 5 Ur Epithelial Cells Rare Urine Bacteria Few Hyaline Casts 24 Urine Mucus Rare Blood Type O POSITIVE Antibody Screen Negative 11/29/16 11/29/16 00:29 00:29 INR 1.16 H PTT (Actin FS) 36.2 H D Sodium 141 Potassium 3.5 Chloride 94 L D Carbon Dioxide 32 Anion Gap 15 BUN 17 D Creatinine 0.8 Creat Clearance w eGFR > 60 Random Glucose 73 L Lactic Acid Calcium 9.0 Total Bilirubin 0.6 D AST 37 ALT 16 D Alkaline Phosphatase 99 Creatine Kinase 90 Troponin I 11.68 H* Total Protein 8.1 D Albumin 2.6 L D Urine Color Urine Appearance Urine pH Urine Protein Urine Glucose (UA) Urine Ketones Urine Blood Urine Nitrite Urine Bilirubin Urine Urobilinogen Ur Leukocyte Esterase Urine RBC Urine WBC Ur Epithelial Cells Urine Bacteria Hyaline Casts Urine Mucus Blood Type Antibody Screen 11/29/16 00:29 RBC 3.61 D MCV 88.5 MCHC 32.6 RDW 18.8 H MPV 8.7 Neutrophils % 88.5 H Lymphocytes % 8.4 D Monocytes % 2.2 L D Eosinophils % 0.1 D Basophils % 0.8 - Medications Given in the ED: ED Medications Discontinued Medications Generic Name Dose Route Start Last Admin Trade Name Freq PRN Reason Stop Dose Admin Acetaminophen 650 mg 11/29/16 01:16 11/29/16 00:00 Tylenol Suppository - [place] 11/29/16 01:17 650 mg ONCE ONE Administration Haloperidol 2.5 mg 11/29/16 03:21 11/29/16 03:35 Haldol Injection (Fast Acting) - IVPUSH 11/29/16 03:22 2.5 mg ONCE ONE Administration Sodium Chloride 500 mls @ 500 mls/hr 11/29/16 01:16 11/29/16 01:20 Normal Saline - IV 11/29/16 02:15 500 mls/hr ASDIR STA Administration Sodium Chloride 500 mls @ 500 mls/hr 11/29/16 04:29 11/29/16 04:55 Normal Saline - IV 11/29/16 05:28 500 mls/hr ASDIR STA Administration Labetalol HCl 20 mg 11/29/16 02:14 11/29/16 04:55 Normodyne Injection - IVPUSH 11/29/16 02:15 Not Given ONCE ONE Lorazepam 1 mg 11/29/16 03:46 11/29/16 04:00 Ativan Injection - IVPUSH 11/29/16 03:47 1 mg ONCE ONE Administration Medical Decision Making - Medical Decision Making 11/29/16 05:41 Patient Name: TATIANA SO THIS IS A PRELIMINARY REPORT FROM [facility] DATE OF SERVICE: 2016-11-29 03:14:52 IMAGES: [id number] EXAM: CT CTA CHEST / CT CTA CHEST ABDOMEN / CT CTA PELVIS HISTORY:Dissection COMPARISON: None. TECHNIQUE: CT of the chest abdomen and pelvis with vascular contrast FINDINGS:Chest: Heart:: Enlarged. There is an aortic bowel replacement. There is coronary artery calcification. Pacemaking leads are noted in the right atrial appendage and right ventricle. Pericardium: not thickened Thoracic aorta and great vessels: There moderate atherosclerotic changes in the thoracic and abdominal aorta without aneurysm or dissection is Superior vena cava and inferior vena cava: Normal Imaging [facility]: [phone] Page 1/4 PATIENT: TATIANA SO PATIENT : 1 DOS: Nov 29, 2016 03:14AM REF. PHYSICIAN: KENDRICK DEUTSCH TECHNIQUE: CT CTA CHEST ABDOMEN/CT CTA PELVIS/CT CTA CHEST Pulmonary arteries: The evaluation of pulmonary arteries is limited secondary to some motion artifact. No filling defect is appreciated. Thoracic esophagus: Normal Mediastinal lymph nodes: Normal Central airways: Normal Lungs: There is some patchy airspace opacity in the right middle lobe. There is subsegmental atelectasis in the right lower lobe Pleural spaces: There is a right pleural fluid collection which is moderate in size Chest wall: There is a cardiac pacemaking generator in the left chest wall. Abdomen Liver: Normal Spleen: Normal Pancreas: Normal Gallbladder: There is cholelithiasis Stomach: Normal Small bowel: Normal Imaging [facility]: [phone] Page 2/4 PATIENT: TATIANA SO PATIENT : 1930 DOS: Nov 29, 2016 03:14AM REF. PHYSICIAN: KENDRICK DEUTSCH TECHNIQUE: CT CTA CHEST ABDOMEN/CT CTA PELVIS/CT CTA CHEST Large bowel: There is a moderate amount of retained material in the distal colon Appendix: Not seen Adrenals:Normal Kidneys: There are bilateral renal cysts Vascular: There is moderate atherosclerotic change abdominal aorta without aneurysm, dissection, or occlusion. There is an inferior vena cava filter Lymphatic: Normal Peritoneal: No free peritoneal air or fluid Pelvis: Uterus: Not visualized Rectum: There is a moderate amount of retained fecal material Bladder: There is a Stokes catheter in the bladder General: Skeletal: There has been a right hip replacement Abdominal wall: Normal Imaging [facility]: [phone] Page 3/ PATIENT: TATIANA SO PATIENT : 1930 DOS: Nov 29, 2016 03:14AM REF. PHYSICIAN: KENDRICK DEUTSCH TECHNIQUE: CT CTA CHEST ABDOMEN/CT CTA PELVIS/CT CTA CHEST IMPRESSION: No aortic dissection. Nonspecific right-sided pleural fluid collection. Patchy airspace opacity in the right middle lobe may reflect pneumonia, or possibly atelectasis. Correlation with history, infectious disease parameters, and sputum evaluation is recommended THIS DOCUMENT HAS BEEN ELECTRONICALLY SIGNED *DC/Admit/Observation/Transfer Diagnosis at time of Disposition: Severe sepsis, Pneumonia, Altered mental status - Discharge Dispostion Condition at time of disposition: Guarded
[2016-11-29] MEDS ORDERED: ENOXAPARIN NA (PORCINE) 80 MG/0.8 ML DISP.SYRIN SQ ONE (05:43)
[2016-11-29] MEDS ORDERED: ENOXAPARIN NA (PORCINE) 80 MG/0.8 ML DISP.SYRIN SQ SCH (05:45)
[2016-11-29 06:24] LABS: TROPONIN I 10.9 ng/ml (0.00-0.05)
[2016-11-29] MEDS ORDERED: PIPERACILLIN/TAZOB 3.375 GM/50 ML PRE-DOCKED IV ONE (06:24)
[2016-11-29] MEDS ORDERED: PIPERACILLIN/TAZOB 3.375 GM 50 ML IVPB ONE ×2 (06:27→19:18)
[2016-11-29] MEDS ORDERED: ASPIRIN 325 MG ENTERIC COATED TABLET (FP) PO ONE (07:20)
[2016-11-29] MEDS ORDERED: METOPROLOL TARTRATE 25 MG TABLET (FP) PO ONE (07:21)
[2016-11-29] MEDS ORDERED: ATORVASTATIN CA 80 MG TABLET (FP) PO ONE (07:23)
--- NOTE | 2016-11-29 07:30 | HP ---
CHIEF COMPLAINT: AMS PCP: Dr. Avalos HISTORY OF PRESENT ILLNESS: This is an 86 year old female with PMHx of aortic valve disorder, anemia, COPD, CHF, CVA, CAD s/p stents, NSTEMI, hypertension, hypercholesterolemia, ovarian cancer who presented to the ED from [facility] with altered mental status. No family present during my examination and patient is non-verbal at this time. Per chart review, the family states the patient has been altered for "a few days". Per family, at baseline is very interactive. ER course was notable for: (1) On arrival to ED temp 102.9, HR 92, BP 210/87, resp rate 22, O2 95% on RA (2) WBC 8.6, Hgb 10.4, Hct 31.9 (3) Trop 11.68->10.9 (4) Started on Zosyn and Vancomycin for sepsis 2/2 pneumonia. Blood and urine cultures pending (5) NSTEMI: Lovenox ordered Recent Travel: unknown PAST MEDICAL HISTORY: as above PAST SURGICAL HISTORY: as above Social History: Smoking: unknown Alcohol: unknown Drugs: unknown Family History: unknown Allergies No Known Allergies Allergy (Verified 12/13/15 17:55) HOME MEDICATIONS: Home Medications Medication Instructions Recorded Acetaminophen [Tylenol] 325 mg PO QID PRN 11/29/16 Ascorbic Acid [Vitamin C -] 500 mg PO TID 11/29/16 Atorvastatin Ca [Lipitor] 20 mg PO HS 11/29/16 Docusate Sodium [Colace -] 100 mg PO DAILY 11/29/16 Hydralazine HCl [Apresoline -] 25 mg PO BID 11/29/16 Lisinopril [Prinivil] 5 mg PO DAILY 11/29/16 Metoprolol Tartrate 25 mg PO BID 11/29/16 Oxybutynin Chloride [Oxybutynin 10 mg PO DAILY 11/29/16 Chloride ER] Polyethylene Glycol 3350 [Miralax 17 gm PO DAILY 11/29/16 (For Bowel Prep) -] REVIEW OF SYSTEMS CONSTITUTIONAL: Fever at the custodial. Absent: fever, chills, diaphoresis, generalized weakness, malaise, loss of appetite, weight change HEENT: Absent: rhinorrhea, nasal congestion, throat swelling, difficulty swallowing, mouth swelling, visual changes CARDIOVASCULAR: Absent: syncope, palpitations, irregular heart rate, peripheral edema RESPIRATORY: Absent: cough, shortness of breath, dyspnea with exertion, orthopnea, wheezing, stridor, hemoptysis GASTROINTESTINAL:Absent: abdominal distension, nausea, vomiting, diarrhea, constipation, melena, hematochezia GENITOURINARY: Absent:frequency, hematuria, MUSCULOSKELETAL: Absent: myalgia, arthralgia, joint swelling, SKIN: Absent: rash, itching, pallor HEMATOLOGIC/IMMUNOLOGIC: Absent: easy bleeding, easy bruising, lymphadenopathy ENDOCRINE:Absent: unexplained weight gain, unexplained weight loss NEUROLOGIC: Altered mental status for the past few days. Absent: headache, focal weakness or paresthesias, dizziness, unsteady gait, seizure, PHYSICAL EXAMINATION Vital Signs - 24 hr 11/29/16 11/29/16 11/29/16 00:11 00:14 04:55 Temperature 102.9 F H 102.9 F H 100.2 F H Pulse Rate 83 92 H Pulse Rate [ Apical] Respiratory 22 Rate Blood Pressure 210/87 Blood Pressure [Right Arm] O2 Sat by Pulse 100 95 Oximetry (%) 11/29/16 04:56 Temperature 100.2 F H Pulse Rate 83 Pulse Rate [ 83 Apical] Respiratory 16 Rate Blood Pressure Blood Pressure 174/72 [Right Arm] O2 Sat by Pulse 100 Oximetry (%) GENERAL: Opens eyes to verbal stimuli HEAD: Normal with no signs of trauma. EYES: Pupils equal, round and reactive to light, Right gauze noted EARS, NOSE, THROAT: Ears normal, nares patent, oropharynx clear without exudates. NECK: Supple without lymphadenopathy, or masses. LUNGS: Rhonchus breath sounds bilaterally. HEART: Regular rate and rhythm, normal S1 and S2. Early 2/6 SM ABDOMEN: Soft, not distended, normoactive bowel sounds, no guarding, MUSCULOSKELETAL: No bony deformities or tenderness. UPPER EXTREMITIES: 2+ pulses, warm, well-perfused. No cyanosis. No clubbing. No peripheral edema. LOWER EXTREMITIES: 2+ pulses, warm, well-perfused. No calf tenderness. No peripheral edema. NEUROLOGICAL: Cranial nerves II-XII intact. Normal speech. Normal gait. SKIN: Warm, dry, normal turgor, no rashes or lesions noted, normal capillary refill. CBCD WBC 8.6 K/mm3 (4.0-10.0) 11/29/16 00:29 RBC 3.61 M/mm3 (3.60-5.2) D 11/29/16 00:29 Hgb 10.4 GM/dL (10.7-15.3) L D 11/29/16 00: Hct 31.9 % (32.4-45.2) L D 11/29/16 00: MCV 88.5 fl (80-96) 11/29/16: MCHC 32.6 g/dl (32.0-36.0) 11/29/16 00: RDW 18.8 % (11.6-15.6) H 11/29/16 00: Plt Count 276 K/MM3 (134-434) D 11/29/16 00:29 MPV 8.7 fl (7.5-11.1) 11/29/16 00: CMP Sodium 141 mmol/L (136-145) 11/29/16 00: Potassium 3.5 mmol/L (3.5-5.1) 11/29/16: Chloride 94 mmol/L (98-107) L D 11/29/16 00: Carbon Dioxide 32 mmol/L (21-32) 11/29/16 00: Anion Gap 15 (8-16) 11/29/16 00:29 BUN 17 mg/dL (7-18) D 11/29/16 00:29 Creatinine 0.8 mg/dL (0.55-1.02) 11/29/16 00: Creat Clearance w eGFR > 60 (>60) 11/29/16 00: Random Glucose 73 mg/dL (74-106) L 11/29/16: Calcium 9.0 mg/dL (8.5-10.1) 11/29/16 00: Total Bilirubin 0.6 mg/dL (0.2-1.0) D 11/29/16 00:29 AST 37 U/L (15-37) 11/29/16: ALT 16 U/L (12-78) D 11/29/16 00: Alkaline Phosphatase 99 U/L (45-117) 11/29/16 00: Total Protein 8.1 g/dl (6.4-8.2) D 08/20/17 00:29 Albumin 2.6 g/dl (3.4-5.0) L D 11/29/16 00:29 CARDIAC ENZYMES Creatine Kinase 103 IU/L (26-192) 11/29/16 05:20 Troponin I 10.90 ng/ml (0.00-0.05) H* 11/29/16 05:20 Imaging: Head CT: no evidence of acute intracranial pathology Abd/pelvis/chest CTA: no evidence of thoracic or abdominal aortic aneurysm or dissection. Right pleural effusion. Right middle lobe infiltrate and lower lobe atelectasis. EKG: AV paced rhythm with prolonged AV conduction Assessment: This is an 86 year old female with PMHx of aortic valve disorder, anemia, COPD, CHF, CVA, CAD s/p stents, NSTEMI, hypertension, hypercholesterolemia, ovarian cancer who presented to the ED from [facility] with altered mental status. Plan: 1) Cardiology: NSTEMI - Trend troponins - Lovenox given this AM, will start Heparin gtt this afternoon - ASA SC given - Patient is not taking po so unable to give a statin - Continue Lopressor IVPB 5mg q4h - Cannot give Plavix as patient is not responsive enough to take po - F/u ECHO - F/u cardiology consult Hypertensive emergency - BP on admission 210/87 - Start Lopressor 5mg IVPB q4h - Monitor BP closely S/p TAVR 2) ID: Toxic metabolic encephalopathy 2/2 sepsis 2/2 pneumonia - Tmax 102.9 - Given Zosyn and Vancomycin in the ED - F/u blood cultures - Negative UA, f/u urine culture - Discussed care with Dr. Ruelas 3) F/E/N: - NPO - IV fluids - Monitor electrolytes 4) Prophylaxis: - Full dose Lovenox 5) Dispo: - Requires continued inpatient care CODE STATUS: DNR, paperwork from custodial in chart Visit type - Emergency Visit Emergency Visit: Yes ED Registration Date: 11/29/16 Care time: The patient presented to the Emergency Department on the above date and was hospitalized for further evaluation of their emergent condition. - New Patient This patient is new to me today: Yes Date on this admission: 11/29/16 - Critical Care Critical Care patient: Yes Total Critical Care Time (in minutes): 55 Critical Care Statement: The care of this patient involved high complexity decision making to prevent further life threatening deterioration of the patient 's condition and/or to evaluate & treat vital organ system(s) failure or risk of failure.
[2016-11-29] MEDS ORDERED: ASPIRIN 300 MG SUPP.RECT PR ONE (07:48)
[2016-11-29] MEDS ORDERED: ASPIRIN 300 MG SUPP.RECT RC ONE (07:52)
[2016-11-29] MEDS ORDERED: METOPROLOL TARTRATE 5 MG/5 ML VIAL IVPUSH SCH ×2 (08:00→10:00)
[2016-11-29] MEDS ORDERED: hydrALAZINE HCL 20 MG/ML VIAL IVPUSH ONE (08:09)
[2016-11-29] MEDS ORDERED: SODIUM CHLORIDE 1,000 ML IV SCH (09:00)
--- NOTE | 2016-11-29 09:07 | CON.CARD ---
Consult Consult Specialty:: cardio Referred by:: ER (for aislinn) Reason for Consultation:: NSTEMI - History of Present Illness Chief Complaint: altered MS History of Present Illness: 86 yo female sent from [place] for altered MS. pt currently not arousable/conversant, cannot give hx. hx obtained from ER notes: Per family the pt has been altered for a few days so was sent for evaluation. Vitals at [facility] documented as P70, R20, BP164/90, Sat 97%, The pt is unable to give us any history due to her condition: she is not responding verbally, she has a rightward gaze and does not track examiner. She does respond to painful stimulus via withdrawal of all extremiies. BP in ER 210/87 initially; given hydralazine 10mg IVP x 1 and haldol--bp came down to 160s-170s PMH: s/p SBO with sepsis here 09/26 PPM afib anemia s/p TAVR known CAD not defined previously (NSTEMI 2014 tx'd medically) copd h/o CVA HTN HPL ovarian CA--? details - Past Medical History PHARM SPEC: Yes: CVA Cardio/Vascular: Yes: CAD (? PAF), HTN, Hyperlipdemia, [place] Pulmonary: Yes: COPD, Other (former smoker, quit 40 years ago) Gastrointestinal: Yes: Other (Remote h/o GI bleed, secondary to colon polyps ( per patient)) Musculoskeletal: Yes: Hemiparesis, Other - Past Surgical History Past Surgical History: Yes: Carotid Endarterectomy, Hysterectomy, Joint Replacement, Tubal Ligation - Alcohol/Substance Use Hx Alcohol Use: No History of Substance Use: reports: None - Smoking History Smoking history: Unknown if ever smoked Have you smoked in the past 12 months: No Aproximately how many cigarettes per day: 0 - Social History Usual Living Arrangement: Assisted Living History of Recent Travel: No Home Medications - Allergies Allergies/Adverse Reactions: Allergies Allergy/AdvReac Type Severity Reaction Status Date / Time No Known Allergies Allergy Verified 12/13/15 17:55 - Home Medications Home Medications: Ambulatory Orders Acetaminophen [Tylenol] 325 mg PO QID PRN 11/29/16 Ascorbic Acid [Vitamin C -] 500 mg PO TID 11/29/16 Atorvastatin Ca [Lipitor] 20 mg PO HS 11/29/16 Docusate Sodium [Colace -] 100 mg PO DAILY 11/29/16 Hydralazine HCl [Apresoline -] 25 mg PO BID 11/29/16 Lisinopril [Prinivil] 5 mg PO DAILY 11/29/16 Metoprolol Tartrate 25 mg PO BID 11/29/16 Oxybutynin Chloride [Oxybutynin Chloride ER] 10 mg PO DAILY 11/29/16 Polyethylene Glycol 3350 [Miralax (For Bowel Prep) -] 17 gm PO DAILY 11/29/16 Family Disease History - Family Disease History Family History: Unable to Obtain Review of Systems Unable to obtain ROS, reason: pt not verbal at present Vital Signs: Vital Signs Temperature 99.1 F 11/29/16 07:10 Pulse Rate 68 11/29/16 08:58 Respiratory Rate 22 11/29/16 08:58 Blood Pressure 167/64 11/29/16 08:58 O2 Sat by Pulse Oximetry (%) 100 11/29/16 08:58 Constitutional: Yes: Well Nourished, No Distress Eyes: No: Sclera Icterus HENT: No: Nasal Congestion Neck: No: Decreased ROM Respiratory: Yes: CTA Bilaterally (not taking deep breaths). No: Accessory Muscle Use, Rales, Wheezes Gastrointestinal: Yes: Normal Bowel Sounds. No: Distention, Hepatomegaly, Palpable Mass, Tenderness Cardiovascular: Yes: Regular Rate and Rhythm JVD: No Carotid Bruit: No PMI: Non-Displaced Heart Sounds: Yes: S1, S2. No: Gallop Murmur: No: Systolic Murmur, Diastolic Murmur Musculoskeletal: Yes: Other (No kyphosis) Extremities: No: Cold, Cyanosis Edema: No Peripheral Pulses: 2+ Left Carotid, 2+ Right Carotid, 2+ Left Doralis Pedis, 2+ Right Dorsalis Pedis Integumentary: No: Jaundice Neurological: No: Alert, Oriented (x3), Seizure Psychiatric: No: Agitated - Other Data Labs, Other Data: INR, PTT INR 1.16 (0.82-1.09) H 11/29/16 00:29 Laboratory Tests 11/29/16 11/29/16 11/29/16 00:29 00:29 05:20 WBC 8.6 Hgb 10.4 L D Plt Count 276 D Sodium 141 Potassium 3.5 Carbon Dioxide 32 BUN 17 D Creatinine 0.8 AST 37 ALT 16 D Creatine Kinase 90 103 Troponin I 11.68 H* 10.90 H* Albumin 2.6 L D Imaging - Results Chest X-ray: Report Reviewed, Image Reviewed Assessment/Plan Echo 09/26 here: TDS; nl overall LVSF (RWMA tds); nl overall RV size/fxn; nl LA; AV tds--no AI or ; trace MR can't exclude vegetation; mild TR Echo 06/2014: nl lv/rv, mod tr, rvsp 30-40, nl bio avr CXR (gitig read): prominent mediastinum; no vasc redistribution, no effusion; mild chronic incr'd interstitial markings--all unchanged vs 09/[address] head: no acute pathology CTA chest/abdomen/pelvis: no aorta dissection or aneurysm (extensive abd aorta calcified plaque); moderate R pleural effusion with adjacent ATX; patchy consolidation RML; L lung clear; NSTEMI: -known underlying obstructive CAD given NSTEMI here in 2014 (+CP with peak troponin 5)--seen by different cardiology group then, notes reviewed--pt refused cath, was treated medically (no stress test done) -now with atypical presentation (few days of altered MS) in setting of PNA and hi fever, with trop 11-->trending down -she has h/o recurrent occult bleeding on AC in past, necessitating d/c of med, and again same when here 09/26 requiring d/c of ASA (pt declined transfusions at that time) -this 86 yo pt with recurrent occult bleeding (and refusal of PRBCs) is hence at prohibitive risk of premature discontinuation of DAPT therapy and stent thrombosis if has PCI, and hence will be managed medically for now -once pt able to take PO, will start statin (hi intensity--atorva 80mg), po BB, HILDA -for now, will give ASA suppository, IV metopr low dose (watch for signs of CHF- -clinically no chf at present) -received lovenox 80mg x1 in am 11/29--rpt cbc in am 11/30, if stable will transition to UFH x 72 hrs total with close H/H monitoring -plan is for risk stratification with vasodilator pharm nuclear stress test 72 hrs after initial presentation--if high risk ischemia present, pt and family will have to decide whether they are willing to pursue invasive mgmt strategy, to include either first GI scopes (at [place] in this hi risk pt) and then cath if no high risk bleed culprits found, or cath with bare metal stent only and hope to complete 4-6 wks of DAPT therapy (though would have to agree ahead of time that she would accept transfusions if bleeds during the critical window of mandatory DAPT therapy) -echo for LV fxn RML pneumonia with parapneumonic effusion: -fever 102.9 -abx per ID altered mental status: -head CT no acute pathology -? sec to PNA -atypical for ACS sx in elderly with reportedly normal mentation at baseline ( per notes)--though not impossible -defer further w/u to pmd re: ? neuro consult anemia: -h/o GIB in past (necessitating d/c of AC, per chart notes) -baseline hgb runs 9s-11s -was down to 6's when here 09/26, refused PRBCs--ASA had to be held then -currently stable with hgb 10 -no prior endoscopies done here ppm: -st fab dual chamber place 12/2015 at [facility] for high grade block. followed there. -normal fcn on ecg, tele. -cont routine outpt PM f/u htn: -on metopr, hydralazine, lisin when here 09/26 - ? pafib: -per charts, no details available--pt in sinus rhythm during prior admit here -ac reportedly stopped in past for gib -at high risk for cardioembolic CVA (prior h/o CVA, CHADS-VASC = 7) -will not change prior tx plan given pt not well known to us, and recurrent acute severe anemia 09/26 -ASA only for now, if H/H remains stable s/p tavr: -normal AV fxn on echo here 09/26 -no murmur on exam est'd time spent in analyzing and managing potentially life-threatening conditions, and complex decision making = 35 min
[2016-11-29] MEDS ORDERED: METOPROLOL TARTRATE 25 MG TABLET (FP) PO SCH (10:00)
[2016-11-29] MEDS ORDERED: METOPROLOL TARTRATE 25 MG TABLET (FP) ONE (11:04)
[2016-11-29] MEDS ORDERED: LISINOPRIL 5 MG TABLET (FP) ONE (11:04)
[2016-11-29] MEDS: METOPROLOL TARTRATE 25 MG TABLET (FP) PO SCH ×2 (11:08→21:12)
[2016-11-29] MEDS: LISINOPRIL 5 MG TABLET (FP) PO SCH (11:08)
--- NOTE | 2016-11-29 11:38 | PN ---
Progress Note (short form) - Note Progress Note: ID consult dictated fever possible RML pneumonia acute MS change in mental status- improved more alert and conversant now- oriented to name and place still quite weak continue vanco/zosyn for HAP history of TAVR and PPM f/u cultures sent from ED Problem List - Problems (1) Pneumonia Code(s): J18.9 - PNEUMONIA, UNSPECIFIED ORGANISM (2) Non-STEMI (non-ST elevated myocardial infarction) Code(s): I21.4 - NON-ST ELEVATION (NSTEMI) MYOCARDIAL INFARCTION (3) Altered mental status Code(s): R41.82 - ALTERED MENTAL STATUS, UNSPECIFIED (4) S/P TAVR (transcatheter aortic valve replacement) Code(s): Z95.2 - PRESENCE OF PROSTHETIC HEART VALVE
[2016-11-29] MEDS: PIPERACILLIN/TAZOB 3.375 GM/50 ML PRE-DOCKED IVPB SCH ×2 (11:42→19:24)
--- NOTE | 2016-11-29 12:48 | EKG ---
Test Reason : Blood Pressure : / mmHG Vent. Rate : 070 BPM Atrial Rate : 070 BPM P-R Int : 276 ms QRS Dur : 172 ms QT Int : 502 ms P-R-T Axes : 054 -88 085 degrees QTc Int : 542 ms Atrial-sensed ventricular-paced rhythm with prolonged AV conduction ABNORMAL ECG WHEN COMPARED WITH ECG OF 29-NOV-2016 02:03, VENT. RATE HAS DECREASED BY 3 BPM Confirmed by NANDO WHITE, LILLIAM ([id number]) on 11/29/2016 12:48:37 PM Referred By: Confirmed By:ILLLIAM COLLIER MD
--- NOTE | 2016-11-29 12:50 | EKG ---
Test Reason : Blood Pressure : / mmHG Vent. Rate : 073 BPM Atrial Rate : 073 BPM P-R Int : 264 ms QRS Dur : 170 ms QT Int : 478 ms P-R-T Axes : 048 -83 086 degrees QTc Int : 526 ms POOR DATA QUALITY, INTERPRETATION MAY BE ADVERSELY AFFECTED Atrial-sensed ventricular-paced rhythm with prolonged AV conduction ABNORMAL ECG WHEN COMPARED WITH ECG OF 10-SEP-2016 18:52, VENT. RATE HAS INCREASED BY 4 BPM Confirmed by LILLIAM COLLIER MD ([id number]) on 11/29/2016 12:49:40 PM Referred By: Confirmed By:LILLIAM COLLIER MD
[2016-11-29 13:00] LABS: MCH 28.8 pg (25.7-33.7); MCHC 32.3 g/dl (32.0-36.0); MEAN CELL VOLUME 89.1 fl (80-96); MEAN PLT VOLUME 8.7 fl (7.5-11.1); PLATELET COUNT 247 K/MM3 (134-434); RDW 19.6 % (11.6-15.6); WHITE BLOOD COUNT 5.8 K/mm3 (4.0-10.0)
[2016-11-29] MEDS ORDERED: VANCOMYCIN 1 GRAM (PRE-DOCKED) 250 ML IVPB SCH (13:00)
[2016-11-29 13:26] LABS: ALBUMIN 2.3 g/dl (3.4-5.0); ALK PHOS 87 U/L (45-117); ANION GAP 9 (8-16); BILIRUBIN,TOTAL 0.5 mg/dL (0.2-1.0); CALCIUM 8.4 mg/dL (8.5-10.1); CO2 32 mmol/L (21-32); CPK 95 IU/L (26-192); CREATININE 0.8 mg/dL (0.55-1.02); GLUCOSE,RANDOM 77 mg/dL (74-106); MAGNESIUM 1.6 mg/dL (1.8-2.4); PHOSPHOROUS 3.1 mg/dL (2.5-4.9); SGOT/AST 40 U/L (15-37); SGPT/ALT 15 U/L (12-78); TOT PROT 7.4 g/dl (6.4-8.2)
[2016-11-29] MEDS ORDERED: MAGNESIUM OXIDE 400 MG TABLET (FP) PO ONE (15:00)
[2016-11-29 16:28] VITALS: BMI 34.0
--- NOTE | 2016-11-29 19:30 | CONS ---
DATE OF CONSULTATION: 11/29/2016 REQUESTED BY: Hospitalist service This is an 86-year-old woman with a past medical history of aortic valve replacement. She has a history of anemia, COPD, coronary artery disease. She is admitted from the retirement with change in mental status. She apparently, for the last several days, has not been doing well at the retirement. She was unable to give any history. She was nonverbal on admission to the emergency room. She was found to have a fever of 102.9. She was noted to have severe hypertension. She had a head CT, a CT of her abdomen and chest. The head CT was negative for bleed. The CTA of the chest revealed a right middle lobe consolidation with a right-sided effusion and right lower lobe atelectasis. The abdomen was negative. She was noted to have a troponin of 11, and a white count of 12.9. She was given vancomycin and Zosyn for hospital-acquired pneumonia, and was treated for her MA. I am asked to see her for further evaluation. Her past medical history is notable for history of CVA, coronary artery disease, hypertension, hyperlipidemia. She is status post MA, COPD. She has a hemiparesis. Surgical history is notable for carotid endarterectomy, hysterectomy, joint replacement, and tubal ligation. She was recently hospitalized in September with a small-bowel obstruction, declined surgery, and was medically managed. During that admission, she had an E coli UTI that was treated with cefazolin. Currently she is residing at [facility] and is DNR. She has no known drug allergies. Her medications include vitamin C, atorvastatin, Colace, Apresoline, Prinivil, metoprolol, oxybutynin chloride, and Maalox, as well as p.r.n. Tylenol. Family history is noncontributory. SOCIAL HISTORY: The family reports that at baseline she is alert and responsive. There is no history of any substance use that is known. Review of systems is not obtainable. Currently the patient is markedly improved. She is awake and verbal. She says she was given a pill and is feeling much better. She denies any pain at present. PHYSICAL EXAMINATION: Vital Signs: Her T-max is 102.9, current temperature is 99.1. Pulse of 60. Blood pressure 181/76. Respiratory rate is 22. She is saturating 99% on 4 L. HEENT: She is following simple commands. She is normocephalic. Her eyes are anicteric. She has no conjunctival hemorrhages. Her mouth is dry. Neck: Supple. Lungs: Crackles at the bases. Heart: Regular rate and rhythm. Abdomen: Soft, nontender. Extremities: Without edema. Labs are notable for a white count of 8.6, hemoglobin 10.4, platelets of 276. BUN 17, creatinine 0.8. Troponin is 11.6 and repeat is 10.9. Urinalysis has 5 white cells. Imaging studies were as previously stated in the HPI. In summary, this is an 86-year-old woman with fever, possible right middle lobe pneumonia, acute MA, change in mental status which is improved, history of TAVR and permanent pacemaker. Cultures have been sent from the emergency room. Will add a Legionella urinary antigen. Would continue the vancomycin and Zosyn. Management of MA per cardiology. Mental status appears to be improving. Further recommendations to follow based on her clinical course. ARI ARIAS M.D. [id number]
[2016-11-29] MEDS ORDERED: hydrALAZINE HCL 20 MG/ML VIAL IM PRN (21:03)
--- NOTE | 2016-11-29 21:10 | CONSULT ---
Consult Consult Specialty:: Pulm/CCM Reason for Consultation:: NSTEMI, HCAP, AMS - History of Present Illness History of Present Illness: This is an 86yo woman, assisted resident, DNR per [facility] documentation w/ PMH: Olvarian ca, CVA, SBO c/b sepsis requiring hospitalization, CAD s/p stent x2, PPM, afib, GIB while on anticoagulation resulting in holding DAPL c/b anemia w/ refusal of blood transfusions in past, NSTEMI medically managed as patient defred stress test or cath. Patient presenting from [facility] with AMS x 3 days. VS @ [facility]: P70, R20, BP164/90, Sat 97%. In ED patient febrile 102.9. CT head done w/o acute pathology, CTA chest done w/o evidence of dissection or PE did show RML infiltration. Lab significant for troponin 11. Cardiology consulted. BB started. LMWH started. No plavix/statin given AMS and inability to take po. ASA suppository given. She was treated with hydralazine for HTN. ID consulted and ABX: zosyn/vanco started for HCAP coverage. Patient transferred to ICU for continued care. - History Source History Provided By: Medical Record Limitations to Obtaining History: Poor Historian - Past Medical History [employer]: Yes: CVA Cardio/Vascular: Yes: CAD (? PAF), HTN, Hyperlipdemia, HI Pulmonary: Yes: COPD, Other (former smoker, quit 40 years ago) Gastrointestinal: Yes: Other (Remote h/o GI bleed, secondary to colon polyps ( per patient)) Musculoskeletal: Yes: Hemiparesis, Other - Past Surgical History Past Surgical History: Yes: Carotid Endarterectomy, Hysterectomy, Joint Replacement, Tubal Ligation - Alcohol/Substance Use Hx Alcohol Use: No History of Substance Use: reports: None - Smoking History Smoking history: Unknown if ever smoked Have you smoked in the past 12 months: No Aproximately how many cigarettes per day: 0 - Social History Usual Living Arrangement: Assisted Living History of Recent Travel: No Home Medications - Allergies Allergies/Adverse Reactions: Allergies Allergy/AdvReac Type Severity Reaction Status Date / Time No Known Allergies Allergy Verified 12/13/15 17:55 - Home Medications Home Medications: Ambulatory Orders Aa/Hydrolyzed Collagen, Whey [Lps Neutral Flavor Liquid] 30 ml PO BID 11/29/16 Acetaminophen [Tylenol] 325 mg PO Q6H PRN 11/29/16 Ascorbic Acid [Vitamin C -] 500 mg PO TID 11/29/16 Atorvastatin Ca [Lipitor] 20 mg PO HS 11/29/16 Docusate Sodium [Colace -] 100 mg PO HS 11/29/16 Ferrous Sulfate [Feosol] 325 mg PO TID 11/29/16 Hydralazine HCl [Apresoline -] 25 mg PO BID 11/29/16 Lisinopril [Prinivil] 5 mg PO DAILY 11/29/16 Menthol/Zinc Oxide [Calmoseptine Ointment] 0 gm TP ASDIR 11/29/16 Metoprolol Tartrate 25 mg PO BID 11/29/16 Multivitamin with Minerals [Icaps Plus] 1 each PO DAILY 11/29/16 Oxybutynin Chloride [Oxybutynin Chloride ER] 10 mg PO DAILY 11/29/16 Polyethylene Glycol 3350 [Miralax (For Bowel Prep) -] 17 gm PO DAILY PRN Family Disease History - Family Disease History Family History: Unremarkable Review of Systems - Review of Systems Respiratory: reports: Cough Neurological: reports: Confusion Physical Exam Vital Signs: Vital Signs Temperature 98.6 F 11/29/16 15:15 Pulse Rate 61 11/29/16 19:13 Respiratory Rate 16 11/29/16 19:13 Blood Pressure 139/55 11/29/16 19:13 O2 Sat by Pulse Oximetry (%) 97 11/29/16 19:13 Current Medications Aspirin (Asa -) 300 mg RC DAILY [facility] Atorvastatin Calcium (Lipitor -) 80 mg PO HS [facility] Hydralazine HCl (Apresoline Injection -) 10 mg IM Q8H PRN PRN Reason: SBP >180 Vancomycin HCl (Vancomycin (Pre-Docked)) 250 mls @ 250 mls/hr IVPB BID@0100, 1300 ELSIE PRN Reason: Protocol Last Admin: 11/29/16 14:43 Dose: 250 mls/hr Sodium Chloride (Normal Saline -) 1,000 mls @ 50 mls/hr IV ASDIR [facility] Stop: 11/30/16 08:55 Last Admin: 11/29/16 09:09 Dose: 50 mls/hr Lisinopril (Prinivil) 5 mg PO DAILY [facility] Last Admin: 11/29/16 11:08 Dose: 5 mg Metoprolol Tartrate (Lopressor -) 25 mg PO BID ELSIE Last Admin: 11/29/16 11:08 Dose: 25 mg Piperacillin Sod/Tazobactam Sod (Zosyn 3.375gm Ivpb (Pre-Docked)) 3.375 gm IVPB Q8H-IV ELSIE PRN Reason: Protocol Last Admin: 11/29/16 19:24 Dose: 3.375 gm Constitutional: Yes: No Distress, Calm Cardiovascular: Yes: S1, S2, Other (paced) Respiratory: Yes: Rhonchi Gastrointestinal: Yes: Normal Bowel Sounds, Soft Extremities: Yes: Other (warm) Edema: No Neurological: Yes: Confusion Labs: CBC, BMP 11/29/16 12:54 11/29/16 12:54 Troponin, BNP 11/29/16 11/29/16 11/29/16 00:29 05:20 12:54 Troponin I 11.68 H* 10.90 H* 10.50 H* Imaging - Results Chest X-ray: Report Reviewed, Image Reviewed X-ray: Report Reviewed, Image Reviewed Problem List - Problems (1) Altered mental status Code(s): R41.82 - ALTERED MENTAL STATUS, UNSPECIFIED Qualifiers: Altered mental status type: unspecified Qualified Code(s): R41.82 - Altered mental status, unspecified (2) Non-STEMI (non-ST elevated myocardial infarction) Code(s): I21.4 - NON-ST ELEVATION (NSTEMI) MYOCARDIAL INFARCTION (3) Pneumonia Code(s): J18.9 - PNEUMONIA, UNSPECIFIED ORGANISM Qualifiers: Pneumonia type: due to unspecified organism Laterality: right Lung location: middle lobe of lung Qualified Code(s): J18.1 - Lobar pneumonia, unspecified organism (4) CAD (coronary artery disease) Code(s): I25.10 - ATHSCL HEART DISEASE OF [place] CORONARY ARTERY W/O ANG PCTRS (5) COPD (chronic obstructive pulmonary disease) Code(s): J44.9 - CHRONIC OBSTRUCTIVE PULMONARY DISEASE, UNSPECIFIED (6) Sepsis Code(s): A41.9 - SEPSIS, UNSPECIFIED ORGANISM Assessment/Plan A/P: 86 yo woman with MMP: CVA, ovarian ca, afib, PPM, CAD s/p stent x2, anemia r/t GI while on anti-coagulation ho presented from [facility] with AMS found to be febrile w/ RML infiltrate c/w HCAP c/c/b NSTEMI and AMS likely toxic metabolic encephalopathy r/t infection -Cardiology following -will start PO DAPL: ASA and plavix now that mental status is improved -cont BB will transition to po 25mg q12hrs -will use iv hydralazine for SBP >190 -will use heparin for anti-coagulation given h/o GIB in past -trend troponin -cont ABX per ID: zosyn/vanco -f/u cultures -O2 for sat >90% -DVT ppx w/ UFH drip -DNR Boerem ACNP Pulm/CCM CCT: 35m
[2016-11-29] MEDS ORDERED: ATORVASTATIN CA 80 MG TABLET (FP) PO SCH (22:00)
[2016-11-29 22:03] LABS: TROPONIN I 10.2 ng/ml (0.00-0.05)
[2016-11-29] MEDS ORDERED: HEPARIN NA (PORCINE) 5,000 UNITS/ML 1ML VIAL IVPUSH PRN ×2 (22:18)
[2016-11-29] MEDS ORDERED: HEPARIN INFUSION - 500 ML IVPB SCH (22:30)
[2016-11-29] MEDS ORDERED: HEPARIN INFUSION - 500 ML IVPB ONE (22:37)
[2016-11-30] MEDS: PIPERACILLIN/TAZOB 3.375 GM/50 ML PRE-DOCKED IVPB SCH ×3 (02:14→17:30)
[2016-11-30] MEDS: VANCOMYCIN 1 GRAM (PRE-DOCKED) 250 ML IVPB SCH ×2 (02:29→15:57)
[2016-11-30 06:47] LABS: BASOPHIL 0.8 % (0-2.0); EOSINOPHIL 4.3 % (0-4.5); MCH 28.9 pg (25.7-33.7); MCHC 32.6 g/dl (32.0-36.0); MEAN CELL VOLUME 88.6 fl (80-96); NEUTROPHILS 61.1 % (42.8-82.8); PLATELET COUNT 233 K/MM3 (134-434); RDW 19.7 % (11.6-15.6); WHITE BLOOD COUNT 4.7 K/mm3 (4.0-10.0)
[2016-11-30 07:23] LABS: ANION GAP 9 (8-16); CALCIUM 8.3 mg/dL (8.5-10.1); CO2 37 mmol/L (21-32); CREATININE 0.9 mg/dL (0.55-1.02); GLUCOSE,RANDOM 98 mg/dL (74-106)
[2016-11-30 07:53] LABS: TROPONIN I 8.75 ng/ml (0.00-0.05)
--- NOTE | 2016-11-30 09:45 | PN ---
Progress Note, Physician Chief Complaint: NSTEMI History of Present Illness: much more alert, and responsive. denies cp, sob, palpitations, syncope - Current Medication List Current Medications: Active Medications Aspirin (Ecotrin -) 81 mg PO DAILY [facility] Atorvastatin Calcium (Lipitor -) 80 mg PO HS [facility] Last Admin: 11/29/16 21:12 Dose: 80 mg Clopidogrel Bisulfate (Plavix -) 75 mg PO DAILY [facility] Heparin Sodium (Porcine) (Heparin -) 1,000 unit IVPUSH PRN PRN PRN Reason: Heparin Heparin Sodium (Porcine) (Heparin -) 5,000 unit IVPUSH PRN PRN PRN Reason: Heparin Hydralazine HCl (Apresoline Injection -) 10 mg IM Q8H PRN PRN Reason: SBP >180 Last Admin: 11/29/16 21:28 Dose: 10 mg Vancomycin HCl (Vancomycin (Pre-Docked)) 250 mls @ 166.667 mls/hr IVPB BID@0300 ,1500 ELSIE PRN Reason: Protocol Last Admin: 11/30/16 02:29 Dose: 166.667 mls/hr Heparin Sodium/Dextrose (Heparin Infusion -) 500 mls @ 16 mls/hr IVPB TITR ELSIE ; 800 UNITS/HR PRN Reason: Protocol Last Admin: 11/29/16 22:14 Dose: 16 mls/hr Lisinopril (Prinivil) 5 mg PO DAILY [facility] Last Admin: 11/29/16 11:08 Dose: 5 mg Metoprolol Tartrate (Lopressor -) 25 mg PO BID [facility] Last Admin: 11/29/16 21:12 Dose: 25 mg Piperacillin Sod/Tazobactam Sod (Zosyn 3.375gm Ivpb (Pre-Docked)) 3.375 gm IVPB Q8H-IV ELSIE PRN Reason: Protocol Last Admin: 11/30/16 02:14 Dose: 3.375 gm - Objective Vital Signs: Vital Signs Temperature 98.4 F 11/30/16 06:00 Pulse Rate 60 11/30/16 08:00 Respiratory Rate 22 11/30/16 09:00 Blood Pressure 175/50 11/30/16 08:00 O2 Sat by Pulse Oximetry (%) 97 11/30/16 09:00 Constitutional: Yes: Well Nourished, No Distress, Calm Cardiovascular: Yes: Regular Rate and Rhythm, Murmur (2/6 NADIA lusb), S1, S2. No : Gallop Respiratory: Yes: Regular, Diminished (R base). No: Rales, Wheezes Extremities: No: Cold Edema: No Neurological: Yes: Alert. No: Seizure Psychiatric: No: Agitated Labs: CBC, BMP 11/30/16 05:20 11/30/16 05:20 INR, PTT INR 1.16 (0.82-1.09) H 11/29/16 00:29 - ....Imaging EKG: Other (tele: A-/V-paced) Assessment/Plan Echo 09/26 here: TDS; nl overall LVSF (RWMA tds); nl overall RV size/fxn; nl LA; AV tds--no AI or ; trace MR can't exclude vegetation; mild TR Echo 06/2014: nl lv/rv, mod tr, rvsp 30-40, nl bio avr CXR (gitig read): prominent mediastinum; no vasc redistribution, no effusion; mild chronic incr'd interstitial markings--all unchanged vs 09/[address] head: no acute pathology CTA chest/abdomen/pelvis: no aorta dissection or aneurysm (extensive abd aorta calcified plaque); moderate R pleural effusion with adjacent ATX; patchy consolidation RML; L lung clear; NSTEMI: -known underlying obstructive CAD given NSTEMI here in 2014 (+CP with peak troponin 5)--seen by different cardiology group then, notes reviewed--pt refused cath, was treated medically (no stress test done) -now with atypical presentation (few days of altered MS) in setting of PNA and hi fever, with trop 11-->trending down -she has h/o recurrent occult bleeding on AC in past, necessitating d/c of med, and again same when here 09/26 requiring d/c of ASA (pt declined transfusions at that time) -this 86 yo pt with recurrent occult bleeding (and refusal of PRBCs due to jew beliefs) is hence at prohibitive risk of premature discontinuation of DAPT therapy and stent thrombosis if has PCI, and hence will be managed medically for now -once pt able to take PO, will start statin (hi intensity--atorva 80mg), po BB, HILDA -hgb trending down on serial labs--d/c heparin. cont ASA only (no plavix) -cont BB, HILDA, statin -i d/w'd dr portillo who knows pt from before--given that she is [employer] and will definitely not accept transfusions, would not risk potentially life- threatening bleeding with DAPT post stent regardless of what nuclear images would show--hence med mgmt is only appropriate option here--unless family wishes to first proceed with GI scopes, in which case she will need risk stratification with imaging prior). not a CABG candidate given her poor functional status and hence hi risk of adverse periop outcomes. -echo for LV fxn RML pneumonia with parapneumonic effusion: -fever 102.9 -abx per ID -monitor BCx's for growth altered mental status: -head CT no acute pathology -? sec to PNA -atypical for ACS sx in elderly with reportedly normal mentation at baseline ( per notes)--though not impossible -defer further w/u to pmd re: ? neuro consult anemia: -h/o GIB in past (necessitating d/c of AC, per chart notes) -baseline hgb runs 9s-11s -was down to 6's when here 09/26, refused PRBCs--ASA had to be held then -currently stable with hgb 10 -no prior endoscopies done here ppm: -st fab dual chamber place 12/2015 at [facility] [place] for high grade block. followed there. -normal fcn on ecg, tele. -cont routine outpt PM f/u htn: -on metopr, hydralazine, lisin when here 09/26--currently not taking po due to mental status -bp mildly to moderately elevated -was not able to take po meds yest--now prior regimen resumed ? pafib: -per charts, no details available--pt in sinus rhythm during prior admit here -ac reportedly stopped in past for gib -at high risk for cardioembolic CVA (prior h/o CVA, CHADS-VASC = 7) -will not change prior tx plan given pt not well known to us, and recurrent acute severe anemia 09/26 -ASA only for now, if H/H remains stable s/p tavr: -normal AV fxn on echo here 09/26 -no murmur on exam est'd time spent in analyzing and managing potentially life-threatening conditions, and complex decision making = 35 min
[2016-11-30] MEDS ORDERED: ASPIRIN COATED 81 MG TABLET.EC PO SCH (10:00)
[2016-11-30] MEDS ORDERED: ASPIRIN 300 MG SUPP.RECT RC SCH (10:00)
[2016-11-30 10:08] LABS: MAGNESIUM 1.7 mg/dL (1.8-2.4); PHOSPHOROUS 2.9 mg/dL (2.5-4.9)
[2016-11-30] MEDS: LISINOPRIL 5 MG TABLET (FP) PO SCH (10:18)
[2016-11-30] MEDS: CLOPIDOGREL BISULFATE 75 MG TABLET (FP) PO SCH ×2 (10:18→10:42)
[2016-11-30] MEDS ORDERED: METOPROLOL TARTRATE 5 MG/5 ML VIAL ONE (10:21)
[2016-11-30] MEDS ORDERED: hydrALAZINE HCL 20 MG/ML VIAL ONE (10:21)
[2016-11-30] MEDS ORDERED: METOPROLOL TARTRATE 25 MG TABLET (FP) PO SCH (10:30)
[2016-11-30] MEDS ORDERED: METOPROLOL TARTRATE 5 MG/5 ML VIAL IVPUSH SCH (10:30)
[2016-11-30] MEDS ORDERED: hydrALAZINE HCL 20 MG/ML VIAL IVPUSH SCH (10:30)
--- NOTE | 2016-11-30 10:34 | PN ---
Progress Note (short form) - Note Progress Note: Events noted since admission. Chart reviewed. Patient seen and examined. Awake. Responding somewhat to verbal commands. Denies chest pain , shortness of breath. Recent Travel: unknown PAST MEDICAL HISTORY: as above PAST SURGICAL HISTORY: as above Social History: Smoking: unknown Alcohol: unknown Drugs: unknown Family History: unknown Allergies No Known Allergies Allergy (Verified 12/13/15 17:55) HOME MEDICATIONS: Home Medications Medication Instructions Recorded Acetaminophen [Tylenol] 325 mg PO QID PRN 11/29/16 Ascorbic Acid [Vitamin C -] 500 mg PO TID 11/29/16 Atorvastatin Ca [Lipitor] 20 mg PO HS 11/29/16 Docusate Sodium [Colace -] 100 mg PO DAILY 11/29/16 Hydralazine HCl [Apresoline -] 25 mg PO BID 11/29/16 Lisinopril [Prinivil] 5 mg PO DAILY 11/29/16 Metoprolol Tartrate 25 mg PO BID 11/29/16 Oxybutynin Chloride [Oxybutynin 10 mg PO DAILY 11/29/16 Chloride ER] Polyethylene Glycol 3350 [Miralax 17 gm PO DAILY 11/29/16 (For Bowel Prep) -] REVIEW OF SYSTEMS CONSTITUTIONAL: Fever at the retirement. Absent: fever, chills, diaphoresis, generalized weakness, malaise, loss of appetite, weight change HEENT: Absent: rhinorrhea, nasal congestion, throat swelling, difficulty swallowing, mouth swelling, visual changes CARDIOVASCULAR: Absent: syncope, palpitations, irregular heart rate, peripheral edema RESPIRATORY: Absent: cough, shortness of breath, dyspnea with exertion, orthopnea, wheezing, stridor, hemoptysis GASTROINTESTINAL:Absent: abdominal distension, nausea, vomiting, diarrhea, constipation, melena, hematochezia GENITOURINARY: Absent:frequency, hematuria, MUSCULOSKELETAL: Absent: myalgia, arthralgia, joint swelling, SKIN: Absent: rash, itching, pallor HEMATOLOGIC/IMMUNOLOGIC: Absent: easy bleeding, easy bruising, lymphadenopathy ENDOCRINE:Absent: unexplained weight gain, unexplained weight loss NEUROLOGIC: Altered mental status for the past few days. Absent: headache, focal weakness or paresthesias, dizziness, unsteady gait, seizure, PHYSICAL EXAMINATION Vital Signs Period Temp Pulse Resp BP Sys/Romero Pulse Ox Last 24 Hr 98.4 F-98.9 F 59-63 16-24 124-181/50-103 97-100 GENERAL: Opens eyes to verbal stimuli HEAD: Normal with no signs of trauma. EYES: Pupils equal, round and reactive to light, Right gauze noted EARS, NOSE, THROAT: Ears normal, nares patent, oropharynx clear without exudates. NECK: Supple without lymphadenopathy, or masses. LUNGS: Rhonchus breath sounds bilaterally. HEART: Regular rate and rhythm, normal S1 and S2. Early 2/6 SM ABDOMEN: Soft, not distended, normoactive bowel sounds, no guarding, MUSCULOSKELETAL: No bony deformities or tenderness. UPPER EXTREMITIES: 2+ pulses, warm, well-perfused. No cyanosis. No clubbing. No peripheral edema. LOWER EXTREMITIES: 2+ pulses, warm, well-perfused. No calf tenderness. No peripheral edema. NEUROLOGICAL: Cranial nerves II-XII intact. Normal speech. Normal gait. SKIN: Warm, dry, normal turgor, no rashes or lesions noted, normal capillary refill. CBC, BMP 11/30/16 05:20 11/30/16 05:20 CARDIAC ENZYMES Creatine Kinase 103 IU/L (26-192) 11/29/16 05:20 Troponin I 10.90 ng/ml (0.00-0.05) H* 11/29/16 05:20 Imaging: Head CT: no evidence of acute intracranial pathology Abd/pelvis/chest CTA: no evidence of thoracic or abdominal aortic aneurysm or dissection. Right pleural effusion. Right middle lobe infiltrate and lower lobe atelectasis. EKG: AV paced rhythm with prolonged AV conduction Assessment: This is an 86 year old female with PMHx of aortic valve disorder, anemia, COPD, CHF, CVA, CAD s/p stents, NSTEMI, hypertension, hypercholesterolemia, ovarian cancer who presented to the ED from [facility] with altered mental status. Plan: 1) Cardiology: NSTEMI - Trend troponins - Continue Lopressor IVPB 5mg q4h - F/u ECHO - Cardiology follow up appreciated. Hypertensive emergency - BP on admission 210/87 - Continue current meds. - Monitor BP closely S/p TAVR 2) ID: Toxic metabolic encephalopathy 2/2 sepsis 2/2 pneumonia - ID follow up appreciated. - Continue Zosyn and Vancomycin in the ED - F/u blood cultures - Negative UA, f/u urine culture 3) F/E/N: - NPO - IV fluids - Monitor electrolytes 4) Prophylaxis: - Full dose Lovenox 5) hypokalemia Potassium repleted. 6) Dispo: - Requires continued inpatient care CODE STATUS: DNR, paperwork from retirement in chart More than 35 minutes spent on reviewing the chart, examination and treatment plan.
--- NOTE | 2016-11-30 11:05 | PN ---
Progress Note, Physician History of Present Illness: Awake, alert Oriented Offers no complaints Afebrile Cultures prelim no growth - Current Medication List Current Medications: Active Medications Aspirin (Ecotrin -) 81 mg PO DAILY [facility] Last Admin: 11/30/16 10:18 Dose: 81 mg Atorvastatin Calcium (Lipitor -) 80 mg PO HS [facility] Last Admin: 11/29/16 21:12 Dose: 80 mg Hydralazine HCl (Apresoline Injection -) 10 mg IM Q8H PRN PRN Reason: SBP >180 Last Admin: 11/29/16 21:28 Dose: 10 mg Hydralazine HCl (Apresoline -) 25 mg PO BID [facility] Vancomycin HCl (Vancomycin (Pre-Docked)) 250 mls @ 166.667 mls/hr IVPB BID@0300 ,1500 ELSIE PRN Reason: Protocol Last Admin: 11/30/16 02:29 Dose: 166.667 mls/hr Lisinopril (Prinivil) 5 mg PO DAILY [facility] Last Admin: 11/30/16 10:18 Dose: 5 mg Metoprolol Tartrate (Lopressor -) 25 mg PO BID [facility] Last Admin: 11/30/16 10:42 Dose: 25 mg Piperacillin Sod/Tazobactam Sod (Zosyn 3.375gm Ivpb (Pre-Docked)) 3.375 gm IVPB Q8H-IV ELSIE PRN Reason: Protocol Last Admin: 11/30/16 10:18 Dose: 3.375 gm Potassium Chloride (K-Dur -) 40 meq PO ONCE ONE Stop: 11/30/16 10:37 - Objective Vital Signs: Vital Signs Temperature 98.4 F 11/30/16 06:00 Pulse Rate 59 L 11/30/16 10:00 Respiratory Rate 20 11/30/16 10:00 Blood Pressure 176/63 11/30/16 10:00 O2 Sat by Pulse Oximetry (%) 97 11/30/16 09:00 Constitutional: Yes: No Distress Eyes: Yes: Conjunctiva Clear Cardiovascular: Yes: Regular Rate and Rhythm, S1, S2 Respiratory: Yes: Other (crepitations, R base) Gastrointestinal: Yes: Normal Bowel Sounds, Soft. No: Tenderness Edema: No Labs: CBC, BMP 11/30/16 05:20 11/30/16 05:20 INR, PTT INR 1.16 (0.82-1.09) H 11/29/16 00:29 Assessment/Plan RLL pneumonia HCAP Possible sepsis secondary to pneumonia Toxic-metabolic encephalopathy- improved S/P TAVR, PPM Await c/s Continue empiric zosyn/ vancomysin
--- NOTE | 2016-11-30 11:26 | PN ---
Teaching Attending Note Name of Resident: Darren Reyes ATTENDING PHYSICIAN STATEMENT I saw and evaluated the patient. I reviewed the resident's note and discussed the case with the resident. I agree with the resident's findings and plan as documented. SUBJECTIVE: Pt seen and examined in the ICU. Feels better today, more awake and alert. Denies chest pain or shortness of breath. OBJECTIVE: Last Vital Signs Temp Pulse Resp BP Pulse Ox 98.4 F 59 L 20 176/63 97 11/30/16 06:00 11/30/16 10:00 11/30/16 10:00 11/30/16 10:00 11/30/16 09:00 Intake & Output 11/27/16 11/28/16 11/29/16 11/30/16 23:59 23:59 23:59 23:59 Intake Total 1084 Output Total 400 Balance 684 Weight 174 lb 6.4 oz 152 lb 6.4 oz Gen: NAD at rest Heart: RRR Lung: right base rales Abd: soft, nontender Ext: no edema CBC, BMP 11/30/16 05:20 11/30/16 05:20 Active Medications Aspirin (Ecotrin -) 81 mg PO DAILY [facility] Last Admin: 11/30/16 10:18 Dose: 81 mg Atorvastatin Calcium (Lipitor -) 80 mg PO HS [facility] Last Admin: 11/29/16 21:12 Dose: 80 mg Hydralazine HCl (Apresoline Injection -) 10 mg IM Q8H PRN PRN Reason: SBP >180 Last Admin: 11/29/16 21:28 Dose: 10 mg Hydralazine HCl (Apresoline -) 25 mg PO BID [facility] Vancomycin HCl (Vancomycin (Pre-Docked)) 250 mls @ 166.667 mls/hr IVPB BID@0300 ,1500 ELSIE PRN Reason: Protocol Last Admin: 11/30/16 02:29 Dose: 166.667 mls/hr Lisinopril (Prinivil) 5 mg PO DAILY [facility] Last Admin: 11/30/16 10:18 Dose: 5 mg Metoprolol Tartrate (Lopressor -) 25 mg PO BID [facility] Last Admin: 11/30/16 10:42 Dose: 25 mg Piperacillin Sod/Tazobactam Sod (Zosyn 3.375gm Ivpb (Pre-Docked)) 3.375 gm IVPB Q8H-IV ELSIE PRN Reason: Protocol Last Admin: 11/30/16 10:18 Dose: 3.375 gm Potassium Chloride (K-Dur -) 40 meq PO ONCE ONE Stop: 11/30/16 11:31 ASSESSMENT AND PLAN: Pneumonia Acute NSTEMI Atrial Fibrillation h/o CVA Altered Mental Status resolving CAD s/p stents h/o Ovarian Ca - ASA, plavix - beta gogo, statin - heparin gtt stopped - echocardiogram - continue antibiotics - f/u cultures - aspiration precautions - O2 to keep SpO2 >90% - DVT prophylaxis - can transfer to telemetry critical care time spent in reviewing chart, evaluating patient and formulating plan 35 min
[2016-11-30] MEDS ORDERED: POTASSIUM CHLORIDE 20 MEQ PREMIX IVPB 100 ML IVPB SCH (11:30)
[2016-11-30] MEDS ORDERED: POTASSIUM CHLORIDE TABS 20 MEQ TABLET.ER (FP) PO ONE ×3 (11:30→20:45)
[2016-11-30] MEDS ORDERED: MAGNESIUM SULF 50% (8.12 MEQ/2 ML-1 GM VIAL) IVPB ONE (11:37)
--- NOTE | 2016-11-30 15:00 | PN ---
Progress Note, Physician History of Present Illness: Patient seen and examined in the ICU. Patient has no new complaints and denies SOB, chest pain, edema. - Current Medication List Current Medications: Active Medications Aspirin (Ecotrin -) 81 mg PO DAILY [facility] Last Admin: 11/30/16 10:18 Dose: 81 mg Atorvastatin Calcium (Lipitor -) 80 mg PO HS [facility] Last Admin: 11/29/16 21:12 Dose: 80 mg Hydralazine HCl (Apresoline Injection -) 10 mg IM Q8H PRN PRN Reason: SBP >180 Last Admin: 11/29/16 21:28 Dose: 10 mg Hydralazine HCl (Apresoline -) 25 mg PO BID [facility] Vancomycin HCl (Vancomycin (Pre-Docked)) 250 mls @ 166.667 mls/hr IVPB BID@0300 ,1500 ELSIE PRN Reason: Protocol Last Admin: 11/30/16 02:29 Dose: 166.667 mls/hr Lisinopril (Prinivil) 5 mg PO DAILY [facility] Last Admin: 11/30/16 10:18 Dose: 5 mg Metoprolol Tartrate (Lopressor -) 25 mg PO BID [facility] Last Admin: 11/30/16 10:42 Dose: 25 mg Piperacillin Sod/Tazobactam Sod (Zosyn 3.375gm Ivpb (Pre-Docked)) 3.375 gm IVPB Q8H-IV ELSIE PRN Reason: Protocol Last Admin: 11/30/16 10:18 Dose: 3.375 gm - Objective Vital Signs: Vital Signs Temperature 98.5 F 11/30/16 14:38 Pulse Rate 87 11/30/16 14:38 Respiratory Rate 20 11/30/16 14:38 Blood Pressure 138/49 11/30/16 14:38 O2 Sat by Pulse Oximetry (%) 97 11/30/16 09:00 Constitutional: Yes: Well Nourished, No Distress, Calm HENT: Yes: Atraumatic, Normocephalic, Other Neck: Yes: Supple Cardiovascular: Yes: Regular Rate and Rhythm Respiratory: Yes: Regular, CTA Bilaterally Gastrointestinal: Yes: Normal Bowel Sounds, Soft Neurological: Yes: Alert, Oriented Psychiatric: Yes: Alert, Oriented Labs: CBC, BMP 11/30/16 05:20 11/30/16 05:20 INR, PTT INR 1.16 (0.82-1.09) H 11/29/16 00:29 Assessment/Plan 86 YO F w/ PMH CVA, SBO, CAD s/p stent, PPM, afib admitted to ICU for management of NSTEMI Neuro: -a&o x3 Pulmonary: -chest CTA shows right effusion with infiltrate in middle lobe -c/w Zosyn 3.375 IV Q8H -c/w Vancomycin Cardio: -NSTEMI -Heparin GTT d/c'd 2/2 hx of GIB -Hydralazine IM 10mg q8H -Plavix 75mg PO daily -ASA 81mg daily -HTN, Afib; rate and BP controlled -lisinopril 5mg PO daily -Lopressor 25mg PO daily Prophylaxsis: -GI prophy not indicated at this time -SCDs for dvt prophy FEN: -no indication for fluids at this point -K 3.0; will replete -regular diet Dispo: -patient is stable for transfer to telemetry; cardio in agreement -critical care time 35 mins
[2016-11-30] MEDS ORDERED: hydrALAZINE HCL 20 MG/ML VIAL IM PRN (19:38)
[2016-11-30] MEDS ORDERED: hydrALAZINE HCL 25 MG TABLET (FP) PO SCH (22:00)
[2016-11-30] MEDS: hydrALAZINE HCL 25 MG TABLET (FP) PO SCH (22:14)
[2016-11-30] MEDS: ATORVASTATIN CA 80 MG TABLET (FP) PO SCH (22:14)
[2016-11-30] MEDS: METOPROLOL TARTRATE 25 MG TABLET (FP) PO SCH (22:14)
[2016-12-01] MEDS: PIPERACILLIN/TAZOB 3.375 GM/50 ML PRE-DOCKED IVPB SCH ×3 (01:03→17:31)
[2016-12-01] MEDS: VANCOMYCIN 1 GRAM (PRE-DOCKED) 250 ML IVPB SCH ×2 (03:50→14:58)
[2016-12-01 07:18] LABS: BASOPHIL 0.2 % (0-2.0); EOSINOPHIL 0.7 % (0-4.5); MCH 28.2 pg (25.7-33.7); MCHC 31.9 g/dl (32.0-36.0); MEAN CELL VOLUME 88.4 fl (80-96); MEAN PLT VOLUME 8.9 fl (7.5-11.1); PLATELET COUNT 221 K/MM3 (134-434); RDW 19.1 % (11.6-15.6); WHITE BLOOD COUNT 12.8 K/mm3 (4.0-10.0)
[2016-12-01 07:30] LABS: ALBUMIN 2.3 g/dl (3.4-5.0); ANION GAP 7 (8-16); CALCIUM 8.3 mg/dL (8.5-10.1); CO2 36 mmol/L (21-32); GLUCOSE,RANDOM 116 mg/dL (74-106); MAGNESIUM 2.4 mg/dL (1.8-2.4)
[2016-12-01 07:35] LABS: ALK PHOS 83 U/L (45-117); BILIRUBIN,TOTAL 0.6 mg/dL (0.2-1.0); CREATININE 1.1 mg/dL (0.55-1.02); PHOSPHOROUS 2.2 mg/dL (2.5-4.9); SGOT/AST 29 U/L (15-37); SGPT/ALT 13 U/L (12-78); TOT PROT 7.3 g/dl (6.4-8.2)
[2016-12-01] MEDS: hydrALAZINE HCL 25 MG TABLET (FP) PO SCH ×2 (09:46→22:35)
[2016-12-01] MEDS: ASPIRIN COATED 81 MG TABLET.EC PO SCH (09:46)
[2016-12-01] MEDS: METOPROLOL TARTRATE 25 MG TABLET (FP) PO SCH ×2 (09:46→22:35)
[2016-12-01] MEDS: LISINOPRIL 5 MG TABLET (FP) PO SCH (09:46)
--- NOTE | 2016-12-01 10:42 | PN ---
Progress Note (short form) - Note Progress Note: Chief Complaint: NSTEMI History of Present Illness: alert, and responsive but confused. denies cp, sob, palpitations, syncope Current Medications Aspirin (Ecotrin -) 81 mg PO DAILY [facility] Last Admin: 12/01/16 09:46 Dose: 81 mg Atorvastatin Calcium (Lipitor -) 80 mg PO HS [facility] Last Admin: 11/30/16 22:14 Dose: 80 mg Hydralazine HCl (Apresoline Injection -) 10 mg IM Q8H PRN PRN Reason: SBP >180 Hydralazine HCl (Apresoline -) 25 mg PO BID [facility] Last Admin: 12/01/16 09:46 Dose: 25 mg Vancomycin HCl (Vancomycin (Pre-Docked)) 250 mls @ 150 mls/hr IVPB BID@0300, 1500 [facility] PRN Reason: Protocol Last Admin: 12/01/16 03:50 Dose: 150 mls/hr Lisinopril (Prinivil) 5 mg PO DAILY [facility] Last Admin: 12/01/16 09:46 Dose: 5 mg Metoprolol Tartrate (Lopressor -) 25 mg PO BID [facility] Last Admin: 12/01/16 09:46 Dose: 25 mg Piperacillin Sod/Tazobactam Sod (Zosyn 3.375gm Ivpb (Pre-Docked)) 3.375 gm IVPB Q8H-IV [facility] PRN Reason: Protocol Last Admin: 12/01/16 09:45 Dose: 3.375 gm Vital Signs - 24 hr 11/30/16 11/30/16 11/30/16 12:36 14:38 17:31 Temperature 98.5 F 99 F Pulse Rate 59 L 87 60 Respiratory 20 20 18 Rate Blood Pressure 186/64 138/49 149/54 O2 Sat by Pulse Oximetry (%) 11/30/16 11/30/16 11/30/16 20:24 21:00 21:25 Temperature 98.8 F 98.8 F Pulse Rate 63 83 Respiratory 20 20 Rate Blood Pressure 159/68 O2 Sat by Pulse 98 Oximetry (%) 12/01/16 12/01/16 12/01/16 01:00 05:00 09:00 Temperature 98.8 F 98.4 F 98.2 F Pulse Rate 63 63 60 Respiratory 20 20 16 Rate Blood Pressure 123/57 156/60 152/60 O2 Sat by Pulse Oximetry (%) Intake & Output 11/29/16 11/30/16 12/01/16 12/02/16 07:59 07:59 07:59 07:59 Intake Total 978 1126 Output Total 400 350 0 Balance 578 776 0 Weight 174 lb 11.2 oz 152 lb 6.4 oz Constitutional: Yes: Well Nourished, No Distress, Calm Cardiovascular: Yes: Regular Rate and Rhythm, Murmur (2/6 NADIA lusb), S1, S2. No : Gallop Respiratory: Yes: Regular, Diminished (R base). No: Rales, Wheezes Extremities: No: Cold Edema: No Neurological: Yes: Alert. No: Seizure Psychiatric: No: Agitated Labs: CBC, BMP 12/01/16 05:35 12/01/16 05:35 Laboratory Tests 11/29/16 11/30/16 11/30/16 00:29 05:20 05:20 Hgb 9.1 L Creatinine 0.9 Magnesium Troponin I 11.68 H* Albumin 12/01/16 05:35 Hgb Creatinine Magnesium 2.4 D Troponin I Albumin 2.3 L - ....Imaging EKG: Other (tele: A-/V-paced) Assessment/Plan Echo 11/2016: tds. nl lv/rv. poor visualization of AV. ? prosthetic. 1+ mac, mod ecc TR. Echo 09/26 here: TDS; nl overall LVSF (RWMA tds); nl overall RV size/fxn; nl LA; AV tds--no AI or ; trace MR can't exclude vegetation; mild TR Echo 06/2014: nl lv/rv, mod tr, rvsp 30-40, nl bio avr CXR (gitig read): prominent mediastinum; no vasc redistribution, no effusion; mild chronic incr'd interstitial markings--all unchanged vs 09/[address] head: no acute pathology CTA chest/abdomen/pelvis: no aorta dissection or aneurysm (extensive abd aorta calcified plaque); moderate R pleural effusion with adjacent ATX; patchy consolidation RML; L lung clear; NSTEMI: -known underlying obstructive CAD given NSTEMI here in 2014 (+CP with peak troponin 5)--seen by different cardiology group then, notes reviewed--pt refused cath, was treated medically (no stress test done) -now with atypical presentation (few days of altered MS) in setting of PNA and hi fever, with trop 11-->trending down -she has h/o recurrent occult bleeding on AC in past, necessitating d/c of med, and again same when here 09/26 requiring d/c of ASA (pt declined transfusions at that time) -this 86 yo pt with recurrent occult bleeding (and refusal of PRBCs due to jain beliefs) is hence at prohibitive risk of premature discontinuation of DAPT therapy and stent thrombosis if has PCI, and hence will be managed medically for now - started statin (hi intensity--atorva 80mg), po BB, HILDA -hgb trending down on serial labs--d/c heparin. cont ASA only (no plavix) -cont BB, HILDA, statin - Dr. Fraser d/w'd dr portillo who knows pt from before--given that she is [employer] and will definitely not accept transfusions, would not risk potentially life-threatening bleeding with DAPT post stent regardless of what nuclear images would show--hence med mgmt is only appropriate option here-- unless family wishes to first proceed with GI scopes, in which case she will need risk stratification with imaging prior). not a CABG candidate given her poor functional status and hence hi risk of adverse periop outcomes. -echo for LV fxn --> tds, but grossly nl lv fn. RML pneumonia with parapneumonic effusion: -fever 102.9 -abx per ID -monitor BCx's for growth altered mental status: -head CT no acute pathology -? sec to PNA -atypical for ACS sx in elderly with reportedly normal mentation at baseline ( per notes)--though not impossible -defer further w/u to pmd re: ? neuro consult anemia: -h/o GIB in past (necessitating d/c of AC, per chart notes) -baseline hgb runs 9s-11s -was down to 6's when here 09/26, refused PRBCs--ASA had to be held then -currently stable with hgb 10 -no prior endoscopies done here ppm: -st fab dual chamber place 12/[address] [facility] [place] for high grade block. followed there. -normal fcn on ecg, tele. -cont routine outpt PM f/u htn: -on metopr, hydralazine, lisin when here 09/26-- resumed here once able to take PO. monitor creatinine on lisionpril. slight bump today 12/01 -bp overall controlled for age. . ? pafib: -per charts, no details available--pt in sinus rhythm during prior admit here -ac reportedly stopped in past for gib -at high risk for cardioembolic CVA (prior h/o CVA, CHADS-VASC = 7) -will not change prior tx plan given pt not well known to us, and recurrent acute severe anemia 09/26 -ASA only for now, if H/H remains stable s/p tavr: -normal AV fxn on echo here 09/26 -no murmur on exam
--- NOTE | 2016-12-01 11:14 | PN ---
Progress Note, Physician History of Present Illness: PULMONARY ALERT FEELING BETTER,-C/O SOB,-COUGH,-CP - Current Medication List Current Medications: Active Medications Aspirin (Ecotrin -) 81 mg PO DAILY [facility] Last Admin: 12/01/16 09:46 Dose: 81 mg Atorvastatin Calcium (Lipitor -) 80 mg PO HS [facility] Last Admin: 11/30/16 22:14 Dose: 80 mg Hydralazine HCl (Apresoline Injection -) 10 mg IM Q8H PRN PRN Reason: SBP >180 Hydralazine HCl (Apresoline -) 25 mg PO BID [facility] Last Admin: 12/01/16 09:46 Dose: 25 mg Vancomycin HCl (Vancomycin (Pre-Docked)) 250 mls @ 150 mls/hr IVPB BID@0300, 1500 [facility] PRN Reason: Protocol Last Admin: 12/01/16 03:50 Dose: 150 mls/hr Lisinopril (Prinivil) 5 mg PO DAILY [facility] Last Admin: 12/01/16 09:46 Dose: 5 mg Metoprolol Tartrate (Lopressor -) 25 mg PO BID [facility] Last Admin: 12/01/16 09:46 Dose: 25 mg Piperacillin Sod/Tazobactam Sod (Zosyn 3.375gm Ivpb (Pre-Docked)) 3.375 gm IVPB Q8H-IV [facility] PRN Reason: Protocol Last Admin: 12/01/16 09:45 Dose: 3.375 gm - Objective Vital Signs: Vital Signs Temperature 98.2 F 12/01/16 09:00 Pulse Rate 60 12/01/16 09:00 Respiratory Rate 16 12/01/16 09:00 Blood Pressure 152/60 12/01/16 09:00 O2 Sat by Pulse Oximetry (%) 98 11/30/16 21:00 Constitutional: Yes: Well Nourished, Calm Eyes: Yes: WNL HENT: Yes: WNL Neck: Yes: WNL Cardiovascular: Yes: Regular Rate and Rhythm, S1, S2 Respiratory: Yes: Diminished, Rales (CRACKLES R BASE) Gastrointestinal: Yes: Normal Bowel Sounds, Soft Extremities: Yes: WNL Edema: No Labs: CBC, BMP 12/01/16 05:35 12/01/16 05:35 INR, PTT INR 1.16 (0.82-1.09) H 11/29/16 00:29 Assessment/Plan ASSESSMENT AND PLAN: Pneumonia Acute NSTEMI Atrial Fibrillation h/o CVA Altered Mental Status resolving CAD s/p stents h/o Ovarian Ca - ASA, plavix - beta gogo, statin - antibiotics - aspiration precautions - O2 to keep SpO2 >90% - DVT prophylaxis DR COWAN
--- NOTE | 2016-12-01 16:03 | PN ---
Progress Note (short form) - Note Progress Note: Patient seen and examined. Much more awake. No acute event overnight. Denies chest pain , shortness of breath, palpitation or dizziness. Recent Travel: unknown PAST MEDICAL HISTORY: as above PAST SURGICAL HISTORY: as above Social History: Smoking: unknown Alcohol: unknown Drugs: unknown Family History: unknown Allergies No Known Allergies Allergy (Verified 12/13/15 17:55) HOME MEDICATIONS: Home Medications Medication Instructions Recorded Acetaminophen [Tylenol] 325 mg PO QID PRN 11/29/16 Ascorbic Acid [Vitamin C -] 500 mg PO TID 11/29/16 Atorvastatin Ca [Lipitor] 20 mg PO HS 11/29/16 Docusate Sodium [Colace -] 100 mg PO DAILY 11/29/16 Hydralazine HCl [Apresoline -] 25 mg PO BID 11/29/16 Lisinopril [Prinivil] 5 mg PO DAILY 11/29/16 Metoprolol Tartrate 25 mg PO BID 11/29/16 Oxybutynin Chloride [Oxybutynin 10 mg PO DAILY 11/29/16 Chloride ER] Polyethylene Glycol 3350 [Miralax 17 gm PO DAILY 11/29/16 (For Bowel Prep) -] REVIEW OF SYSTEMS CONSTITUTIONAL: Fever at the long-term. Absent: fever, chills, diaphoresis, generalized weakness, malaise, loss of appetite, weight change HEENT: Absent: rhinorrhea, nasal congestion, throat swelling, difficulty swallowing, mouth swelling, visual changes CARDIOVASCULAR: Absent: syncope, palpitations, irregular heart rate, peripheral edema RESPIRATORY: Absent: cough, shortness of breath, dyspnea with exertion, orthopnea, wheezing, stridor, hemoptysis GASTROINTESTINAL:Absent: abdominal distension, nausea, vomiting, diarrhea, constipation, melena, hematochezia GENITOURINARY: Absent:frequency, hematuria, MUSCULOSKELETAL: Absent: myalgia, arthralgia, joint swelling, SKIN: Absent: rash, itching, pallor HEMATOLOGIC/IMMUNOLOGIC: Absent: easy bleeding, easy bruising, lymphadenopathy ENDOCRINE:Absent: unexplained weight gain, unexplained weight loss NEUROLOGIC: Altered mental status for the past few days. Absent: headache, focal weakness or paresthesias, dizziness, unsteady gait, seizure, PHYSICAL EXAMINATION Vital Signs Period Temp Pulse Resp BP Sys/Romero Pulse Ox Last 24 Hr 98.2 F-99 F 60-83 16-20 123-159/54-68 98-98 GENERAL: Opens eyes to verbal stimuli HEAD: Normal with no signs of trauma. EYES: Pupils equal, round and reactive to light, Right gauze noted EARS, NOSE, THROAT: Ears normal, nares patent, oropharynx clear without exudates. NECK: Supple without lymphadenopathy, or masses. LUNGS: Rhonchus breath sounds bilaterally. HEART: Regular rate and rhythm, normal S1 and S2. Early 2/6 SM ABDOMEN: Soft, not distended, normoactive bowel sounds, no guarding, MUSCULOSKELETAL: No bony deformities or tenderness. UPPER EXTREMITIES: 2+ pulses, warm, well-perfused. No cyanosis. No clubbing. No peripheral edema. LOWER EXTREMITIES: 2+ pulses, warm, well-perfused. No calf tenderness. No peripheral edema. NEUROLOGICAL: Cranial nerves II-XII intact. Normal speech. Normal gait. SKIN: Warm, dry, normal turgor, no rashes or lesions noted, normal capillary refill. CBC, BMP 12/01/16 05:35 12/01/16 05:[address]: no evidence of acute intracranial pathology Abd/pelvis/chest CTA: no evidence of thoracic or abdominal aortic aneurysm or dissection. Right pleural effusion. Right middle lobe infiltrate and lower lobe atelectasis. EKG: AV paced rhythm with prolonged AV conduction Assessment: This is an 86 year old female with PMHx of aortic valve disorder, anemia, COPD, CHF, CVA, CAD s/p stents, NSTEMI, hypertension, hypercholesterolemia, ovarian cancer who presented to the ED from [facility] with altered mental status. Plan: 1) Cardiology: NSTEMI - Stable. - Continue aspirin 81 mg daily. - Cardiology follow up appreciated. 2) Hypertension - Reasonable control. - Continue current meds. - Low salt diet. 3) S/p TAVR - Stable. 4) Pneumonia - Stable. - Continue Zosyn and Vancomycin in the ED - F/u blood cultures. Prelim results negative. - ID follow up appreciated. 4) Prophylaxis: - Full dose Lovenox 5) Hypokalemia Potassium repleted. Fall precautions
--- NOTE | 2016-12-01 20:30 | PN ---
Progress Note, Physician History of Present Illness: Awake, responsive Offers no complaints Afebrile Elevated WBC noted BC (prelim) no growth - Current Medication List Current Medications: Active Medications Aspirin (Ecotrin -) 81 mg PO DAILY [facility] Last Admin: 12/01/16 09:46 Dose: 81 mg Atorvastatin Calcium (Lipitor -) 80 mg PO HS [facility] Last Admin: 11/30/16 22:14 Dose: 80 mg Hydralazine HCl (Apresoline Injection -) 10 mg IM Q8H PRN PRN Reason: SBP >180 Hydralazine HCl (Apresoline -) 25 mg PO BID [facility] Last Admin: 12/01/16 09:46 Dose: 25 mg Vancomycin HCl (Vancomycin (Pre-Docked)) 250 mls @ 150 mls/hr IVPB BID@0300, 1500 [facility] PRN Reason: Protocol Last Admin: 12/01/16 14:58 Dose: 150 mls/hr Lisinopril (Prinivil) 5 mg PO DAILY [facility] Last Admin: 12/01/16 09:46 Dose: 5 mg Metoprolol Tartrate (Lopressor -) 25 mg PO BID [facility] Last Admin: 12/01/16 09:46 Dose: 25 mg Piperacillin Sod/Tazobactam Sod (Zosyn 3.375gm Ivpb (Pre-Docked)) 3.375 gm IVPB Q8H-IV [facility] PRN Reason: Protocol Last Admin: 12/01/16 17:31 Dose: 3.375 gm - Objective Vital Signs: Vital Signs Temperature 99.8 F H 12/01/16 17:00 Pulse Rate 62 12/01/16 17:00 Respiratory Rate 20 12/01/16 17:00 Blood Pressure 145/75 12/01/16 17:00 O2 Sat by Pulse Oximetry (%) 98 12/01/16 09:00 Constitutional: Yes: No Distress Eyes: Yes: Conjunctiva Clear Cardiovascular: Yes: Regular Rate and Rhythm, S1, S2 Respiratory: Yes: Diminished Gastrointestinal: Yes: Normal Bowel Sounds, Soft. No: Tenderness Edema: No Labs: CBC, BMP 12/01/16 05:35 12/01/16 05:35 INR, PTT INR 1.16 (0.82-1.09) H 11/29/16 00:29 Assessment/Plan RLL pneumonia HCAP Possible sepsis secondary to pneumonia Toxic-metabolic encephalopathy- improved S/P TAVR, PPM Continue empiric zosyn / vancomycin Await c/s
[2016-12-01] MEDS: ATORVASTATIN CA 80 MG TABLET (FP) PO SCH (22:35)
[2016-12-02 08:10] LABS: ALBUMIN 2.1 g/dl (3.4-5.0); ALK PHOS 76 U/L (45-117); ANION GAP 7 (8-16); BILIRUBIN,TOTAL 0.4 mg/dL (0.2-1.0); CALCIUM 8.5 mg/dL (8.5-10.1); CO2 37 mmol/L (21-32); GLUCOSE,RANDOM 81 mg/dL (74-106); SGOT/AST 23 U/L (15-37); SGPT/ALT 12 U/L (12-78); TOT PROT 6.9 g/dl (6.4-8.2)
[2016-12-02 08:23] LABS: BASOPHIL 0.2 % (0-2.0); MCHC 31.6 g/dl (32.0-36.0); MEAN CELL VOLUME 88.5 fl (80-96); MEAN PLT VOLUME 9.1 fl (7.5-11.1); NEUTROPHILS 63.9 % (42.8-82.8); PLATELET COUNT 224 K/MM3 (134-434); RDW 19.4 % (11.6-15.6); WHITE BLOOD COUNT 5.7 K/mm3 (4.0-10.0)
--- NOTE | 2016-12-02 09:00 | PN ---
Progress Note (short form) - Note Progress Note: Patient seen and examined. Continues to improve. PO intake improved. Mental status improved. Denies chest pain , shortness of breath, palpitation or dizziness. Recent Travel: unknown PAST MEDICAL HISTORY: as above PAST SURGICAL HISTORY: as above Social History: Smoking: unknown Alcohol: unknown Drugs: unknown Family History: unknown Allergies No Known Allergies Allergy (Verified 12/13/15 17:55) HOME MEDICATIONS: Home Medications Medication Instructions Recorded Acetaminophen [Tylenol] 325 mg PO QID PRN 11/29/16 Ascorbic Acid [Vitamin C -] 500 mg PO TID 11/29/16 Atorvastatin Ca [Lipitor] 20 mg PO HS 11/29/16 Docusate Sodium [Colace -] 100 mg PO DAILY 11/29/16 Hydralazine HCl [Apresoline -] 25 mg PO BID 11/29/16 Lisinopril [Prinivil] 5 mg PO DAILY 11/29/16 Metoprolol Tartrate 25 mg PO BID 11/29/16 Oxybutynin Chloride [Oxybutynin 10 mg PO DAILY 11/29/16 Chloride ER] Polyethylene Glycol 3350 [Miralax 17 gm PO DAILY 11/29/16 (For Bowel Prep) -] REVIEW OF SYSTEMS CONSTITUTIONAL: Fever at the long-term. Absent: fever, chills, diaphoresis, generalized weakness, malaise, loss of appetite, weight change HEENT: Absent: rhinorrhea, nasal congestion, throat swelling, difficulty swallowing, mouth swelling, visual changes CARDIOVASCULAR: Absent: syncope, palpitations, irregular heart rate, peripheral edema RESPIRATORY: Absent: cough, shortness of breath, dyspnea with exertion, orthopnea, wheezing, stridor, hemoptysis GASTROINTESTINAL:Absent: abdominal distension, nausea, vomiting, diarrhea, constipation, melena, hematochezia GENITOURINARY: Absent:frequency, hematuria, MUSCULOSKELETAL: Absent: myalgia, arthralgia, joint swelling, SKIN: Absent: rash, itching, pallor HEMATOLOGIC/IMMUNOLOGIC: Absent: easy bleeding, easy bruising, lymphadenopathy ENDOCRINE:Absent: unexplained weight gain, unexplained weight loss NEUROLOGIC: Altered mental status for the past few days. Absent: headache, focal weakness or paresthesias, dizziness, unsteady gait, seizure, PHYSICAL EXAMINATION Vital Signs Period Temp Pulse Resp BP Sys/Romero Pulse Ox Last 24 Hr 97 F-99.8 F 60-64 16-20 135-152/60-75 98-98 GENERAL: Opens eyes to verbal stimuli HEAD: Normal with no signs of trauma. EYES: Pupils equal, round and reactive to light, Right gauze noted EARS, NOSE, THROAT: Ears normal, nares patent, oropharynx clear without exudates. NECK: Supple without lymphadenopathy, or masses. LUNGS: Rhonchus breath sounds bilaterally. HEART: Regular rate and rhythm, normal S1 and S2. Early 2/6 SM ABDOMEN: Soft, not distended, normoactive bowel sounds, no guarding, MUSCULOSKELETAL: No bony deformities or tenderness. UPPER EXTREMITIES: 2+ pulses, warm, well-perfused. No cyanosis. No clubbing. No peripheral edema. LOWER EXTREMITIES: 2+ pulses, warm, well-perfused. No calf tenderness. No peripheral edema. NEUROLOGICAL: Cranial nerves II-XII intact. Normal speech. Normal gait. SKIN: Warm, dry, normal turgor, no rashes or lesions noted, normal capillary refill. CBC, BMP 12/02/16 06:[address]: no evidence of acute intracranial pathology Abd/pelvis/chest CTA: no evidence of thoracic or abdominal aortic aneurysm or dissection. Right pleural effusion. Right middle lobe infiltrate and lower lobe atelectasis. EKG: AV paced rhythm with prolonged AV conduction Assessment: This is an 86 year old female with PMHx of aortic valve disorder, anemia, COPD, CHF, CVA, CAD s/p stents, NSTEMI, hypertension, hypercholesterolemia, ovarian cancer who presented to the ED from [facility] with altered mental status. Plan: 1) Cardiology: NSTEMI - Stable. - Continue aspirin 81 mg daily. - Cardiology follow up appreciated. 2) Hypertension - Reasonable control. - Continue current meds. - Low salt diet. 3) S/p TAVR - Stable. 4) Pneumonia - Improving. - Continue Zosyn and Vancomycin in the ED - F/u blood cultures. Prelim results negative. - ID follow up appreciated. 4) Prophylaxis: - Full dose Lovenox 5) Hypokalemia Potassium repleted. Fall precautions
[2016-12-02] MEDS: ASPIRIN COATED 81 MG TABLET.EC PO SCH (09:47)
[2016-12-02] MEDS: hydrALAZINE HCL 25 MG TABLET (FP) PO SCH ×2 (09:47→21:42)
[2016-12-02] MEDS: PIPERACILLIN/TAZOB 3.375 GM/50 ML PRE-DOCKED IVPB SCH ×3 (09:47→17:40)
[2016-12-02] MEDS: METOPROLOL TARTRATE 25 MG TABLET (FP) PO SCH ×2 (09:48→21:42)
[2016-12-02] MEDS: LISINOPRIL 5 MG TABLET (FP) PO SCH (09:48)
--- NOTE | 2016-12-02 10:33 | PN ---
Progress Note (short form) - Note Progress Note: Chief Complaint: NSTEMI History of Present Illness: denies cp, sob, palpitations, syncope, dizzy Current Medications Generic Name Dose Route Start Last Admin Trade Name Shameka PRN Reason Stop Dose Admin Aspirin 81 mg 12/01/16 10:00 12/02/16 09:47 Ecotrin - PO 81 mg DAILY [facility] Administration Atorvastatin Calcium 80 mg 11/30/16 22:00 12/01/16 22:35 Lipitor - PO 80 mg HS [facility]E Administration Hydralazine HCl 10 mg 11/30/16 19:38 Apresoline Injection - IM Q8H PRN SBP >180 Hydralazine HCl 25 mg 11/30/16 22:00 12/02/16 09:47 Apresoline - PO 25 mg BID [facility]E Administration Vancomycin HCl 250 mls @ 150 mls/hr 12/01/16 03:00 12/01/16 14:58 Vancomycin (Pre-Docked) IVPB 150 mls/hr BID@0300,1500 [facility]SIE Administration Protocol Lisinopril 5 mg 12/01/16 10:00 12/02/16 09:48 Prinivil PO 5 mg DAILY [facility] Administration Metoprolol Tartrate 25 mg 11/30/16 22:00 12/02/16 09:48 Lopressor - PO 25 mg BID [facility] Administration Piperacillin Sod/Tazobactam Sod 3.375 gm 12/01/16 02:00 12/02/16 09:48 Zosyn 3.375gm Ivpb (Pre-Docked) IVPB 3.375 gm Q8H-IV [facility] Administration Protocol Vital Signs Period Temp Pulse Resp BP Sys/Romero Pulse Ox Last 24 Hr 97 F-99.8 F 60-64 20-20 135-145/56-75 98 Constitutional: Yes: Well Nourished, No Distress, Calm Cardiovascular: Yes: Regular Rate and Rhythm, Murmur (2/6 NADIA lusb), S1, S2. No : Gallop Respiratory: Yes: Regular, Diminished (R base). No: Rales, Wheezes Extremities: No: Cold Edema: No Neurological: Yes: Alert. No: Seizure Psychiatric: No: Agitated no jaundice diaphoresis Labs: CBC, BMP 12/02/16 06:00 12/02/16 05:35 - ....Imaging EKG: Other (tele: A-/V-paced) Echo 11/2016: tds. nl lv/rv. poor visualization of AV. ? prosthetic. 1+ mac, mod ecc TR. Echo 09/26 here: TDS; nl overall LVSF (RWMA tds); nl overall RV size/fxn; nl LA; AV tds--no AI or ; trace MR can't exclude vegetation; mild TR Echo 06/2014: nl lv/rv, mod tr, rvsp 30-40, nl bio avr CXR (holger read): prominent mediastinum; no vasc redistribution, no effusion; mild chronic incr'd interstitial markings--all unchanged vs 09/[address] head: no acute pathology CTA chest/abdomen/pelvis: no aorta dissection or aneurysm (extensive abd aorta calcified plaque); moderate R pleural effusion with adjacent ATX; patchy consolidation RML; L lung clear; a/p: NSTEMI: -known underlying obstructive CAD given NSTEMI here in 2014 (+CP with peak troponin 5)--seen by different cardiology group then, notes reviewed--pt refused cath, was treated medically (no stress test done) -now with atypical presentation (few days of altered MS) in setting of PNA and hi fever, with trop 11-->trending down -she has h/o recurrent occult bleeding on AC in past, necessitating d/c of med, and again same when here 09/26 requiring d/c of ASA (pt declined transfusions at that time) -this 86 yo pt with recurrent occult bleeding (and refusal of PRBCs due to sabianist beliefs) is hence at prohibitive risk of premature discontinuation of DAPT therapy and stent thrombosis if has PCI, and hence will be managed medically for now - started statin (hi intensity--atorva 80mg), po BB, HILDA -hgb trending down on serial labs--d/c heparin. cont ASA only (no plavix) -cont BB, HILDA, statin - Dr. Fraser d/w'niles portillo who knows pt from before--given that she is [employer] and will definitely not accept transfusions, would not risk potentially life-threatening bleeding with DAPT post stent regardless of what nuclear images would show--hence med mgmt is only appropriate option here-- unless family wishes to first proceed with GI scopes, in which case she will need risk stratification with imaging prior). not a CABG candidate given her poor functional status and hence hi risk of adverse periop outcomes. -echo here for LV fxn --> tds, but grossly nl lv fcn. RML pneumonia with parapneumonic effusion: -fever 102.9 -abx per ID altered mental status: -head CT no acute pathology -? sec to PNA -atypical for ACS sx in elderly with reportedly normal mentation at baseline ( per notes)--though not impossible anemia: -h/o GIB in past (necessitating d/c of AC, per chart notes) -baseline hgb runs 9s-11s -was down to 6's when here 09/26, refused PRBCs--ASA had to be held then -currently stable with hgb 10 -no prior endoscopies done here ppm: [place]st fab dual chamber place [place] [facility] [place] followed there. -normal fcn on ecg, tele. -cont routine outpt PM f/u htn: -bp overall controlled for age. ? pafib: -per charts, no details available--pt in sinus rhythm during prior admit here -ac reportedly stopped in past for gib -at high risk for cardioembolic CVA (prior h/o CVA, CHADS-VASC = 7) -will not change prior tx plan given pt not well known to us, and recurrent acute severe anemia 09/26 -ASA only for now, if H/H remains stable s/p tavr: -normal AV fxn on echo here 09/26 -no murmur on exam
--- NOTE | 2016-12-02 10:52 | PN ---
Progress Note, Physician History of Present Illness: Awake, responsive Offers no complaints Afebrile WBC improved - Current Medication List Current Medications: Active Medications Aspirin (Ecotrin -) 81 mg PO DAILY [facility] Last Admin: 12/02/16 09:47 Dose: 81 mg Atorvastatin Calcium (Lipitor -) 80 mg PO HS [facility] Last Admin: 12/01/16 22:35 Dose: 80 mg Hydralazine HCl (Apresoline Injection -) 10 mg IM Q8H PRN PRN Reason: SBP >180 Hydralazine HCl (Apresoline -) 25 mg PO BID [facility] Last Admin: 12/02/16 09:47 Dose: 25 mg Vancomycin HCl (Vancomycin (Pre-Docked)) 250 mls @ 150 mls/hr IVPB BID@0300, 1500 [facility] PRN Reason: Protocol Last Admin: 12/01/16 14:58 Dose: 150 mls/hr Lisinopril (Prinivil) 5 mg PO DAILY [facility] Last Admin: 12/02/16 09:48 Dose: 5 mg Metoprolol Tartrate (Lopressor -) 25 mg PO BID [facility] Last Admin: 12/02/16 09:48 Dose: 25 mg Piperacillin Sod/Tazobactam Sod (Zosyn 3.375gm Ivpb (Pre-Docked)) 3.375 gm IVPB Q8H-IV [facility] PRN Reason: Protocol Last Admin: 12/02/16 09:48 Dose: 3.375 gm - Objective Vital Signs: Vital Signs Temperature 98.0 F 12/02/16 10:00 Pulse Rate 60 12/02/16 10:00 Respiratory Rate 20 12/02/16 10:00 Blood Pressure 141/56 12/02/16 10:00 O2 Sat by Pulse Oximetry (%) 98 12/01/16 21:00 Constitutional: Yes: No Distress Eyes: Yes: Conjunctiva Clear Cardiovascular: Yes: Regular Rate and Rhythm, S1, S2 Respiratory: Yes: Diminished Gastrointestinal: Yes: Normal Bowel Sounds, Soft, Abdomen, Obese, Pulsatile Mass. No: Tenderness Edema: No Labs: CBC, BMP 12/02/16 06:00 12/02/16 05:35 INR, PTT INR 1.16 (0.82-1.09) H 11/29/16 00:29 Assessment/Plan RLL pneumonia HCAP Possible sepsis secondary to pneumonia Toxic-metabolic encephalopathy- improved S/P TAVR, PPM Continue empiric zosyn D/C vancomycin
--- NOTE | 2016-12-02 10:57 | PN ---
Progress Note, Physician History of Present Illness: PULMONARY ALERT,LESS DYSPNEIC,+COUGH - Current Medication List Current Medications: Active Medications Aspirin (Ecotrin -) 81 mg PO DAILY [facility] Last Admin: 12/02/16 09:47 Dose: 81 mg Atorvastatin Calcium (Lipitor -) 80 mg PO HS [facility] Last Admin: 12/01/16 22:35 Dose: 80 mg Hydralazine HCl (Apresoline Injection -) 10 mg IM Q8H PRN PRN Reason: SBP >180 Hydralazine HCl (Apresoline -) 25 mg PO BID [facility] Last Admin: 12/02/16 09:47 Dose: 25 mg Vancomycin HCl (Vancomycin (Pre-Docked)) 250 mls @ 150 mls/hr IVPB BID@0300, 1500 [facility] PRN Reason: Protocol Last Admin: 12/01/16 14:58 Dose: 150 mls/hr Lisinopril (Prinivil) 5 mg PO DAILY [facility] Last Admin: 12/02/16 09:48 Dose: 5 mg Metoprolol Tartrate (Lopressor -) 25 mg PO BID [facility] Last Admin: 12/02/16 09:48 Dose: 25 mg Piperacillin Sod/Tazobactam Sod (Zosyn 3.375gm Ivpb (Pre-Docked)) 3.375 gm IVPB Q8H-IV [facility] PRN Reason: Protocol Last Admin: 12/02/16 09:48 Dose: 3.375 gm - Objective Vital Signs: Vital Signs Temperature 98.0 F 12/02/16 10:00 Pulse Rate 60 12/02/16 10:00 Respiratory Rate 20 12/02/16 10:00 Blood Pressure 141/56 12/02/16 10:00 O2 Sat by Pulse Oximetry (%) 98 12/01/16 21:00 Constitutional: Yes: Well Nourished, Calm Eyes: Yes: WNL HENT: Yes: WNL Neck: Yes: WNL Cardiovascular: Yes: Pulse Irregular, S1, S2 Respiratory: Yes: Rales (BIBASILAR RALES) Gastrointestinal: Yes: Normal Bowel Sounds, Soft Extremities: Yes: WNL Edema: No Labs: CBC, BMP 12/02/16 06:00 12/02/16 05:35 INR, PTT INR 1.16 (0.82-1.09) H 11/29/16 00:29 Assessment/Plan ASSESSMENT AND PLAN: Pneumonia Acute NSTEMI Atrial Fibrillation h/o CVA Altered Mental Status resolving CAD s/p stents h/o Ovarian Ca - ASA, plavix - beta gogo, statin - antibiotics - aspiration precautions - O2 to keep SpO2 >90% - DVT prophylaxis Chest x-ray today DR COWAN
[2016-12-02] MEDS: ATORVASTATIN CA 80 MG TABLET (FP) PO SCH (21:42)
[2016-12-03] MEDS: PIPERACILLIN/TAZOB 3.375 GM/50 ML PRE-DOCKED IVPB SCH ×2 (03:33→09:47)
[2016-12-03 08:09] LABS: EOSINOPHIL 6.7 % (0-4.5); MCH 28.2 pg (25.7-33.7); MCHC 31.6 g/dl (32.0-36.0); MEAN CELL VOLUME 89.4 fl (80-96); MEAN PLT VOLUME 8.8 fl (7.5-11.1); NEUTROPHILS 55.8 % (42.8-82.8); PLATELET COUNT 218 K/MM3 (134-434); RDW 19.3 % (11.6-15.6); WHITE BLOOD COUNT 4.7 K/mm3 (4.0-10.0)
[2016-12-03 08:41] LABS: ANION GAP 8 (8-16); CALCIUM 8.6 mg/dL (8.5-10.1); CO2 36 mmol/L (21-32); GLUCOSE,RANDOM 82 mg/dL (74-106); SGOT/AST 22 U/L (15-37); SGPT/ALT 12 U/L (12-78)
[2016-12-03 08:43] LABS: ALK PHOS 75 U/L (45-117); BILIRUBIN,TOTAL 0.4 mg/dL (0.2-1.0); CREATININE 0.8 mg/dL (0.55-1.02); TOT PROT 6.7 g/dl (6.4-8.2)
--- NOTE | 2016-12-03 08:59 | PN ---
Progress Note (short form) - Note Progress Note: Patient seen and examined. Sleepy but arousable. Responding to verbal commands. Noted to be restless through out the night. Discussed with nurse to monitor her mental status closely. Afebrile. Denies chest pain , shortness of breath, palpitation or dizziness. Recent Travel: unknown PAST MEDICAL HISTORY: as above PAST SURGICAL HISTORY: as above Social History: Smoking: unknown Alcohol: unknown Drugs: unknown Family History: unknown Allergies No Known Allergies Allergy (Verified 12/13/15 17:55) HOME MEDICATIONS: Home Medications Medication Instructions Recorded Acetaminophen [Tylenol] 325 mg PO QID PRN 11/29/16 Ascorbic Acid [Vitamin C -] 500 mg PO TID 11/29/16 Atorvastatin Ca [Lipitor] 20 mg PO HS 11/29/16 Docusate Sodium [Colace -] 100 mg PO DAILY 11/29/16 Hydralazine HCl [Apresoline -] 25 mg PO BID 11/29/16 Lisinopril [Prinivil] 5 mg PO DAILY 11/29/16 Metoprolol Tartrate 25 mg PO BID 11/29/16 Oxybutynin Chloride [Oxybutynin 10 mg PO DAILY 11/29/16 Chloride ER] Polyethylene Glycol 3350 [Miralax 17 gm PO DAILY 11/29/16 (For Bowel Prep) -] REVIEW OF SYSTEMS CONSTITUTIONAL: Fever at the fpc. Absent: fever, chills, diaphoresis, generalized weakness, malaise, loss of appetite, weight change HEENT: Absent: rhinorrhea, nasal congestion, throat swelling, difficulty swallowing, mouth swelling, visual changes CARDIOVASCULAR: Absent: syncope, palpitations, irregular heart rate, peripheral edema RESPIRATORY: Absent: cough, shortness of breath, dyspnea with exertion, orthopnea, wheezing, stridor, hemoptysis GASTROINTESTINAL:Absent: abdominal distension, nausea, vomiting, diarrhea, constipation, melena, hematochezia GENITOURINARY: Absent:frequency, hematuria, MUSCULOSKELETAL: Absent: myalgia, arthralgia, joint swelling, SKIN: Absent: rash, itching, pallor HEMATOLOGIC/IMMUNOLOGIC: Absent: easy bleeding, easy bruising, lymphadenopathy ENDOCRINE:Absent: unexplained weight gain, unexplained weight loss NEUROLOGIC: Altered mental status for the past few days. Absent: headache, focal weakness or paresthesias, dizziness, unsteady gait, seizure, PHYSICAL EXAMINATION Vital Signs Period Temp Pulse Resp BP Sys/Romero Pulse Ox Last 24 Hr 97.5 F-99.1 F 60-65 16-20 141-180/56-80 98-100 GENERAL: Opens eyes to verbal stimuli HEAD: Normal with no signs of trauma. EYES: Pupils equal, round and reactive to light, Right gauze noted EARS, NOSE, THROAT: Ears normal, nares patent, oropharynx clear without exudates. NECK: Supple without lymphadenopathy, or masses. LUNGS: Rhonchus breath sounds bilaterally. HEART: Regular rate and rhythm, normal S1 and S2. Early 2/6 SM ABDOMEN: Soft, not distended, normoactive bowel sounds, no guarding, MUSCULOSKELETAL: No bony deformities or tenderness. UPPER EXTREMITIES: 2+ pulses, warm, well-perfused. No cyanosis. No clubbing. No peripheral edema. LOWER EXTREMITIES: 2+ pulses, warm, well-perfused. No calf tenderness. No peripheral edema. NEUROLOGICAL: Cranial nerves II-XII intact. Normal speech. Normal gait. SKIN: Warm, dry, normal turgor, no rashes or lesions noted, normal capillary refill. CBC, BMP 12/03/16 05:50 12/03/16 05:[address]: no evidence of acute intracranial pathology Abd/pelvis/chest CTA: no evidence of thoracic or abdominal aortic aneurysm or dissection. Right pleural effusion. Right middle lobe infiltrate and lower lobe atelectasis. EKG: AV paced rhythm with prolonged AV conduction Assessment: This is an 86 year old female with PMHx of aortic valve disorder, anemia, COPD, CHF, CVA, CAD s/p stents, NSTEMI, hypertension, hypercholesterolemia, ovarian cancer who presented to the ED from [facility] with altered mental status. Plan: 1) Cardiology: NSTEMI - Stable. - Continue aspirin 81 mg daily. - Cardiology follow up appreciated. 2) Hypertension - High. - Will increase hydralazine to 25 mg TID - Continue lisinopril 5 mg daily. - Continue current meds. - Low salt diet. 3) S/p TAVR - Stable. 4) Pneumonia - Improving. - Continue Zosyn and Vancomycin in the ED - F/u blood cultures. Prelim results negative. - ID follow up appreciated. 4) Prophylaxis: - Full dose Lovenox 5) Hypokalemia Potassium repleted. Fall precautions
[2016-12-03] MEDS: METOPROLOL TARTRATE 25 MG TABLET (FP) PO SCH ×2 (09:47→21:40)
[2016-12-03] MEDS: ASPIRIN COATED 81 MG TABLET.EC PO SCH (09:47)
[2016-12-03] MEDS: LISINOPRIL 5 MG TABLET (FP) PO SCH (09:47)
--- NOTE | 2016-12-03 10:18 | PN ---
Progress Note (short form) - Note Progress Note: Chief Complaint: NSTEMI History of Present Illness: denies cp, sob, palpitations, syncope, dizzy Current Medications Generic Name Dose Route Start Last Admin Trade Name Shameka PRN Reason Stop Dose Admin Aspirin 81 mg 12/01/16 10:00 12/03/16 09:47 Ecotrin - PO 81 mg DAILY [facility] Administration Atorvastatin Calcium 80 mg 11/30/16 22:00 12/02/16 21:42 Lipitor - PO 80 mg HS [facility] Administration Hydralazine HCl 10 mg 11/30/16 19:38 Apresoline Injection - IM Q8H PRN SBP >180 Hydralazine HCl 25 mg 12/03/16 14:00 Apresoline - PO TID [facility] Lisinopril 5 mg 12/01/16 10:00 12/03/16 09:47 Prinivil PO 5 mg DAILY [facility] Administration Metoprolol Tartrate 25 mg 11/30/16 22:00 12/03/16 09:47 Lopressor - PO 25 mg BID [facility] Administration Piperacillin Sod/Tazobactam Sod 3.375 gm 12/01/16 02:00 12/03/16 09:47 Zosyn 3.375gm Ivpb (Pre-Docked) IVPB 3.375 gm Q8H-IV [facility] Administration Protocol Vital Signs Period Temp Pulse Resp BP Sys/Romero Pulse Ox Last 24 Hr 97.5 F-99.1 F 60-65 16-20 160-180/63-80 100 Constitutional: Yes: Well Nourished, No Distress, Calm Cardiovascular: Yes: Regular Rate and Rhythm, Murmur (2/6 NADIA lusb), S1, S2. No : Gallop Respiratory: Yes: Regular, Diminished (R base). No: Rales, Wheezes Extremities: No: Cold Edema: No Neurological: Yes: Alert. No: Seizure Psychiatric: No: Agitated no jaundice diaphoresis Labs: CBC, BMP 12/03/16 05:50 12/03/16 05:50 - ....Imaging EKG: Other (tele: A-/V-paced) Echo 11/2016: tds. nl lv/rv. poor visualization of AV. ? prosthetic. 1+ mac, mod ecc TR. Echo 09/26 here: TDS; nl overall LVSF (RWMA tds); nl overall RV size/fxn; nl LA; AV tds--no AI or ; trace MR can't exclude vegetation; mild TR Echo 06/2014: nl lv/rv, mod tr, rvsp 30-40, nl bio avr CXR (holger read): prominent mediastinum; no vasc redistribution, no effusion; mild chronic incr'd interstitial markings--all unchanged vs 09/[address] head: no acute pathology CTA chest/abdomen/pelvis: no aorta dissection or aneurysm (extensive abd aorta calcified plaque); moderate R pleural effusion with adjacent ATX; patchy consolidation RML; L lung clear; a/p: NSTEMI: -known underlying obstructive CAD given NSTEMI here in 2014 (+CP with peak troponin 5)--seen by different cardiology group then, notes reviewed--pt refused cath, was treated medically (no stress test done) -now with atypical presentation (few days of altered MS) in setting of PNA and hi fever, with trop 11-->trending down -she has h/o recurrent occult bleeding on AC in past, necessitating d/c of med, and again same when here 09/26 requiring d/c of ASA (pt declined transfusions at that time) -this 86 yo pt with recurrent occult bleeding (and refusal of PRBCs due to judaism beliefs) is hence at prohibitive risk of premature discontinuation of DAPT therapy and stent thrombosis if has PCI, and hence will be managed medically for now - started statin (hi intensity--atorva 80mg), po BB, HILDA -hgb trending down on serial labs--d/c heparin. cont ASA only (no plavix) -cont BB, HILDA, statin - Dr. Fraser d/w'd dr portillo who knows pt from before--given that she is [employer] and will definitely not accept transfusions, would not risk potentially life-threatening bleeding with DAPT post stent regardless of what nuclear images would show--hence med mgmt is only appropriate option here-- unless family wishes to first proceed with GI scopes, in which case she will need risk stratification with imaging prior). not a CABG candidate given her poor functional status and hence hi risk of adverse periop outcomes. -echo here for LV fxn --> tds, but grossly nl lv fcn. RML pneumonia with parapneumonic effusion: -fever 102.9 -abx per ID altered mental status: -head CT no acute pathology -? 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 followed there. -normal fcn on ecg, tele. -cont routine outpt PM f/u htn: -elevated, agree with addition of hydralazine ? pafib: -per charts, no details available--pt in sinus rhythm during prior admit here -ac reportedly stopped in past for gib -at high risk for cardioembolic CVA (prior h/o CVA, CHADS-VASC = 7) -will not change prior tx plan given pt not well known to us, and recurrent acute severe anemia 09/26 -ASA only for now, if H/H remains stable s/p tavr: -normal AV fxn on echo here 09/26 -no murmur on exam can dc tele
--- NOTE | 2016-12-03 10:59 | PN ---
Progress Note, Physician History of Present Illness: PULMONARY ALERT,NAD,-C/O CP,LESS DYSPNEIC - Current Medication List Current Medications: Active Medications Aspirin (Ecotrin -) 81 mg PO DAILY [facility] Last Admin: 12/03/16 09:47 Dose: 81 mg Atorvastatin Calcium (Lipitor -) 80 mg PO HS [facility] Last Admin: 12/02/16 21:42 Dose: 80 mg Hydralazine HCl (Apresoline Injection -) 10 mg IM Q8H PRN PRN Reason: SBP >180 Hydralazine HCl (Apresoline -) 25 mg PO TID [facility] Lisinopril (Prinivil) 5 mg PO DAILY [facility] Last Admin: 12/03/16 09:47 Dose: 5 mg Metoprolol Tartrate (Lopressor -) 25 mg PO BID [facility] Last Admin: 12/03/16 09:47 Dose: 25 mg Piperacillin Sod/Tazobactam Sod (Zosyn 3.375gm Ivpb (Pre-Docked)) 3.375 gm IVPB Q8H-IV [facility] PRN Reason: Protocol Last Admin: 12/03/16 09:47 Dose: 3.375 gm - Objective Vital Signs: Vital Signs Temperature 98.2 F 12/03/16 08:05 Pulse Rate 60 12/03/16 08:05 Respiratory Rate 16 12/03/16 08:05 Blood Pressure 160/68 12/03/16 08:05 O2 Sat by Pulse Oximetry (%) 100 12/02/16 21:00 Constitutional: Yes: Well Nourished, Calm Eyes: Yes: WNL HENT: Yes: WNL Neck: Yes: WNL Cardiovascular: Yes: Regular Rate and Rhythm, S1, S2 Respiratory: Yes: Rales (LONG CRACKLES R>L) Gastrointestinal: Yes: Normal Bowel Sounds, Soft Extremities: Yes: WNL Edema: No Labs: CBC, BMP 12/03/16 05:50 12/03/16 05:50 INR, PTT INR 1.16 (0.82-1.09) H 11/29/16 00:29 - ....Imaging Chest X-ray: Report Reviewed, Image Reviewed (INCREASED INF LONG) Assessment/Plan ASSESSMENT AND PLAN: Pneumonia Acute NSTEMI Atrial Fibrillation h/o CVA Altered Mental Status resolved CAD s/p stents h/o Ovarian Ca - ASA, plavix - beta gogo, statin - antibiotics as per ID - aspiration precautions - O2 to keep SpO2 >90% - DVT prophylaxis DR COWAN
[2016-12-03] MEDS: hydrALAZINE HCL 25 MG TABLET (FP) PO SCH ×2 (14:31→21:40)
[2016-12-03] MEDS ORDERED: PIPERACILLIN/TAZOBACTAM 3.375 GM VIAL IVPB ONE (18:52)
[2016-12-03] MEDS ORDERED: SODIUM CHLORIDE 50 ML IVPB ONE (18:52)
[2016-12-03] MEDS: PIPERACILLIN/TAZOB 3.375 GM 3.375 GM in SODIUM CHLORIDE 50 ML IVPB SCH (18:58)
--- NOTE | 2016-12-03 19:03 | PN ---
Progress Note, Physician History of Present Illness: More alert No complaints No acute distress Afebrile - Current Medication List Current Medications: Active Medications Aspirin (Ecotrin -) 81 mg PO DAILY [facility] Last Admin: 12/03/16 09:47 Dose: 81 mg Atorvastatin Calcium (Lipitor -) 80 mg PO HS [facility] Last Admin: 12/02/16 21:42 Dose: 80 mg Hydralazine HCl (Apresoline Injection -) 10 mg IM Q8H PRN PRN Reason: SBP >180 Hydralazine HCl (Apresoline -) 25 mg PO TID [facility] Last Admin: 12/03/16 14:31 Dose: 25 mg Piperacillin Sod/Tazobactam (Sod 3.375 gm/ Sodium Chloride) 50 mls @ 100 mls/ hr IVPB Q8H-IV [facility] Stop: 12/08/16 02:29 Last Admin: 12/03/16 18:58 Dose: 100 mls/hr Lisinopril (Prinivil) 5 mg PO DAILY [facility] Last Admin: 12/03/16 09:47 Dose: 5 mg Metoprolol Tartrate (Lopressor -) 25 mg PO BID [facility] Last Admin: 12/03/16 09:47 Dose: 25 mg - Objective Vital Signs: Vital Signs Temperature 98.5 F 12/03/16 14:34 Pulse Rate 65 12/03/16 14:34 Respiratory Rate 18 12/03/16 14:34 Blood Pressure 152/81 12/03/16 14:34 O2 Sat by Pulse Oximetry (%) 100 12/03/16 09:00 Constitutional: Yes: No Distress Eyes: Yes: Conjunctiva Clear Cardiovascular: Yes: Regular Rate and Rhythm, S1, S2 Respiratory: Yes: Other (crepitations at bases) Gastrointestinal: Yes: Normal Bowel Sounds, Soft Labs: CBC, BMP 12/03/16 05:50 12/03/16 05:50 INR, PTT INR 1.16 (0.82-1.09) H 11/29/16 00:29 Assessment/Plan RLL pneumonia HCAP Possible sepsis secondary to pneumonia Toxic-metabolic encephalopathy- improved S/P TAVR, PPM Continue empiric zosyn
[2016-12-03] MEDS: ATORVASTATIN CA 80 MG TABLET (FP) PO SCH (21:40)
[2016-12-04] MEDS ORDERED: PIPERACILLIN/TAZOBACTAM 3.375 GM VIAL IVPB ONE ×4 (00:31→20:08)
[2016-12-04] MEDS ORDERED: SODIUM CHLORIDE 50 ML IVPB ONE ×4 (00:31→20:08)
[2016-12-04] MEDS: PIPERACILLIN/TAZOB 3.375 GM 3.375 GM in SODIUM CHLORIDE 50 ML IVPB SCH ×3 (01:39→18:09)
[2016-12-04] MEDS: hydrALAZINE HCL 25 MG TABLET (FP) PO SCH ×3 (06:04→21:41)
[2016-12-04 08:13] LABS: MCH 28.7 pg (25.7-33.7); MCHC 32.1 g/dl (32.0-36.0); MEAN CELL VOLUME 89.7 fl (80-96); MEAN PLT VOLUME 8.7 fl (7.5-11.1); PLATELET COUNT 227 K/MM3 (134-434); RDW 19.3 % (11.6-15.6); WHITE BLOOD COUNT 6.9 K/mm3 (4.0-10.0)
[2016-12-04] MEDS: VANCOMYCIN 1 GRAM (PRE-DOCKED) 250 ML IVPB SCH (08:14)
[2016-12-04 08:17] LABS: BASOPHIL 0.7 % (0-2.0); EOSINOPHIL 6.4 % (0-4.5); MCH 28.2 pg (25.7-33.7); MCHC 31.5 g/dl (32.0-36.0); MEAN CELL VOLUME 89.6 fl (80-96); MEAN PLT VOLUME 8.7 fl (7.5-11.1); NEUTROPHILS 68.8 % (42.8-82.8); PLATELET COUNT 224 K/MM3 (134-434); RDW 19.4 % (11.6-15.6)
--- NOTE | 2016-12-04 08:47 | PN ---
Progress Note (short form) - Note Progress Note: Patient seen and examined. Awake, interactive in conversation. Afebrile. No acute event overnight. Recent Travel: unknown PAST MEDICAL HISTORY: as above PAST SURGICAL HISTORY: as above Social History: Smoking: unknown Alcohol: unknown Drugs: unknown Family History: unknown Allergies No Known Allergies Allergy (Verified 12/13/15 17:55) HOME MEDICATIONS: Home Medications Medication Instructions Recorded Acetaminophen [Tylenol] 325 mg PO QID PRN 11/29/16 Ascorbic Acid [Vitamin C -] 500 mg PO TID 11/29/16 Atorvastatin Ca [Lipitor] 20 mg PO HS 11/29/16 Docusate Sodium [Colace -] 100 mg PO DAILY 11/29/16 Hydralazine HCl [Apresoline -] 25 mg PO BID 11/29/16 Lisinopril [Prinivil] 5 mg PO DAILY 11/29/16 Metoprolol Tartrate 25 mg PO BID 11/29/16 Oxybutynin Chloride [Oxybutynin 10 mg PO DAILY 11/29/16 Chloride ER] Polyethylene Glycol 3350 [Miralax 17 gm PO DAILY 11/29/16 (For Bowel Prep) -] REVIEW OF SYSTEMS CONSTITUTIONAL: Fever at the snf. Absent: fever, chills, diaphoresis, generalized weakness, malaise, loss of appetite, weight change HEENT: Absent: rhinorrhea, nasal congestion, throat swelling, difficulty swallowing, mouth swelling, visual changes CARDIOVASCULAR: Absent: syncope, palpitations, irregular heart rate, peripheral edema RESPIRATORY: Absent: cough, shortness of breath, dyspnea with exertion, orthopnea, wheezing, stridor, hemoptysis GASTROINTESTINAL:Absent: abdominal distension, nausea, vomiting, diarrhea, constipation, melena, hematochezia GENITOURINARY: Absent:frequency, hematuria, MUSCULOSKELETAL: Absent: myalgia, arthralgia, joint swelling, SKIN: Absent: rash, itching, pallor HEMATOLOGIC/IMMUNOLOGIC: Absent: easy bleeding, easy bruising, lymphadenopathy ENDOCRINE:Absent: unexplained weight gain, unexplained weight loss NEUROLOGIC: Altered mental status for the past few days. Absent: headache, focal weakness or paresthesias, dizziness, unsteady gait, seizure, PHYSICAL EXAMINATION Vital Signs Period Temp Pulse Resp BP Sys/Romero Pulse Ox Last 24 Hr 98.2 F-98.7 F 60-68 16-20 126-167/58-81 98-100 GENERAL: Opens eyes to verbal stimuli HEAD: Normal with no signs of trauma. EYES: Pupils equal, round and reactive to light, Right gauze noted EARS, NOSE, THROAT: Ears normal, nares patent, oropharynx clear without exudates. NECK: Supple without lymphadenopathy, or masses. LUNGS: Rhonchus breath sounds bilaterally. HEART: Regular rate and rhythm, normal S1 and S2. Early 2/6 SM ABDOMEN: Soft, not distended, normoactive bowel sounds, no guarding, MUSCULOSKELETAL: No bony deformities or tenderness. UPPER EXTREMITIES: 2+ pulses, warm, well-perfused. No cyanosis. No clubbing. No peripheral edema. LOWER EXTREMITIES: 2+ pulses, warm, well-perfused. No calf tenderness. No peripheral edema. NEUROLOGICAL: Cranial nerves II-XII intact. Normal speech. Normal gait. SKIN: Warm, dry, normal turgor, no rashes or lesions noted, normal capillary refill. CBC, BMP 12/04/16 06:00 12/04/16 06:[address]: no evidence of acute intracranial pathology Abd/pelvis/chest CTA: no evidence of thoracic or abdominal aortic aneurysm or dissection. Right pleural effusion. Right middle lobe infiltrate and lower lobe atelectasis. EKG: AV paced rhythm with prolonged AV conduction Assessment: This is an 86 year old female with PMHx of aortic valve disorder, anemia, COPD, CHF, CVA, CAD s/p stents, NSTEMI, hypertension, hypercholesterolemia, ovarian cancer who presented to the ED from [facility] with altered mental status. Plan: 1) Cardiology: NSTEMI - Stable. - Continue aspirin 81 mg daily. - Cardiology follow up appreciated. 2) Hypertension - Continue hydralazine to 25 mg TID - Continue lisinopril 5 mg daily. - Continue current meds. - Low salt diet. 3) S/p TAVR - Stable. 4) Pneumonia - Improving. - Continue Zosyn and Vancomycin in the ED - Blood cultures negative - ID follow up appreciated. 4) Prophylaxis: - Full dose Lovenox 5) Hypokalemia Potassium repleted. 6) Anemia H/H stable. Refused work up/transfusion during last admission. Will monitor closely. Fall precautions Patient continues to improve.
[2016-12-04 08:48] LABS: ALBUMIN 2.1 g/dl (3.4-5.0); ALK PHOS 83 U/L (45-117); ANION GAP 6 (8-16); BILIRUBIN,TOTAL 0.4 mg/dL (0.2-1.0); CALCIUM 8.7 mg/dL (8.5-10.1); CO2 35 mmol/L (21-32); CREATININE 0.8 mg/dL (0.55-1.02); GLUCOSE,RANDOM 80 mg/dL (74-106); SGOT/AST 24 U/L (15-37); SGPT/ALT 14 U/L (12-78); TOT PROT 6.7 g/dl (6.4-8.2)
[2016-12-04] MEDS: ASCORBIC ACID 500 MG TABLET (FP) PO SCH (10:54)
[2016-12-04] MEDS: ASPIRIN COATED 81 MG TABLET.EC PO SCH (10:54)
[2016-12-04] MEDS: LISINOPRIL 5 MG TABLET (FP) PO SCH (10:54)
[2016-12-04] MEDS: FERROUS SO4 325 MG TABLET (FP) PO SCH (10:54)
[2016-12-04] MEDS: METOPROLOL TARTRATE 25 MG TABLET (FP) PO SCH ×2 (10:54→21:41)
[2016-12-04] MEDS: DOCUSATE SODIUM 100 MG CAPSULE (FP) PO SCH (10:54)
--- NOTE | 2016-12-04 12:24 | PN ---
Progress Note (short form) - Note Progress Note: PULMONARY OFFERS NO COMPLAINTS APPEARS CHRONICALLY ILL VSS/AFEBRILE ANICTERIC SCATTERED RHONCHI S1S2 OBESE SOFT NON TENDER MINIMAL LOWER EXT EDEMA LABS/MEDS/NOTES/IMAGING REVIEWED Pneumonia Acute NSTEMI Atrial Fibrillation h/o CVA Altered Mental Status resolved CAD s/p stents h/o Ovarian Ca - ASA, plavix - beta gogo, statin - antibiotics as per ID - aspiration precautions - O2 to keep SpO2 >90% - DVT prophylaxis Eduardo BEVERLY MD
--- NOTE | 2016-12-04 12:56 | PN ---
Progress Note, Physician History of Present Illness: More lethargic today No complaints Breathing non-labored Afebrile WBC WNL - Current Medication List Current Medications: Active Medications Ascorbic Acid (Vitamin C -) 500 mg PO DAILY [facility] Last Admin: 12/04/16 10:54 Dose: 500 mg Aspirin (Ecotrin -) 81 mg PO DAILY [facility] Last Admin: 12/04/16 10:54 Dose: 81 mg Atorvastatin Calcium (Lipitor -) 80 mg PO HS [facility] Last Admin: 12/03/16 21:40 Dose: 80 mg Docusate Sodium (Colace -) 100 mg PO DAILY [facility] Last Admin: 12/04/16 10:54 Dose: 100 mg Ferrous Sulfate (Feosol -) 325 mg PO DAILY [facility] Last Admin: 12/04/16 10:54 Dose: 325 mg Hydralazine HCl (Apresoline Injection -) 10 mg IM Q8H PRN PRN Reason: SBP >180 Hydralazine HCl (Apresoline -) 25 mg PO TID [facility] Last Admin: 12/04/16 06:04 Dose: 25 mg Piperacillin Sod/Tazobactam (Sod 3.375 gm/ Sodium Chloride) 50 mls @ 100 mls/ hr IVPB Q8H-IV [facility] Stop: 12/08/16 02:29 Last Admin: 12/04/16 10:56 Dose: 100 mls/hr Lisinopril (Prinivil) 5 mg PO DAILY [facility] Last Admin: 12/04/16 10:54 Dose: 5 mg Metoprolol Tartrate (Lopressor -) 25 mg PO BID [facility] Last Admin: 12/04/16 10:54 Dose: 25 mg - Objective Vital Signs: Vital Signs Temperature 98.6 F 12/04/16 10:00 Pulse Rate 60 12/04/16 10:00 Respiratory Rate 20 12/04/16 10:00 Blood Pressure 169/59 12/04/16 10:00 O2 Sat by Pulse Oximetry (%) 98 12/03/16 21:00 Constitutional: Yes: No Distress, Obese Cardiovascular: Yes: Regular Rate and Rhythm, S1, S2 Respiratory: Yes: Diminished Gastrointestinal: Yes: Normal Bowel Sounds, Soft. No: Tenderness Edema: Yes Labs: CBC, BMP 12/04/16 06:00 12/04/16 06:00 INR, PTT INR 1.16 (0.82-1.09) H 11/29/16 00:29 Assessment/Plan RLL pneumonia HCAP Possible sepsis secondary to pneumonia Toxic-metabolic encephalopathy- improved S/P TAVR, PPM Continue zosyn additional 24h, then po Augmentin 875mg bid x 3d
[2016-12-04] MEDS: ATORVASTATIN CA 80 MG TABLET (FP) PO SCH (21:41)
[2016-12-05] MEDS: PIPERACILLIN/TAZOB 3.375 GM 3.375 GM in SODIUM CHLORIDE 50 ML IVPB SCH ×2 (01:30→10:22)
[2016-12-05] MEDS: hydrALAZINE HCL 25 MG TABLET (FP) PO SCH ×3 (06:20→22:20)
[2016-12-05 07:54] LABS: MCH 28.8 pg (25.7-33.7); MCHC 31.9 g/dl (32.0-36.0); MEAN CELL VOLUME 90.2 fl (80-96); MEAN PLT VOLUME 8.5 fl (7.5-11.1); PLATELET COUNT 249 K/MM3 (134-434); RDW 19.7 % (11.6-15.6); WHITE BLOOD COUNT 6.4 K/mm3 (4.0-10.0)
[2016-12-05 07:57] LABS: BASOPHIL 0.6 % (0-2.0); EOSINOPHIL 9.2 % (0-4.5); MCH 28.9 pg (25.7-33.7); MEAN CELL VOLUME 90.4 fl (80-96); MEAN PLT VOLUME 8.4 fl (7.5-11.1); NEUTROPHILS 58.7 % (42.8-82.8); PLATELET COUNT 248 K/MM3 (134-434); RDW 19.7 % (11.6-15.6); WHITE BLOOD COUNT 6.2 K/mm3 (4.0-10.0)
[2016-12-05 08:47] LABS: ALBUMIN 2.1 g/dl (3.4-5.0); ALK PHOS 83 U/L (45-117); ANION GAP 4 (8-16); BILIRUBIN,TOTAL 0.3 mg/dL (0.2-1.0); CALCIUM 8.7 mg/dL (8.5-10.1); CO2 38 mmol/L (21-32); CREATININE 0.9 mg/dL (0.55-1.02); GLUCOSE,RANDOM 64 mg/dL (74-106); SGOT/AST 23 U/L (15-37); SGPT/ALT 15 U/L (12-78)
[2016-12-05] MEDS ORDERED: SODIUM CHLORIDE 50 ML IVPB ONE (09:05)
[2016-12-05] MEDS ORDERED: PIPERACILLIN/TAZOBACTAM 3.375 GM VIAL IVPB ONE (09:05)
--- NOTE | 2016-12-05 09:12 | PN ---
Progress Note (short form) - Note Progress Note: Patient seen and examined Chart reviewed. Currently lying supine in bed, stuporous but in no distress. Labs, radiologic procedures and progress notes reviewed Medications Ferrous Sulfate (Feosol -) 325 mg PO DAILY [facility] Last Admin: 12/04/16 10:54 Dose: 325 mg Lisinopril (Prinivil) 5 mg PO DAILY [facility] Last Admin: 12/04/16 10:54 Dose: 5 mg Piperacillin Sod/Tazobactam (Sod 3.375 gm/ Sodium Chloride) 50 mls @ 100 mls/ hr IVPB Q8H-IV [facility] Stop: 12/08/16 02:29 Last Admin: 12/05/16 01:30 Dose: 100 mls/hr Metoprolol Tartrate (Lopressor -) 25 mg PO BID [facility] Last Admin: 12/04/16 21:41 Dose: 25 mg Docusate Sodium (Colace -) 100 mg PO DAILY [facility] Last Admin: 12/04/16 10:54 Dose: 100 mg Hydralazine HCl (Apresoline Injection -) 10 mg IM Q8H PRN PRN Reason: SBP >180 Hydralazine HCl (Apresoline -) 25 mg PO TID [facility] Last Admin: 12/05/16 06:20 Dose: 25 mg Atorvastatin Calcium (Lipitor -) 80 mg PO HS [facility] Last Admin: 12/04/16 21:41 Dose: 80 mg Aspirin (Ecotrin -) 81 mg PO DAILY [facility] Last Admin: 12/04/16 10:54 Dose: 81 mg Ascorbic Acid (Vitamin C -) 500 mg PO DAILY [facility] Last Admin: 12/04/16 10:54 Dose: 500 mg Selected Entries 12/04/16 12/05/16 21:00 06:00 Temperature 97.7 F Pulse Rate 60 Respiratory 18 Rate Blood Pressure 112/60 O2 Sat by Pulse 100 Oximetry (%) Oxygen Delivery Nasal Cannula Method Oxygen Flow 2 Rate Laboratory Tests 12/05/16 12/05/16 06:30 06:30 WBC 6.2 Hgb 8.9 L Hct 27.7 L Plt Count 248 Sodium 144 Potassium 3.9 Chloride 102 Carbon Dioxide 38 H BUN 10 Creatinine 0.9 Random Glucose 64 L Calcium 8.7 Total Bilirubin 0.3 D AST 23 ALT 15 Alkaline Phosphatase 83 Total Protein 7.0 Albumin 2.1 L Chest Clear No wheeze or rhonchi Decreased breath sounds at the bases Cor RRR No new murmur Abd Soft Nontender No mass Ext Minimal non-pitting edema of feet Neuro No new focal deficit Assessment and Plan NSTEMI Stable clinically ASHD H/O stent placement TAVR status PPM AFib H/O H/O CVA Cerebrovascular insufficiency Toxic/metabolic encephalopathy Monitor progress Pneumonitis RLL with associated "sepsis syndrome" Monitor clinical status Anemia 8.9/27.7 Hypoalbuminemia 2.1 Multifactorial acute/chronic disease as well as nutritional factors H/O Ovarian Ca by history HTN Monitor Hypokalemia Monitor Continue current Rx
--- NOTE | 2016-12-05 10:15 | PN ---
Progress Note (short form) - Note Progress Note: PULMONARY OFFERS NO COMPLAINTS APPEARS CHRONICALLY ILL TRYING TO EAT WHILE SUPINE VSS/AFEBRILE ANICTERIC SCATTERED RHONCHI S1S2 OBESE SOFT NON TENDER MINIMAL LOWER EXT EDEMA LABS/MEDS/NOTES/IMAGING REVIEWED Pneumonia Acute NSTEMI Atrial Fibrillation h/o CVA Altered Mental Status resolved CAD s/p stents h/o Ovarian Ca - ASA, plavix - beta gogo, statin - antibiotics as per ID - aspiration precautions - O2 to keep SpO2 >90% - DVT prophylaxis - Would consider swallow lanre BEVERLY MD
[2016-12-05] MEDS: FERROUS SO4 325 MG TABLET (FP) PO SCH (10:19)
[2016-12-05] MEDS: ASCORBIC ACID 500 MG TABLET (FP) PO SCH (10:19)
[2016-12-05] MEDS: ASPIRIN COATED 81 MG TABLET.EC PO SCH (10:19)
[2016-12-05] MEDS: LISINOPRIL 5 MG TABLET (FP) PO SCH (10:19)
[2016-12-05] MEDS: DOCUSATE SODIUM 100 MG CAPSULE (FP) PO SCH (10:19)
[2016-12-05] MEDS: METOPROLOL TARTRATE 25 MG TABLET (FP) PO SCH ×2 (10:19→22:19)
--- NOTE | 2016-12-05 15:27 | PN ---
Progress Note, Physician History of Present Illness: Awake, responsive No acute distress Breathing non labored Afebrile - Current Medication List Current Medications: Active Medications Ascorbic Acid (Vitamin C -) 500 mg PO DAILY [facility] Last Admin: 12/05/16 10:19 Dose: 500 mg Aspirin (Ecotrin -) 81 mg PO DAILY [facility] Last Admin: 12/05/16 10:19 Dose: 81 mg Atorvastatin Calcium (Lipitor -) 80 mg PO HS [facility] Last Admin: 12/04/16 21:41 Dose: 80 mg Docusate Sodium (Colace -) 100 mg PO DAILY [facility] Last Admin: 12/05/16 10:19 Dose: 100 mg Ferrous Sulfate (Feosol -) 325 mg PO DAILY [facility] Last Admin: 12/05/16 10:19 Dose: 325 mg Hydralazine HCl (Apresoline Injection -) 10 mg IM Q8H PRN PRN Reason: SBP >180 Hydralazine HCl (Apresoline -) 25 mg PO TID [facility] Last Admin: 12/05/16 13:39 Dose: 25 mg Piperacillin Sod/Tazobactam (Sod 3.375 gm/ Sodium Chloride) 50 mls @ 100 mls/ hr IVPB Q8H-IV [facility] Stop: 12/08/16 02:29 Last Admin: 12/05/16 10:22 Dose: 100 mls/hr Lisinopril (Prinivil) 5 mg PO DAILY [facility] Last Admin: 12/05/16 10:19 Dose: 5 mg Metoprolol Tartrate (Lopressor -) 25 mg PO BID [facility] Last Admin: 12/05/16 10:19 Dose: 25 mg - Objective Vital Signs: Vital Signs Temperature 98.2 F 12/05/16 10:00 Pulse Rate 74 12/05/16 10:00 Respiratory Rate 18 12/05/16 10:00 Blood Pressure 131/87 12/05/16 10:00 O2 Sat by Pulse Oximetry (%) 100 12/04/16 21:00 Constitutional: Yes: No Distress Eyes: Yes: Conjunctiva Clear Cardiovascular: Yes: Regular Rate and Rhythm, S1, S2 Respiratory: Yes: Diminished Gastrointestinal: Yes: Normal Bowel Sounds, Soft Edema: Yes Edema: LLE: 1+, RLE: 1+ Labs: CBC, BMP 12/05/16 06:30 12/05/16 06:30 INR, PTT INR 1.16 (0.82-1.09) H 11/29/16 00:29 Assessment/Plan RLL pneumonia HCAP Possible sepsis secondary to pneumonia Toxic-metabolic encephalopathy- improved S/P TAVR, PPM Day #7 zosyn Substitute po Augmentin 875mg bid x 3d
[2016-12-05] MEDS: AMOX TR/POT CLAV 875MG/125MG TABLETS (FP) PO SCH (17:14)
[2016-12-05] MEDS: ATORVASTATIN CA 80 MG TABLET (FP) PO SCH (22:19)
[2016-12-06] MEDS: hydrALAZINE HCL 25 MG TABLET (FP) PO SCH ×3 (06:41→21:29)
[2016-12-06 07:34] LABS: BASOPHIL 0.4 % (0-2.0); EOSINOPHIL 8.5 % (0-4.5); MCH 28.1 pg (25.7-33.7); MCHC 31.1 g/dl (32.0-36.0); MEAN CELL VOLUME 90.2 fl (80-96); MEAN PLT VOLUME 8.6 fl (7.5-11.1); PLATELET COUNT 242 K/MM3 (134-434); RDW 19.2 % (11.6-15.6); WHITE BLOOD COUNT 7.2 K/mm3 (4.0-10.0)
[2016-12-06 08:16] LABS: ALBUMIN 2.1 g/dl (3.4-5.0); ALK PHOS 80 U/L (45-117); ANION GAP 4 (8-16); BILIRUBIN,TOTAL 0.3 mg/dL (0.2-1.0); CALCIUM 8.4 mg/dL (8.5-10.1); CO2 37 mmol/L (21-32); CREATININE 0.7 mg/dL (0.55-1.02); GLUCOSE,RANDOM 64 mg/dL (74-106); SGOT/AST 26 U/L (15-37); SGPT/ALT 16 U/L (12-78); TOT PROT 6.6 g/dl (6.4-8.2)
--- NOTE | 2016-12-06 08:59 | PN ---
Progress Note (short form) - Note Progress Note: Patient seen and examined Chart reviewed. Currently lying supine in bed, more alert and appropriate. Lethargic but in no distress. Labs, radiologic procedures and progress notes reviewed Medications Lisinopril (Prinivil) 5 mg PO DAILY [facility] Last Admin: 12/05/16 10:19 Dose: 5 mg Hydralazine HCl (Apresoline -) 25 mg PO TID [facility] Last Admin: 12/06/16 06:41 Dose: 25 mg Atorvastatin Calcium (Lipitor -) 80 mg PO HS [facility] Last Admin: 12/05/16 22:19 Dose: 80 mg Ferrous Sulfate (Feosol -) 325 mg PO DAILY [facility] Last Admin: 12/05/16 10:19 Dose: 325 mg Aspirin (Ecotrin -) 81 mg PO DAILY [facility] Last Admin: 12/05/16 10:19 Dose: 81 mg Ascorbic Acid (Vitamin C -) 500 mg PO DAILY [facility] Last Admin: 12/05/16 10:19 Dose: 500 mg Amoxicillin/Clavulanate Potassium (Augmentin - 875mg Tablet) 1 tab PO BID@0800, 1730 [facility] Last Admin: 12/05/16 17:14 Dose: 1 tab Metoprolol Tartrate (Lopressor -) 25 mg PO BID [facility] Last Admin: 12/05/16 22:19 Dose: 25 mg Docusate Sodium (Colace -) 100 mg PO DAILY [facility] Last Admin: 12/05/16 10:19 Dose: 100 mg Hydralazine HCl (Apresoline Injection -) 10 mg IM Q8H PRN PRN Reason: SBP >180 Selected Entries 12/06/16 06:00 Temperature 98.0 F Pulse Rate 61 Respiratory 18 Rate Blood Pressure 184/67 Laboratory Tests 12/06/16 12/06/16 06:30 06:30 WBC 7.2 Hgb 8.5 L Hct 27.4 L Plt Count 242 Sodium 143 Potassium 3.7 Chloride 102 Carbon Dioxide 37 H BUN 9 Creatinine 0.7 D Random Glucose 64 L Calcium 8.4 L Total Bilirubin 0.3 AST 26 ALT 16 Alkaline Phosphatase 80 Total Protein 6.6 Albumin 2.1 L Chest Clear No wheeze or rhonchi Decreased breath sounds at the bases Cor RRR No new murmur Abd Soft Nontender No mass Ext Minimal non-pitting edema of feet Neuro No new focal deficit Assessment and Plan NSTEMI Stable clinically ASHD H/O stent placement TAVR status PPM AFib H/O H/O CVA Cerebrovascular insufficiency Toxic/metabolic encephalopathy Monitor progress Pneumonitis RLL with associated "sepsis syndrome" Monitor clinical status. Switched to oral Rx (Augmentin) Anemia 8.9/27.7>>8.5/27.4 Hypoalbuminemia 2.1 Multifactorial acute/chronic disease as well as nutritional factors H/O Ovarian Ca by history HTN Monitor Hypokalemia Monitor Currently 3.7 Continue current Rx
[2016-12-06] MEDS: ASCORBIC ACID 500 MG TABLET (FP) PO SCH (09:25)
[2016-12-06] MEDS: METOPROLOL TARTRATE 25 MG TABLET (FP) PO SCH ×2 (09:25→21:30)
[2016-12-06] MEDS: LISINOPRIL 5 MG TABLET (FP) PO SCH (09:25)
[2016-12-06] MEDS: ASPIRIN COATED 81 MG TABLET.EC PO SCH (09:25)
[2016-12-06] MEDS: AMOX TR/POT CLAV 875MG/125MG TABLETS (FP) PO SCH ×2 (09:25→17:01)
[2016-12-06] MEDS: DOCUSATE SODIUM 100 MG CAPSULE (FP) PO SCH (09:25)
[2016-12-06] MEDS: FERROUS SO4 325 MG TABLET (FP) PO SCH (09:25)
--- NOTE | 2016-12-06 10:22 | PN ---
Progress Note (short form) - Note Progress Note: PULMONARY OFFERS NO COMPLAINTS APPEARS CHRONICALLY ILL VSS/AFEBRILE ANICTERIC SCATTERED RHONCHI S1S2 OBESE SOFT NON TENDER MINIMAL LOWER EXT EDEMA LABS/MEDS/NOTES/IMAGING REVIEWED Pneumonia Acute NSTEMI Atrial Fibrillation h/o CVA Altered Mental Status resolved CAD s/p stents h/o Ovarian Ca - ASA, plavix - beta gogo, statin - antibiotics as per ID - aspiration precautions - O2 to keep SpO2 >90% - DVT prophylaxis - Would consider swallow lanre BEVERLY MD
[2016-12-06] MEDS ORDERED: PT OWN MED DRAWER 7, Y5N ONE (19:47)
[2016-12-06] MEDS: ATORVASTATIN CA 80 MG TABLET (FP) PO SCH (21:29)
[2016-12-07] MEDS: hydrALAZINE HCL 25 MG TABLET (FP) PO SCH ×2 (05:58→13:17)
[2016-12-07 07:29] LABS: BASOPHIL 0.5 % (0-2.0); EOSINOPHIL 5.2 % (0-4.5); MCH 28.6 pg (25.7-33.7); MCHC 31.9 g/dl (32.0-36.0); MEAN CELL VOLUME 89.5 fl (80-96); MEAN PLT VOLUME 8.4 fl (7.5-11.1); NEUTROPHILS 61.2 % (42.8-82.8); PLATELET COUNT 260 K/MM3 (134-434); RDW 19.4 % (11.6-15.6); WHITE BLOOD COUNT 6.3 K/mm3 (4.0-10.0)
[2016-12-07 07:54] LABS: ALBUMIN 2.1 g/dl (3.4-5.0); ANION GAP 5 (8-16); CALCIUM 8.5 mg/dL (8.5-10.1); CO2 38 mmol/L (21-32); CREATININE 0.7 mg/dL (0.55-1.02); GLUCOSE,RANDOM 73 mg/dL (74-106); SGOT/AST 35 U/L (15-37); SGPT/ALT 23 U/L (12-78)
[2016-12-07 07:55] LABS: ALK PHOS 91 U/L (45-117); BILIRUBIN,TOTAL 0.4 mg/dL (0.2-1.0); TOT PROT 6.8 g/dl (6.4-8.2)
--- NOTE | 2016-12-07 10:24 | PN ---
Progress Note (short form) - Note Progress Note: Doing well. No fever overnight. PO intake improved. Recent Travel: unknown PAST MEDICAL HISTORY: as above PAST SURGICAL HISTORY: as above Social History: Smoking: unknown Alcohol: unknown Drugs: unknown Family History: unknown Allergies No Known Allergies Allergy (Verified 12/13/15 17:55) HOME MEDICATIONS: Home Medications Medication Instructions Recorded Acetaminophen [Tylenol] 325 mg PO QID PRN 11/29/16 Ascorbic Acid [Vitamin C -] 500 mg PO TID 11/29/16 Atorvastatin Ca [Lipitor] 20 mg PO HS 11/29/16 Docusate Sodium [Colace -] 100 mg PO DAILY 11/29/16 Hydralazine HCl [Apresoline -] 25 mg PO BID 11/29/16 Lisinopril [Prinivil] 5 mg PO DAILY 11/29/16 Metoprolol Tartrate 25 mg PO BID 11/29/16 Oxybutynin Chloride [Oxybutynin 10 mg PO DAILY 11/29/16 Chloride ER] Polyethylene Glycol 3350 [Miralax 17 gm PO DAILY 11/29/16 (For Bowel Prep) -] REVIEW OF SYSTEMS CONSTITUTIONAL: Fever at the assisted. Absent: fever, chills, diaphoresis, generalized weakness, malaise, loss of appetite, weight change HEENT: Absent: rhinorrhea, nasal congestion, throat swelling, difficulty swallowing, mouth swelling, visual changes CARDIOVASCULAR: Absent: syncope, palpitations, irregular heart rate, peripheral edema RESPIRATORY: Absent: cough, shortness of breath, dyspnea with exertion, orthopnea, wheezing, stridor, hemoptysis GASTROINTESTINAL:Absent: abdominal distension, nausea, vomiting, diarrhea, constipation, melena, hematochezia GENITOURINARY: Absent:frequency, hematuria, MUSCULOSKELETAL: Absent: myalgia, arthralgia, joint swelling, SKIN: Absent: rash, itching, pallor HEMATOLOGIC/IMMUNOLOGIC: Absent: easy bleeding, easy bruising, lymphadenopathy ENDOCRINE:Absent: unexplained weight gain, unexplained weight loss NEUROLOGIC: Altered mental status for the past few days. Absent: headache, focal weakness or paresthesias, dizziness, unsteady gait, seizure, PHYSICAL EXAMINATION Vital Signs Period Temp Pulse Resp BP Sys/Romero Pulse Ox Last 24 Hr 97.5 F-99 F 60-64 18-20 163-179/60-107 98 GENERAL: Opens eyes to verbal stimuli HEAD: Normal with no signs of trauma. EYES: Pupils equal, round and reactive to light, Right gauze noted EARS, NOSE, THROAT: Ears normal, nares patent, oropharynx clear without exudates. NECK: Supple without lymphadenopathy, or masses. LUNGS: Rhonchus breath sounds bilaterally. HEART: Regular rate and rhythm, normal S1 and S2. Early 2/6 SM ABDOMEN: Soft, not distended, normoactive bowel sounds, no guarding, MUSCULOSKELETAL: No bony deformities or tenderness. UPPER EXTREMITIES: 2+ pulses, warm, well-perfused. No cyanosis. No clubbing. No peripheral edema. LOWER EXTREMITIES: 2+ pulses, warm, well-perfused. No calf tenderness. No peripheral edema. NEUROLOGICAL: Cranial nerves II-XII intact. Normal speech. Normal gait. SKIN: Warm, dry, normal turgor, no rashes or lesions noted, normal capillary refill. CBC, BMP 12/07/16 06:30 12/07/16 06:[address]: no evidence of acute intracranial pathology Abd/pelvis/chest CTA: no evidence of thoracic or abdominal aortic aneurysm or dissection. Right pleural effusion. Right middle lobe infiltrate and lower lobe atelectasis. EKG: AV paced rhythm with prolonged AV conduction Assessment: This is an 86 year old female with PMHx of aortic valve disorder, anemia, COPD, CHF, CVA, CAD s/p stents, NSTEMI, hypertension, hypercholesterolemia, ovarian cancer who presented to the ED from [facility] with altered mental status. Plan: 1) Cardiology: NSTEMI - Stable. - Continue aspirin 81 mg daily. - Cardiology follow up appreciated. 2) Hypertension - Stable - Continue hydralazine to 25 mg TID - Continue lisinopril 5 mg daily. - Continue current meds. - Low salt diet. 3) S/p TAVR - Stable. 4) Pneumonia - Improving. - Switched to Augmentin PO x 2 more days. - Blood cultures negative - ID follow up appreciated. 4) Prophylaxis: - Full dose Lovenox 5) Hypokalemia Potassium repleted. 6) Anemia H/H stable. Refused work up/transfusion during last admission. Will monitor closely. Fall precautions Patient is stable to be discharged back to [place].
--- NOTE | 2016-12-07 10:26 | DS ---
Physical Examination Vital Signs: Vital Signs Temperature 97.6 F 12/07/16 06:03 Pulse Rate 61 12/07/16 06:03 Respiratory Rate 20 12/07/16 06:03 Blood Pressure 163/76 12/07/16 06:03 O2 Sat by Pulse Oximetry (%) 98 12/06/16 21:00 Labs: CBC, BMP 12/07/16 06:30 12/07/16 06:30 Discharge Summary Reason For Visit: NON-ST ELEVATED (NSTEMI) MYOCARDIAL INFARCCTION Current Active Problems Altered mental status (Acute) Non-STEMI (non-ST elevated myocardial infarction) (Acute) Pneumonia (Acute) S/P TAVR (transcatheter aortic valve replacement) (Acute) Severe sepsis (Acute) Hospital Course: This is an 86 year old female with PMHx of aortic valve disorder, anemia, COPD, CHF, CVA, CAD s/p stents, NSTEMI, hypertension, hypercholesterolemia, ovarian cancer who presented to the ED from [facility] with altered mental status. Patient was treated for the following - 1) NSTEMI - Stable. - Continue aspirin 81 mg daily. - Cardiology follow up appreciated. 2) Hypertension - Stable - Continue hydralazine to 25 mg TID - Continue lisinopril 5 mg daily. - Continue current meds. - Low salt diet. 3) S/p TAVR - Stable. 4) Pneumonia - Improving. - Switched to Augmentin PO x 2 more days. - Blood cultures negative - ID follow up appreciated. 4) Prophylaxis: - Full dose Lovenox 5) Hypokalemia Potassium repleted. 6) Anemia H/H stable. Continue Ferrous sulphate/vit C. Refused work up/transfusion during last admission. Will monitor closely. Condition: Fair - Instructions Disposition: [facility] - Home Medications Comprehensive Discharge Medication List: Ambulatory Orders Aa/Hydrolyzed Collagen, Whey [Lps Neutral Flavor Liquid] 30 ml PO BID 11/29/16 Acetaminophen [Tylenol] 325 mg PO Q6H PRN 11/29/16 Lisinopril [Prinivil] 5 mg PO DAILY 11/29/16 Menthol/Zinc Oxide [Calmoseptine Ointment] 0 gm TP ASDIR 11/29/16 Metoprolol Tartrate 25 mg PO BID 11/29/16 Multivitamin with Minerals [Icaps Plus] 1 each PO DAILY 11/29/16 Oxybutynin Chloride [Oxybutynin Chloride ER] 10 mg PO DAILY 11/29/16 Polyethylene Glycol 3350 [Miralax 255 gm Btl -] 17 gm PO DAILY PRN 11/29/16 Amox-Tr/K Cl [Augmentin 875-125mg Tablet -] 1 tab PO BID@0800,1730 #6 tablet Ascorbic Acid [Vitamin C -] 500 mg PO DAILY #30 tablet 12/07/16 Aspirin Coated [Ecotrin -] 81 mg PO DAILY #30 tab 12/07/16 Atorvastatin Ca [Lipitor] 80 mg PO HS #30 tablet 12/07/16 Docusate Sodium [Colace -] 100 mg PO DAILY #30 cap 12/07/16 Ferrous Sulfate [Feosol] 325 mg PO DAILY #30 tab 12/07/16 Hydralazine HCl [Apresoline -] 25 mg PO TID #90 tablet 12/07/16 Lisinopril [Prinivil] 5 mg PO DAILY #30 tablet 12/07/16 Metoprolol Tartrate [Lopressor -] 25 mg PO BID #30 tablet 12/07/16
[2016-12-07] MEDS ORDERED: LISINOPRIL 20 MG TABLET (FP) PO ONE ×2 (10:33→13:30)
[2016-12-07] MEDS: AMOX TR/POT CLAV 875MG/125MG TABLETS (FP) PO SCH (10:33)
[2016-12-07] MEDS: METOPROLOL TARTRATE 25 MG TABLET (FP) PO SCH (10:33)
[2016-12-07] MEDS: DOCUSATE SODIUM 100 MG CAPSULE (FP) PO SCH (10:33)
[2016-12-07] MEDS: ASCORBIC ACID 500 MG TABLET (FP) PO SCH (10:33)
[2016-12-07] MEDS: ASPIRIN COATED 81 MG TABLET.EC PO SCH (10:33)
[2016-12-07] MEDS: LISINOPRIL 5 MG TABLET (FP) PO SCH (10:33)
[2016-12-07] MEDS: FERROUS SO4 325 MG TABLET (FP) PO SCH (10:33)
--- NOTE | 2016-12-07 10:34 | PN ---
Progress Note, Physician Chief Complaint: NSTEMI History of Present Illness: denies cp, sob, pnd, palpitations, syncope - Current Medication List Current Medications: Active Medications Amoxicillin/Clavulanate Potassium (Augmentin - 875mg Tablet) 1 tab PO BID@0800, 1730 [facility] Last Admin: 12/06/16 17:01 Dose: 1 tab Ascorbic Acid (Vitamin C -) 500 mg PO DAILY [facility] Last Admin: 12/06/16 09:25 Dose: 500 mg Aspirin (Ecotrin -) 81 mg PO DAILY [facility] Last Admin: 12/06/16 09:25 Dose: 81 mg Atorvastatin Calcium (Lipitor -) 80 mg PO HS [facility] Last Admin: 12/06/16 21:29 Dose: 80 mg Docusate Sodium (Colace -) 100 mg PO DAILY [facility] Last Admin: 12/06/16 09:25 Dose: 100 mg Ferrous Sulfate (Feosol -) 325 mg PO DAILY [facility] Last Admin: 12/06/16 09:25 Dose: 325 mg Hydralazine HCl (Apresoline -) 25 mg PO TID [facility] Last Admin: 12/07/16 05:58 Dose: 25 mg Lisinopril (Prinivil) 5 mg PO DAILY [facility] Last Admin: 12/06/16 09:25 Dose: 5 mg Metoprolol Tartrate (Lopressor -) 25 mg PO BID [facility] Last Admin: 12/06/16 21:30 Dose: 25 mg - Objective Vital Signs: Vital Signs Temperature 97.6 F 12/07/16 06:03 Pulse Rate 61 12/07/16 06:03 Respiratory Rate 20 12/07/16 06:03 Blood Pressure 163/76 12/07/16 06:03 O2 Sat by Pulse Oximetry (%) 98 12/06/16 21:00 Constitutional: Yes: Well Nourished, No Distress, Calm Cardiovascular: Yes: Regular Rate and Rhythm, S1, S2. No: JVD, Gallop, Murmur Respiratory: Yes: Regular, CTA Bilaterally, Diminished (R base). No: Accessory Muscle Use, Rales, Wheezes Extremities: No: Cold Edema: No Neurological: Yes: Alert, Oriented Psychiatric: No: Agitated Labs: CBC, BMP 12/07/16 06:30 12/07/16 06:30 INR, PTT INR 1.16 (0.82-1.09) H 11/29/16 00:29 Assessment/Plan Echo 11/2016: tds. nl lv/rv. poor visualization of AV. ? prosthetic. 1+ mac, mod ecc TR. Echo 09/26 here: TDS; nl overall LVSF (RWMA tds); nl overall RV size/fxn; nl LA; AV tds--no AI or ; trace MR can't exclude vegetation; mild TR Echo 06/2014: nl lv/rv, mod tr, rvsp 30-40, nl bio avr CXR (holger read): prominent mediastinum; no vasc redistribution, no effusion; mild chronic incr'd interstitial markings--all unchanged vs 09/[address] head: no acute pathology CTA chest/abdomen/pelvis: no aorta dissection or aneurysm (extensive abd aorta calcified plaque); moderate R pleural effusion with adjacent ATX; patchy consolidation RML; L lung clear; a/p: NSTEMI: -known underlying obstructive CAD given NSTEMI here in 2014 (+CP with peak troponin 5)--seen by different cardiology group then, notes reviewed--pt refused cath, was treated medically (no stress test done) -now with atypical presentation (few days of altered MS) in setting of PNA and hi fever, with trop 11-->trending down -she has h/o recurrent occult bleeding on AC in past, necessitating d/c of med, and again same when here 09/26 requiring d/c of ASA (pt declined transfusions at that time) -this 86 yo pt with recurrent occult bleeding (and refusal of PRBCs due to baptism beliefs) is hence at prohibitive risk of premature discontinuation of DAPT therapy and stent thrombosis if has PCI, and hence will be managed medically for now - started statin (hi intensity--atorva 80mg), po BB, HILDA -hgb trending down on serial labs--d/c heparin. cont ASA only (no plavix) -cont BB, HILDA, statin - Dr. Fraser d/w'niles portillo who knows pt from before--given that pt and family previously indicated that they will definitely not accept transfusions, would not risk potentially life-threatening bleeding with DAPT after a cardiac stent regardless of what nuclear images would show--hence med mgmt is only appropriate option here--unless family wishes to first proceed with GI scopes, in which case she will need risk stratification with imaging prior). not a CABG candidate given her poor functional status and hence hi risk of adverse periop outcomes. - d/w'd pt today who reiterates she is adamantly opposed to blood product transfusions for personal philosophical reasons, and also that she is not interested in invasive GI scopes workup or invasive cardiac procedures at this point (she appeared to understand details of this discussion) -echo here for LV fxn --> tds, but grossly nl lv fcn. RML pneumonia with parapneumonic effusion: -fever 102.9 -abx per ID altered mental status: -head CT no acute pathology -? sec to PNA -atypical for ACS sx in elderly with reportedly normal mentation at baseline ( per notes)--though not impossible anemia: -h/o GIB in past (necessitating d/c of AC, per chart notes) -baseline hgb runs 9s-11s -was down to 6's when here 09/26, refused PRBCs--ASA had to be held then -currently stable with hgb 10 -no prior endoscopies done here ppm: -st fab dual chamber place 12/2015 at [facility] for high grade block. followed there. -normal fcn on ecg, tele. -cont routine outpt PM f/u htn: -remains elevated to 170s -incr lisinopril 5mg to 20mg qd -if remains high in am, would add amlodipine ? pafib: -per charts, no details available--pt in sinus rhythm during prior admit here -ac reportedly stopped in past for gib -at high risk for cardioembolic CVA (prior h/o CVA, CHADS-VASC = 7) -will not change prior tx plan given pt not well known to us, and recurrent acute severe anemia 09/26 -ASA only for now, if H/H remains stable s/p tavr: -normal AV fxn on echo here 09/26 -no murmur on exam - echo here with no AI and recorded measured gradients not significantly elevated for bioprothesis
[2016-12-07 16:41] VITALS: BP 166/72; PULSE 68; TEMP 97.3
[2016-12-08] MEDS ORDERED: LISINOPRIL 20 MG TABLET (FP) PO SCH (10:00)
== END 2016-12-07 13:30 | DRG 871 ==
LOC: JER 23:45 → JERBED 11-29 07:28 → JICU 11-29 20:35 → J4W 11-30 20:07 → J8W 12-03 17:20
PROVIDERS: ADMIT Internal Medicine Geriatric Medicine; ATTEND Internal Medicine Geriatric Medicine
DX: A41.9 Sepsis, unspecified organism (principal); I21.4 Non-ST elevation (NSTEMI) myocardial infarction; G92 Toxic encephalopathy; J18.9 Pneumonia, unspecified organism; I13.0 Hypertensive heart and chronic kidney disease with heart failure and stage 1 through stage 4 chronic kidney disease, or unspecified chronic kidney disease; I16.1 Hypertensive emergency; I69.359 Hemiplegia and hemiparesis following cerebral infarction affecting unspecified side; D64.9 Anemia, unspecified; I25.10 Atherosclerotic heart disease of native coronary artery without angina pectoris; E78.00 Pure hypercholesterolemia, unspecified; J44.9 Chronic obstructive pulmonary disease, unspecified; E11.22 Type 2 diabetes mellitus with diabetic chronic kidney disease; N18.9 Chronic kidney disease, unspecified; Z85.43 Personal history of malignant neoplasm of ovary; Z95.2 Presence of prosthetic heart valve; Z95.0 Presence of cardiac pacemaker; Z87.891 Personal history of nicotine dependence; Z66 Do not resuscitate; I48.0 Paroxysmal atrial fibrillation; E87.6 Hypokalemia; E66.9 Obesity, unspecified; E88.09 Other disorders of plasma-protein metabolism, not elsewhere classified; Z68.29 Body mass index [BMI] 29.0-29.9, adult
CPT/HCPCS: 36415; 70450-TC; 71010-TC; 71275-TC; 74174-TC; 80048; 80053; 81003; 81015; 83605; 83735; 84100; 84484; 85025; 85027; 85610; 85730; 86850; 86900; 86901; 87040; 87086; 93005; 93010; 93306-TC; 97161-GP; 99285-25; J1644

== ENCOUNTER 2017-02-10 16:47 | Inpatient (IN) | payer OTHER ==
[2017-02-10 17:17] VITALS: BMI 28.0
--- NOTE | 2017-02-10 19:27 | PDOC ---
History of Present Illness - General History Source: Patient, Assisted Records Exam Limitations: No Limitations - History of Present Illness Initial Comments: 02/10/17 19:27 The patient is an 86F with a PMH of aortic valve disorder, anemia, COPD, CHF, CVA, CAD s/p stents, HTN, Hypercholesterolemia, ovarian ca who presents to the ED with worsening pain coming from her lower back. She is a patient at [facility] and her papers provided most of the history. The papers state that the patient was sent 2/2 to a decubitus ulcer which has worsened. Her papers indicate that she was sent for a deteriorating sacral wound with drainage, concern for a deep infection vs abscess vs osteo. She currently has no complaints other than pain in her lower back. <Krish Heath - Last Filed: 02/10/17 22:13> <Brandon Anguiano - Last Filed: 02/11/17 00:20> - General Chief Complaint: Wound Infection Stated Complaint: WOUND CHECK Time Seen by Provider: 02/10/17 18:29 Past History - Past Medical History Anemia: Yes Cancer: Yes (Ovary & uterine Adnexa) Cardiac Disorders: Yes (aortic valve disorder) CVA: (Yes; in 1979) COPD: Yes CHF: Yes HTN: Yes Hypercholesterolemia: Yes - Surgical History Abdominal Surgery: No Cardiac Surgery: Yes (stents x 2) Lung Surgery: No Orthopedic Surgery: Yes (right hip replacement) - Immunization History Immunization Up to Date: Yes - Suicide/Smoking/Psychosocial Hx Smoking History: Former smoker Have you smoked in the past 12 months: No Number of Cigarettes Smoked Daily: 0 Information on smoking cessation initiated: No Hx Alcohol Use: No Drug/Substance Use Hx: No Substance Use Type: None Hx Substance Use Treatment: No <Krish Heath - Last Filed: 02/10/17 22:13> <Brandon Anguiano - Last Filed: 02/11/17 00:20> - Past Medical History Allergies/Adverse Reactions: Allergies Allergy/AdvReac Type Severity Reaction Status Date / Time No Known Allergies Allergy Verified 02/10/17 17:12 Home Medications: Ambulatory Orders Aa/Hydrolyzed Collagen, Whey [Lps Neutral Flavor Liquid] 960 ml PO BID 02/10/17 Acetaminophen 650 mg PO Q6H PRN 02/10/17 Amoxicillin - [Amoxicillin 875mg Tablet -] 875 mg PO Q12H 02/10/17 Ascorbic Acid [Vitamin C] 500 mg PO BID 02/10/17 Aspirin [ASA -] 81 mg PO DAILY 02/10/17 Atorvastatin Ca [Lipitor] 80 mg PO HS 02/10/17 Collagenase Clostridium Hist. [Santyl] 1 applic TP DAILY 02/10/17 Docusate Sodium 100 mg PO HS 02/10/17 Ferrous Sulfate 325 mg PO BID 02/10/17 Foam Bandage [Allevyn Life] 1 each TP DAILY 02/10/17 Hydralazine HCl [Apresoline -] 25 mg PO TID 02/10/17 Lisinopril 5 mg PO DAILY 02/10/17 Menthol [Bengay Ultra Strength] 1 each TP DAILY 02/10/17 Menthol/Zinc Oxide [Calmoseptine Ointment] 71 gm TP DAILY 02/10/17 Metoprolol Tartrate 25 mg PO BID 02/10/17 Multivitamin [One Daily] 1 each PO DAILY 02/10/17 Mupirocin Cream [Bactroban 2% Cream -] 1 applic TP TID 02/10/17 Oxybutynin Chloride [Oxybutynin Chloride ER] 10 mg PO DAILY 02/10/17 Polyethylene Glycol 3350 [Purelax] 17 gm PO DAILY 02/10/17 Review of Systems - Review of Systems Able to Perform ROS?: Yes Is the patient limited [place] proficient: No Constitutional: No: Chills, Fever HEENTM: No: Nose Pain, Throat Pain Respiratory: No: Cough, Shortness of Breath Cardiac (ROS): No: Chest Pain, Palpitations ABD/GI: No: Nausea, Vomiting : No: Burning, Dysuria Musculoskeletal: Yes: Back Pain. No: Muscle Pain <Krish Heath - Last Filed: 02/10/17 22:13> *Physical Exam - Vital Signs Last Vital Signs Temp Pulse Resp BP Pulse Ox 98.3 F 63 20 192/76 100 02/10/17 17:13 02/10/17 17:13 02/10/17 17:13 02/10/17 17:13 02/10/17 17:13 - Physical Exam Comments: 02/10/17 21:16 GENERAL: Well developed, well nourished. Awake and alert. No acute distress. HEENT: Normocephalic, atraumatic. Dry mucous membranes. Oropharynx is clear. NECK: Supple. Full ROM. No JVD. CARDIOVASCULAR: Regular rate and rhythm. No murmurs, rubs, or gallops. PULMONARY: No evidence of respiratory distress. Lungs clear to auscultation bilaterally. No wheezing, rales or rhonchi. ABDOMINAL: Soft. Non-tender. Non-distended. No rebound or guarding. GENITOURINARY: No CVA tenderness bilaterally. MUSCULOSKELETAL: Normal range of motion at all joints. No bony deformities or tenderness. EXTREMITIES: No cyanosis. No clubbing. No edema. No calf tenderness. SKIN: 2 cm stage 4 decubitus ulcer with surrounding stage 1 ulceration. Otherwise warm and dry. Normal capillary refill. No jaundice. NEUROLOGICAL: Alert, awake, appropriate. Normal speech. Gait is normal without ataxia. PSYCHIATRIC: Cooperative. Good eye contact. Appropriate mood and affect. <Krish Heath - Last Filed: 02/10/17 22:13> - Vital Signs Last Vital Signs Temp Pulse Resp BP Pulse Ox 97.4 F L 63 20 192/76 100 02/10/17 23:13 02/10/17 17:13 02/10/17 17:13 02/10/17 17:13 02/10/17 17:13 <Brandon Anguiano - Last Filed: 02/11/17 00:20> ED Treatment Course - LABORATORY CBC & Chemistry Diagram: 02/10/17 20:33 02/10/17 20:33 <Krish Heath - Last Filed: 02/10/17 22:13> - LABORATORY CBC & Chemistry Diagram: 02/10/17 20:33 02/10/17 22:20 - ADDITIONAL ORDERS Additional order review: Laboratory Results 02/10/17 02/10/17 02/10/17 22:20 22:19 22:10 PT with INR INR PTT (Actin FS) VBG pH POC VBG pCO2 POC VBG pO2 Mixed VBG HCO3 Sodium 142 Potassium 3.9 Chloride 103 Carbon Dioxide 36 H Anion Gap 3 L BUN 24 H D Creatinine 0.6 Creat Clearance w eGFR > 60 Random Glucose 80 Lactic Acid Calcium 8.2 L Total Bilirubin 0.8 D AST 24 D ALT 23 Alkaline Phosphatase 88 Creatine Kinase Troponin I C-Reactive Protein 4.9 H Total Protein 7.9 Albumin 1.9 L Urine Color Urine Appearance Urine pH Ur Specific [place] Urine Protein Urine Glucose (UA) Urine Ketones Urine Blood Urine Nitrite Urine Bilirubin Urine Urobilinogen Ur Leukocyte Esterase Urine RBC Urine WBC Urine Mucus Stool Occult Blood Negative Blood Type Antibody Screen Spec Expiration Date 02/10/17 02/10/17 02/10/17 21:34 21:34 21:34 PT with INR 13.70 H INR 1.21 H PTT (Actin FS) VBG pH POC VBG pCO2 POC VBG pO2 Mixed VBG HCO3 Sodium Cancelled Potassium Cancelled Chloride Cancelled Carbon Dioxide Cancelled Anion Gap Cancelled BUN Cancelled Creatinine Cancelled Creat Clearance w eGFR Cancelled Random Glucose Cancelled Lactic Acid Calcium Cancelled Total Bilirubin Cancelled AST Cancelled ALT Cancelled Alkaline Phosphatase Cancelled Creatine Kinase Troponin I C-Reactive Protein Total Protein Cancelled Albumin Cancelled Urine Color Urine Appearance Urine pH Ur Specific [place] Urine Protein Urine Glucose (UA) Urine Ketones Urine Blood Urine Nitrite Urine Bilirubin Urine Urobilinogen Ur Leukocyte Esterase Urine RBC Urine WBC Urine Mucus Stool Occult Blood Blood Type Cancelled Antibody Screen Cancelled Spec Expiration Date Cancelled 02/10/17 02/10/17 02/10/17 21:22 20:35 20:33 PT with INR INR PTT (Actin FS) VBG pH 7.40 POC VBG pCO2 60.6 H* POC VBG pO2 55.0 H Mixed VBG HCO3 36.7 H Sodium Potassium Chloride Carbon Dioxide Anion Gap BUN Creatinine Creat Clearance w eGFR Random Glucose Lactic Acid Calcium Total Bilirubin AST ALT Alkaline Phosphatase Creatine Kinase Troponin I C-Reactive Protein Total Protein Albumin Urine Color Yellow Urine Appearance Slcloudy Urine pH 5.0 Ur Specific [place] 1.023 Urine Protein 2+ H Urine Glucose (UA) Negative Urine Ketones Negative Urine Blood Negative Urine Nitrite Negative Urine Bilirubin Negative Urine Urobilinogen 2.0 H Ur Leukocyte Esterase Negative Urine RBC 3 Urine WBC 4 Urine Mucus Rare Stool Occult Blood Blood Type Cancelled Antibody Screen Cancelled Spec Expiration Date Cancelled 02/10/17 02/10/17 02/10/17 20:33 20:33 20:33 PT with INR Cancelled INR Cancelled PTT (Actin FS) Cancelled VBG pH POC VBG pCO2 POC VBG pO2 Mixed VBG HCO3 Sodium Cancelled Potassium Cancelled Chloride Cancelled Carbon Dioxide Cancelled Anion Gap Cancelled BUN Cancelled Creatinine Cancelled Creat Clearance w eGFR Cancelled Random Glucose Cancelled Lactic Acid 0.6 Calcium Cancelled Total Bilirubin Cancelled AST Cancelled ALT Cancelled Alkaline Phosphatase Cancelled Creatine Kinase Cancelled Troponin I Cancelled C-Reactive Protein Total Protein Cancelled Albumin Cancelled Urine Color Urine Appearance Urine pH Ur Specific [place] Urine Protein Urine Glucose (UA) Urine Ketones Urine Blood Urine Nitrite Urine Bilirubin Urine Urobilinogen Ur Leukocyte Esterase Urine RBC Urine WBC Urine Mucus Stool Occult Blood Blood Type Antibody Screen Spec Expiration Date 02/10/17 20:33 RBC 3.03 L MCV 88.5 MCHC 33.6 RDW 20.0 H MPV 8.8 Neutrophils % 61.9 Lymphocytes % 23.4 D Monocytes % 11.2 H Eosinophils % 2.7 Basophils % 0.8 - Medications Given in the ED: ED Medications Discontinued Medications Generic Name Dose Route Start Last Admin Trade Name Freq PRN Reason Stop Dose Admin Sodium Chloride 250 mls @ 500 mls/hr 02/10/17 23:17 02/11/17 00:01 Normal Saline - IV 02/10/17 23:46 500 mls/hr ASDIR STA Administration Piperacillin/Tazobactam/Dextrose 3.375 gm 02/10/17 23:30 02/11/17 00:02 Zosyn 3.375gm Ivpb (Premix) IVPB 02/10/17 23:31 3.375 gm ONCE ONE Administration Sodium Chloride 500 ml 02/10/17 19:51 02/10/17 20:46 Normal Saline - IV 02/10/17 19:52 500 ml ONCE ONE Administration <Brandon Anguiano - Last Filed: 02/11/17 00:20> Medical Decision Making - Medical Decision Making 02/10/17 20:48 The patient is an 86F with an extensive PMH who presents to the ED with a stage 4 decubitus ulcer. We need to r/o osteo on this patient with 1 week of back pain. I will hydrate the patient and give broad spectrum IV abx. Pending labs. Will reassess when labs return. 02/10/17 22:13 Hospitalist paged at 9:30pm, pending call back for admission. <Krish Heath - Last Filed: 02/10/17 22:13> *DC/Admit/Observation/Transfer <Krish Heath - Last Filed: 02/10/17 22:13> - Discharge Dispostion Admit: Yes <Brandon Anguiano - Last Filed: 02/11/17 00:20> Diagnosis at time of Disposition: Decubitus ulcer of sacral region, stage 4 Osteomyelitis Qualifiers: Osteomyelitis type: unspecified type Osteomyelitis location: other site Qualified Code(s): M86.9 - Osteomyelitis, unspecified; M86.9 - Osteomyelitis, unspecified; M86.9 - Osteomyelitis, unspecified - Discharge Dispostion Condition at time of disposition: Fair
[2017-02-10] MEDS ORDERED: SODIUM CHLORIDE 0.9% 1000 ML INFUS.BAG IV ONE (19:51)
[2017-02-10 20:45] LABS: VENOUS PH 7.4 (7.32-7.42)
[2017-02-10 20:46] LABS: VENOUS BLOOD GAS HCO3 36.7 meq/L (19-25)
[2017-02-10 20:58] LABS: BASOPHIL 0.8 % (0-2.0); EOSINOPHIL 2.7 % (0-4.5); MCH 29.8 pg (25.7-33.7); MCHC 33.6 g/dl (32.0-36.0); MEAN CELL VOLUME 88.5 fl (80-96); MEAN PLT VOLUME 8.8 fl (7.5-11.1); NEUTROPHILS 61.9 % (42.8-82.8); PLATELET COUNT 319 K/MM3 (134-434); WHITE BLOOD COUNT 7.7 K/mm3 (4.0-10.0)
[2017-02-10 21:37] LABS: URINE APPEARANCE SLCLOUDY; URINE BILIRUBIN NEGATIVE (NEGATIVE); URINE BLOOD NEGATIVE (NEGATIVE); URINE COLOR YELLOW; URINE GLUCOSE (UA) NEGATIVE (NEGATIVE); URINE KETONE NEGATIVE (NEGATIVE); URINE NITRITE NEGATIVE (NEGATIVE)
[2017-02-10 21:39] LABS: URINE PROTEIN 2+ (NEGATIVE)
[2017-02-10 21:56] LABS: INR 1.21 (0.82-1.09); PROTHROMBIN TIME (PATIENT) 13.7 SEC (9.98-11.88)
--- NOTE | 2017-02-10 22:00 | PDOC ---
Attending Attestation - Resident Resident Name: Jae Heathony - ED Attending Attestation I have performed the following: I have examined & evaluated the patient, The case was reviewed & discussed with the resident, I agree w/resident's findings & plan, Exceptions are as noted - HPI HPI: 02/10/17 21:54 patient is well apearing 86F with hx/o of aortic stenosis, anemia, COPD, CHF, CVA, CAD s/p stents, HTN, Hypercholesterolemia, ovarian ca who presents to the ED with worsening pain to the sacral area. Patient was transferred from [facility] further evaluation. - Physicial Exam PE: 02/10/17 21:59 Patient is awake and alert, nontoxic appearing; patient is afebrile and normotensive; nc, atr eomi mmm rrr cta sft, nt, nd + Stage IV sacral decubitus ulcer with visible bone, no lower extremity edema - Medical Decision Making 02/10/17 22:00 Patient is an 86-year-old female with multiple comorbidities who presents to the ER with a stage IV sacral decubitus ulcer with visible bone. I suspect chronic osteomyelitis. We'll obtain CBC/CMP/wound culture/blood cultures/is our/ CRP. We will administer broad-spectrum antibiotics. Will admit for further evaluation and treatment.
[2017-02-10 22:21] LABS: URINE LEUK ESTERASE Negative (NEGATIVE)
[2017-02-10 22:24] LABS: URINE MUCUS RARE; URINE RBC 3 /hpf (0-3); URINE WBC 4 /hpf (3-5)
[2017-02-10 23:01] LABS: ALBUMIN 1.9 g/dl (3.4-5.0); ANION GAP 3 (8-16); CALCIUM 8.2 mg/dL (8.5-10.1); CO2 36 mmol/L (21-32); CREATININE 0.6 mg/dL (0.55-1.02); GLUCOSE,RANDOM 80 mg/dL (74-106); SGOT/AST 24 U/L (15-37); SGPT/ALT 23 U/L (12-78)
[2017-02-10 23:02] LABS: ALK PHOS 88 U/L (45-117); BILIRUBIN,TOTAL 0.8 mg/dL (0.2-1.0); TOT PROT 7.9 g/dl (6.4-8.2)
[2017-02-10] MEDS ORDERED: SODIUM CHLORIDE 250 ML IV STA (23:17)
[2017-02-10] MEDS ORDERED: VANCOMYCIN 1,250 MG in DEXTROSE 5%-WATER - 250 ML IVPB ONE (23:26)
[2017-02-10] MEDS ORDERED: PIPERACIL/TAZOB 3.375 GM 3.375 GM/50 ML PREMIX IVPB ONE (23:30)
[2017-02-10] MEDS ORDERED: VANCOMYCIN 1 GRAM (PRE-DOCKED) 250 ML IVPB ONE (23:49)
[2017-02-10] MEDS ORDERED: PIPERACILLIN/TAZOB 3.375 GM 50 ML IVPB ONE (23:49)
--- NOTE | 2017-02-11 01:03 | HP ---
CHIEF COMPLAINT: Increased pain to Sacral Wound PCP: Dr. Avalos HISTORY OF PRESENT ILLNESS: This is a 86 y/o woman with a significant past medical history of HTN, HLD, Aortic Stenosis, COPD, CHF, CVA, CAD s/p stents, Ovarian Ca, Anemia. Who presents to the ED from the [facility], sent in for worsening pain to her Sacral Wound. Patient reports having severe pain to her sacrum. Patient has a Stage IV Sacral Decubitus visible to the bone. In reviewing the SNF records she was started on Augmentin 02/05 x7 days. Patient denies fever, chills, cough, dizziness, SOB, CP, AP, N/V/D, constipation, dysuria. ER course was notable for: (1) CRP- 4.9 (2) ESR- 110 (3) Recent Travel: None PAST MEDICAL HISTORY: HTN HLD DM CAD Aortic stenosis COPD CHF CVA Ovarian Ca Anemia PAST SURGICAL HISTORY: Pacemaker Aortic Valve replacement s/p Cardiac stents Social History: Smoking: Former Alcohol: None Drugs: None Resides in [facility] Family History: Unable to Obtain Allergies No Known Allergies Allergy (Verified 02/10/17 17:12) HOME MEDICATIONS: Home Medications Medication Instructions Recorded Aa/Hydrolyzed Collagen, Whey [Lps 960 ml PO BID 02/10/17 Neutral Flavor Liquid] Acetaminophen 650 mg PO Q6H PRN 02/10/17 Amoxicillin - [Amoxicillin 875mg 875 mg PO Q12H 02/10/17 Tablet -] Ascorbic Acid [Vitamin C] 500 mg PO BID 02/10/17 Aspirin [ASA -] 81 mg PO DAILY 02/10/17 Atorvastatin Ca [Lipitor] 80 mg PO HS 02/10/17 Collagenase Clostridium Hist. 1 applic TP DAILY 02/10/17 [Santyl] Docusate Sodium 100 mg PO HS 02/10/17 Ferrous Sulfate 325 mg PO BID 02/10/17 Foam Bandage [Allevyn Life] 1 each TP DAILY 02/10/17 Hydralazine HCl [Apresoline -] 25 mg PO TID 02/10/17 Lisinopril 5 mg PO DAILY 02/10/17 Menthol [Bengay Ultra Strength] 1 each TP DAILY 02/10/17 Menthol/Zinc Oxide [Calmoseptine 71 gm TP DAILY 02/10/17 Ointment] Metoprolol Tartrate 25 mg PO BID 02/10/17 Multivitamin [One Daily] 1 each PO DAILY 02/10/17 Mupirocin Cream [Bactroban 2% 1 applic TP TID 02/10/17 Cream -] Oxybutynin Chloride [Oxybutynin 10 mg PO DAILY 02/10/17 Chloride ER] Polyethylene Glycol 3350 [Purelax] 17 gm PO DAILY 02/10/17 REVIEW OF SYSTEMS CONSTITUTIONAL: Absent: fever, chills, diaphoresis, generalized weakness, malaise, loss of appetite, weight change HEENT: Absent: rhinorrhea, nasal congestion, throat pain, throat swelling, difficulty swallowing, mouth swelling, ear pain, eye pain, visual changes CARDIOVASCULAR: Absent: chest pain, syncope, palpitations, irregular heart rate, lightheadedness , peripheral edema RESPIRATORY: Absent: cough, shortness of breath, dyspnea with exertion, orthopnea, wheezing, stridor, hemoptysis GASTROINTESTINAL: Absent: abdominal pain, abdominal distension, nausea, vomiting, diarrhea, constipation, melena, hematochezia GENITOURINARY: Absent: dysuria, frequency, urgency, hesitancy, hematuria, flank pain, genital pain MUSCULOSKELETAL: Absent: myalgia, arthralgia, joint swelling, back pain, neck pain SKIN: Sacral decubital ulcer Absent: rash, itching, pallor HEMATOLOGIC/IMMUNOLOGIC: Absent: easy bleeding, easy bruising, lymphadenopathy, frequent infections ENDOCRINE: Absent: unexplained weight gain, unexplained weight loss, heat intolerance, cold intolerance NEUROLOGIC: Absent: headache, focal weakness or paresthesias, dizziness, unsteady gait, seizure, mental status changes, bladder or bowel incontinence PSYCHIATRIC: Absent: anxiety, depression, suicidal or homicidal ideation, hallucinations. PHYSICAL EXAMINATION GENERAL: Awake, alert, and fully oriented, in mild distress. HEAD: Normal with no signs of trauma. EYES: Pupils equal, round and reactive to light, extraocular movements intact, sclera anicteric, conjunctiva clear. No lid lag. EARS, NOSE, THROAT: Dry mucous membranes. Ears normal, nares patent, oropharynx clear without exudates. NECK: Normal range of motion, supple without lymphadenopathy, JVD, or masses. LUNGS: Breath sounds equal, clear to auscultation bilaterally. No wheezes, and no crackles. No accessory muscle use. HEART: Irregular rate and rhythm, grade 2/6 systolic murmur. normal S1 and S2 No rub or gallop. ABDOMEN: Soft, nontender, not distended, normoactive bowel sounds, no guarding, no rebound, no masses. No hepatomegaly or splenomegaly. MUSCULOSKELETAL: RLE Contracted, Limited range of motion at all joints. No bony deformities or tenderness. No CVA tenderness. UPPER EXTREMITIES: 2+ pulses, warm, well-perfused. No cyanosis. No clubbing. No peripheral edema. LOWER EXTREMITIES: 2+ pulses, warm, well-perfused. No calf tenderness. No peripheral edema. NEUROLOGICAL: Cranial nerves II-XII intact. Normal speech. Gait not observed. PSYCHIATRIC: Cooperative. Good eye contact. Appropriate mood and affect. SKIN: Stage IV sacral decubitual Ulcer visible to bone with sloughing noted. Warm, dry, normal turgor, no rashes. normal capillary refill. Laboratory Results - last 24 hr 02/10/17 02/10/17 02/10/17 20:33 20:33 20:33 WBC 7.7 RBC 3.03 L Hgb 9.0 L Hct 26.8 L MCV 88.5 MCH 29.8 MCHC 33.6 RDW 20.0 H Plt Count 319 D MPV 8.8 Neutrophils % 61.9 Lymphocytes % 23.4 D Monocytes % 11.2 H Eosinophils % 2.7 Basophils % 0.8 ESR PT with INR Cancelled INR Cancelled PTT (Actin FS) Cancelled VBG pH POC VBG pCO2 POC VBG pO2 Mixed VBG HCO3 Sodium Cancelled Potassium Cancelled Chloride Cancelled Carbon Dioxide Cancelled Anion Gap Cancelled BUN Cancelled Creatinine Cancelled Creat Clearance w eGFR Cancelled Random Glucose Cancelled Lactic Acid Calcium Cancelled Total Bilirubin Cancelled AST Cancelled ALT Cancelled Alkaline Phosphatase Cancelled Creatine Kinase Cancelled Troponin I Cancelled C-Reactive Protein Total Protein Cancelled Albumin Cancelled Urine Color Urine Appearance Urine pH Ur Specific [place] Urine Protein Urine Glucose (UA) Urine Ketones Urine Blood Urine Nitrite Urine Bilirubin Urine Urobilinogen Ur Leukocyte Esterase Urine RBC Urine WBC Urine Mucus Stool Occult Blood Blood Type Antibody Screen Spec Expiration Date 02/10/17 02/10/17 02/10/17 20:33 20:33 20:35 WBC RBC Hgb Hct MCV MCH MCHC RDW Plt Count MPV Neutrophils % Lymphocytes % Monocytes % Eosinophils % Basophils % ESR PT with INR INR PTT (Actin FS) VBG pH 7.40 POC VBG pCO2 60.6 H* POC VBG pO2 55.0 H Mixed VBG HCO3 36.7 H Sodium Potassium Chloride Carbon Dioxide Anion Gap BUN Creatinine Creat Clearance w eGFR Random Glucose Lactic Acid 0.6 Calcium Total Bilirubin AST ALT Alkaline Phosphatase Creatine Kinase Troponin I C-Reactive Protein Total Protein Albumin Urine Color Urine Appearance Urine pH Ur Specific [place] Urine Protein Urine Glucose (UA) Urine Ketones Urine Blood Urine Nitrite Urine Bilirubin Urine Urobilinogen Ur Leukocyte Esterase Urine RBC Urine WBC Urine Mucus Stool Occult Blood Blood Type Cancelled Antibody Screen Cancelled Spec Expiration Date Cancelled 02/10/17 02/10/17 02/10/17 21:22 21:34 21:34 WBC RBC Hgb Hct MCV MCH MCHC RDW Plt Count MPV Neutrophils % Lymphocytes % Monocytes % Eosinophils % Basophils % ESR PT with INR INR PTT (Actin FS) VBG pH POC VBG pCO2 POC VBG pO2 Mixed VBG HCO3 Sodium Cancelled Potassium Cancelled Chloride Cancelled Carbon Dioxide Cancelled Anion Gap Cancelled BUN Cancelled Creatinine Cancelled Creat Clearance w eGFR Cancelled Random Glucose Cancelled Lactic Acid Calcium Cancelled Total Bilirubin Cancelled AST Cancelled ALT Cancelled Alkaline Phosphatase Cancelled Creatine Kinase Troponin I C-Reactive Protein Total Protein Cancelled Albumin Cancelled Urine Color Yellow Urine Appearance Slcloudy Urine pH 5.0 Ur Specific [place] 1.023 Urine Protein 2+ H Urine Glucose (UA) Negative Urine Ketones Negative Urine Blood Negative Urine Nitrite Negative Urine Bilirubin Negative Urine Urobilinogen 2.0 H Ur Leukocyte Esterase Negative Urine RBC 3 Urine WBC 4 Urine Mucus Rare Stool Occult Blood Blood Type Cancelled Antibody Screen Cancelled Spec Expiration Date Cancelled 02/10/17 02/10/17 02/10/17 21:34 22:10 22:19 WBC RBC Hgb Hct MCV MCH MCHC RDW Plt Count MPV Neutrophils % Lymphocytes % Monocytes % Eosinophils % Basophils % ESR PT with INR 13.70 H INR 1.21 H PTT (Actin FS) VBG pH POC VBG pCO2 POC VBG pO2 Mixed VBG HCO3 Sodium Potassium Chloride Carbon Dioxide Anion Gap BUN Creatinine Creat Clearance w eGFR Random Glucose Lactic Acid Calcium Total Bilirubin AST ALT Alkaline Phosphatase Creatine Kinase Troponin I C-Reactive Protein 4.9 H Total Protein Albumin Urine Color Urine Appearance Urine pH Ur Specific [place] Urine Protein Urine Glucose (UA) Urine Ketones Urine Blood Urine Nitrite Urine Bilirubin Urine Urobilinogen Ur Leukocyte Esterase Urine RBC Urine WBC Urine Mucus Stool Occult Blood Negative Blood Type Antibody Screen Spec Expiration Date 02/10/17 02/10/17 22:19 22:20 WBC RBC Hgb Hct MCV MCH MCHC RDW Plt Count MPV Neutrophils % Lymphocytes % Monocytes % Eosinophils % Basophils % ESR 110 H PT with INR INR PTT (Actin FS) VBG pH POC VBG pCO2 POC VBG pO2 Mixed VBG HCO3 Sodium 142 Potassium 3.9 Chloride 103 Carbon Dioxide 36 H Anion Gap 3 L BUN 24 H D Creatinine 0.6 Creat Clearance w eGFR > 60 Random Glucose 80 Lactic Acid Calcium 8.2 L Total Bilirubin 0.8 D AST 24 D ALT 23 Alkaline Phosphatase 88 Creatine Kinase Troponin I C-Reactive Protein Total Protein 7.9 Albumin 1.9 L Urine Color Urine Appearance Urine pH Ur Specific [place] Urine Protein Urine Glucose (UA) Urine Ketones Urine Blood Urine Nitrite Urine Bilirubin Urine Urobilinogen Ur Leukocyte Esterase Urine RBC Urine WBC Urine Mucus Stool Occult Blood Blood Type Antibody Screen Spec Expiration Date ASSESSMENT/PLAN: This is a 86 y/o woman with a PMHx of: HTN, HLD, CAD, Aortic Stenosis, CHF, COPD , anemia, Ovarian Ca. Admitted with Stage IV Sacral Decubital Ulcer r/o Osteomyelitis for further evaluation of their emergent condition. Plan: 1. Decubital Ulcer- Started on Vancomcin, Zosyn in ED, will continue. - Appreciate ID and Vascular consults. - ESR/CRP elevated, no leukocytosis, LA normal Blood, Wound and Urine Cultures- pending. - Will repeat CBCD, BMP in am - Monitor vitals, - Tylenol prn 2. Cardiac- EKG- showed paced rhythm - HTN- controlled, continue meds with parameters - CHF- chest xray- image reviewed - CAD s/p stents, continue meds - Aortic Stenosis- s/p valve replacement - HLD- continue statin, monitor LFTs 3. COPD - stable - Will treat with interventions accordingly 4. Anemia - hgb 9.0 at baseline - Will transfuse if Hgb < 7.0 - continue Ferrous Sulfate 5. FEN - Replete lytes as indicated - Low Na soft Diet 6. DVT Prophylaxis - SCDs - Heparin SQ Code Status: DNR/DNI/HCP- Eden Cobos (granddaughter) [phone] Dispo: Requires Inpatient Care Problem List - Problem (1) Sacral decubitus ulcer, stage IV Code(s): L89.154 - PRESSURE ULCER OF SACRAL REGION, STAGE 4 (2) CAD (coronary artery disease) Code(s): I25.10 - ATHSCL HEART DISEASE OF [place] CORONARY ARTERY W/O ANG PCTRS (3) COPD (chronic obstructive pulmonary disease) Code(s): J44.9 - CHRONIC OBSTRUCTIVE PULMONARY DISEASE, UNSPECIFIED (4) Anemia Code(s): D64.9 - ANEMIA, UNSPECIFIED (5) Hypertension Code(s): I10 - ESSENTIAL (PRIMARY) HYPERTENSION (6) Type II diabetes mellitus Code(s): E11.9 - TYPE 2 DIABETES MELLITUS WITHOUT COMPLICATIONS (7) HLD (hyperlipidemia) Code(s): E78.5 - HYPERLIPIDEMIA, UNSPECIFIED (8) S/P TAVR (transcatheter aortic valve replacement) Code(s): Z95.2 - PRESENCE OF PROSTHETIC HEART VALVE (9) CVA (cerebral vascular accident) Code(s): I63.9 - CEREBRAL INFARCTION, UNSPECIFIED (10) Pacemaker Code(s): Z95.0 - PRESENCE OF CARDIAC PACEMAKER (11) DVT prophylaxis Code(s): JDK0847 - Visit type - Emergency Visit Emergency Visit: Yes ED Registration Date: 02/10/17 Care time: The patient presented to the Emergency Department on the above date and was hospitalized for further evaluation of their emergent condition. - New Patient This patient is new to me today: Yes Date on this admission: 02/11/17 - Critical Care Critical Care patient: No
[2017-02-11] MEDS: HEPARIN NA (PORCINE) 5,000 UNITS/ML 1ML VIAL SQ SCH ×3 (06:45→22:01)
[2017-02-11] MEDS: hydrALAZINE HCL 25 MG TABLET (FP) PO SCH ×3 (06:47→22:01)
[2017-02-11 08:59] LABS: BASOPHIL 1.1 % (0-2.0); EOSINOPHIL 3.9 % (0-4.5); MCH 29.6 pg (25.7-33.7); MCHC 33.6 g/dl (32.0-36.0); MEAN CELL VOLUME 88.2 fl (80-96); MEAN PLT VOLUME 8.3 fl (7.5-11.1); NEUTROPHILS 61.2 % (42.8-82.8); PLATELET COUNT 273 K/MM3 (134-434); RDW 20.3 % (11.6-15.6); WHITE BLOOD COUNT 6.1 K/mm3 (4.0-10.0)
--- NOTE | 2017-02-11 09:15 | PN ---
Progress Note, Physician Chief Complaint: ID Full note dictated Appears comfortable Appears comfortable with no fever chills or complaints other then back pain related to ulcer - Current Medication List Current Medications: Active Medications Aspirin (Asa -) 81 mg PO DAILY [facility] Atorvastatin Calcium (Lipitor -) 80 mg PO HS [facility] Collagenase (Santyl -) 1 applic TP DAILY [facility] Docusate Sodium (Colace -) 100 mg PO HS [facility] Ferrous Sulfate (Feosol -) 325 mg PO BID [facility] Heparin Sodium (Porcine) (Heparin -) 5,000 unit SQ TID [facility] Last Admin: 02/11/17 06:45 Dose: 5,000 unit Hydralazine HCl (Apresoline -) 25 mg PO TID [facility] Last Admin: 02/11/17 06:47 Dose: 25 mg Vancomycin HCl 1,000 mg/ (Dextrose) 250 mls @ 200 mls/hr IVPB Q24H [facility] Lisinopril (Prinivil) 5 mg PO DAILY [facility] Metoprolol Tartrate (Lopressor -) 25 mg PO BID [facility] Multivitamins/Minerals/Vitamin C (Tab-A-Vit -) 1 tab PO DAILY [facility] Oxybutynin Chloride (Ditropan -) 10 mg PO DAILY [facility] Piperacillin/Tazobactam/Dextrose (Zosyn 3.375gm Ivpb (Premix)) 3.375 gm IVPB Q8H-IV [facility] - Objective Vital Signs: Vital Signs Temperature 99.6 F 02/11/17 03:30 Pulse Rate 68 02/11/17 03:30 Respiratory Rate 20 02/11/17 03:30 Blood Pressure 192/72 02/11/17 03:30 O2 Sat by Pulse Oximetry (%) 97 02/11/17 03:30 Constitutional: Yes: No Distress Neck: Yes: WNL, Supple Cardiovascular: Yes: Regular Rate and Rhythm, Murmur, S1, S2 Respiratory: Yes: WNL, Regular, CTA Bilaterally, Diminished Gastrointestinal: Yes: WNL, Normal Bowel Sounds, Soft. No: Tenderness, Tenderness, Epigastrium Edema: No Wound/Incision: Yes: Other (stage 4 decub bone palpable) Labs: CBC, BMP 02/11/17 08:40 INR, PTT INR 1.21 (0.82-1.09) H 02/10/17 21:34 Problem List - Problems (1) Sacral decubitus ulcer, stage IV Code(s): L89.154 - PRESSURE ULCER OF SACRAL REGION, STAGE 4 (2) S/p TAVR (transcatheter aortic valve replacement), bioprosthetic Code(s): Z95.3 - PRESENCE OF XENOGENIC HEART VALVE Assessment/Plan Microbiology Laboratory Tests 02/10/17 02/10/17 02/11/17 22:19 22:20 08:40 WBC 6.1 Hgb 8.6 L Hct 25.7 L Plt Count 273 ESR 110 H BUN 24 H D Creatinine 0.6 Assessment Sacral decubitus ulcer Stage 4 Possibility of osteo considered Plan Hold off on antibiotic for now unless febrile above 101 Cultures pending as has a TAVR Xray of the sacrum ( MRI would be better) Wound care eval with surgery Prospects for healing this stage 4 wound with antibiotics munira Redding MD
[2017-02-11 09:45] LABS: ANION GAP 8 (8-16); CALCIUM 8.4 mg/dL (8.5-10.1); CO2 32 mmol/L (21-32); CREATININE 0.5 mg/dL (0.55-1.02); GLUCOSE,RANDOM 71 mg/dL (74-106)
[2017-02-11] MEDS ORDERED: PIPERACIL/TAZOB 3.375 GM 3.375 GM/50 ML PREMIX IVPB SCH (10:00)
[2017-02-11] MEDS ORDERED: FOAM BANDAGE TP SCH (10:00)
[2017-02-11] MEDS ORDERED: VANCOMYCIN 1,000 MG in DEXTROSE 5%-WATER - 250 ML IVPB SCH (10:00)
--- NOTE | 2017-02-11 10:02 | CONS ---
INFECTIOUS DISEASE CONSULTATION DATE OF CONSULTATION: 02/11/2017 HISTORY OF PRESENT ILLNESS: This is an 86-year-old female with a history of multiple comorbidities from [facility], who was admitted for evaluation of a stage 4 sacral decubitus ulcer. She has a history of aortic stenosis with TAVR procedure, hypertension, COPD, CHF, status post CVA, coronary artery disease with stents, and previous ovarian cancer. She has had a known stage 4 sacral decubitus and is admitted now as somebody noticed that the bone was exposed at the base of the wound. Other than a temperature of 99.6, she appears in no distress and was sitting, eating her breakfast when I first met her today. She has been previously in the hospital including over the summer for treatment of urinary tract infection and pneumonia and denies any chills, shortness of breath, or other systemic complaints. PAST MEDICAL HISTORY: As noted above. PAST SURGICAL HISTORY: TAVR procedure, pacemaker, coronary stents. MEDICATIONS AT HOME: Prinivil, Lopressor, Ditropan, Lipitor, Feosol, vitamin C, aspirin. ALLERGIES: None known. SOCIAL HISTORY: Nonsmoker. No history of alcohol. Currently resides in a alf. FAMILY HISTORY: Unable to obtain due to loss of memory. REVIEW OF SYSTEMS: Respiratory: No cough, shortness of breath, hemoptysis. Cardiac: No chest pain, palpitations, syncope. Gastrointestinal: No nausea, vomiting, diarrhea, weight loss. Genitourinary: No dysuria, hematuria, urinary frequency. PHYSICAL EXAMINATION: General: She was an alert female in no acute distress. Vital Signs: The temperature was 97.4, T-max 99.6. Pulse 68. Blood pressure 192/72. Respirations 20. Neck: Supple without adenopathy. Lungs: Clear to percussion and auscultation. Heart: S1, S2. Regular rhythm with a grade 3/6 systolic murmur heard best at the lower sternal border, right second intercostal space, radiating into the carotid. Abdomen: Soft, nontender, without hepatosplenomegaly. Extremities: Without clubbing, cyanosis, or edema. Skin: Revealed a stage 4 sacral decubitus with no purulence, cellulitis, and bone palpable at the base of the wound. DIAGNOSTIC DATA: The white count was 6.1, hemoglobin 8.6, platelets of 273. ESR of 110. BUN of 24, creatinine 0.6. Urinalysis with RBCs 3, WBCs 4. Chest x-ray shows no evidence of acute infiltrate. ASSESSMENT: An 86-year-old female with multiple comorbidities, who presents for evaluation of "exposed bone" on a chronic sacral decubitus ulcer. She does not appear toxic and has no systemic findings to suggest sepsis at this time. She could obviously have an underlying osteomyelitis. I would note that the prospects for healing given her bedridden status would be anticipated to be poor given the depth and extent of the wound. I am not sure if treating with antibiotics in the terminal carman going to promote wound healing. For now, would observe off antibiotics unless febrile over 101. Blood cultures have been obtained, particularly in light of her history of aortic stenosis with TAVR procedure. Dr. Ferrell to see her. X-ray of the spine as well as possible MRI pending. Further recommendation to follow. SELWYN GARCIA M.D. [id number]
[2017-02-11 10:04] LABS: C-REACTIVE PROTEIN 4.7 MG/DL (0.00-0.3)
[2017-02-11] MEDS: COLLAGENASE CLOSTRIDIUM HIST. 30 GRAMS TUBE TP SCH (11:45)
[2017-02-11] MEDS: ASPIRIN 81 MG CHEWABLE TABLETS PO SCH (11:46)
[2017-02-11] MEDS: LISINOPRIL 5 MG TABLET (FP) PO SCH (11:46)
[2017-02-11] MEDS: FERROUS SO4 325 MG TABLET (FP) PO SCH ×2 (11:46→22:01)
[2017-02-11] MEDS: METOPROLOL TARTRATE 25 MG TABLET (FP) PO SCH ×2 (11:46→22:01)
[2017-02-11] MEDS: MULTIVITAMINS (DAILY MVI) TABLET (FP) PO SCH (11:46)
[2017-02-11] MEDS: OXYBUTYNIN CHLORIDE 5 MG TABLET PO SCH (11:46)
--- NOTE | 2017-02-11 12:04 | PN ---
Progress Note (short form) - Note Progress Note: Patient seen and examined. Alert, awake, interactive in conversation. C/O Back pain but does not want pain meds. Afebrile. Denies chest pain, shortness of breath, palpitation or dizziness. Recent Travel: None PAST MEDICAL HISTORY: HTN HLD DM CAD Aortic stenosis COPD CHF CVA Ovarian Ca Anemia PAST SURGICAL HISTORY: Pacemaker Aortic Valve replacement s/p Cardiac stents Social History: Smoking: Former Alcohol: None Drugs: None Resides in [facility] Family History: Unable to Obtain Allergies No Known Allergies Allergy (Verified 02/10/17 17:12) HOME MEDICATIONS: Home Medications Medication Instructions Recorded Aa/Hydrolyzed Collagen, Whey [Lps 960 ml PO BID 02/10/17 Neutral Flavor Liquid] Acetaminophen 650 mg PO Q6H PRN 02/10/17 Amoxicillin - [Amoxicillin 875mg 875 mg PO Q12H 02/10/17 Tablet -] Ascorbic Acid [Vitamin C] 500 mg PO BID 02/10/17 Aspirin [ASA -] 81 mg PO DAILY 02/10/17 Atorvastatin Ca [Lipitor] 80 mg PO HS 02/10/17 Collagenase Clostridium Hist. 1 applic TP DAILY 02/10/17 [Santyl] Docusate Sodium 100 mg PO HS 02/10/17 Ferrous Sulfate 325 mg PO BID 02/10/17 Foam Bandage [Allevyn Life] 1 each TP DAILY 02/10/17 Hydralazine HCl [Apresoline -] 25 mg PO TID 02/10/17 Lisinopril 5 mg PO DAILY 02/10/17 Menthol [Bengay Ultra Strength] 1 each TP DAILY 02/10/17 Menthol/Zinc Oxide [Calmoseptine 71 gm TP DAILY 02/10/17 Ointment] Metoprolol Tartrate 25 mg PO BID 02/10/17 Multivitamin [One Daily] 1 each PO DAILY 02/10/17 Mupirocin Cream [Bactroban 2% 1 applic TP TID 02/10/17 Cream -] Oxybutynin Chloride [Oxybutynin 10 mg PO DAILY 02/10/17 Chloride ER] Polyethylene Glycol 3350 [Purelax] 17 gm PO DAILY 02/10/17 REVIEW OF SYSTEMS CONSTITUTIONAL: Absent: fever, chills, diaphoresis, generalized weakness, malaise, loss of appetite, weight change HEENT: Absent: rhinorrhea, nasal congestion, throat pain, throat swelling, difficulty swallowing, mouth swelling, ear pain, eye pain, visual changes CARDIOVASCULAR: Absent: chest pain, syncope, palpitations, irregular heart rate, lightheadedness , peripheral edema RESPIRATORY: Absent: cough, shortness of breath, dyspnea with exertion, orthopnea, wheezing, stridor, hemoptysis GASTROINTESTINAL: Absent: abdominal pain, abdominal distension, nausea, vomiting, diarrhea, constipation, melena, hematochezia GENITOURINARY: Absent: dysuria, frequency, urgency, hesitancy, hematuria, flank pain, genital pain MUSCULOSKELETAL: Absent: myalgia, arthralgia, joint swelling, back pain, neck pain SKIN: Sacral decubital ulcer Absent: rash, itching, pallor HEMATOLOGIC/IMMUNOLOGIC: Absent: easy bleeding, easy bruising, lymphadenopathy, frequent infections ENDOCRINE: Absent: unexplained weight gain, unexplained weight loss, heat intolerance, cold intolerance NEUROLOGIC: Absent: headache, focal weakness or paresthesias, dizziness, unsteady gait, seizure, mental status changes, bladder or bowel incontinence PSYCHIATRIC: Absent: anxiety, depression, suicidal or homicidal ideation, hallucinations. PHYSICAL EXAMINATION GENERAL: Awake, alert, and fully oriented, in mild distress. HEAD: Normal with no signs of trauma. EYES: Pupils equal, round and reactive to light, extraocular movements intact, sclera anicteric, conjunctiva clear. No lid lag. EARS, NOSE, THROAT: Dry mucous membranes. Ears normal, nares patent, oropharynx clear without exudates. NECK: Normal range of motion, supple without lymphadenopathy, JVD, or masses. LUNGS: Breath sounds equal, clear to auscultation bilaterally. No wheezes, and no crackles. No accessory muscle use. HEART: Irregular rate and rhythm, grade 2/6 systolic murmur. normal S1 and S2 No rub or gallop. ABDOMEN: Soft, nontender, not distended, normoactive bowel sounds, no guarding, no rebound, no masses. No hepatomegaly or splenomegaly. MUSCULOSKELETAL: RLE Contracted, Limited range of motion at all joints. No bony deformities or tenderness. No CVA tenderness. UPPER EXTREMITIES: 2+ pulses, warm, well-perfused. No cyanosis. No clubbing. No peripheral edema. LOWER EXTREMITIES: 2+ pulses, warm, well-perfused. No calf tenderness. No peripheral edema. NEUROLOGICAL: Cranial nerves II-XII intact. Normal speech. Gait not observed. PSYCHIATRIC: Cooperative. Good eye contact. Appropriate mood and affect. SKIN: Stage IV sacral decubitual Ulcer visible to bone with sloughing noted. Warm, dry, normal turgor, no rashes. normal capillary refill. CBC, BMP 02/11/17 08:40 02/11/17 08:40 ASSESSMENT/PLAN: This is a 86 y/o woman with a PMHx of: HTN, HLD, CAD, Aortic Stenosis, CHF, COPD , anemia, Ovarian Ca. Admitted with Stage IV Sacral Decubital Ulcer r/o Osteomyelitis for further evaluation of their emergent condition. Plan: 1. Decubital Ulcer- Stage 4. - Clean wound - ID consult from Dr. Kay appreciated. No abx. - Awaiting wound/surgical evaluation. - ESR/CRP elevated, no leukocytosis, LA normal Blood, Wound and Urine Cultures- pending. - Tylenol prn 2. Cardiac- EKG- showed paced rhythm - HTN- controlled, continue meds with parameters - CHF- Stable. - CAD s/p stents, continue meds - Aortic Stenosis- s/p valve replacement - HLD- continue statin, monitor LFTs 3. COPD - stable - Inhaled bronchodilators prn. 4. Anemia - hgb 9.0. Improved to as compared to before. - Patient refused transfusion in the past. - continue Ferrous Sulfate 5. FEN - Replete lytes as indicated - Low Na soft Diet 6. DVT Prophylaxis - SCDs - Heparin SQ Code Status: DNR/DNI/HCP- Eden Cobos (granddaughter) [phone]
--- NOTE | 2017-02-11 12:13 | PN ---
Progress Note (short form) - Note Progress Note: Wound Care Consult - Dr. Ferrell Called to lanre 86 yo female[facility]. States she's had a buttock ulcer x1 month. Not getting better. Last Vital Signs Temp Pulse Resp BP Pulse Ox 985 F H 68 20 168/75 97 02/11/17 09:47 02/11/17 09:47 02/11/17 09:47 02/11/17 09:47 02/11/17 03:30 CBC, BMP 02/11/17 08:40 02/11/17 08:40 General: alert. nad Back: Stage 4 ulcer located at piloniadal cleft. Minimal fibrinous slough to base at superior aspect. Minimal undermining. No foul odor. No drainage. Sacrum exposed. Problem List - Problems (1) Sacral decubitus ulcer, stage IV Assessment/Plan: Cont with wet to dry dressing changes daily (ordered) Frequent repositioning Offload all pressure sensitive areas No surgical intervention needed. Cont care per medicine reconsult PRN On behalf of Dr. Ferrell, thank you for the opportunity to participate in your patient's care. Code(s): L89.154 - PRESSURE ULCER OF SACRAL REGION, STAGE 4
--- NOTE | 2017-02-11 17:02 | EKG ---
Test Reason : Blood Pressure : / mmHG Vent. Rate : 065 BPM Atrial Rate : 065 BPM P-R Int : 244 ms QRS Dur : 170 ms QT Int : 478 ms P-R-T Axes : 035 -86 087 degrees QTc Int : 497 ms Atrial-sensed ventricular-paced rhythm with prolonged AV conduction ABNORMAL ECG WHEN COMPARED WITH ECG OF 29-NOV-2016 08:07, VENT. RATE HAS DECREASED BY 5 BPM Confirmed by DIAMANTE WHITE, ZAINAB ([id number]) on 02/11/2017 5:02:19 PM Referred By: Confirmed By:ZAINAB BOBBY MD
[2017-02-11] MEDS: ATORVASTATIN CA 80 MG TABLET (FP) PO SCH (22:01)
[2017-02-11] MEDS: DOCUSATE SODIUM 100 MG CAPSULE (FP) PO SCH (22:01)
[2017-02-12] MEDS: HEPARIN NA (PORCINE) 5,000 UNITS/ML 1ML VIAL SQ SCH ×3 (06:17→22:17)
[2017-02-12] MEDS: hydrALAZINE HCL 25 MG TABLET (FP) PO SCH ×3 (06:17→22:17)
--- NOTE | 2017-02-12 10:57 | PN ---
Progress Note, Physician History of Present Illness: Awake, alert No complaints Afebrile WBC WNL BC no growth - Current Medication List Current Medications: Active Medications Aspirin (Asa -) 81 mg PO DAILY [facility] Last Admin: 02/11/17 11:46 Dose: 81 mg Atorvastatin Calcium (Lipitor -) 80 mg PO HS [facility] Last Admin: 02/11/17 22:01 Dose: 80 mg Collagenase (Santyl -) 1 applic TP DAILY [facility] Last Admin: 02/11/17 11:45 Dose: 1 applic Docusate Sodium (Colace -) 100 mg PO HS [facility] Last Admin: 02/11/17 22:01 Dose: 100 mg Ferrous Sulfate (Feosol -) 325 mg PO BID [facility] Last Admin: 02/11/17 22:01 Dose: 325 mg Heparin Sodium (Porcine) (Heparin -) 5,000 unit SQ TID [facility] Last Admin: 02/12/17 06:17 Dose: 5,000 unit Hydralazine HCl (Apresoline -) 25 mg PO TID [facility] Last Admin: 02/12/17 06:17 Dose: 25 mg Lisinopril (Prinivil) 5 mg PO DAILY [facility] Last Admin: 02/11/17 11:46 Dose: 5 mg Metoprolol Tartrate (Lopressor -) 25 mg PO BID [facility] Last Admin: 02/11/17 22:01 Dose: 25 mg Multivitamins/Minerals/Vitamin C (Tab-A-Vit -) 1 tab PO DAILY [facility] Last Admin: 02/11/17 11:46 Dose: 1 tab Oxybutynin Chloride (Ditropan -) 10 mg PO DAILY [facility] Last Admin: 02/11/17 11:46 Dose: 10 mg - Objective Vital Signs: Vital Signs Temperature 97.5 F L 02/12/17 06:00 Pulse Rate 67 02/12/17 06:00 Respiratory Rate 20 02/12/17 06:00 Blood Pressure 158/73 02/12/17 06:00 O2 Sat by Pulse Oximetry (%) 97 02/11/17 21:00 Constitutional: Yes: No Distress Cardiovascular: Yes: Regular Rate and Rhythm, Murmur, S1, S2 Respiratory: Yes: CTA Bilaterally Gastrointestinal: Yes: Normal Bowel Sounds, Soft. No: Tenderness Wound/Incision: Yes: Other (+ sacral decubitus with packing) Labs: CBC, BMP 02/11/17 08:40 02/11/17 08:40 INR, PTT INR 1.21 (0.82-1.09) H 02/10/17 21:34 Assessment/Plan Sacral decubitus ulcer Hx TAVR Afebrile, WBC WNL. BC no growth Observe off antibiotics
[2017-02-12] MEDS: OXYBUTYNIN CHLORIDE 5 MG TABLET PO SCH (10:58)
[2017-02-12] MEDS: ASPIRIN 81 MG CHEWABLE TABLETS PO SCH (10:58)
[2017-02-12] MEDS: MULTIVITAMINS (DAILY MVI) TABLET (FP) PO SCH (10:59)
[2017-02-12] MEDS: FERROUS SO4 325 MG TABLET (FP) PO SCH ×2 (10:59→22:17)
[2017-02-12] MEDS: COLLAGENASE CLOSTRIDIUM HIST. 30 GRAMS TUBE TP SCH (10:59)
[2017-02-12] MEDS: LISINOPRIL 5 MG TABLET (FP) PO SCH (11:02)
[2017-02-12] MEDS: METOPROLOL TARTRATE 25 MG TABLET (FP) PO SCH ×2 (11:02→22:16)
--- NOTE | 2017-02-12 13:21 | PN ---
Progress Note (short form) - Note Progress Note: Vascular Surgery Pt seen and examined. Dressing changed. Sacrum with bone exposed. clean, pt getting santyl to wound daily . Reviewed ID note, MRI better for imaging. Will order MRI Gary Ferrell DO
--- NOTE | 2017-02-12 14:31 | PN ---
Progress Note (short form) - Note Progress Note: No acute event overnight. Afebrile. MRI ordered Recent Travel: None PAST MEDICAL HISTORY: HTN HLD DM CAD Aortic stenosis COPD CHF CVA Ovarian Ca Anemia PAST SURGICAL HISTORY: Pacemaker Aortic Valve replacement s/p Cardiac stents Social History: Smoking: Former Alcohol: None Drugs: None Resides in [facility] Family History: Unable to Obtain Allergies No Known Allergies Allergy (Verified 02/10/17 17:12) HOME MEDICATIONS: Home Medications Medication Instructions Recorded Aa/Hydrolyzed Collagen, Whey [Lps 960 ml PO BID 02/10/17 Neutral Flavor Liquid] Acetaminophen 650 mg PO Q6H PRN 02/10/17 Amoxicillin - [Amoxicillin 875mg 875 mg PO Q12H 02/10/17 Tablet -] Ascorbic Acid [Vitamin C] 500 mg PO BID 02/10/17 Aspirin [ASA -] 81 mg PO DAILY 02/10/17 Atorvastatin Ca [Lipitor] 80 mg PO HS 02/10/17 Collagenase Clostridium Hist. 1 applic TP DAILY 02/10/17 [Santyl] Docusate Sodium 100 mg PO HS 02/10/17 Ferrous Sulfate 325 mg PO BID 02/10/17 Foam Bandage [Allevyn Life] 1 each TP DAILY 02/10/17 Hydralazine HCl [Apresoline -] 25 mg PO TID 02/10/17 Lisinopril 5 mg PO DAILY 02/10/17 Menthol [Bengay Ultra Strength] 1 each TP DAILY 02/10/17 Menthol/Zinc Oxide [Calmoseptine 71 gm TP DAILY 02/10/17 Ointment] Metoprolol Tartrate 25 mg PO BID 02/10/17 Multivitamin [One Daily] 1 each PO DAILY 02/10/17 Mupirocin Cream [Bactroban 2% 1 applic TP TID 02/10/17 Cream -] Oxybutynin Chloride [Oxybutynin 10 mg PO DAILY 02/10/17 Chloride ER] Polyethylene Glycol 3350 [Purelax] 17 gm PO DAILY 02/10/17 REVIEW OF SYSTEMS CONSTITUTIONAL: Absent: fever, chills, diaphoresis, generalized weakness, malaise, loss of appetite, weight change HEENT: Absent: rhinorrhea, nasal congestion, throat pain, throat swelling, difficulty swallowing, mouth swelling, ear pain, eye pain, visual changes CARDIOVASCULAR: Absent: chest pain, syncope, palpitations, irregular heart rate, lightheadedness , peripheral edema RESPIRATORY: Absent: cough, shortness of breath, dyspnea with exertion, orthopnea, wheezing, stridor, hemoptysis GASTROINTESTINAL: Absent: abdominal pain, abdominal distension, nausea, vomiting, diarrhea, constipation, melena, hematochezia GENITOURINARY: Absent: dysuria, frequency, urgency, hesitancy, hematuria, flank pain, genital pain MUSCULOSKELETAL: Absent: myalgia, arthralgia, joint swelling, back pain, neck pain SKIN: Sacral decubital ulcer Absent: rash, itching, pallor HEMATOLOGIC/IMMUNOLOGIC: Absent: easy bleeding, easy bruising, lymphadenopathy, frequent infections ENDOCRINE: Absent: unexplained weight gain, unexplained weight loss, heat intolerance, cold intolerance NEUROLOGIC: Absent: headache, focal weakness or paresthesias, dizziness, unsteady gait, seizure, mental status changes, bladder or bowel incontinence PSYCHIATRIC: Absent: anxiety, depression, suicidal or homicidal ideation, hallucinations. PHYSICAL EXAMINATION GENERAL: Awake, alert, and fully oriented, in mild distress. HEAD: Normal with no signs of trauma. EYES: Pupils equal, round and reactive to light, extraocular movements intact, sclera anicteric, conjunctiva clear. No lid lag. EARS, NOSE, THROAT: Dry mucous membranes. Ears normal, nares patent, oropharynx clear without exudates. NECK: Normal range of motion, supple without lymphadenopathy, JVD, or masses. LUNGS: Breath sounds equal, clear to auscultation bilaterally. No wheezes, and no crackles. No accessory muscle use. HEART: Irregular rate and rhythm, grade 2/6 systolic murmur. normal S1 and S2 No rub or gallop. ABDOMEN: Soft, nontender, not distended, normoactive bowel sounds, no guarding, no rebound, no masses. No hepatomegaly or splenomegaly. MUSCULOSKELETAL: RLE Contracted, Limited range of motion at all joints. No bony deformities or tenderness. No CVA tenderness. UPPER EXTREMITIES: 2+ pulses, warm, well-perfused. No cyanosis. No clubbing. No peripheral edema. LOWER EXTREMITIES: 2+ pulses, warm, well-perfused. No calf tenderness. No peripheral edema. NEUROLOGICAL: Cranial nerves II-XII intact. Normal speech. Gait not observed. PSYCHIATRIC: Cooperative. Good eye contact. Appropriate mood and affect. SKIN: Stage IV sacral decubitual Ulcer visible to bone with sloughing noted. Warm, dry, normal turgor, no rashes. normal capillary refill. CBC, BMP 02/11/17 08:40 02/11/17 08:40 ASSESSMENT/PLAN: This is a 86 y/o woman with a PMHx of: HTN, HLD, CAD, Aortic Stenosis, CHF, COPD , anemia, Ovarian Ca. Admitted with Stage IV Sacral Decubital Ulcer r/o Osteomyelitis for further evaluation of their emergent condition. Plan: 1. Decubital Ulcer- Stage 4. - ID follow up appreciated. No abx. - MRI ordered. - Wound care team follow up appreciated. 2. Cardiac- EKG- showed paced rhythm - HTN- controlled, continue meds with parameters - CHF- Stable. - CAD s/p stents, continue meds - Aortic Stenosis- s/p valve replacement - HLD- continue statin, monitor LFTs 3. COPD - stable - Inhaled bronchodilators prn. 4. Anemia - hgb 9.0. Improved to as compared to before. - Patient refused transfusion in the past. - continue Ferrous Sulfate 5. FEN - Replete lytes as indicated - Low Na soft Diet 6. DVT Prophylaxis - SCDs - Heparin SQ Code Status: DNR/DNI/HCP- Eden Cobos (granddaughter) [phone]
[2017-02-12] MEDS: DOCUSATE SODIUM 100 MG CAPSULE (FP) PO SCH (22:16)
[2017-02-12] MEDS: ATORVASTATIN CA 80 MG TABLET (FP) PO SCH (22:18)
[2017-02-13] MEDS: hydrALAZINE HCL 25 MG TABLET (FP) PO SCH ×3 (06:30→22:32)
[2017-02-13] MEDS: HEPARIN NA (PORCINE) 5,000 UNITS/ML 1ML VIAL SQ SCH ×3 (06:31→22:32)
[2017-02-13] MEDS ORDERED: PT OWN MED DRAWER 7, Y5N ONE (10:12)
[2017-02-13] MEDS: METOPROLOL TARTRATE 25 MG TABLET (FP) PO SCH ×2 (10:20→22:32)
[2017-02-13] MEDS: OXYBUTYNIN CHLORIDE 5 MG TABLET PO SCH (10:20)
[2017-02-13] MEDS: LISINOPRIL 5 MG TABLET (FP) PO SCH (10:20)
[2017-02-13] MEDS: FERROUS SO4 325 MG TABLET (FP) PO SCH ×2 (10:20→22:32)
[2017-02-13] MEDS: MULTIVITAMINS (DAILY MVI) TABLET (FP) PO SCH (10:20)
[2017-02-13] MEDS: ASPIRIN 81 MG CHEWABLE TABLETS PO SCH (10:20)
[2017-02-13] MEDS: COLLAGENASE CLOSTRIDIUM HIST. 30 GRAMS TUBE TP SCH (14:38)
--- NOTE | 2017-02-13 17:14 | PN ---
Progress Note (short form) - Note Progress Note: No acute event overnight. Afebrile. MRI cannot be done because of pacemaker Recent Travel: None Vital Signs Period Temp Pulse Resp BP Sys/Romero Pulse Ox Last 24 Hr 61 F-99 F 60-67 20-20 143-156/58-69 97 PAST MEDICAL HISTORY: HTN HLD DM CAD Aortic stenosis COPD CHF CVA Ovarian Ca Anemia PAST SURGICAL HISTORY: Pacemaker Aortic Valve replacement s/p Cardiac stents Social History: Smoking: Former Alcohol: None Drugs: None Resides in [facility] Family History: Unable to Obtain Allergies No Known Allergies Allergy (Verified 02/10/17 17:12) HOME MEDICATIONS: Home Medications Medication Instructions Recorded Aa/Hydrolyzed Collagen, Whey [Lps 960 ml PO BID 02/10/17 Neutral Flavor Liquid] Acetaminophen 650 mg PO Q6H PRN 02/10/17 Amoxicillin - [Amoxicillin 875mg 875 mg PO Q12H 02/10/17 Tablet -] Ascorbic Acid [Vitamin C] 500 mg PO BID 02/10/17 Aspirin [ASA -] 81 mg PO DAILY 02/10/17 Atorvastatin Ca [Lipitor] 80 mg PO HS 02/10/17 Collagenase Clostridium Hist. 1 applic TP DAILY 02/10/17 [Santyl] Docusate Sodium 100 mg PO HS 02/10/17 Ferrous Sulfate 325 mg PO BID 02/10/17 Foam Bandage [Allevyn Life] 1 each TP DAILY 02/10/17 Hydralazine HCl [Apresoline -] 25 mg PO TID 02/10/17 Lisinopril 5 mg PO DAILY 02/10/17 Menthol [Bengay Ultra Strength] 1 each TP DAILY 02/10/17 Menthol/Zinc Oxide [Calmoseptine 71 gm TP DAILY 02/10/17 Ointment] Metoprolol Tartrate 25 mg PO BID 02/10/17 Multivitamin [One Daily] 1 each PO DAILY 02/10/17 Mupirocin Cream [Bactroban 2% 1 applic TP TID 02/10/17 Cream -] Oxybutynin Chloride [Oxybutynin 10 mg PO DAILY 02/10/17 Chloride ER] Polyethylene Glycol 3350 [Purelax] 17 gm PO DAILY 02/10/17 REVIEW OF SYSTEMS CONSTITUTIONAL: Absent: fever, chills, diaphoresis, generalized weakness, malaise, loss of appetite, weight change HEENT: Absent: rhinorrhea, nasal congestion, throat pain, throat swelling, difficulty swallowing, mouth swelling, ear pain, eye pain, visual changes CARDIOVASCULAR: Absent: chest pain, syncope, palpitations, irregular heart rate, lightheadedness , peripheral edema RESPIRATORY: Absent: cough, shortness of breath, dyspnea with exertion, orthopnea, wheezing, stridor, hemoptysis GASTROINTESTINAL: Absent: abdominal pain, abdominal distension, nausea, vomiting, diarrhea, constipation, melena, hematochezia GENITOURINARY: Absent: dysuria, frequency, urgency, hesitancy, hematuria, flank pain, genital pain MUSCULOSKELETAL: Absent: myalgia, arthralgia, joint swelling, back pain, neck pain SKIN: Sacral decubital ulcer Absent: rash, itching, pallor HEMATOLOGIC/IMMUNOLOGIC: Absent: easy bleeding, easy bruising, lymphadenopathy, frequent infections ENDOCRINE: Absent: unexplained weight gain, unexplained weight loss, heat intolerance, cold intolerance NEUROLOGIC: Absent: headache, focal weakness or paresthesias, dizziness, unsteady gait, seizure, mental status changes, bladder or bowel incontinence PSYCHIATRIC: Absent: anxiety, depression, suicidal or homicidal ideation, hallucinations. PHYSICAL EXAMINATION GENERAL: Awake, alert, and fully oriented, in mild distress. HEAD: Normal with no signs of trauma. EYES: Pupils equal, round and reactive to light, extraocular movements intact, sclera anicteric, conjunctiva clear. No lid lag. EARS, NOSE, THROAT: Dry mucous membranes. Ears normal, nares patent, oropharynx clear without exudates. NECK: Normal range of motion, supple without lymphadenopathy, JVD, or masses. LUNGS: Breath sounds equal, clear to auscultation bilaterally. No wheezes, and no crackles. No accessory muscle use. HEART: Irregular rate and rhythm, grade 2/6 systolic murmur. normal S1 and S2 No rub or gallop. ABDOMEN: Soft, nontender, not distended, normoactive bowel sounds, no guarding, no rebound, no masses. No hepatomegaly or splenomegaly. MUSCULOSKELETAL: RLE Contracted, Limited range of motion at all joints. No bony deformities or tenderness. No CVA tenderness. UPPER EXTREMITIES: 2+ pulses, warm, well-perfused. No cyanosis. No clubbing. No peripheral edema. LOWER EXTREMITIES: 2+ pulses, warm, well-perfused. No calf tenderness. No peripheral edema. NEUROLOGICAL: Cranial nerves II-XII intact. Normal speech. Gait not observed. PSYCHIATRIC: Cooperative. Good eye contact. Appropriate mood and affect. SKIN: Stage IV sacral decubitual Ulcer visible to bone with sloughing noted. Warm, dry, normal turgor, no rashes. normal capillary refill. CBC, BMP 02/11/17 08:40 02/11/17 08:40 ASSESSMENT/PLAN: This is a 86 y/o woman with a PMHx of: HTN, HLD, CAD, Aortic Stenosis, CHF, COPD , anemia, Ovarian Ca. Admitted with Stage IV Sacral Decubital Ulcer r/o Osteomyelitis for further evaluation of their emergent condition. Plan: 1. Decubital Ulcer- Stage 4. - ID follow up appreciated. No abx. - MRI cannot be done because of pacemaker. - Wound care team follow up appreciated. 2. Cardiac- EKG- showed paced rhythm - HTN- controlled, continue meds with parameters - CHF- Stable. - CAD s/p stents, continue meds - Aortic Stenosis- s/p valve replacement - HLD- continue statin, monitor LFTs 3. COPD - stable - Inhaled bronchodilators prn. 4. Anemia - hgb 9.0. Improved to as compared to before. - Patient refused transfusion in the past. - continue Ferrous Sulfate 5. FEN - Replete lytes as indicated - Low Na soft Diet 6. DVT Prophylaxis - SCDs - Heparin SQ Code Status: DNR/DNI/HCP- Eden Cobos (granddaughter) [phone]
[2017-02-13] MEDS: DOCUSATE SODIUM 100 MG CAPSULE (FP) PO SCH (22:32)
[2017-02-13] MEDS: ATORVASTATIN CA 80 MG TABLET (FP) PO SCH (22:32)
[2017-02-14] MEDS: hydrALAZINE HCL 25 MG TABLET (FP) PO SCH ×2 (06:26→14:22)
[2017-02-14] MEDS: HEPARIN NA (PORCINE) 5,000 UNITS/ML 1ML VIAL SQ SCH ×2 (06:26→14:23)
[2017-02-14] MEDS: FERROUS SO4 325 MG TABLET (FP) PO SCH (10:28)
[2017-02-14] MEDS: OXYBUTYNIN CHLORIDE 5 MG TABLET PO SCH (10:28)
[2017-02-14] MEDS: LISINOPRIL 5 MG TABLET (FP) PO SCH (10:28)
[2017-02-14] MEDS: METOPROLOL TARTRATE 25 MG TABLET (FP) PO SCH (10:28)
[2017-02-14] MEDS: MULTIVITAMINS (DAILY MVI) TABLET (FP) PO SCH (10:28)
[2017-02-14] MEDS: ASPIRIN 81 MG CHEWABLE TABLETS PO SCH (10:28)
[2017-02-14] MEDS: COLLAGENASE CLOSTRIDIUM HIST. 30 GRAMS TUBE TP SCH (10:29)
--- NOTE | 2017-02-14 14:09 | PN ---
Progress Note (short form) - Note Progress Note: No acute event overnight. Afebrile. Recent Travel: None Vital Signs Period Temp Pulse Resp BP Sys/Romero Pulse Ox Last 24 Hr 97.8 F-98.6 F 60-62 18-20 145-176/60-71 98 PAST MEDICAL HISTORY: HTN HLD DM CAD Aortic stenosis COPD CHF CVA Ovarian Ca Anemia PAST SURGICAL HISTORY: Pacemaker Aortic Valve replacement s/p Cardiac stents Social History: Smoking: Former Alcohol: None Drugs: None Resides in [facility] Family History: Unable to Obtain Allergies No Known Allergies Allergy (Verified 02/10/17 17:12) HOME MEDICATIONS: Home Medications Medication Instructions Recorded Aa/Hydrolyzed Collagen, Whey [Lps 960 ml PO BID 02/10/17 Neutral Flavor Liquid] Acetaminophen 650 mg PO Q6H PRN 02/10/17 Amoxicillin - [Amoxicillin 875mg 875 mg PO Q12H 02/10/17 Tablet -] Ascorbic Acid [Vitamin C] 500 mg PO BID 02/10/17 Aspirin [ASA -] 81 mg PO DAILY 02/10/17 Atorvastatin Ca [Lipitor] 80 mg PO HS 02/10/17 Collagenase Clostridium Hist. 1 applic TP DAILY 02/10/17 [Santyl] Docusate Sodium 100 mg PO HS 02/10/17 Ferrous Sulfate 325 mg PO BID 02/10/17 Foam Bandage [Allevyn Life] 1 each TP DAILY 02/10/17 Hydralazine HCl [Apresoline -] 25 mg PO TID 02/10/17 Lisinopril 5 mg PO DAILY 02/10/17 Menthol [Bengay Ultra Strength] 1 each TP DAILY 02/10/17 Menthol/Zinc Oxide [Calmoseptine 71 gm TP DAILY 02/10/17 Ointment] Metoprolol Tartrate 25 mg PO BID 02/10/17 Multivitamin [One Daily] 1 each PO DAILY 02/10/17 Mupirocin Cream [Bactroban 2% 1 applic TP TID 02/10/17 Cream -] Oxybutynin Chloride [Oxybutynin 10 mg PO DAILY 02/10/17 Chloride ER] Polyethylene Glycol 3350 [Purelax] 17 gm PO DAILY 02/10/17 REVIEW OF SYSTEMS CONSTITUTIONAL: Absent: fever, chills, diaphoresis, generalized weakness, malaise, loss of appetite, weight change HEENT: Absent: rhinorrhea, nasal congestion, throat pain, throat swelling, difficulty swallowing, mouth swelling, ear pain, eye pain, visual changes CARDIOVASCULAR: Absent: chest pain, syncope, palpitations, irregular heart rate, lightheadedness , peripheral edema RESPIRATORY: Absent: cough, shortness of breath, dyspnea with exertion, orthopnea, wheezing, stridor, hemoptysis GASTROINTESTINAL: Absent: abdominal pain, abdominal distension, nausea, vomiting, diarrhea, constipation, melena, hematochezia GENITOURINARY: Absent: dysuria, frequency, urgency, hesitancy, hematuria, flank pain, genital pain MUSCULOSKELETAL: Absent: myalgia, arthralgia, joint swelling, back pain, neck pain SKIN: Sacral decubital ulcer Absent: rash, itching, pallor HEMATOLOGIC/IMMUNOLOGIC: Absent: easy bleeding, easy bruising, lymphadenopathy, frequent infections ENDOCRINE: Absent: unexplained weight gain, unexplained weight loss, heat intolerance, cold intolerance NEUROLOGIC: Absent: headache, focal weakness or paresthesias, dizziness, unsteady gait, seizure, mental status changes, bladder or bowel incontinence PSYCHIATRIC: Absent: anxiety, depression, suicidal or homicidal ideation, hallucinations. PHYSICAL EXAMINATION GENERAL: Awake, alert, and fully oriented, in mild distress. HEAD: Normal with no signs of trauma. EYES: Pupils equal, round and reactive to light, extraocular movements intact, sclera anicteric, conjunctiva clear. No lid lag. EARS, NOSE, THROAT: Dry mucous membranes. Ears normal, nares patent, oropharynx clear without exudates. NECK: Normal range of motion, supple without lymphadenopathy, JVD, or masses. LUNGS: Breath sounds equal, clear to auscultation bilaterally. No wheezes, and no crackles. No accessory muscle use. HEART: Irregular rate and rhythm, grade 2/6 systolic murmur. normal S1 and S2 No rub or gallop. ABDOMEN: Soft, nontender, not distended, normoactive bowel sounds, no guarding, no rebound, no masses. No hepatomegaly or splenomegaly. MUSCULOSKELETAL: RLE Contracted, Limited range of motion at all joints. No bony deformities or tenderness. No CVA tenderness. UPPER EXTREMITIES: 2+ pulses, warm, well-perfused. No cyanosis. No clubbing. No peripheral edema. LOWER EXTREMITIES: 2+ pulses, warm, well-perfused. No calf tenderness. No peripheral edema. NEUROLOGICAL: Cranial nerves II-XII intact. Normal speech. Gait not observed. PSYCHIATRIC: Cooperative. Good eye contact. Appropriate mood and affect. SKIN: Stage IV sacral decubitual Ulcer visible to bone with sloughing noted. Warm, dry, normal turgor, no rashes. normal capillary refill. CBC, BMP 02/11/17 08:40 02/11/17 08:40 ASSESSMENT/PLAN: This is a 86 y/o woman with a PMHx of: HTN, HLD, CAD, Aortic Stenosis, CHF, COPD , anemia, Ovarian Ca. Admitted with Stage IV Sacral Decubital Ulcer r/o Osteomyelitis for further evaluation of their emergent condition. Plan: 1. Decubital Ulcer- Stage 4. - Discussed wound cultures with Dr. Redding. No abx recommended. - MRI cannot be done because of pacemaker. - Wound care team follow up appreciated. - 2. Cardiac- EKG- showed paced rhythm - HTN- controlled, continue meds with parameters - CHF- Stable. - CAD s/p stents, continue meds - Aortic Stenosis- s/p valve replacement - HLD- continue statin, monitor LFTs 3. COPD - stable - Inhaled bronchodilators prn. 4. Anemia - hgb 9.0. Improved to as compared to before. - Patient refused transfusion in the past. - continue Ferrous Sulfate 5. FEN - Replete lytes as indicated - Low Na soft Diet 6. DVT Prophylaxis - SCDs - Heparin SQ Code Status: DNR/DNI/HCP- Eden Cobos (granddaughter) [phone] She will be discharged back to [place] today.
--- NOTE | 2017-02-14 14:10 | DS ---
Physical Examination Vital Signs: Vital Signs Temperature 97.8 F 02/14/17 06:01 Pulse Rate 60 02/14/17 06:01 Respiratory Rate 18 02/14/17 06:01 Blood Pressure 176/60 02/14/17 06:01 O2 Sat by Pulse Oximetry (%) 98 02/13/17 21:00 Labs: CBC, BMP 02/11/17 08:40 02/11/17 08:40 Discharge Summary Reason For Visit: OSTEOMYELITIS SACRAL DECUB ULCER IV Current Active Problems CVA (cerebral vascular accident) (Acute) Osteomyelitis (Acute) Pacemaker (Acute) S/p TAVR (transcatheter aortic valve replacement), bioprosthetic (Acute) Sacral decubitus ulcer, stage IV (Acute) Hospital Course: This is a 86 y/o woman with a PMHx of: HTN, HLD, CAD, Aortic Stenosis, CHF, COPD , anemia, Ovarian Ca. Admitted with Stage IV Sacral Decubital Ulcer r/o Osteomyelitis for further evaluation of their emergent condition. Plan: 1. Decubital Ulcer- Stage 4. - ID follow up appreciated. No abx. - MRI cannot be done because of pacemaker. - Wound care team follow up appreciated. 2. Cardiac- EKG- showed paced rhythm - HTN- controlled, continue meds with parameters - CHF- Stable. - CAD s/p stents, continue meds - Aortic Stenosis- s/p valve replacement - HLD- continue statin, monitor LFTs 3. COPD - stable - Inhaled bronchodilators prn. 4. Anemia - hgb 9.0. Improved to as compared to before. - Patient refused transfusion in the past. - continue Ferrous Sulfate 5. FEN - Replete lytes as indicated - Low Na soft Diet 6. DVT Prophylaxis - SCDs - Heparin SQ Code Status: DNR/DNI/HCP- Eden Cobos (granddaughter) [phone] Condition: Fair - Instructions Referrals: Lb Avalos MD [Primary Care Provider] - Disposition: [facility] - Home Medications Comprehensive Discharge Medication List: Ambulatory Orders Aa/Hydrolyzed Collagen, Whey [Lps Neutral Flavor Liquid] 960 ml PO BID 02/10/17 Acetaminophen 650 mg PO Q6H PRN 02/10/17 Amoxicillin - [Amoxicillin 875mg Tablet -] 875 mg PO Q12H 02/10/17 Ascorbic Acid [Vitamin C] 500 mg PO BID 02/10/17 Aspirin [ASA -] 81 mg PO DAILY 02/10/17 Atorvastatin Ca [Lipitor] 80 mg PO HS 02/10/17 Collagenase Clostridium Hist. [Santyl] 1 applic TP DAILY 02/10/17 Docusate Sodium 100 mg PO HS 02/10/17 Ferrous Sulfate 325 mg PO BID 02/10/17 Foam Bandage [Allevyn Life] 1 each TP DAILY 02/10/17 Hydralazine HCl [Apresoline -] 25 mg PO TID 02/10/17 Lisinopril 5 mg PO DAILY 02/10/17 Menthol [Bengay Ultra Strength] 1 each TP DAILY 02/10/17 Menthol/Zinc Oxide [Calmoseptine Ointment] 71 gm TP DAILY 02/10/17 Metoprolol Tartrate 25 mg PO BID 02/10/17 Multivitamin [One Daily] 1 each PO DAILY 02/10/17 Mupirocin Cream [Bactroban 2% Cream -] 1 applic TP TID 02/10/17 Oxybutynin Chloride [Oxybutynin Chloride ER] 10 mg PO DAILY 02/10/17 Polyethylene Glycol 3350 [Purelax] 17 gm PO DAILY 02/10/17
[2017-02-14 17:00] VITALS: BP 155/65; PULSE 65; TEMP 98
== END 2017-02-14 17:00 | DRG 592 ==
LOC: JER 16:47 → JERBED 02-11 00:21 → UNDOADMIN 02-11 00:24 → JERBED 02-11 00:24 → J7W 02-11 03:06
PROVIDERS: ADMIT Internal Medicine; ATTEND Internal Medicine
DX: L89.154 Pressure ulcer of sacral region, stage 4 (principal); M86.8X8 Other osteomyelitis, other site; J44.9 Chronic obstructive pulmonary disease, unspecified; D64.9 Anemia, unspecified; I25.10 Atherosclerotic heart disease of native coronary artery without angina pectoris; E78.5 Hyperlipidemia, unspecified; I35.0 Nonrheumatic aortic (valve) stenosis; E11.69 Type 2 diabetes mellitus with other specified complication; E11.622 Type 2 diabetes mellitus with other skin ulcer; I35.8 Other nonrheumatic aortic valve disorders; I11.0 Hypertensive heart disease with heart failure; Z95.0 Presence of cardiac pacemaker; Z95.2 Presence of prosthetic heart valve; Z66 Do not resuscitate; Z96.641 Presence of right artificial hip joint; Z95.5 Presence of coronary angioplasty implant and graft; Z85.43 Personal history of malignant neoplasm of ovary; Z86.73 Personal history of transient ischemic attack (TIA), and cerebral infarction without residual deficits
CPT/HCPCS: 36415; 71010-TC; 72220-TC; 80048; 80053; 81003; 81015; 82272; 82803; 83605; 85025; 85610; 85651; 86140; 87040; 87070; 87086; 87186; 87205; 93005; 93010; 99282-25; J1644